=== PATIENT | male | born 1975 | race Caucasian/White ===

== ENCOUNTER 2023-05-08 19:24 | Emergency (ER) | payer OTHER, SELFPAY ==
[2023-05-08 19:32] VITALS: BP 200/110; PULSE 112; RESP 18; TEMP 37.1; O2SAT 99; BMI 16.5
--- NOTE | 2023-05-08 19:42 | ECG_ITS ---
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
--- NOTE | 2023-05-08 19:42 | XR_ITS ---
[address] [address] Patient Name: KATHLEEN COOL MRN: [id number] date: 1975 Sex: M Assigned Patient Location: ER Current Patient Location: ED.MAIN Accession/Order Number: [id number] Exam Date: 05/08/2023 19:52 Report Date: 05/08/2023 20:16 At the request of: SATISH COMER Procedure: XR chest 1V EXAM: XR chest 1V at 1955 hours HISTORY: htn , weakness and fatigue. COMPARISON: 12/09/2022 TECHNIQUE: AP upright portable chest x-ray FINDINGS: The heart is not enlarged and the vasculature is not distended. No acute infiltrate, effusion or pneumothorax is identified. The osseous structures are grossly intact. IMPRESSION: No acute infiltrate or evidence of cardiac decompensation. The overall appearance of the chest is unchanged. Electronically authenticated by: FELIPA ORTEGA Date: 05/08/2023 20:16
--- NOTE | 2023-05-08 19:43 | ED_ITS ---
HPI - General Adult General Chief complaint: Weakness Stated complaint: LOW BP Time Seen by Provider: 05/08/23 19:42 Source: patient Mode of arrival: walk-in Limitations: no limitations History of Present Illness HPI narrative: Patient presents here with a chief complaint of low blood pressure. Said a low blood pressure reading at home. Upon arrival here to the emergency room is elevated. Patient's blood pressures generally elevated. He denies any chest pain or shortness of breath. States she's felt weak and fatigued recently. Related Data Home Medications Medication Instructions Recorded Confirmed levetiracetam 500 mg tablet 500 mg PO Q12H 05/08/23 05/08/23 metoprolol tartrate 50 mg tablet 50 mg PO Q12H 05/08/23 05/08/23 Allergies Allergy/AdvReac Type Severity Reaction Status Date / Time Penicillins Allergy Intermediate Verified 05/08/23 19:37 Review of Systems ROS Narrative All Systems are negative except as noted/marked.All systems reviewed and otherwise negative Exam Narrative Exam Narrative: Nurses note and vital signs reviewed and patient is not hypoxic. General: The patient appears well and in no apparent distress. Patient is resting comfortably on cart. Skin: Warm, dry, no pallor noted. There is no rash noted. Head: Normocephalic, atraumatic Eye: Normal conjunctiva, no drainage, EOMI. PERRL Ears, Nose, Mouth, and Throat: oral mucosa is moist. Nares patent. Mouth without vesicles. Ear canals patent. Tm's without Erythema Cardiovascular: Regular Rate and Rhythm Respiratory: Patient is in no distress, no accessory muscle use, lungs are clear to auscultation, no wheezing, rales or rhonchi Back: non-tender, no CVA tenderness bilaterally to percussion. GI: Normal bowel sounds, no tenderness to palpation, no masses appreciated. No rebound, guarding, or rigidity noted. Musculoskeletal: The patient has no evidence of calf tenderness, no pitting ed romain, symmetrical pulses noted bilaterally Neurological: A&O x4, normal speech Psychiatric: Cooperative Constitutional Vital Signs - 24 hr 05/08/23 19:32 05/08/23 19:56 05/08/23 21:03 Temperature 98.7 F Pulse Rate [Monitor] 112 H 97 H Respiratory Rate 18 16 Blood Pressure [Left Arm] 200/110 H 190/117 H Pulse Oximetry 99 97 98 Oxygen Delivery Method Room Air Room Air Room Air Course Vital Signs Vital signs: Vital Signs Temperature 98.7 F 05/08/23 19:32 Pulse Rate 112 H 05/08/23 19:32 Respiratory Rate 18 05/08/23 19:32 Blood Pressure 200/110 H 05/08/23 19:32 Pulse Oximetry 99 05/08/23 19:32 Oxygen Delivery Method Room Air 05/08/23 19:32 Temperature 98.7 F 05/08/23 19:32 Pulse Rate 97 H 05/08/23 21:03 Respiratory Rate 16 05/08/23 21:03 Blood Pressure 190/117 H 05/08/23 21:03 Pulse Oximetry 98 05/08/23 21:03 Oxygen Delivery Method Room Air 05/08/23 21:03 Medical Decision Making MDM Narrative Medical decision making narrative: She presented here for evaluation of blood pressure check. Wrist cuff at home and given him a low blood pressure reading. Upon arrival here was elevated. Patient's blood pressure was 200/110. He states he has normal high blood pressure. Blood work is currently pending. He does have a also a one thirty-one. I did attempt to give him IV Lopressor as well as fluids. Patient wishes to sign out against medical advice. I did explain and leaving at this kind of elevated blood pressures could cause stroke or even . He wishes to sign out. She encouraged follow-up primary care physician. Medical Records Medical records reviewed: Yes I reviewed the patient's medical records Lab Data Lab results reviewed: Yes I reviewed the patient's lab results Labs: Lab Results 05/08/23 Range/Units 19:45 WBC 6.5 (4.0-11.0) 10^3/uL RBC 4.04 L (4.70-6.10) 10^6/uL Hgb 13.5 L (14.0-18.0) g/dL Hct 39.1 L (42.0-54.0) % MCV 96.8 H (80.0-94.0) fL MCH 33.4 (25.9-34.0) pg MCHC 34.5 (29.9-35.2) g/dL RDW 13.4 (11.0-15.0) % Plt Count 214 (150-450) 10^3/uL MPV 9.5 (9.5-13.5) fL Neut % (Auto) 60.5 (43.0-75.0) % Lymph % (Auto) 23.6 (20.5-60.0) % [place] % (Auto) 12.3 H (1.7-12.0) % Eos % (Auto) 2.8 (0.9-7.0) % Baso % (Auto) 0.6 (0.2-2.0) % Neut # (Auto) 4.0 (1.4-6.5) 10^3/uL Lymph # (Auto) 1.5 (1.2-3.8) 10^3/uL [place] # (Auto) 0.8 (0.3-0.8) 10^3/uL Eos # (Auto) 0.2 (0.0-0.7) 10^3/uL Baso # (Auto) 0.0 (0.0-0.1) 10^3/uL Abs Immat Gran (auto) 0.01 (0.00-0.03) 10^3/uL Imm/Tot Granulo (auto) 0.2 (0.0-0.5) % Sodium 131 L (136-145) mmol/L Potassium 3.5 (3.5-5.1) mmol/L Chloride 95 L (98-107) mmol/L Carbon Dioxide 28.7 (21.0-32.0) mmol/L Anion Gap 10.8 BUN 4.0 L (7.0-18.0) mg/dL Creatinine 0.79 (0.70-1.30) mg/dL Est GFR ( Amer) >60 (>=60) Est GFR (Non-Af Amer) >60 (>=60) BUN/Creatinine Ratio 5.1 Glucose 85 (74-106) mg/dL Calcium 8.8 (8.5-10.1) mg/dL Total Bilirubin 0.3 (0.2-1.0) mg/dL AST 47 H (15-37) U/L ALT <16 L (16-63) U/L Alkaline Phosphatase 132 H (46-116) U/L Troponin I High Sens 6.8 (4.0-76.1) pg/mL Total Protein 7.4 (6.4-8.2) g/dL Albumin <3.4 L (3.4-5.0) g/dL Globulin 4.0 g/dL Albumin/Globulin Ratio 0.8 TSH 1.943 (0.358-3.740) uIU/mL ECG Data Interpretation: 194 heart rate normal, sinus tachycardia with a rate of o103 beats or minute, PA interval 170 ms adventist 82 ms, no stemi Discharge Plan Discharge Chief Complaint: Weakness Clinical Impression: Hypertension Patient Disposition: Left Against Medical Advice Time of Disposition Decision: 20:49 Condition: Fair Mode of Transportation: Private Vehicle Prescriptions / Home Meds: No Action metoprolol tartrate 50 mg tablet 50 mg PO Q12H levetiracetam 500 mg tablet 500 mg PO Q12H Instructions: Hypertension (ED) Stand Alone Forms: Portal Instructions Referrals: KEKE DOLL [Primary Care Provider] - 1 week Discharge Date/Time: 05/08/23 21:09
[2023-05-08 19:55] VITALS: PULSE 107
[2023-05-08 19:56] VITALS: O2SAT 97
[2023-05-08 19:57] LABS: Basophils Percent Auto 0.6 % (0.2-2.0); Eosinophils Absolute Auto 0.2 10^3/uL (0.0-0.7); Eosinophils Percent Auto 2.8 % (0.9-7.0); Hematocrit 39.1 % (42.0-54.0); Hemoglobin 13.5 g/dL (14.0-18.0); Immature Granulocytes Abs Auto 0.01 10^3/uL (0.00-0.03); Immature Granulocytes Pct Auto 0.2 % (0.0-0.5); Lymphocytes Absolute Auto 1.5 10^3/uL (1.2-3.8); Lymphocytes Percent Auto 23.6 % (20.5-60.0); Mean Corpuscular HGB Conc 34.5 g/dL (29.9-35.2); Mean Corpuscular Hemoglobin 33.4 pg (25.9-34.0); Mean Corpuscular Volume 96.8 fL (80.0-94.0); Mean Platelet Volume 9.5 fL (9.5-13.5); Monocytes Absolute Auto 0.8 10^3/uL (0.3-0.8); Monocytes Percent Auto 12.3 % (1.7-12.0); Neutrophils Percent Auto 60.5 % (43.0-75.0); Platelet Count 214 10^3/uL (150-450); Red Blood Count 4.04 10^6/uL (4.70-6.10); Red Cell Distribution Width 13.4 % (11.0-15.0); White Blood Count 6.5 10^3/uL (4.0-11.0)
--- NOTE | 2023-05-08 20:01 | PC.NURSE ---
Patient ambulated to room without difficulty. Is A&O. Many dental carries noted.
[2023-05-08 20:23] LABS: Alkaline Phosphatase 132 U/L (46-116); Anion Gap 10.8; Aspartate Amino Transferase 47 U/L (15-37); BUN Creatinine Ratio 5.1; Bilirubin Total 0.3 mg/dL (0.2-1.0); Calcium 8.8 mg/dL (8.5-10.1); Carbon Dioxide 28.7 mmol/L (21.0-32.0); Chloride 95 mmol/L (98-107); Estimated GFR (African America >60 (>=60); Estimated GFR (Non-African Ame >60 (>=60); Glucose 85 mg/dL (74-106); Potassium 3.5 mmol/L (3.5-5.1); Sodium 131 mmol/L (136-145); Thyroid Stimulating Hormone 1.943 uIU/mL (0.358-3.740); Total Protein 7.4 g/dL (6.4-8.2); Troponin I High Sensitivity 6.8 pg/mL (4.0-76.1)
[2023-05-08 20:28] LABS: Alanine Aminotransferase <16 U/L (16-63)
[2023-05-08 20:29] LABS: Albumin Globulin Ratio 0.8; Albumin Level <3.4 g/dL (3.4-5.0)
[2023-05-08] MEDS: METOPROLOL TARTRATE 5 MG/5 ML VIAL IVP (20:54)
[2023-05-08 21:03] VITALS: BP 190/117; PULSE 97; RESP 16; O2SAT 98
--- NOTE | 2023-05-08 21:05 | PC.NURSE ---
Patient refuses to stay. Wants to sign out AMA. Provider aware. Medicated for B/P prior to discharge.Stressed to follow up with his
== END 2023-05-08 21:09 | disposition left against medical advice (07) ==
PROVIDERS: Physician Assistant; Emergency Provider Internal Medicine; PCP Student in an Organized Health Care Education/Training Program
DX: I10 Essential (primary) hypertension (principal); Z79.899 Other long term (current) drug therapy
CPT/HCPCS: 36415; 71045; 80053; 84443; 84484; 85025; 85610; 85730; 93005; 96374; 99285

== ENCOUNTER 2023-06-14 21:08 | Emergency (ER) | payer OTHER, SELFPAY ==
[2023-06-14 21:26] VITALS: BP 180/110; PULSE 88; RESP 14; TEMP 36.6; O2SAT 98; BMI 16.6
--- NOTE | 2023-06-14 21:33 | ED.EYEPROB1 ---
Documented by User: Haleyjustin Cantuon 06/14/23 22:23 HPI - Eye Problem General Chief complaint: Eye Problems Stated complaint: FOREIGN BODY IN EYE Time Seen by Provider: 06/14/23 21:33 History of Present Illness HPI Narrative: 48 year old male presents to the ED for left eye irritation. He states he got a piece of metal in his eye earlier today. He has flushed the eye with little relief. He has chronic vision changes to his left eye; his significant other states he can only see some black and white. His last tetanus shot was 4 years ago. Related Data Home Medications Medication Instructions Recorded Confirmed levetiracetam 500 mg tablet 500 mg PO Q12H 05/08/23 05/08/23 metoprolol tartrate 50 mg tablet 50 mg PO Q12H 05/08/23 05/08/23 Allergies Allergy/AdvReac Type Severity Reaction Status Date / Time Penicillins Allergy Intermediate Verified 06/14/23 21:31 Review of Systems ROS Constitutional Denies: fever or chills Eyes Reports: light sensitivity and eye discomfort; Denies: eye discharge Ears, nose, mouth, and throat Denies: throat pain or neck pain Cardiovascular Denies: chest pain Respiratory Denies: shortness of breath or cough Neurological Denies: headache or dizziness PFSH PFSH Social History Smoking status: Current every day smoker Exam Constitutional Vital Signs, click to edit/add: Last Vital Signs Temp 97.8 F 06/14/23 21:26 Pulse 88 06/14/23 21:26 Resp 14 06/14/23 21:26 BP 180/110 H 06/14/23 21:26 Pulse Ox 98 06/14/23 21:26 O2 Del Method Room Air 06/14/23 21:26 Common normals: no apparent distress and oriented x3 General appearance: cooperative; not comfortable and not in distress Orientation/consciousness: Yes awake HENMT Common normals: normocephalic Face and sinus: face symmetric Nose: external nose normal Eye Common normals: EOMs intact bilaterally and no scleral icterus General eye: other (Metallic-appearing FB noted to left eye at 3 o'clock. No rust ring noted.) Eyelid: eyelids normal Conjunctiva: conjunctiva abnormal left conjunctival injection; without subconjunctival hemmorhages Cornea: fluorescein used Course Vital Signs Vital signs: Vital Signs Temperature 97.8 F 06/14/23 21:26 Pulse Rate 88 06/14/23 21:26 Respiratory Rate 14 06/14/23 21:26 Blood Pressure 180/110 H 06/14/23 21:26 Pulse Oximetry 98 06/14/23 21:26 Oxygen Delivery Method Room Air 06/14/23 21:26 Temperature 97.8 F 06/14/23 21:26 Pulse Rate 88 06/14/23 21:26 Respiratory Rate 14 06/14/23 21:26 Blood Pressure 180/110 H 06/14/23 21:26 Pulse Oximetry 98 06/14/23 21:26 Oxygen Delivery Method Room Air 06/14/23 21:26 MDM - Eye Problem MDM Narrative Medical decision making narrative: FB was noted in left eye at 3 o'clock. The left eye was anesthetized with tetracaine, stained with a fluorescein strip, and examined with the wood's lamp. Care was resumed to Dr. Tariq. See her dictation for further evaluation and treatment. Differential Diagnosis Differential diagnosis: Likely corneal abrasion, conjunctivitis and other (FB eye, FB sensation eye) Discharge Plan Discharge Chief Complaint: Eye Problems Clinical Impression: Foreign body in eye Patient Disposition: Home, Self-Care Time of Disposition Decision: 22:37 Condition: Good Mode of Transportation: Private Vehicle Prescriptions / Home Meds: No Action metoprolol tartrate 50 mg tablet 50 mg PO Q12H levetiracetam 500 mg tablet 500 mg PO Q12H Instructions: Eye Foreign Body (ED) Additional Instructions: Use the erythromycin ointment 4 times a day for the next 5-7 days. Follow up with outpatient ophthalmology. Use the pain medication as needed. Wear safety glasses in the future when grinding metal. Return to the emergency department as needed. Stand Alone Forms: Portal Instructions Referrals: Physician,Non-Staff, [Primary Care Provider] - 1 week Documented by User: Patrciia Tariq MD 06/14/23 22:38 HPI - Eye Problem General Chief complaint: Eye Problems Stated complaint: FOREIGN BODY IN EYE Time Seen by Provider: 06/14/23 21:33 Related Data Home Medications Medication Instructions Recorded Confirmed levetiracetam 500 mg tablet 500 mg PO Q12H 05/08/23 05/08/23 metoprolol tartrate 50 mg tablet 50 mg PO Q12H 05/08/23 05/08/23 Allergies Allergy/AdvReac Type Severity Reaction Status Date / Time Penicillins Allergy Intermediate Verified 06/14/23 21:31 PFSH PFSH Social History Smoking status: Current every day smoker Exam Constitutional Vital Signs, click to edit/add: Last Vital Signs Temp 97.8 F 06/14/23 21:26 Pulse 88 06/14/23 21:26 Resp 14 06/14/23 21:26 BP 180/110 H 06/14/23 21:26 Pulse Ox 98 06/14/23 21:26 O2 Del Method Room Air 06/14/23 21:26 Course Vital Signs Vital signs: Vital Signs Temperature 97.8 F 06/14/23 21:26 Pulse Rate 88 06/14/23 21:26 Respiratory Rate 14 06/14/23 21:26 Blood Pressure 180/110 H 06/14/23 21:26 Pulse Oximetry 98 06/14/23 21:26 Oxygen Delivery Method Room Air 06/14/23 21:26 Temperature 97.8 F 06/14/23 21:26 Pulse Rate 88 06/14/23 21:26 Respiratory Rate 14 06/14/23 21:26 Blood Pressure 180/110 H 06/14/23 21:26 Pulse Oximetry 98 06/14/23 21:26 Oxygen Delivery Method Room Air 06/14/23 21:26 MDM - Eye Problem MDM Narrative Medical decision making narrative: FB was noted in left eye at 3 o'clock. The left eye was anesthetized with tetracaine, stained with a fluorescein strip, and examined with the wood's lamp. Care was resumed to Dr. Tariq. See her dictation for further evaluation and treatment. Patient was seen and evaluated in conjunction with the physician electrician's assistant. Please refer to her full H and P. He presents with a piece of metal in the left eye at the 3 o'clock position after grinding metal earlier today. He was wearing his usual glasses but no safety glasses. His vision is grossly intact. I instilled additional tetracaine into the left eye and attempted to remove it with a cotton-tipped applicator without complete removal and the foreign body in the left eye was removed with the ophthalmic caesar. There was no remaining rust ring. Patient was then given erythromycin ointment into the left eye and will be discharged home with erythromycin ointment. He was encouraged to keep eyeglasses on and stay in the dark for the next 24 hours as his eye heals. He was given a Percocet for pain prior to discharge and 2 Percocet to take home. Discharge Plan Discharge Chief Complaint: Eye Problems Clinical Impression: Foreign body in eye Patient Disposition: Home, Self-Care Time of Disposition Decision: 22:37 Condition: Good Mode of Transportation: Private Vehicle Prescriptions / Home Meds: No Action metoprolol tartrate 50 mg tablet 50 mg PO Q12H levetiracetam 500 mg tablet 500 mg PO Q12H Instructions: Eye Foreign Body (ED) Additional Instructions: Use the erythromycin ointment 4 times a day for the next 5-7 days. Follow up with outpatient ophthalmology. Use the pain medication as needed. Wear safety glasses in the future when grinding metal. Return to the emergency department as needed. Stand Alone Forms: Portal Instructions Referrals: Physician,Non-Staff, MD [Primary Care Provider] - 1 week
--- NOTE | 2023-06-14 21:35 | PC.NURSE ---
patient states earlier this morning he was grinding metal when he felt a piece go into his left eye. states he has tried to flush his eye and put eye drops in it and was hoping it would work its way out but eye remains irritated at this time. left eyelid and eye appear red, patient squinting at this time for comfort, states he feels like he can still feel the metal to the upper portion of his eye under the eyelid. this RN was unable to visualize any foreign object in eye by visual exam.
[2023-06-14] MEDS: FLUORESCEIN SODIUM 1 MG STRIP OP (21:50)
[2023-06-14] MEDS: ERYTHROMYCIN OP OINT 0.5% 1 GM TUBE EYE-LEFT (23:00)
[2023-06-14] MEDS: ONDANSETRON 4 MG RAPDIS TABLET SL (23:00)
== END 2023-06-14 23:11 | disposition home or self-care (01) ==
PROVIDERS: Emergency Provider Emergency Medicine
DX: T15.92XA Foreign body on external eye, part unspecified, left eye, initial encounter (principal); Z79.899 Other long term (current) drug therapy; F17.210 Nicotine dependence, cigarettes, uncomplicated
CPT/HCPCS: 99283

== ENCOUNTER 2023-12-06 10:00 | Outpatient (OUT) | payer OTHER, SELFPAY ==
[2023-12-06 10:25] LABS: Estimated Average Glucose 128 mg/dL; Glycohemoglobin A1C 6.1 % (4.5-6.2)
[2023-12-06 10:45] LABS: Basophils Absolute Auto 0.1 10^3/uL (0.0-0.1); Basophils Percent Auto 1.2 % (0.2-2.0); Eosinophils Absolute Auto 0.7 10^3/uL (0.0-0.7); Eosinophils Percent Auto 9.8 % (0.9-7.0); Hematocrit 39.2 % (42.0-54.0); Hemoglobin 13.3 g/dL (14.0-18.0); Immature Granulocytes Abs Auto 0.01 10^3/uL (0.00-0.03); Immature Granulocytes Pct Auto 0.1 % (0.0-0.5); Lymphocytes Absolute Auto 1.4 10^3/uL (1.2-3.8); Lymphocytes Percent Auto 19.9 % (20.5-60.0); Mean Corpuscular HGB Conc 33.9 g/dL (29.9-35.2); Mean Corpuscular Hemoglobin 31.1 pg (25.9-34.0); Mean Corpuscular Volume 91.8 fL (80.0-94.0); Mean Platelet Volume 9.7 fL (9.5-13.5); Neutrophils Absolute Auto 3.8 10^3/uL (1.4-6.5); Platelet Count 317 10^3/uL (150-450); Red Blood Count 4.27 10^6/uL (4.70-6.10); Red Cell Distribution Width 13.1 % (11.0-15.0); White Blood Count 6.8 10^3/uL (4.0-11.0)
[2023-12-06 11:10] LABS: Alanine Aminotransferase 33 U/L (16-63); Albumin Globulin Ratio 0.9; Albumin Level 3.7 g/dL (3.4-5.0); Alkaline Phosphatase 131 U/L (46-116); Anion Gap 10.1; Aspartate Amino Transferase 29 U/L (15-37); BUN Creatinine Ratio 17.2; Bilirubin Total 0.4 mg/dL (0.2-1.0); Calcium 9.2 mg/dL (8.5-10.1); Carbon Dioxide 28.6 mmol/L (21.0-32.0); Chloride 97 mmol/L (98-107); Chol HDL Ratio 1.7; Cholesterol 176 mg/dL (<=200); Estimated GFR (African America >60 (>=60); Estimated GFR (Non-African Ame >60 (>=60); Free T3 5.92 pg/mL (2.18-3.98); Globulin 3.9 g/dL; Glucose 115 mg/dL (74-106); HDL Cholesterol 103 mg/dL (40-60); Potassium 3.7 mmol/L (3.5-5.1); Sodium 132 mmol/L (136-145); Thyroid Stimulating Hormone 2.563 uIU/mL (0.358-3.740); Total Protein 7.6 g/dL (6.4-8.2); Triglycerides 72 mg/dL (<=150); Uric Acid 4.6 mg/dL (3.5-7.2); VLDL CHOLESTEROL 14.4 mg/dL
== END 2023-12-06 10:01 | disposition home or self-care (01) ==
LOC: LAB 10:00
PROVIDERS: Visit Provider Nurse Practitioner Family
DX: I10 Essential (primary) hypertension (principal)
CPT/HCPCS: 36415; 80053; 80061; 83036; 83525; 84436; 84443; 84481; 84550; 85025

== ENCOUNTER 2023-12-14 13:09 | Outpatient (OUT) | payer OTHER, SELFPAY ==
--- OUTSIDE RECORDS SUMMARY | 2023-12-14 13:17 | XMS_ITS | CCD ---
Author Name Unknown Address [address] [facility] [address] [place] [address] Organization [facility] Care Team Providers Care Manager [employer] Name Role Phone Devang Barrett Attending Unavailable DO Matthew Ford Emergency Provider [phone] MD Nat Mera Primary Care Provider Unavaila DO Matt Santamaria Admit Provider [phone] DO Matt Estrella [facility]ending [facility] Care Unavailable DR RA BAKER Admitting Unavailable BARRETT, DR RA Onofre Attending Unavailable BARRETT, DR RA Onofre Consulting Unavailable MALICK LYNCH Consulting Unavailable [facility] Primary Care Unavailable MELANIE BARRETTYL Admitting Unavailable DEVANG BARRETT Attending Unavailable RIA, DEVANG Consulting Unavailable CIERRA PADRON Consulting Unavailable THERESA RIVERA Consulting Unavailable VIJAYA KITCHEN Consulting Unavailable [facility] Primary Care Unavailable RIA, DEVANG Admitting Unavailable MELANIE BARRETTYL Attending Unavailable RIA, DEVANG Consulting Unavailable PADRONCIERRA Consulting Unavailable [facility] Primary Care Unavailable MELANIE BARRETTYL Admitting Unavailable DEVANG BARRETT Attending Unavailable MELANIE BARRETTYL Consulting Unavailable LUIS NVEES Consulting Unavailable ANISH ARIAS Consulting Unavailable [facility] Primary Care Unavailable SANTOS REDMOND Admitting Unavailable SANTOS REDMOND Attending Unavailable LADARIUS HERNANDEZ Consulting Unavailable MADDY SCHOFIELD Consulting Unavailable SANTOS REDMOND Consulting Unavailable SHAMA AVALOS Consulting Unavailable THELMA DAMICO Consulting Unavailable WON AGOSTO Consulting Unavailable Susan Myers Admitting Unavailable Susan Myers Attending [facility] Primary Care Unavailable Matt Estrella Admitting Unavailable Theresa Ohara Attending Unavailable Allergies Allergy Classification Reported Allergen(s) Allergy Type Date of Onset Reaction(s) Facility (1 source) Naproxen; Translations: [naproxen] Drug Allergy [facility] Repository (1 source) Penicillin; Translations: [Penicillin] Drug Allergy [facility] Repository (3 sources) Penicillins; Translations: [Penicillins] Allergy to substance 10-08-2019 [facility] Medications Current Medications Medication Drug Class(es) Dates Sig (Normalized) Sig (Original) levETIRAcetam 500 mg oral tablet (1 source) Start: 12-21-2018 take 1 tablet by mouth twice daily Levetiracetam (Keppra) 500 mg tablet Active 500 MG PO Twice daily 60 December 21, 2018 12:00am metoprolol tartrate 100 mg oral tablet (1 source) beta-Adrenergic Bernabe Start: 12-21-2018 Metoprolol Tartrate (Lopressor) 100 mg Tablet Active 50 MG PO Daily December 21, 2018 12:00am mirtazapine 15 mg oral tablet (1 source) Start: 10-08-2022 take 15 mg by mouth at bedtime Mirtazapine Active 15 MG PO Bedtime October 08, 2022 12:00am omeprazole 20 mg delayed release oral tablet (1 source) Proton Pump Inhibitor Start: 10-08-2019 take 1 tablet by mouth twice daily Omeprazole Magnesium (Prilosec Otc) 20 mg tablet,delayed release (DR/EC) Active 20 MG PO Twice daily 60 14 October 08, 2019 12:00am QUEtiapine 25 mg oral tablet (1 source) Atypical Antipsychotic Start: 10-08-2019 take 1 tablet by mouth once daily Quetiapine (Seroquel) 25 mg Tablet Active 25 MG PO Daily October 08, 2019 12:00am sertraline 50 mg oral tablet (1 source) Serotonin Reuptake Inhibitor Start: 10-08-2022 take 50 mg by mouth once daily Sertraline Active 50 MG PO Daily October 08, 2022 12:00am Problems Active Problems Problem Classification Problem Date Documented Date Episodic/Chronic Alcohol-related disorders (5 sources) Alcoholism; Translations: [Alcohol dependence, uncomplicated] Onset: 08-12-2022 10-08-2019 Chronic Anxiety disorders (1 source) Anxiety disorder, unspecified; Translations: [ANXIETY DISORDER UNSPECIFIED] Onset: 11-30-2022 Chronic E Codes: Struck by; against (1 source) Striking against other object with subsequent fall, initial encounter; Translations: [STRPHANI AGNST OTH OBJ SBSQT FALL INIT] Onset: 01-02-2023 Episodic E Codes: Unspecified (2 sources) Blood alcohol level of 120-199 mg/100 ml; Translations: [Blood alcohol level of 240 mg/100 ml or more] Onset: 08-12-2022 Episodic Epilepsy; convulsions (5 sources) Seizure disorder; Translations: [Epilepsy, unspecified, not intractable, without status epilepticus] Onset: 10-08-2022 10-08-2022 Chronic Gastritis and duodenitis (1 source) Gastritis; Translations: [Gastritis, unspecified, without bleeding] 10-08-2019 Episodic Intestinal infection (1 source) Viral intestinal infection, unspecified; Translations: [VIRAL INTESTINAL INFECTION UNSPEC] Onset: 02-09-2023 Episodic Nausea and vomiting (3 sources) Vomiting, unspecified; Translations: [VOMITING UNSPECIFIED] Onset: 02-07-2023 Episodic Other aftercare (1 source) Other assisted (current) drug therapy; Translations: [OTH DETENTION CURRENT DRUG THERAPY] Onset: 02-09-2023 Episodic Other circulatory disease (1 source) Personal history of transient ischemic attack (TIA), and cerebral infarction without residual deficits; Translations: [PERS HX TIA AND CI NO RESID DEFICIT] Onset: 02-09-2023 Episodic Other circulatory disease (1 source) Hypotension, unspecified; Translations: [Hypotension, unspecified] Onset: 05-08-2023 Episodic Other connective tissue disease (3 sources) Pain in left foot; Translations: [PAIN IN LEFT FOOT] Onset: 12-29-2022 Episodic Other injuries and conditions due to external causes (1 source) Other specified injuries of left lower leg, initial encounter; Translations: [OTH SPEC INJURIES LT LOW LEG INIT] Onset: 01-02-2023 Episodic Other injuries and conditions due to external causes (1 source) Other specified injuries of left ankle, initial encounter; Translations: [OTH SPEC INJURIES LT ANKLE INITIAL] Onset: 01-02-2023 Episodic Other injuries and conditions due to external causes (1 source) Other specified injuries of right ankle, initial encounter; Translations: [OTH SPEC INJURIES RT ANKLE INITIAL] Onset: 01-02-2023 Episodic Other injuries and conditions due to external causes (1 source) History of falling; Translations: [HISTORY OF FALLING] Onset: 12-13-2022 Episodic Residual codes; unclassified (1 source) Left against medical advice; Translations: [Procedure and treatment not carried out because of patient's decision for other reasons] 12-14-2019 Episodic Residual codes; unclassified (4 sources) Altered mental status, unspecified; Translations: [ALTERED MENTAL STATUS UNSPECIFIED] Onset: 12-09-2022 Episodic Residual codes; unclassified (3 sources) Disorientation, unspecified; Translations: [DISORIENTATION UNSPECIFIED] Onset: 11-26-2022 Episodic Spondylosis; intervertebral disc disorders; other back problems (1 source) Cervicalgia; Translations: [CERVICALGIA] Onset: 01-02-2023 Episodic Substance-related disorders (4 sources) Polysubstance abuse ; Translations: [Other psychoactive substance abuse, uncomplicated] Onset: 11-30-2022 10-08-2022 Chronic Superficial injury; contusion (1 source) Contusion of lower back and pelvis, initial encounter; Translations: [CONTUSION LOWER BACK PELVIS INITIAL] Onset: 01-02-2023 Episodic Past or Other Problems Problem Classification Problem Date Documented Da te Episodic/Chronic Alcohol-related disorders (3 sources) Alcohol intoxication; Translations: [Alcohol use, unspecified with intoxication, unspecified] Onset: 10-08-2022 10-08-2022 Episodic Epilepsy; convulsions (4 sources) Unspecified convulsions; Translations: [UNSPECIFIED CONVULSIONS] Onset: 08-10-2022 Episodic Results Test Name Value Interpretation Reference Range Facility Partial Thromboplastin Timeo n 05-08-2023 aPTT Coag (Bld) [Time] 30.2 s Normal 25.1-36.5 [facility] Comment on above: Result Comment: PERF ORMED BY: [place] [address] PATHOLOGIST FILENET P8 DEVELOPER LATOYA CAMPBELL M.D. Performed By: #### C BC, PT, CMP #### [address] Prothrombin Time INRon 05-08 INR Coag (PPP) [Relative time] 0.9 {INR} Normal [facility] Comment on above: Result Comment: INR Therapeutic Range A) Pre- and Peroperative OAT started two weeks before surgery. NOT HIP SURGERY: 1.5 - 2.5 HIP SURGERY: 2 - 3 B) Primary and secondary prevention of venous THROMBOSIS: 2 - 3 C) Active venous thrombosis, pulmonary embolism and prevention of recurrent venous thrombosis: 2 - 3 D) Prevention of arterial thromboembolism including patients with mechanical heart valves: 3 - 4.5 Performed By: #### C BC, PT, CMP #### [facility] [address] PT Coag (PPP) [Time] 10.5 s Normal 9.0-12.9 [facility] Comment on above: Performed By: #### C BC, PT, CMP #### [facility] [address] AMYLASEon 02-08-2023 Amylase [Catalytic activity/Vol] 41 U/L Normal 25-115 [facility] Comment on above: Performed By: #### P OCGLUC #### [facility] [address] [address] [address] Katerina Rodarte CARDIAC RA 3-6on 3 CK [Catalytic activity/Vol] 115 U/L Normal 39-308 [facility] Comment on above: Performed By: #### C MREP #### [facility] [address] [address] [address] Katerina Rodarte CK.MB [Mass/Vol] 2.04 ng/mL Normal <=3.60 [facility] Comment on above: Performed By: #### C MREP #### [facility] [address] [address] [address] Katerina Rodarte HSTROP 9.5 pg/mL Normal 4.0-76.1 [facility] Comment on above: Result Comment: CUT- OFF POINTS HAVE BEEN ESTABLISHED BASED ON THE FOURTH UNIVERSAL DEFINITIONS OF MYOCARDIAL INFARCTION. THE UPPER REFERENCE LIMIT (URL) OF TROPONIN, DEFINED THE 99TH PERCENTILE OF cTnI DISTRIBUTION IN A REFERENCE POPULATION, HAS BEEN CONFIRMED THE DECISION THRESHOLD FOR CO DIAGNOSIS. Performed By: #### C MREP #### [facility] [address] [place] [address] Dr. Katerina Rodarte CARDIAC RA ADMITon 023 CK [Catalytic activity/Vol] 101 U/L Normal 39-308 [facility] Comment on above: Performed By: #### P OCGLUC #### [facility] [address] [place] [address] Dr. Katerina Rodarte CK.MB [Mass/Vol] 2.13 ng/mL Normal <=3.60 [facility] Comment on above: Performed By: #### P OCGLUC #### [facility] [address] [place] [address] Dr. Katerina Rodarte HSTROP 8.5 pg/mL Normal 4.0-76.1 [facility] Comment on above: Result Comment: CUT- OFF POINTS HAVE BEEN ESTABLISHED BASED ON THE FOURTH UNIVERSAL DEFINITIONS OF MYOCARDIAL INFARCTION. THE UPPER REFERENCE LIMIT (URL) OF TROPONIN, DEFINED THE 99TH PERCENTILE OF cTnI DISTRIBUTION IN A REFERENCE POPULATION, HAS BEEN CONFIRMED THE DECISION THRESHOLD FOR CO DIAGNOSIS. Performed By: #### P OCGLUC #### [facility] [address] [place] [address] Dr. Katerina Rodarte SHIRA 44 ng/mL Normal 16-96 [facility] Comment on above: Performed By: #### P OCGLUC #### [facility] [address] [place] [address] Dr. Katerina Rodarte CBC AUTO DIFFon 02-08-2023 BASO # 0.0 103/ul Normal 0.0-0.1 [facility] Comment on above: Performed By: #### P OCGLUC #### [facility] [address] [place] [address] Dr. Katerina Rodarte Basophils/100 WBC (Bld) 0.1 % Critically low 0.2-2.0 [facility] Comment on above: Performed By: #### P OCGLUC #### [facility] [address] [place] [address] Dr. Katerina Rodarte EO # 0.0 103/ul Normal 0.0-0.7 [facility] Comment on above: Performed By: #### P OCGLUC #### [facility] [address] [address] [address] Katerina Rodarte Eosinophils/100 WBC (Bld) 0.1 % Critically low 0.9-7.0 [facility] Comment on above: Performed By: #### P OCGLUC #### [facility] [address] [place] [address] Dr. Katerina Rodarte Erythrocyte distribution width (RBC) [Ratio] 12.7 % Normal 11.0-15.0 [facility] Comment on above: Performed By: #### P OCGLUC #### [facility] [address] [place] [address] Dr. Katerina Rodarte Hematocrit (Bld) [Volume fraction] 41.4 % Critically low 42.0-54.0 [facility] Comment on above: Performed By: #### P OCGLUC #### [facility] [address] [place] [address] Dr. Katerina Rodarte Hemoglobin (Bld) [Mass/Vol] 15.1 g/dL Normal 14.0-18.0 [facility] Comment on above: Performed By: #### P OCGLUC #### [facility] [address] [place] [address] Dr. Katerina Rodarte IG # 0.04 10e3/ul Critically high 0.00-0.03 [facility] Comment on above: Performed By: #### P OCGLUC #### [facility] [address] [place] [address] Dr. Katerina Rodarte IG % 0.4 % Normal 0.0-0.5 [facility] Comment on above: Performed By: #### P OCGLUC #### [facility] [address] [place] [address] Dr. Katerina Rodarte LYMPH # 1.0 103/ul Critically low 1.2-3.8 [facility] Comment on above: Performed By: #### P OCGLUC #### [facility] [address] [place] [address] Dr. Katerina Rodarte Lymphocytes/100 WBC (Bld) 10.0 % Critically low 20.5-60.0 [facility] Comment on above: Performed By: #### P OCGLUC #### [facility] [address] [place] [address] Dr. Katerina Rodarte MANUAL DIFF REQ NO Normal [facility] Comment on above: Performed By: #### P OCGLUC #### [facility] [address] [place] [address] Dr. Katerina Rodarte MCH (RBC) [Entitic mass] 33.9 pg Normal 25.9-34.0 [facility] Comment on above: Performed By: #### P OCGLUC #### [facility] [address] [place] [address] Dr. Katerina Rodarte MCHC (RBC) [Mass/Vol] 36.5 g/dL Critically high 29.9-35.2 [facility] Comment on above: Performed By: #### P OCGLUC #### [facility] [address] [place] [address] Dr. Katerina Rodarte MCV (RBC) [Entitic vol] 92.8 fL Normal 80.0-94.0 [facility] Comment on above: Performed By: #### P OCGLUC #### [facility] [address] [place] [address] Dr. Katerina Rodarte MONO # 0.5 103/ul Normal 0.3-0.8 [facility] Comment on above: Performed By: #### P OCGLUC #### [facility] [address] [place] [address] Dr. Katerina Rodarte Monocytes/100 WBC (Bld) 5.6 % Normal 1.7-12.0 [facility] Comment on above: Performed By: #### P OCGLUC #### [facility] [address] [place] [address] Dr. Katerina Rodarte NEUT # 8.0 103/ul Critically high 1.4-6.5 [facility] Comment on above: Performed By: #### P OCGLUC #### [facility] [address] [place] [address] Dr. Katerina Rodarte Neutrophils/100 WBC (Bld) 83.8 % Critically high 43.0-75.0 [facility] Comment on above: Performed By: #### P OCGLUC #### [facility] [address] [address] [address] Katerina Rodarte Platelet mean volume (Bld) [Entitic vol] 9.7 fL Normal 9.5-13.5 [facility] Comment on above: Performed By: #### P OCGLUC #### [facility] [address] [address] [address] Katerina Rodarte PLT 269 103/ul Normal 150-450 [facility] Comment on above: Performed By: #### P OCGLUC #### [facility] [address] [address] [address] Katerina Rodarte RBC 4.46 106/ul Critically low 4.70-6.10 [facility] Comment on above: Performed By: #### P OCGLUC #### [facility] [address] [place] [address] Dr. Katerina Rodaret WBC 9.5 103/ul Normal 4.0-11.0 [facility] Comment on above: Performed By: #### P OCGLUC #### [facility] [address] [place] [address] Dr. Katerina Rodarte ETHANOL (BLD ALC)on 02-09-20 ALC NOTE NOTE: 80 mg/dl is th e legal limit for a blood alcohol level Normal [facility] Comment on above: Performed By: #### P OCGLUC #### [facility] [address] [place] [address] Dr. Katerina Rodarte Ethanol [Mass/Vol] 43 mg/dL Normal [facility] Comment on above: Performed By: #### P OCGLUC #### [facility] [address] [place] [address] Dr. Katerina Rodarte LACTATE/LACTIC ACIDon 2022 Lactate [Moles/Vol] 1.2 mmol/L Normal 0.4-2.0 [facility] Comment on above: Performed By: #### C MREP #### [facility] [address] [place] [address] Dr. Katerina Rodarte Lactate [Moles/Vol] 3.5 mmol/L Critically high 0.4-2.0 [facility] Comment on above: Performed By: #### B MP, CMADM, ETH #### [facility] [address] [place] [address] Dr. Katerina Rodarte LIPASEon 02-08-2023 Lipase [Catalytic activity/Vol] 55.0 U/L Critically low 73.0-393.0 [facility] Comment on above: Performed By: #### P OCGLUC #### [facility] [address] [place] [address] Dr. Katerina Rodarte PROF 14(COMP METB)on 023 Albumin [Mass/Vol] 4.3 g/dL Normal 3.4-5.0 [facility] Comment on above: Performed By: #### P OCGLUC #### [facility] [address] [place] [address] Dr. Katerina Rodarte Albumin/Globulin [Mass ratio] 1.2 {ratio} Normal [facility] Comment on above: Performed By: #### P OCGLUC #### [facility] [address] [place] [address] Dr. Katerina Rodarte ALP [Catalytic activity/Vol] 165 U/L Critically high 46-116 [facility] Comment on above: Performed By: #### P OCGLUC #### [facility] [address] [place] [address] Dr. Katerina Rodarte ALT [Catalytic activity/Vol] 49 U/L Normal 16-63 [facility] Comment on above: Performed By: #### P OCGLUC #### [facility] [address] [place] [address] Dr. Katerina Rodarte Anion gap [Moles/Vol] 12.7 mmol/L Normal Th e [facility] Comment on above: Performed By: #### P OCGLUC #### [facility] [address] [place] [address] Dr. Katerina Rodarte AST [Catalytic activity/Vol] 45 U/L Critically high 15-37 [facility] Comment on above: Performed By: #### P OCGLUC #### [facility] [address] [place] [address] Dr. Katerina Rodarte Bilirubin [Mass/Vol] 0.5 mg/dL Normal 0.2-1.0 [facility] Comment on above: Performed By: #### P OCGLUC #### [facility] [address] [address] [address] Katerina Rodarte Calcium [Mass/Vol] 8.9 mg/dL Normal 8.5-10.1 [facility] Comment on above: Performed By: #### P OCGLUC #### [facility] [address] [address] [address] Katerina Rodarte Chloride [Moles/Vol] 90 mmol/L Critically low 98-107 [facility] Comment on above: Performed By: #### P OCGLUC #### [facility] [address] [place] [address] Dr. Katerina Rodarte CO2 [Moles/Vol] 28.1 mmol/L Normal 21.0-32.0 [facility] Comment on above: Performed By: #### P OCGLUC #### [facility] [address] [address] [address] Katerina Rodarte Creatinine [Mass/Vol] 0.99 mg/dL Normal 0.70-1.30 [facility] Comment on above: Performed By: #### P OCGLUC #### [facility] [address] [place] [address] Dr. Katerina Rodarte EGFR-AF VINCENTIAN >60 Normal >=60 [facility] Comment on above: Performed By: #### P OCGLUC #### [facility] [address] [address] [address] Katerina Rodarte EGFR-NON AF VINCENTIAN >60 Normal >=60 [facility] Comment on above: Performed By: #### P OCGLUC #### [facility] [address] [address] [address] Katerina Rodarte Globulin (S) [Mass/Vol] 3.7 g/dL Normal [facility] Comment on above: Performed By: #### P OCGLUC #### [facility] [address] [place] [address] Dr. Katerina Rodarte Glucose [Mass/Vol] 130 mg/dL Critically high 74-106 [facility] Comment on above: Performed By: #### P OCGLUC #### [facility] [address] [address] [address] Katerina Rodarte Potassium [Moles/Vol] 3.8 mmol/L Normal 3.5-5.1 [facility] Comment on above: Performed By: #### P OCGLUC #### [facility] [address] [address] [address] Katerina Rodarte Protein [Mass/Vol] 8.0 g/dL Normal 6.4-8.2 [facility] Comment on above: Performed By: #### P OCGLUC #### [facility] [address] [address] [address] Katerina Rodarte Sodium [Moles/Vol] 127 mmol/L Critically low 136-145 Th [facility] Comment on above: Performed By: #### P OCGLUC #### [facility] [address] [address] [address] Katerina Rodarte Urea nitrogen [Mass/Vol] 9.0 mg/dL Normal 7.0-18.0 [facility] Comment on above: Performed By: #### P OCGLUC #### [facility] [address] [address] [address] Katerina Rodarte Urea nitrogen/Creatinine [Mass ratio] 9.1 mg/mg Normal [facility] Comment on above: Performed By: #### P OCGLUC #### [facility] [address] [address] [address] Katerina Rodarte XR ABD FLAT UP_PA Juan Antonio 02-08 XR ABD FLAT UP_PA CH EXAM: XR ABD FLAT U P_PA CH HISTORY: NAUSEA WITH VOMITING, UNSPECIFIED COMPARISON: Chest radiograph dated 12/29/2022. TECHNIQUE: One view of the chest and 2 views of the abdomen were obtained. FINDINGS: The cardiac silhouette is normal in size. The lungs are clear. There is no significant pneumothorax or pleural effusion. No acute osseous abnormality is seen. There is a stable metallic density in the left axillary soft tissues. There is a nonspecific bowel gas pattern without evidence of bowel obstruction. No intraperitoneal free air is seen. IMPRESSION: 1. No acute cardiopulmonary abnormality. 2. Nonspecific bowel gas pattern without evidence of bowel obstruction. Electronically authenticated by: Reba PADRON Date: 2023-02-07 22:50 Normal [facility] CARDIAC RA 3-6on 3 CK [Catalytic activity/Vol] 70 U/L Normal 39-308 [facility] Comment on above: Performed By: #### C MREP #### [facility] [address] [address] [address] Katerina Rodarte CK.MB [Mass/Vol] 1.82 ng/mL Normal <=3.60 [facility] Comment on above: Performed By: #### C MREP #### [facility] [address] [address] [address] Katerina Rodarte HSTROP 22.5 pg/mL Normal 4.0-76.1 [facility] Comment on above: Result Comment: CUT- OFF POINTS HAVE BEEN ESTABLISHED BASED ON THE FOURTH UNIVERSAL DEFINITIONS OF MYOCARDIAL INFARCTION. THE UPPER REFERENCE LIMIT (URL) OF TROPONIN, DEFINED THE 99TH PERCENTILE OF cTnI DISTRIBUTION IN A REFERENCE POPULATION, HAS BEEN CONFIRMED THE DECISION THRESHOLD FOR CO DIAGNOSIS. Performed By: #### C MREP #### [facility] [address] [address] [address] Katerina Rodarte CARDIAC RA ADMITon 023 CK [Catalytic activity/Vol] 60 U/L Normal 39-308 [facility] Comment on above: Performed By: #### B MP, CMADM, ETH #### [facility] [address] [address] [address] Katerina Rodarte CK.MB [Mass/Vol] 1.51 ng/mL Normal <=3.60 [facility] Comment on above: Performed By: #### B MP, CMADM, ETH #### [facility] [address] [address] [address] Katerina Rodarte HSTROP 19.8 pg/mL Normal 4.0-76.1 [facility] Comment on above: Result Comment: CUT- OFF POINTS HAVE BEEN ESTABLISHED BASED ON THE FOURTH UNIVERSAL DEFINITIONS OF MYOCARDIAL INFARCTION. THE UPPER REFERENCE LIMIT (URL) OF TROPONIN, DEFINED THE 99TH PERCENTILE OF cTnI DISTRIBUTION IN A REFERENCE POPULATION, HAS BEEN CONFIRMED THE DECISION THRESHOLD FOR CO DIAGNOSIS. Performed By: #### B MP, CMADM, ETH #### [facility] [address] [place] [address] Dr. Katerina Rodarte SHIRA 152 ng/mL Critically high 16-96 [facility] Comment on above: Performed By: #### B MP, CMADM, ETH #### [facility] [address] [place] [address] Dr. Katerina Rodarte CBC AUTO DIFFon 12-30-2022 BASO # 0.0 103/ul Normal 0.0-0.1 [facility] Comment on above: Performed By: #### C MREP #### [facility] [address] [place] [address] Dr. Katerina Rodarte Basophils/100 WBC (Bld) 0.5 % Normal 0.2-2.0 [facility] Comment on above: Performed By: #### C MREP #### [facility] [address] [place] [address] Dr. Katerina Rodarte EO # 0.3 103/ul Normal 0.0-0.7 [facility] Comment on above: Performed By: #### C MREP #### [facility] [address] [place] [address] Dr. Katerina Rodarte Eosinophils/100 WBC (Bld) 4.6 % Normal 0.9-7.0 [facility] Comment on above: Performed By: #### C MREP #### [facility] [address] [place] [address] Dr. Katerina Rodarte Erythrocyte distribution width (RBC) [Ratio] 13.9 % Normal 11.0-15.0 [facility] Comment on above: Performed By: #### C MREP #### [facility] [address] [place] [address] Dr. Katerina Rodarte Hematocrit (Bld) [Volume fraction] 38.0 % Critically low 42.0-54.0 [facility] Comment on above: Performed By: #### C MREP #### [facility] [address] [place] [address] Dr. Katerina Rodarte Hemoglobin (Bld) [Mass/Vol] 13.0 g/dL Critically low 14.0-18.0 [facility] Comment on above: Performed By: #### C MREP #### [facility] [address] [place] [address] Dr. Katerina Rodarte IG # 0.01 10e3/ul Normal 0.00-0.03 [facility] Comment on above: Performed By: #### C MREP #### [facility] [address] [place] [address] Dr. Katerina Rodarte IG % 0.2 % Normal 0.0-0.5 [facility] Comment on above: Performed By: #### C MREP #### [facility] [address] [place] [address] Dr. Katerina Rodarte LYMPH # 1.4 103/ul Normal 1.2-3.8 [facility] Comment on above: Performed By: #### C MREP #### [facility] [address] [place] [address] Dr. Katerina Rodarte Lymphocytes/100 WBC (Bld) 23.3 % Normal 20.5-60.0 [facility] Comment on above: Performed By: #### C MREP #### [facility] [address] [place] [address] Dr. Katerina Rodarte MANUAL DIFF REQ NO Normal [facility] Comment on above: Performed By: #### C MREP #### [facility] [address] [place] [address] Dr. Katerina Rodarte MCH (RBC) [Entitic mass] 33.7 pg Normal 25.9-34.0 [facility] Comment on above: Performed By: #### C MREP #### [facility] [address] [place] [address] Dr. Katerina Rodarte MCHC (RBC) [Mass/Vol] 34.2 g/dL Normal 29.9-35.2 [facility] Comment on above: Performed By: #### C MREP #### [facility] [address] [place] [address] Dr. Katerina Rodarte MCV (RBC) [Entitic vol] 98.4 fL Critically high 80.0-94.0 [facility] Comment on above: Performed By: #### C MREP #### [facility] [address] [place] [address] Dr. Katerina Rodarte MONO # 0.7 103/ul Normal 0.3-0.8 [facility] Comment on above: Performed By: #### C MREP #### [facility] [address] [place] [address] Dr. Katerina Rodarte Monocytes/100 WBC (Bld) 12.0 % Normal 1.7-12.0 [facility] Comment on above: Performed By: #### C MREP #### [facility] [address] [place] [address] Dr. Katerina Rodarte NEUT # 3.7 103/ul Normal 1.4-6.5 [facility] Comment on above: Performed By: #### C MREP #### [facility] [address] [place] [address] Dr. Katerina Rodarte Neutrophils/100 WBC (Bld) 64.2 % Normal 43.0-75.0 [facility] Comment on above: Performed By: #### C MREP #### [facility] [address] [place] [address] Dr. Katerina Rodarte Platelet mean volume (Bld) [Entitic vol] 9.4 fL Critically low 9.5-13.5 [facility] Comment on above: Performed By: #### C MREP #### [facility] [address] [place] [address] Dr. Katerina Rodarte PLT 208 103/ul Normal 150-450 [facility] Comment on above: Performed By: #### C MREP #### [facility] [address] [place] [address] Dr. Katerina Rodarte RBC 3.86 106/ul Critically low 4.70-6.10 [facility] Comment on above: Performed By: #### C MREP #### [facility] [address] [place] [address] Dr. Katerina Rodarte WBC 5.8 103/ul Normal 4.0-11.0 [facility] Comment on above: Performed By: #### C [facility] #### [facility] [address] [address] LSPINE WO CONon 3 CT LSPINE WO CON EXAMINATION: CT HEAD WO CON, CT CSPINE WO CON, CT LSPINE WO CON, CT TSPINE WO CON INDICATION: 47 years old; Male. Fall from rafters in a barn Pinned hanging up side down . Question loss of consciousness. TECHNIQUE: CT Head (ax/cor/sag reformats). Ionizing radiation dose reduced via iterative reconstruction/FBP blend and body size kV/mA adjustment. Comparison: Head CT dated 12/09/2022. FINDINGS: POSTOPERATIVE CHANGES: None. BRAIN PARENCHYMA: Old lacunar infarction lateral aspect right thalamus unchanged from the prior study. No mass effect. No midline shift or herniation. No intraparenchymal or extra-axial hemorrhage. Normal vogt/white differentiation. VENTRICLES/EXTRA-AXIAL SPACES: Multiple for patient's age. SINUSES/MASTOIDS: The visualized sinuses are clear. Mastoid air cells are clear. MSK: No displaced or depressed calvarial fracture is noted. OTHER: No hyperdense intraluminal thrombus is seen. TECHNIQUE: CT imaging of the cervical, thoracic, and lumbar spine was performed. IV contrast: None. Dose reduction techniques were achieved by using automated exposure control and/or adjustment of mA and/or kV according to patient size and/or use of iterative reconstruction technique. COMPARISON: Cervical CT dated 12/09/2022. FINDINGS: POSTOPERATIVE CHANGES: None. ALIGNMENT: Nonspecific straightening of the normal cervical curve. Normal thoracic kyphosis. Mild scoliosis in the thoracic region concave to the left centered in the mid to upper thoracic spine. Normal lumbar lordosis. Mild scoliosis in the lumbar spine concave to the right centered at the L3-L4 level. No spondylolysis or spondylolisthesis is seen. COMPRESSION FRACTURES: No fracture or vertebral body collapse is seen. No bone displacement is seen. No asymmetric widening of the facets is seen. The transverse processes are intact. PREVERTEBRAL SOFT TISSUES: Normal. CRANIOCERVICAL JUNCTION: There is a normal relationship of the occipital condyles, lateral masses of C1, and articular surfaces of C2. The base of the dens and body of C2 are intact. There is narrowing of the predental space with spurring. Ligamentous calcification is seen superior to the dens. POSTERIOR FOSSA: The cerebellar tonsils are above the foramen magnum. Disc levels: Cervical: There is disc space narrowing, disc bulging, and endplate osteophyte formation at C3-C4. There is disc space narrowing with bulky bridging anterior osteophyte formation, uncovertebral joint degeneration, and facet degeneration at C5-C6 and to a lesser degree C6-C7. There is moderate foraminal stenosis at C5-C6 bilaterally with mild stenosis at C6-C7 on the right. Mild central canal stenosis is seen at C5-C6 and C6-C7. Thoracic: Allowing for beam hardening artifacts which are typically seen with thoracic CT, no focal disc herniation is seen. The central canal is patent. The neural foramina are patent. Lumbar: Multilevel bulky bridging anterior osteophyte formation. This is particularly evident at L2-S3 and L3-L4. Disc bulging and endplate osteophyte formation with facet degeneration is seen at L3-L4 and L4-L5 with mild central canal stenosis at L3-L4 and moderate central canal stenosis at L4-L5. Circumferential compression of the thecal sac is seen at those levels. The neural foramina are patent. Disc space narrowing is seen posteriorly at the L5-S1 level. There is generalized narrowing of the canal secondary to short pedicles with additional facet degeneration and ligamentous thickening. Moderate central canal stenosis is seen, however the thecal sac is developmentally small. OTHER: Posterior paraspinal muscles and psoas muscles are intact. Vascular calcifications are noted. A portion of the pulmonary parenchyma is visible in the thoracic study. No gross evidence of lobar consolidation or pneumothorax is seen, however the entire pulmonary parenchyma is not included in this study. Mildly inhomogeneous thyroid without focal mass. IMPRESSION: 1. No acute intracranial abnormality. No hemorrhage or mass effect. 2. No change in old lacunar infarction in the right thalamus. 3. Degenerative changes in the cervical and lumbar spine. No acute fracture is seen. Please see the detailed discussion in the body of this report. Electronically authenticated by: THERESA RIVERA Date: 2022-12-29 23:52 Normal [facility] DRUG SCREEN RAPID (URINE)on 12-30-2022 AMP Negative Normal NEGATIVE [facility] Comment on above: Performed By: #### P OCGLUC #### [facility] [address] [address] [address] Katerina Rodarte BAR Negative Normal NEGATIVE [facility] Comment on above: Performed By: #### P OCGLUC #### [facility] [address] [place] [address] Dr. Katerina Rodarte BUP Negative Normal NEGATIVE [facility] Comment on above: Performed By: #### P OCGLUC #### [facility] [address] [place] [address] Dr. Katerina Rodarte BZO Negative Normal NEGATIVE [facility] Comment on above: Performed By: #### P OCGLUC #### [facility] [address] [place] [address] Dr. Katerina Rodarte CARLIE Negative Normal NEGATIVE [facility] Comment on above: Performed By: #### P OCGLUC #### [facility] [address] [place] [address] Dr. Katerina Rodarte CUT-OFFS SEE BELOW Normal [facility] Comment on above: Result Comment: AMP (Amphetamine): 500ng/mL, BAR (Barbituates): 200 ng/mL, BZO (Benzodiazepines): 150 ng/mL, BUP (Buprenorphine): 10 ng/mL, CARLIE (Cocaine): 150 ng/mL, mAMP (Methamphetamine): 500 ng/mL, MTD (Methadone): 200 ng/mL, OPI (Opiates): 100 ng/mL, OXY (Oxycodone): 100 ng/mL, PCP (Phencyclidine): 25 ng/mL, PPX (Propoxyphene): 300 ng/mL, THC (Cannabinoids): 50 ng/mL, TCA (Trycyclic Antidepressants): 300 ng/mL Performed By: #### P OCGLUC #### [facility] [address] [place] [address] Dr. Katerina Rodarte DRUG CUT HEADER DRUG CLASS TEST SYST EM CUT-OFF CONCENTRATIONS ARE FOLLOWS: Normal [facility] Comment on above: Performed By: #### P OCGLUC #### [facility] [address] [place] [address] Dr. Katerina Rodarte mAMP Negative Normal NEGATIVE [facility] Comment on above: Performed By: #### P OCGLUC #### [facility] [address] [place] [address] Dr. Katerina Rodarte MTD Negative Normal NEGATIVE [facility] Comment on above: Performed By: #### P OCGLUC #### [facility] [address] [address] [address] Katerina Rodarte OPI Negative Normal NEGATIVE [facility] Comment on above: Performed By: #### P OCGLUC #### [facility] [address] [place] [address] Dr. Katerina Rodarte OXY Negative Normal NEGATIVE [facility] Comment on above: Performed By: #### P OCGLUC #### [facility] [address] [address] [address] Katerina Rodarte PCP Negative Normal NEGATIVE [facility] Comment on above: Performed By: #### P OCGLUC #### [facility] [address] [place] [address] Dr. Katerina Rodarte PPX Negative Normal NEGATIVE [facility] Comment on above: Performed By: #### P OCGLUC #### [facility] [address] [place] [address] Dr. Katerina Rodarte TCA Negative Normal NEGATIVE [facility] Comment on above: Performed By: #### P OCGLUC #### [facility] [address] [place] [address] Dr. Katerina Rodarte THC Negative Normal NEGATIVE [facility] Comment on above: Performed By: #### P OCGLUC #### [facility] [address] [place] [address] Dr. Katerina Rodarte ETHANOL (BLD ALC)on 12-30-19 23 ALC NOTE NOTE: 80 mg/dl is th e legal limit for a blood alcohol level Normal [facility] Comment on above: Performed By: #### B MP, CMADM, ETH #### [facility] [address] [place] [address] Dr. Katerina Rodarte Ethanol [Mass/Vol] 167 mg/dL Normal [facility] Comment on above: Performed By: #### B MP, CMADM, ETH #### [facility] [address] [place] [address] Dr. Katerina Rodarte PROF CHEM 8 (BAS METB)on Anion gap [Moles/Vol] 11.4 mmol/L Normal Th e [facility] Comment on above: Performed By: #### B TAMIA ARMENTA, ETH #### [facility] [address] [address] [address] Katerina Rodarte Calcium [Mass/Vol] 8.8 mg/dL Normal 8.5-10.1 [facility] Comment on above: Performed By: #### B TAMIA ARMENTA, ETH #### [facility] [address] [place] [address] Dr. Katerina Rodarte Chloride [Moles/Vol] 97 mmol/L Critically low 98-107 [facility] Comment on above: Performed By: #### B TAMIA ARMENTA, ETH #### [facility] [address] [place] [address] Dr. Katerina Rodarte CO2 [Moles/Vol] 29.9 mmol/L Normal 21.0-32.0 [facility] Comment on above: Performed By: #### B TAMIA ARMENTA, ETH #### [facility] [address] [place] [address] Dr. Katerina Rodarte Creatinine [Mass/Vol] 0.83 mg/dL Normal 0.70-1.30 [facility] Comment on above: Performed By: #### B JESSE ARMENTADM, ETH #### [facility] [address] [place] [address] Dr. Katerina Rodarte EGFR-AF VINCENTIAN >60 Normal >=60 [facility] Comment on above: Performed By: #### B JESSE ARMENTADM, ETH #### [facility] [address] [place] [address] Dr. Katerina Rodarte EGFR-NON AF VINCENTIAN >60 Normal >=60 [facility] Comment on above: Performed By: #### B JESSE ARMENTADM, ETH #### [facility] [address] [place] [address] Dr. Katerina Rodarte Glucose [Mass/Vol] 84 mg/dL Normal 74-106 [facility] Comment on above: Performed By: #### B JESSE ARMENTADM, ETH #### [facility] [address] [address] [address] Katerina Rodarte Potassium [Moles/Vol] 4.3 mmol/L Normal 3.5-5.1 [facility] Comment on above: Performed By: #### B TAMIA ARMENTA, ETH #### [facility] [address] [address] [address] Katerina Rodarte Sodium [Moles/Vol] 134 mmol/L Critically low 136-145 Th [facility] Comment on above: Performed By: #### B KATHI, TAMIA, ETH #### [facility] [address] [address] [address] Katerina Rodarte Urea nitrogen [Mass/Vol] 4.0 mg/dL Critically low 7.0-18.0 [facility] Comment on above: Performed By: #### B TAMIA ARMENTA, ETH #### [facility] [address] [address] [address] Katerina Rodarte Urea nitrogen/Creatinine [Mass ratio] 4.8 mg/mg Normal [facility] Comment on above: Performed By: #### B TAMIA ARMENTA, ETH #### [facility] [address] [address] [address] Katerina Rodarte XR ANKLE JAZZ MIN 3 VIEWSon 0 12-30-2022 XR ANKLE JAZZ MIN 3 VIEWS EXAM: XR ANKLE JAZZ MIN 3 VIEWS, XR FOOT JAZZ MIN 3 VIEWS, XR KNEE LT 4V or > HISTORY: Pain COMPARISON: None. TECHNIQUE: 4 views of the left knee were obtained. 3 views of the right ankle and 3 views of the left ankle were obtained. 3 views of the right foot and 3 views of the left foot were obtained. FINDINGS: Left knee: No acute fracture or dislocation is seen. The joint spaces are preserved. There is no significant left knee joint effusion. Right ankle and right foot: No acute fracture or dislocation is seen. The ankle mortise is congruent. The joint spaces are preserved. There is no significant right ankle joint effusion. Left ankle and left foot: There are postsurgical changes of ORIF of a remote distal left fibular fracture. No acute fracture or dislocation is seen. The ankle mortise is congruent. The joint spaces are preserved. There is a small plantar calcaneal enthesophyte. There is no significant left ankle joint effusion. IMPRESSION: 1. No acute fracture or dislocation of the left knee or either ankle or foot is seen. If there is concern for internal derangement of the knee, a nonemergent outpatient MRI is recommended. Otherwise, if pain persists, repeat radiographs are recommended in 7-10 days. Electronically authenticated by: Reba PADRON Date: 2022-12-30 01:05 Normal [facility] XR CHEST 1 Von 12-30-2022 XR CHEST 1 V EXAM: XR CHEST 1 V HISTORY: CHEST PAIN, UNSPECIFIED COMPARISON: Chest x-ray 07/19/2020 TECHNIQUE: Single frontal view chest x-ray FINDINGS: No lobar lung consolidation, large pleural effusions, pneumothorax, or acute bony abnormality. Cardiac size is unremarkable. 6 mm radiopaque foreign body left axilla, similar to prior exam. IMPRESSION: No radiographic evidence for acute chest abnormality. Electronically authenticated by: VIJAYA KITCHEN Date: 2022-12-30 01:05 Normal [facility] CBC AUTO DIFFon 12-10-2022 BASO # 0.0 103/ul Normal 0.0-0.1 [facility] Comment on above: Performed By: #### C MREP #### [facility] [address] [address] [address] Katerina Rodarte Basophils/100 WBC (Bld) 0.6 % Normal 0.2-2.0 [facility] Comment on above: Performed By: #### C MREP #### [facility] [address] [address] [address] Katerina Rodarte EO # 0.9 103/ul Critically high 0.0-0.7 [facility] Comment on above: Performed By: #### C MREP #### [facility] [address] [address] [address] Katerina Rodarte Eosinophils/100 WBC (Bld) 12.9 % Critically high 0.9-7.0 [facility] Comment on above: Performed By: #### C MREP #### [facility] [address] [address] [address] Katerina Rodarte Erythrocyte distribution width (RBC) [Ratio] 12.4 % Normal 11.0-15.0 [facility] Comment on above: Performed By: #### C MREP #### [facility] [address] [place] [address] Dr. Katerina Rodarte Hematocrit (Bld) [Volume fraction] 38.4 % Critically low 42.0-54.0 [facility] Comment on above: Performed By: #### C MREP #### [facility] [address] [place] [address] Dr. Katerina Rodarte Hemoglobin (Bld) [Mass/Vol] 13.6 g/dL Critically low 14.0-18.0 [facility] Comment on above: Performed By: #### C MREP #### [facility] [address] [place] [address] Dr. Katerina Rodarte IG # 0.01 10e3/ul Normal 0.00-0.03 [facility] Comment on above: Performed By: #### C MREP #### [facility] [address] [place] [address] Dr. Katerina Rodarte IG % 0.1 % Normal 0.0-0.5 [facility] Comment on above: Performed By: #### C MREP #### [facility] [address] [place] [address] Dr. Katerina Rodarte LYMPH # 2.1 103/ul Normal 1.2-3.8 [facility] Comment on above: Performed By: #### C MREP #### [facility] [address] [place] [address] Dr. Katerina Rodarte Lymphocytes/100 WBC (Bld) 30.3 % Normal 20.5-60.0 [facility] Comment on above: Performed By: #### C MREP #### [facility] [address] [place] [address] Dr. Katerina Rodarte MANUAL DIFF REQ NO Normal [facility] Comment on above: Performed By: #### C MREP #### [facility] [address] [place] [address] Dr. Katerina Rodarte MCH (RBC) [Entitic mass] 33.3 pg Normal 25.9-34.0 [facility] Comment on above: Performed By: #### C MREP #### [facility] [address] [address] [address] Katerina Rodarte MCHC (RBC) [Mass/Vol] 35.4 g/dL Critically high 29.9-35.2 [facility] Comment on above: Performed By: #### C MREP #### [facility] [address] [address] [address] Katerina Rodarte MCV (RBC) [Entitic vol] 93.9 fL Normal 80.0-94.0 [facility] Comment on above: Performed By: #### C MREP #### [facility] [address] [place] [address] Dr. Katerina Rodarte MONO # 0.9 103/ul Critically high 0.3-0.8 [facility] Comment on above: Performed By: #### C MREP #### [facility] [address] [place] [address] Dr. Katerina Rodarte Monocytes/100 WBC (Bld) 13.0 % Critically high 1.7-12.0 [facility] Comment on above: Performed By: #### C MREP #### [facility] [address] [place] [address] Dr. Katerina Rodarte NEUT # 2.9 103/ul Normal 1.4-6.5 [facility] Comment on above: Performed By: #### C MREP #### [facility] [address] [place] [address] Dr. Katerina Rodarte Neutrophils/100 WBC (Bld) 43.1 % Normal 43.0-75.0 [facility] Comment on above: Performed By: #### C MREP #### [facility] [address] [place] [address] Dr. Katerina Rodarte Platelet mean volume (Bld) [Entitic vol] 9.6 fL Normal 9.5-13.5 [facility] Comment on above: Performed By: #### C MREP #### [facility] [address] [place] [address] Dr. Katerina Rodarte PLT 222 103/ul Normal 150-450 [facility] Comment on above: Performed By: #### C MREP #### [facility] [address] [place], [place] [address] Dr. Katerina Rodarte RBC 4.09 106/ul Critically low 4.70-6.10 [facility] Comment on above: Performed By: #### C MREP #### [facility] [address] [place], [place] [address] Dr. Katerina Rodarte WBC 6.8 103/ul Normal 4.0-11.0 [facility] Comment on above: Performed By: #### C MREP #### [facility] [address] [place], [place] [address] ABD/PELV W CONon 12-10-19 CT ABD/PELV W CON EXAMINATION: CT ABD/ PELV W CON 12/09/2022 HISTORY: Falls. COMPARISON STUDY: CT of the abdomen and pelvis with contrast 09/17/2021. TECHNIQUE: 3 mm sections were obtained from the lung bases through the pubic symphysis following administration of intravenous contrast. Coronal and sagittal reconstructed images were obtained. Dose reduction techniques were achieved by using automated exposure control and/or adjustment of mA and/or kV according to patient size and/or use of iterative reconstruction technique. FINDINGS: Heart size is stable. Lung bases are clear. Left hepatic lobe is elongated draping over the superior pole over the spleen. Right hepatic lobe has length of 15 cm. Spleen has length of 7.[address] ABDOMEN: Liver, gallbladder, spleen, pancreas, adrenals and kidneys demonstrate no acute abnormality. Mild atherosclerotic change of the aorta and its branches are noted without aneurysm or dissection. Proximal segment of the celiac artery is mildly stenotic and downgoing subjacent to slip of the diaphragm. CT PELVIS: Prostate is mildly enlarged. Urinary bladder and seminal vesicles appear unremarkable. Mild colonic diverticular disease is noted. Negative for appendicitis or diverticulitis. The proximal portion of the left common iliac vein is compressed by overlapping right common iliac artery. The IVC distally overall has a nonspecific flattened appearance. Right posterior oblique positioning of the patient noted. Mild degenerative changes of the lumbar spine are again noted. No acute fracture or dislocation is noted. There is nonspecific prominence and enhancement of the proximal gastric rugal fold pattern. IMPRESSION: 1. No acute intra-abdominal or pelvic injury. There is no acute fracture. 2. Gastritis may be present. Bowel pattern is nonobstructive. Mild colonic diverticulosis without diverticulitis or appendicitis. 3. Mild prostatomegaly. Electronically authenticated by: MADDY SCHOFIELD Date: 2022-12-10 00:50 Normal [facility] CT CSPINE WO CONon CT CSPINE WO CON EXAMINATION: CT CSPI NE WO CON HISTORY: Patient fell. TECHNIQUE: Axial CT scans through the cervical spine were obtained without contrast administration. Sagittal and coronal reconstruction images were obtained. Dose reduction techniques were achieved by using: automated exposure control and/or adjustment of mA and /or kV according to patient size and/or use of iterative reconstruction technique. COMPARISON: 09/17/2021. FINDINGS: No fracture or posttraumatic malalignment is shown. Straightening of the cervical spine is present. At C5-C6 and C6-C7, decreased disc height and mild discovertebral complexes without central spinal stenosis. Moderate stenosis of the right and left C5-C6 neural foramina and moderate-severe stenosis of the right C6-C7 neural foramen secondary to decreased disc height and uncovertebral hypertrophy, unchanged. Prevertebral soft tissue space appears normal. Visualized intracranial contents appear normal. Visualized neck shows no adenopathy. Visualized lung apices are clear. IMPRESSION: No acute fracture or posttraumatic malalignment. Straightening of the cervical spine, likely due to positioning or muscle spasm. Degenerative changes at C5-C6 and C6-C7 without central spinal stenosis. Moderate stenosis of the right and left C5-C6 neural foramina and moderate-severe stenosis of the right C6-C7 neural foramen secondary to decreased disc height and uncovertebral hypertrophy, unchanged compared to 09/17/2021. Electronically authenticated by: LADARIUS HERNANDEZ Date: 2022-12-10 00:17 Normal [facility] CT HEAD WO CONon 12-10-2022 CT HEAD WO CON EXAM: CT HEAD WO CON 12/09/2022 10:16 PM EST [id number] CLINICAL STATEMENT: Falls COMPARISON: 08/10/2022 TECHNIQUE: Multiple axial images were obtained of the brain without intravenous contrast. Dose reduction techniques were achieved by using automated exposure control and/or adjustment of mA and/or kV according to patient size and/or use of iterative reconstruction technique.. 2-D reconstructed images are provided. FINDINGS: The ventricles and the cortical sulci have normal size contour and symmetry. There is no evidence for intracranial hemorrhage. There is no mass effect and or midline shift. No extra-axial collections. Limited evaluation of the orbits and the paranasal sinuses are normal. The study is limited by patient related motion. IMPRESSION: No acute intracranial abnormality. FOLLOW-UP: Follow-up as clinically indicated. Electronically authenticated by: SHAMA AVALOS Date: 2022-12-10 00:16 Normal [facility] DRUG SCREEN RAPID (URINE)on 12-10-2022 AMP Negative Normal NEGATIVE [facility] Comment on above: Performed By: #### D RUGRPD ####[facility] [address] [place], [place] [address]Dr. Katerina Rodarte BAR Negative Normal NEGATIVE [facility] Comment on above: Performed By: #### D RUGRPD ####[facility] [address] [place], [place] [address]Dr. Katerina Rodarte BUP Negative Normal NEGATIVE [facility] Comment on above: Performed By: #### D RUGRPD ####[facility] [address] [place], [place] [address]Dr. Katerina Rodarte BZO Negative Normal NEGATIVE [facility] Comment on above: Performed By: #### D RUGRPD ####[facility] [address] [place], [place] [address]Dr. Katerina Rodarte CARLIE Negative Normal NEGATIVE [facility] Comment on above: Performed By: #### D RUGRPD ####[facility] [address] [place], [place] [address]Dr. Katerina Rodarte CUT-OFFS SEE BELOW Normal [facility] Comment on above: Result Comment: AMP (Amphetamine): 500ng/mL, BAR (Barbituates): 200 ng/mL, BZO (Benzodiazepines): 150 ng/mL, BUP (Buprenorphine): 10 ng/mL, CARLIE (Cocaine): 150 ng/mL, mAMP (Methamphetamine): 500 ng/mL, MTD (Methadone): 200 ng/mL, OPI (Opiates): 100 ng/mL, OXY (Oxycodone): 100 ng/mL, PCP (Phencyclidine): 25 ng/mL, PPX (Propoxyphene): 300 ng/mL, THC (Cannabinoids): 50 ng/mL, TCA (Trycyclic Antidepressants): 300 ng/mL Performed By: #### D RUGRPD ####[facility] [address] [place], [place] [address]Dr. Katerina Rodarte DRUG CUT HEADER DRUG CLASS TEST SYST EM CUT-OFF CONCENTRATIONS ARE FOLLOWS: Normal [facility] Comment on above: Performed By: #### D RUGRPD ####[facility] [address] [place], [place] [address]Dr. Katerina Rodarte mAMP Negative Normal NEGATIVE [facility] Comment on above: Performed By: #### D RUGRPD ####[facility] [address] [place], [place] [address]Dr. Katerina Rodarte MTD Negative Normal NEGATIVE [facility] Comment on above: Performed By: #### D RUGRPD ####[facility] [address] [place], [place] [address]Dr. Katerina Rodarte OPI Negative Normal NEGATIVE [facility] Comment on above: Performed By: #### D RUGRPD ####[facility] [address] [place], [place] [address]Dr. Katerina Rodarte OXY Negative Normal NEGATIVE [facility] Comment on above: Performed By: #### D RUGRPD ####[facility] [address] [place], [place] [address]Dr. Katerina Rodarte PCP Negative Normal NEGATIVE [facility] Comment on above: Performed By: #### D RUGRPD ####[facility] [address] [place], [place] [address]Dr. Katerina Rodarte PPX Negative Normal NEGATIVE [facility] Comment on above: Performed By: #### D RUGRPD ####[facility] [address] [place], [place] [address]Dr. Katerina Rodarte TCA Negative Normal NEGATIVE [facility] Comment on above: Performed By: #### D RUGRPD ####[facility] [address] [place], [place] [address]Dr. Katerina Rodarte THC Negative Normal NEGATIVE [facility] Comment on above: Performed By: #### D RUGRPD ####[facility] [address] [place], [place] [address]TvDr. Katerina Rodarte ETHANOL (BLD ALC)on 12-10-19 23 ALC NOTE NOTE: 80 mg/dl is th e legal limit for a blood alcohol level Normal [facility] Comment on above: Performed By: #### E TH ####[facility] [address] [id number]. Katerina Rodarte Ethanol [Mass/Vol] 197 mg/dL Normal [facility] Comment on above: Performed By: #### E TH ####[facility] [address] [id number] Katerina Rodarte PROF 14(COMP METB)on 023 Albumin [Mass/Vol] 3.7 g/dL Normal 3.4-5.0 [facility] Comment on above: Performed By: #### P OCGLUC #### [facility] [address] [address] [address] Katerina Rodarte Albumin/Globulin [Mass ratio] 1.1 {ratio} Normal [facility] Comment on above: Performed By: #### P OCGLUC #### [facility] [address] [address] [address] Katerina Rodarte ALP [Catalytic activity/Vol] 149 U/L Critically high 46-116 [facility] Comment on above: Performed By: #### P OCGLUC #### [facility] [address] [address] [address] Katerina Rodarte ALT [Catalytic activity/Vol] 41 U/L Normal 16-63 [facility] Comment on above: Performed By: #### P OCGLUC #### [facility] [address] [address] [address] Katerina Rodarte Anion gap [Moles/Vol] 11.7 mmol/L Normal [facility] Comment on above: Performed By: #### P OCGLUC #### [facility] [address] [address] [address] Katerina Rodarte AST [Catalytic activity/Vol] 48 U/L Critically high 15-37 [facility] Comment on above: Performed By: #### P OCGLUC #### [facility] [address] [address] [address] Katerina Rodarte Bilirubin [Mass/Vol] 0.4 mg/dL Normal 0.2-1.0 [facility] Comment on above: Performed By: #### P OCGLUC #### [facility] [address] [address] [address] Katerina Rodarte Calcium [Mass/Vol] 8.7 mg/dL Normal 8.5-10.1 [facility] Comment on above: Performed By: #### P OCGLUC #### [facility] [address] [address] [address] Katerina Rodarte Chloride [Moles/Vol] 94 mmol/L Critically low 98-107 [facility] Comment on above: Performed By: #### P OCGLUC #### [facility] [address] [address] [address] Katerina Rodarte CO2 [Moles/Vol] 29.4 mmol/L Normal 21.0-32.0 [facility] Comment on above: Performed By: #### P OCGLUC #### [facility] [address] [address] [address] Katerina Rodarte Creatinine [Mass/Vol] 0.96 mg/dL Normal 0.70-1.30 [facility] Comment on above: Performed By: #### P OCGLUC #### [facility] [address] [address] [address] Katerina Rodarte EGFR-AF VINCENTIAN >60 Normal >=60 [facility] Comment on above: Performed By: #### P OCGLUC #### [facility] [address] [address] [address] Katerina Rodarte EGFR-NON AF VINCENTIAN >60 Normal >=60 [facility] Comment on above: Performed By: #### P OCGLUC #### [facility] [address] [address] [address] Katerina Rodarte Globulin (S) [Mass/Vol] 3.3 g/dL Normal [facility] Comment on above: Performed By: #### P OCGLUC #### [facility] [address] [address] [address] Katerina Rodarte Glucose [Mass/Vol] 138 mg/dL Critically high 74-106 T [facility] Comment on above: Performed By: #### P OCGLUC #### [facility] [address] [address] [address] Katerina Rodarte Potassium [Moles/Vol] 4.1 mmol/L Normal 3.5-5.1 [facility] Comment on above: Performed By: #### P OCGLUC #### [facility] [address] [address] [address] Katerina Rodarte Protein [Mass/Vol] 7.0 g/dL Normal 6.4-8.2 [facility] Comment on above: Performed By: #### P OCGLUC #### [facility] [address] [address] [address] Katerina Rodarte Sodium [Moles/Vol] 131 mmol/L Critically low 136-145 [facility] Comment on above: Performed By: #### P OCGLUC #### [facility] [address] [address] [address] Katerina Rodarte Urea nitrogen [Mass/Vol] 4.0 mg/dL Critically low 7.0-18.0 [facility] Comment on above: Performed By: #### P OCGLUC #### [facility] [address] [address] [address] Katerina Rodarte Urea nitrogen/Creatinine [Mass ratio] 4.2 mg/mg Normal [facility] Comment on above: Performed By: #### P OCGLUC #### [facility] [address] [address] [address] Katerina Rodarte XR CHEST 1 Von 12-10-2022 XR CHEST 1 V EXAM: XR CHEST 1 V HISTORY: Pain in posterior head after fall from tractor. No chest complaints. COMPARISON: None. TECHNIQUE: Chest x-ray 08/10/2022 FINDINGS: The lung parenchyma is free of consolidation or infiltrate. No pneumothorax or pleural effusion. The cardiac, mediastinal and hilar contours are normal. The visualized osseous structures exhibit no gross abnormality. IMPRESSION: Normal chest x-ray Electronically authenticated by: THELMA DAMICO Date: 2022-12-09 23:00 Normal [facility] CBC AUTO DIFFon 11-26-2022 BASO # 0.1 103/ul Normal 0.0-0.1 [facility] Comment on above: Performed By: #### P OCGLUC #### [facility] [address] [address] [address] Katerina Rodarte Basophils/100 WBC (Bld) 1.1 % Normal 0.2-2.0 [facility] Comment on above: Performed By: #### P OCGLUC #### [facility] [address] [address] [address] Katerina Rodarte EO # 0.6 103/ul Normal 0.0-0.7 [facility] Comment on above: Performed By: #### P OCGLUC #### [facility] [address] [address] [address] Katerina Rodarte Eosinophils/100 WBC (Bld) 8.9 % Critically high 0.9-7.0 [facility] Comment on above: Performed By: #### P OCGLUC #### [facility] [address] [address] [address] Katerina Rodarte Erythrocyte distribution width (RBC) [Ratio] 12.8 % Normal 11.0-15.0 [facility] Comment on above: Performed By: #### P OCGLUC #### [facility] [address] [address] [address] Katerina Rodarte Hematocrit (Bld) [Volume fraction] 39.5 % Critically low 42.0-54.0 [facility] Comment on above: Performed By: #### P OCGLUC #### [facility] [address] [address] [address] Katerina Rodarte Hemoglobin (Bld) [Mass/Vol] 13.9 g/dL Critically low 14.0-18.0 [facility] Comment on above: Performed By: #### P OCGLUC #### [facility] [address] [address] [address] Katerina Rodarte IG # 0.02 10e3/ul Normal 0.00-0.03 [facility] Comment on above: Performed By: #### P OCGLUC #### [facility] [address] [address] [address] Katerina Rodarte IG % 0.3 % Normal 0.0-0.5 [facility] Comment on above: Performed By: #### P OCGLUC #### [facility] [address] [address] [address] Katerina Rodarte LYMPH # 2.7 103/ul Normal 1.2-3.8 [facility] Comment on above: Performed By: #### P OCGLUC #### [facility] [address] [place] [address] Dr. Katerina Rodarte Lymphocytes/100 WBC (Bld) 41.7 % Normal 20.5-60.0 [facility] Comment on above: Performed By: #### P OCGLUC #### [facility] [address] [place] [address] Dr. Katerina Rodarte MANUAL DIFF REQ NO Normal [facility] Comment on above: Performed By: #### P OCGLUC #### [facility] [address] [place] [address] Dr. Katerina Rodarte MCH (RBC) [Entitic mass] 33.5 pg Normal 25.9-34.0 [facility] Comment on above: Performed By: #### P OCGLUC #### [facility] [address] [place] [address] Dr. Katerina Rodarte MCHC (RBC) [Mass/Vol] 35.2 g/dL Normal 29.9-35.2 [facility] Comment on above: Performed By: #### P OCGLUC #### [facility] [address] [place] [address] Dr. Katerina Rodarte MCV (RBC) [Entitic vol] 95.2 fL Critically high 80.0-94.0 [facility] Comment on above: Performed By: #### P OCGLUC #### [facility] [address] [place] [address] Dr. Katerina Rodarte MONO # 0.8 103/ul Normal 0.3-0.8 [facility] Comment on above: Performed By: #### P OCGLUC #### [facility] [address] [address] [address] Katerina Rodarte Monocytes/100 WBC (Bld) 11.8 % Normal 1.7-12.0 [facility] Comment on above: Performed By: #### P OCGLUC #### [facility] [address] [address] [address] Katerina Rodarte NEUT # 2.4 103/ul Normal 1.4-6.5 [facility] Comment on above: Performed By: #### P OCGLUC #### [facility] [address] [address] [address] Katerina Rodarte Neutrophils/100 WBC (Bld) 36.2 % Critically low 43.0-75.0 [facility] Comment on above: Performed By: #### P OCGLUC #### [facility] [address] [address] [address] Katerina Rodarte Platelet mean volume (Bld) [Entitic vol] 9.0 fL Critically low 9.5-13.5 [facility] Comment on above: Performed By: #### P OCGLUC #### [facility] [address] [address] [address] Katerina Rodarte PLT 286 103/ul Normal 150-450 [facility] Comment on above: Performed By: #### P OCGLUC #### [facility] [address] [address] [address] Katerina Rodarte RBC 4.15 106/ul Critically low 4.70-6.10 [facility] Comment on above: Performed By: #### P OCGLUC #### [facility] [address] [address] [address] Katerina Rodarte WBC 6.5 103/ul Normal 4.0-11.0 [facility] Comment on above: Performed By: #### P OCGLUC #### [facility] [address] [address] STROKE HEAD WOon 11-26-20 CT STROKE HEAD WO EXAMINATION: CT STRO KE HEAD WO HISTORY: DISORIENTATION, UNSPECIFIED COMPARISON: CT of the head from 08/10/2022. TECHNIQUE: CT examination of the head without IV contrast. Dose reduction techniques were achieved by using automated exposure control and/or adjustment of mA and/or kV according to patient size and/or use of iterative reconstruction technique. FINDINGS: The ventricles, sulci, and remaining CSF containing spaces maintain age-appropriate volume and symmetry. No herniation or hydrocephalus. The vogt matter/white matter differentiation is maintained throughout. Remote small infarct within the right thalamus. No CT evidence of contemporary infarction. No acute intracranial hemorrhage or parenchymal mass. Postsurgical changes of the left superolateral orbital rim. No acute calvarial fracture. Frothy secretions within the left maxillary sinus. IMPRESSION: 1. No acute intracranial abnormality. 2. Remote right thalamic infarct again noted. results were called by Dr. Shannan Aguiar MD to Dr. Baker At 11/26/2022 1:11 AM EST. Electronically authenticated by: YESSI AGUIAR Date: 2022-11-26 01:12 Normal [facility] DRUG SCREEN RAPID (URINE)on 11-26-2022 AMP Negative Normal NEGATIVE [facility] Comment on above: Performed By: #### D RUGRPD ####[facility] [address] [address]Dr. Katerina Rodarte BAR Negative Normal NEGATIVE [facility] Comment on above: Performed By: #### D RUGRPD ####[facility] [address] [address]Dr. Katerina Rodarte BUP Negative Normal NEGATIVE [facility] Comment on above: Performed By: #### D RUGRPD ####[facility] [address] [address]Dr. Yilan Rodarte BZO Negative Normal NEGATIVE [facility] Comment on above: Performed By: #### D RUGRPD ####[facility] [id number] [place] [address]Dr. Yilan Rodarte CARLIE Negative Normal NEGATIVE [facility] Comment on above: Performed By: #### D RUGRPD ####[facility] [id number] [place] [address]Dr. samina Rodarte CUT-OFFS SEE BELOW Normal [facility] Comment on above: Result Comment: AMP (Amphetamine): 500ng/mL, BAR (Barbituates): 200 ng/mL, BZO (Benzodiazepines): 150 ng/mL, BUP (Buprenorphine): 10 ng/mL, CARLIE (Cocaine): 150 ng/mL, mAMP (Methamphetamine): 500 ng/mL, MTD (Methadone): 200 ng/mL, OPI (Opiates): 100 ng/mL, OXY (Oxycodone): 100 ng/mL, PCP (Phencyclidine): 25 ng/mL, PPX (Propoxyphene): 300 ng/mL, THC (Cannabinoids): 50 ng/mL, TCA (Trycyclic Antidepressants): 300 ng/mL Performed By: #### D RUGRPD ####[facility] [address] [place], [place] [address]Dr. [facility] [place] DRUG CUT HEADER DRUG CLASS TEST SYST EM CUT-OFF CONCENTRATIONS ARE FOLLOWS: Normal [facility] Comment on above: Performed By: #### D RUGRPD ####[facility] M[address] [place], [place] [address]Dr. [facility] mAMP Negative Normal NEGATIVE [facility] Comment on above: Performed By: #### D RUGRPD ####[facility] Mt[address] [place], [place] [address]Dr. [facility] [place] MTD Negative Normal NEGATIVE [facility] Comment on above: Performed By: #### D RUGRPD ####[facility] F[address] [place], [place] [address]Dr. [facility] [place] OPI Positive Abnormal NEGATIVE [facility] Comment on above: Performed By: #### D RUGRPD ####[facility] [address] [place], [place] [address]Dr. [facility] OXY Negative Normal NEGATIVE [facility] Comment on above: Performed By: #### D RUGRPD ####[facility] [address] [place], [place] [address]Dr. [facility] [place] PCP Negative Normal NEGATIVE [facility] Comment on above: Performed By: #### D RUGRPD ####[facility] [address] [place], [place] [address]Dr. [facility] [place] PPX Negative Normal NEGATIVE [facility] Comment on above: Performed By: #### D RUGRPD ####[facility] [address] [place] [id number]. Katerina Rodarte TCA Negative Normal NEGATIVE [facility] Comment on above: Performed By: #### D RUGRPD ####[facility] [address] [place], [place] [address]Gq. Katerina Rodarte THC Negative Normal NEGATIVE [facility] Comment on above: Performed By: #### D RUGRPD ####[facility] [address]24[address] [place], [place] [address]Jj. Katerina Rodarte ETHANOL (BLD ALC)on 11-26-20 22 ALC NOTE NOTE: 80 mg/dl is th e legal limit for a blood alcohol level Normal [facility] Comment on above: Performed By: #### P OCGLUC #### [facility] [address] [address] [address] Katerina Rodarte Ethanol [Mass/Vol] 172 mg/dL Normal [facility] Comment on above: Performed By: #### P OCGLUC #### [facility] [address] [address] [address] Katerina Rodarte POINT OF CARE GLUCOSEon 10-29 Glucose [Mass/Vol] 90 mg/dL Normal 74-106 [facility] Comment on above: Performed By: #### P OCGLUC #### [facility] [address] [address] [address] Katerina Rodarte PROF 14(COMP METB)on 022 Albumin [Mass/Vol] 3.6 g/dL Normal 3.4-5.0 [facility] Comment on above: Performed By: #### C MREP #### [facility] [address] [address] [address] Katerina Rodarte Albumin/Globulin [Mass ratio] 0.9 {ratio} Normal [facility] Comment on above: Performed By: #### C MREP #### [facility] [address] [address] [address] Katerina Rodarte ALP [Catalytic activity/Vol] 125 U/L Critically high 46-116 [facility] Comment on above: Performed By: #### C MREP #### [facility] [address] [address] [address] Katerina Rodarte ALT [Catalytic activity/Vol] 56 U/L Normal 16-63 [facility] Comment on above: Performed By: #### C MREP #### [facility] [address] [address] [address] Katerina Rodarte Anion gap [Moles/Vol] 11.3 mmol/L Normal Th e [facility] Comment on above: Performed By: #### C MREP #### [facility] [address] [address] [address] Katerina Rodarte AST [Catalytic activity/Vol] 81 U/L Critically high 15-37 [facility] Comment on above: Performed By: #### C MREP #### [facility] [address] [address] [address] Katerina Rodarte Bilirubin [Mass/Vol] 0.2 mg/dL Normal 0.2-1.0 [facility] Comment on above: Performed By: #### C MREP #### [facility] [address] [address] [address] Katerina Rodarte Calcium [Mass/Vol] 8.6 mg/dL Normal 8.5-10.1 [facility] Comment on above: Performed By: #### C MREP #### [facility] [address] [address] [address] Katerina Rodarte Chloride [Moles/Vol] 97 mmol/L Critically low 98-107 [facility] Comment on above: Performed By: #### C MREP #### [facility] [address] [address] [address] Katerina Rodarte CO2 [Moles/Vol] 31.0 mmol/L Normal 21.0-32.0 [facility] Comment on above: Performed By: #### C MREP #### [facility] [address] [address] [address] Katerina Rodarte Creatinine [Mass/Vol] 1.12 mg/dL Normal 0.70-1.30 [facility] Comment on above: Performed By: #### C MREP #### [facility] [address] [address] [address] Katerina Rodarte EGFR-AF VINCENTIAN >60 Normal >=60 [facility] Comment on above: Performed By: #### C MREP #### [facility] [address] [address] [address] Katerina Rodarte EGFR-NON AF VINCENTIAN >60 Normal >=60 [facility] Comment on above: Performed By: #### C MREP #### [facility] [address] [address] [address] Katerina Rodarte Globulin (S) [Mass/Vol] 3.8 g/dL Normal [facility] Comment on above: Performed By: #### C MREP #### [facility] [address] [address] [address] Katerina Rodarte Glucose [Mass/Vol] 90 mg/dL Normal 74-106 [facility] Comment on above: Performed By: #### C MREP #### [facility] [address] [place] [address] Dr. Katerina Rodarte Potassium [Moles/Vol] 4.3 mmol/L Normal 3.5-5.1 [facility] Comment on above: Performed By: #### C MREP #### [facility] [address] [address] [address] Katerina Rodarte Protein [Mass/Vol] 7.4 g/dL Normal 6.4-8.2 [facility] Comment on above: Performed By: #### C MREP #### [facility] [address] [address] [address] Katerina Rodarte Sodium [Moles/Vol] 135 mmol/L Critically low 136-145 Th [facility] Comment on above: Performed By: #### C MREP #### [facility] [address] [place] [address] Dr. Katerina Rodarte Urea nitrogen [Mass/Vol] 10.0 mg/dL Normal 7.0-18.0 [facility] Comment on above: Performed By: #### C MREP #### [facility] [address] [address] [address] Katerina Rodarte Urea nitrogen/Creatinine [Mass ratio] 8.9 mg/mg Normal [facility] Comment on above: Performed By: #### C MREP #### [facility] [address] [address] [address] Katerina Rodarte Basic Metabolic Panelon 09-27 Anion gap [Moles/Vol] 15.3 mmol/L High 6.0-15.0 [facility] Comment on above: Performed By: #### B MP, MG, CBC #### [facility] [address] [place] [address] [place] Calcium [Mass/Vol] 8.5 mg/dL Normal 8.2-10.2 [facility] Comment on above: Performed By: #### B MP, MG, CBC #### [facility] [address] [place] [id number] [place] Chloride [Moles/Vol] 106 mmol/L Normal 95-114 [facility] Comment on above: Performed By: #### B MP, MG, CBC #### [facility] [address] [place] [address] [place] CO2 [Moles/Vol] 23.0 mmol/L Normal 22.0-30.0 [facility] Comment on above: Performed By: #### B MP, MG, CBC #### [facility] [address] [place] [id number] [place] Creatinine [Mass/Vol] 0.89 mg/dL Normal 0.64-1.27 [facility] Comment on above: Performed By: #### B MP, MG, CBC #### [facility] [address] [place] [id number] [place] Creatinine Clr Calc Pharmacy 76.43 [facility] Comment on above: Performed By: #### B MP, MG, CBC #### [facility] [address] [place] [id number] [place] Estimated GFR ( Dori > 60 Normal [facility] Comment on above: Result Comment: GFR estimated reference range: According to KDOQI guidelines, <60 ml/min/1.73m2 is sufficient to diagnose a patient with chronic kidney disease. Performed By: #### B MP, MG, CBC #### [facility] [address] Estimated GFR (Non- Am > 60 Normal [facility] Comment on above: Performed By: #### B MP, MG, CBC #### [facility] [address] Glucose [Mass/Vol] 85 mg/dL Normal 70-100 [facility] Comment on above: Result Comment: [facility] Glucose Reference Range is dependent on time and content of last meal. Glucose of more than 200 mg/dL in a nonstressed, ambulatory subject supports the diagnosis of Diabetes Mellitus. ADA recommended reference range Performed By: #### B MP, MG, CBC #### [facility] [address] Potassium [Moles/Vol] 4.3 mmol/L Normal 3.5-5.1 [facility] Comment on above: Performed By: #### B MP, MG, CBC #### [facility] [address] Sodium [Moles/Vol] 140 mmol/L Significant change down 136-146 [facility] Comment on above: Performed By: #### B MP, MG, CBC #### [address] Urea nitrogen [Mass/Vol] 3 mg/dL Low 9-23 [facility] Comment on above: Performed By: #### B MP, MG, CBC #### [address] cervical spine wo conon 1 12-08-2021 CT cervical spine wo [facility] [address] [place] [address] CT Scan Report Signed Patient: Aristides Clark MR#: [id number] 32 : 1975 Acct:[id number] Age/Sex: 47 / M ADM Date: 10/07/22 Loc: Room: [address] [place] [address] Type: ADM IN Attending Dr: Theresa Ohara DO Copies to: DO Theresa Duran DO Ordering Provider: Matthew Ford DO Date of Service: 10/07/22 CT/CT head/brain wo con: f ([id number]) CT/CT cervical spine wo con: f CLINICAL DATA: Intoxicated patient with unwitnessed seizure. CT BRAIN WITHOUT CONTRAST: COMPARISON: 12/21/2018 TECHNIQUE: Contiguous axial unenhanced images were obtained through the brain. This CT exam was performed using one or more following dose reduction techniques: Automated exposure control, adjustment of the mA and/or kV according to patient size, or use of iterative reconstruction technique. FINDINGS: Assessment is slightly limited by patient's positioning. The ventricles are within normal limits for size and position. There is a possible small old right basal ganglia lacunar infarct. There are no additional areas of abnormal attenuation. There is no hemorrhage, mass effect or extra-axial collections. The calvarium is intact. Surgical plates are present at the anterior wall of the left maxilla and lateral wall left orbit. There is fluid within the left maxillary sinus. CT/CT head/brain wo con IMPRESSION: NO INTRACRANIAL TRAUMA OR OTHER DEFINITE ACUTE FINDINGS. CT CERVICAL SPINE WITHOUT CONTRAST WITH 3D RECONSTRUCTIONS: COMPARISON: None TECHNIQUE: Spiral axial unenhanced images were obtained through the cervical spine. Sagittal, coronal and 3D volume-rendered reconstructions were also reviewed. This CT exam was performed using one or more following dose reduction techniques: Automated exposure control, adjustment of the mA and/or kV according to patient size, or use of iterative reconstruction technique. FINDINGS: Assessment is slightly limited by positioning. There is dextroscoliotic curvature. There is also reversal of the normal cervical lordosis. Alignment is maintained in the sagittal plane. No fractures are identified. Disc space narrowing is present at C5-6. There is also endplate spurring at that level and at C6-7. The atlantoaxial relationship is maintained. No prevertebral soft tissue swelling is seen. There is some carotid artery plaque. The upper imaged lungs show obstructive disease and scarring. IMPRESSION: LOSS OF NORMAL CERVICAL CURVATURE. MILD DEGENERATIVE CHANGES. NO ACUTE BONY INJURY. Impression dictated by: Brittany Torres M.D.10/08/2022 8:38 AM Dictation Location: [place] [address] Transcribed By: JEFF 10/08/22837 Dictated By: Brittany Torres MD 10/08/22830 Signed By: 10/08/22837 Normal [facility] Complete Blood Count Auto Di ffon 10-08-2022 Basophils (Bld) [#/Vol] 0.1 10*3/uL Normal 0.0-0.2 [facility] Comment on above: Result Comment: PERF ORMED BY: [place] [address] PATHOLOGIST FILENET P8 DEVELOPER LATOYA CAMPBELL M.D. Performed By: #### B MP, MG, CBC #### [address] Basophils/100 WBC (Bld) 1.4 % Normal . [facility] Comment on above: Performed By: #### B MP, MG, CBC #### [facility] [address] [place] [address] Eosinophils (Bld) [#/Vol] 0.6 10*3/uL High 0.0-0.45 [facility] Comment on above: Performed By: #### B MP, MG, CBC #### [facility] [address] [place] [address] Eosinophils/100 WBC (Bld) 14.9 % Normal . [facility] Comment on above: Performed By: #### B MP, MG, CBC #### [facility] [address] [place] [address] Erythrocyte distribution width (RBC) [Ratio] 15.0 % High 12.0-14.8 [facility] Comment on above: Performed By: #### B MP, MG, CBC #### [facility] [address] [place] [address] Hematocrit (Bld) [Volume fraction] 39.3 % Normal 38.8-50.0 [facility] Comment on above: Performed By: #### B MP, MG, CBC #### [facility] [address] [place] [address] Hemoglobin (Bld) [Mass/Vol] 12.9 g/dL Low 13.0-17.0 [facility] Comment on above: Performed By: #### B MP, MG, CBC #### [facility] [address] Lymphocytes (Bld) [#/Vol] 1.3 10*3/uL Normal 1.00-4.8 [facility] Comment on above: Performed By: #### B MP, MG, CBC #### [facility] [address] Lymphocytes/100 WBC (Bld) 33.1 % Normal . [facility] Comment on above: Performed By: #### B MP, MG, CBC #### [facility] [address] MCH (RBC) [Entitic mass] 32.8 pg Normal 27.5-35.2 [facility] Comment on above: Performed By: #### B MP, MG, CBC #### [facility] [address] MCV (RBC) [Entitic vol] 100.1 fL Normal 83.5-101 [facility] Comment on above: Performed By: #### B MP, MG, CBC #### [facility] [address] Mean Corpuscular HGB Conc 32.7 g/dL Normal 32.5-35.6 [facility] Comment on above: Performed By: #### B MP, MG, CBC #### [facility] [address] [place] [address] [place] Monocytes (Bld) [#/Vol] 0.5 10*3/uL Normal 0.0-0.8 [facility] Comment on above: Performed By: #### B MP, MG, CBC #### [facility] [address] [place] [address] [place] Monocytes/100 WBC (Bld) 14.2 % Normal . [facility] Comment on above: Performed By: #### B MP, MG, CBC #### [facility] [address] Neutrophils (Bld) [#/Vol] 1.4 10*3/uL Low 1.8-7.7 [facility] Comment on above: Performed By: #### B MP, MG, CBC #### [address] Neutrophils/100 WBC (Bld) 36.4 % Normal . [facility] Comment on above: Performed By: #### B MP, MG, CBC #### [address] Nucleated RBC/100 WBC (Bld) [Ratio] 0.2 % Normal 0-0.5 [facility] Comment on above: Performed By: #### B MP, MG, CBC #### [address] Platelet mean volume (Bld) [Entitic vol] 7.8 fL Normal 6.6-10.1 [facility] Comment on above: Performed By: #### B MP, MG, CBC #### [address] Platelets (Bld) [#/Vol] 244 10*3/uL Normal 150-450 [facility] Comment on above: Performed By: #### B MP, MG, CBC #### [address] RBC (Bld) [#/Vol] 3.92 10*6/uL Normal 3.90-5.60 [facility] Comment on above: Performed By: #### B MP, MG, CBC #### [address] WBC (Bld) [#/Vol] 3.8 10*3/uL Low 4.5-11.0 [facility] Comment on above: Performed By: #### B MP, MG, CBC #### [address] Levetiracetam (Keppra)on levETIRAcetam [Mass/Vol] 26.2 ug/mL Normal 10.0-40.0 [facility] Comment on above: Result Comment: Perf ormed at: BN - [facility] [address] [id number] [place] Deadener: Theo Sierra MD, Phone: [phone] PERFORMED BY: [place] [address] PATHOLOGIST FILENET P8 DEVELOPER LATOYA CAMPBELL M.D. Performed By: #### L EV #### [facility] , Magnesiumon 10-08-2022 Magnesium [Mass/Vol] 1.8 mg/dL Normal 1.6-2.6 [facility] Comment on above: Result Comment: PERF ORMED BY: [place] [address] PATHOLOGIST FILENET P8 DEVELOPER LATOYA CAMPBELL M.D. Performed By: #### B MP, MG, CBC #### [address] Albumin [Mass/volume] in Ser um or PlasmaOrdered By: Matthew Ford on 10-07-2022 Albumin [Mass/Vol] 3.8 g/dL 3.2-5.5 [facility] Amphetamine Screen Ql (U)Ord ered By: Matthew Ford on 10-07-2022 Amphetamines Ql (U) Negative Negative [facility] Barbiturates [Presence] in U rineOrdered By: Matthew Ford on 10-07-2022 Barbiturates Ql (U) Negative Negative [facility] Basophils Auto (Bld) [#/Vol] Ordered By: Matthew Ford on 10-07-2022 Basophils (Bld) [#/Vol] 0.1 10*3/uL 0.0-0.2 [facility] Basophils/100 WBC Auto (Bld) Ordered By: Matthew Ford on 10-07-2022 Basophils/100 WBC (Bld) 1.2 % . [facility] Benzodiazepines [Presence] i n UrineOrdered By: Matthew Ford on 10-07-2022 Benzodiazepines Ql (U) Negative Negative [facility] Cannabinoids [Presence] in U rine by Screen methodOrdered By: Matthew Ford on 10-07-2022 Cannabinoids Screen Ql (U) Positive Negative [facility] Comment on above: These are unconfirme d results and should not be used for legal purposes. Drug Cut-Off Concentration: AMPH 1000 ng/mL JODY 200 ng/mL ART 200 ng/mL COCM 300 ng/mL OP 300 ng/mL PCP 25 ng/mL THC 20 ng/mL Complete Blood Count Auto Di ffon 10-07-2022 Basophils (Bld) [#/Vol] 0.1 10*3/uL Normal 0.0-0.2 [facility] Comment on above: Result Comment: PERF ORMED BY: [place] [address] PATHOLOGIST FILENET P8 DEVELOPER LATOYA CAMPBELL M.D. Performed By: #### C BC, PT, CMP #### [address] Basophils/100 WBC (Bld) 1.2 % Normal . [facility] Comment on above: Performed By: #### C BC, PT, CMP #### [address] Eosinophils (Bld) [#/Vol] 0.5 10*3/uL High 0.0-0.45 [facility] Comment on above: Performed By: #### C BC, PT, CMP #### [address] Eosinophils/100 WBC (Bld) 8.2 % Normal . [facility] Comment on above: Performed By: #### C BC, PT, CMP #### [facility] [address] [place] [address] Erythrocyte distribution width (RBC) [Ratio] 14.6 % Normal 12.0-14.8 [facility] Comment on above: Performed By: #### C BC, PT, CMP #### [address] Hematocrit (Bld) [Volume fraction] 39.5 % Normal 38.8-50.0 [facility] Comment on above: Performed By: #### C BC, PT, CMP #### [facility] [address] [place] [address] [place] Hemoglobin (Bld) [Mass/Vol] 13.1 g/dL Normal 13.0-17.0 [facility] Comment on above: Performed By: #### C BC, PT, CMP #### [facility] [address] Lymphocytes (Bld) [#/Vol] 2.6 10*3/uL Normal 1.00-4.8 [facility] Comment on above: Performed By: #### C BC, PT, CMP #### [facility] [address] Lymphocytes/100 WBC (Bld) 45.8 % Normal . [facility] Comment on above: Performed By: #### C BC, PT, CMP #### [facility] [address] MCH (RBC) [Entitic mass] 32.8 pg Normal 27.5-35.2 [facility] Comment on above: Performed By: #### C BC, PT, CMP #### [place] [address] [place] MCV (RBC) [Entitic vol] 99.1 fL Normal 83.5-101 [facility] Comment on above: Performed By: #### C BC, PT, CMP #### [address] Mean Corpuscular HGB Conc 33.1 g/dL Normal 32.5-35.6 [facility] Comment on above: Performed By: #### C BC, PT, CMP #### [facility] [address] [place] [address] [place] Monocytes (Bld) [#/Vol] 0.7 10*3/uL Normal 0.0-0.8 [facility] Comment on above: Performed By: #### C BC, PT, CMP #### [facility] [address] [place] [id number] [place] Monocytes/100 WBC (Bld) 11.8 % Normal . [facility] Comment on above: Performed By: #### C BC, PT, CMP #### [facility] [address] Neutrophils (Bld) [#/Vol] 1.9 10*3/uL Normal 1.8-7.7 [facility] Comment on above: Performed By: #### C BC, PT, CMP #### [facility] [address] Neutrophils/100 WBC (Bld) 33.0 % Normal . [facility] Comment on above: Performed By: #### C BC, PT, CMP #### [facility] [address] Nucleated RBC/100 WBC (Bld) [Ratio] 0.1 % Normal 0-0.5 [facility] Comment on above: Performed By: #### C BC, PT, CMP #### [address] Platelet mean volume (Bld) [Entitic vol] 7.7 fL Normal 6.6-10.1 [facility] Comment on above: Performed By: #### C BC, PT, CMP #### [address] Platelets (Bld) [#/Vol] 301 10*3/uL Normal 150-450 [facility] Comment on above: Performed By: #### C BC, PT, CMP #### [facility] [address] [address] RBC (Bld) [#/Vol] 3.99 10*6/uL Normal 3.90-5.60 [facility] Comment on above: Performed By: #### C BC, PT, CMP #### [facility] [address] [place] [address] [place] WBC (Bld) [#/Vol] 5.8 10*3/uL Normal 4.5-11.0 [facility] Comment on above: Performed By: #### C BC, PT, CMP #### [address] Comprehensive Metabolic Pane vivek 10-07-2022 Albumin [Mass/Vol] 3.8 g/dL Normal 3.2-5.5 [facility] Comment on above: Performed By: #### C BC, PT, CMP #### [address] Albumin/Globulin [Mass ratio] 1.4 {ratio} Normal [facility] Comment on above: Performed By: #### C BC, PT, CMP #### [address] ALP [Catalytic activity/Vol] 92 U/L Normal 32-92 [facility] Comment on above: Performed By: #### C BC, PT, CMP #### [address] ALT [Catalytic activity/Vol] 21 U/L Normal 10-60 [facility] Comment on above: Performed By: #### C BC, PT, CMP #### [address] Anion gap [Moles/Vol] 13.2 mmol/L Normal 6.0-15.0 [facility] Comment on above: Performed By: #### C BC, PT, CMP #### [address] AST [Catalytic activity/Vol] 30 U/L Normal 10-42 [facility] Comment on above: Performed By: #### C BC, PT, CMP #### [address] Bilirubin [Mass/Vol] 0.6 mg/dL Normal 0.3-1.2 [facility] Comment on above: Performed By: #### C BC, PT, CMP #### [address] Calcium [Mass/Vol] 8.8 mg/dL Normal 8.2-10.2 [facility] Comment on above: Performed By: #### C BC, PT, CMP #### [place] [address] [place] Chloride [Moles/Vol] 94 mmol/L Low 95-114 [facility] Comment on above: Performed By: #### C BC, PT, CMP #### [facility] [address] [place] [address] CO2 [Moles/Vol] 25.0 mmol/L Normal 22.0-30.0 [facility] Comment on above: Performed By: #### C BC, PT, CMP #### [facility] [address] [place] [address] Creatinine [Mass/Vol] 1.09 mg/dL Normal 0.64-1.27 [facility] Comment on above: Performed By: #### C BC, PT, CMP #### [address] Creatinine Clr Calc Pharmacy 64.68 [facility] Comment on above: Result Comment: PERF ORMED BY: [place] [address] PATHOLOGIST FILENET P8 DEVELOPER LATOYA CAMPBELL M.D. Performed By: #### C BC, PT, CMP #### [address] Estimated GFR ( Dori > 60 [facility] Comment on above: Result Comment: GFR estimated reference range: According to KDOQI guidelines, <60 ml/min/1.73m2 is sufficient to diagnose a patient with chronic kidney disease. Performed By: #### C BC, PT, CMP #### [facility] [address] [place] [address] Estimated GFR (Non- Am > 60 [facility] Comment on above: Performed By: #### C BC, PT, CMP #### [facility] [address] [place] [address] [place] Globulin (S) [Mass/Vol] 2.8 g/dL [facility] Comment on above: Performed By: #### C BC, PT, CMP #### [facility] [address] Glucose [Mass/Vol] 93 mg/dL Normal 70-100 [facility] Comment on above: Result Comment: [facility] Glucose Reference Range is dependent on time and content of last meal. Glucose of more than 200 mg/dL in a nonstressed, ambulatory subject supports the diagnosis of Diabetes Mellitus. ADA recommended reference range Performed By: #### C BC, PT, CMP #### [facility] [address] Potassium [Moles/Vol] 4.2 mmol/L Normal 3.5-5.1 [facility] Comment on above: Performed By: #### C BC, PT, CMP #### [facility] [address] [place] [address] [place] Protein [Mass/Vol] 6.6 g/dL Normal 6.1-7.9 [facility] Comment on above: Performed By: #### C BC, PT, CMP #### [facility] [address] Sodium [Moles/Vol] 128 mmol/L Low 136-146 [facility] Comment on above: Performed By: #### C BC, PT, CMP #### [facility] [address] [place] [address] [place] Urea nitrogen [Mass/Vol] 4 mg/dL Low 9-23 [facility] Comment on above: Performed By: #### C BC, PT, CMP #### [facility] [address] [place] [address] [place] Creatinine and Glomerular fi ltration rate.predicted panel (S/P/Bld)Ordered By: Matthew Ford on 10-07-2022 Creatinine [Mass/Vol] 1.09 mg/dL 0.64-1.27 [facility] Drug Screen,Urineon 10-07-20 Amphetamine Screen,Urine Negative Normal Negative [facility] Comment on above: Performed By: #### C BC, PT, CMP #### [facility] [address] Barbiturate Screen,Urine Negative Normal Negative [facility] Comment on above: Performed By: #### C BC, PT, CMP #### [facility] [address] [place] [address] [place] Benzodiazepines Screen,Urine Negative Normal Negative [facility] Comment on above: Performed By: #### C BC, PT, CMP #### [facility] [address] [place] [address] Cannabinoid Screen,Urine Positive High Negative [facility] Comment on above: Result Comment: Thes e are unconfirmed results and should not be used for legal purposes. Drug Cut-Off Concentration: AMPH 1000 ng/mL JODY 200 ng/mL ART 200 ng/mL COCM 300 ng/mL OP 300 ng/mL PCP 25 ng/mL THC 20 ng/mL PERFORMED BY: [place] [address] PATHOLOGIST FILENET P8 DEVELOPER LATOYA CAMPBELL M.D. Performed By: #### C BC, PT, CMP #### [address] Cocaine Screen,Urine Positive High Negative [facility] Comment on above: Performed By: #### C BC, PT, CMP #### [address] Opiate Screen,Urine Negative Normal Negative [facility] Comment on above: Performed By: #### C BC, PT, CMP #### [address] Phencyclidine Screen,Urine Negative Normal Negative [facility] Comment on above: Performed By: #### C BC, PT, CMP #### [address] ECG 12 lead ECGon 10-07-2022 ECG 12 lead ECG [facility] [place] [place] [address] Electrocardiograph Report Signed Patient: Aristides Clark MR#: [id number] [birth year] : 1975 Acct:[id number] Age/Sex: 47 / M ADM Date: 10/07/22 Loc: 4 Room: [address] [place] [address] Type: DIS INOo Attending Dr: Theresa Ohara DO Ordering Provider: Matthew Ford DO Date of Service: 10/07/[birth year]10/18/1936 ECG/ECG 12 lead ECG: Seizure Copies to: Test Reason : Blood Pressure : 140/098 mmHG Vent. Rate : 076 BPM Atrial Rate : 076 BPM P-R Int : 192 ms QRS Dur : 090 ms QT Int : 398 ms P-R-T Axes : 077 093 074 degrees QTc Int : 447 ms Normal sinus rhythm Possible Left atrial enlargement Rightward axis Septal infarct , age undetermined Abnormal ECG When compared with ECG of 14-DEC-2019 19:25, No significant change was found Confirmed by MATTHEW FORD DO ([id number]) on 10/08/2022 2:05:39 AM Referred By: Electronically Signed By:MATTHEW FORD DO Transcribed By: MUS Signed By Matthew Ford DO 10/08 0205 Normal [facility] Eosinophils Auto (Bld) [#/Vo l]Ordered By: Matthew Ford on 10-07-2022 Eosinophils (Bld) [#/Vol] 0.5 10*3/uL 0.0-0.45 [facility] Eosinophils/100 WBC Auto (Bl d)Ordered By: Matthew Ford on 10-07-2022 Eosinophils/100 WBC (Bld) 8.2 % . [facility] Erythrocyte distribution wid th Auto (RBC) [Ratio]Ordered By: Matthew Ford on 10-07-2022 Erythrocyte distribution width (RBC) [Ratio] 14.6 % 12.0-14.8 [facility] Estimated glomerular filtrat ion rate (GFR) non- AmericanOrdered By: Matthew Ford on 10-07-2022 GFR/1.73 sq M.predicted among non-blacks MDRD (S/P/Bld) [Vol rate/Area] > 60 mL/Min [facility] Ethyl Alcohol Profileon 09-27 Ethanol [Mass/Vol] 309 mg/dL Normal [facility] Comment on above: Performed By: #### C BC, PT, CMP #### [facility] [address] [place] [address] Percent Ethanol 0.309 % Normal [facility] Comment on above: Result Comment: PERF ORMED BY: [place] [address] PATHOLOGIST FILENET P8 DEVELOPER LATOYA CAMPBELL M.D. Performed By: #### C BC, PT, CMP #### [facility] [address] Globulin Calc (S) [Mass/Vol] Ordered By: Matthew Ford on 10-07-2022 Globulin (S) [Mass/Vol] 2.8 g/dL [facility] Glucose Glucometer (BldC) [M ass/Vol]Ordered By: Matthew Ford on 10-07-2022 Glucose [Mass/Vol] 89 mg/dL [facility] Comment on above: Random Glucose Refer ence Range is dependent on time and content of last meal. Glucose of more than 200 mg/dL in a nonstressed, ambulatory subject supports the diagnosis of Diabetes Mellitus. Glucose Poct Glucometerson 1 12-07-2021 Commemt1 Normal [facility] Comment on above: Result Comment: Glu2 : WILL NOTIFY DR/RN PERFORMED BY: [place] [address] PATHOLOGIST FILENET P8 DEVELOPER LATOYA CAMPBELL M.D. Performed By: #### G LULS #### Point of Care testing , Glucose [Mass/Vol] 89 mg/dL Normal [facility] Comment on above: Result Comment: [place] Glucose Reference Range is dependent on time and content of last meal. Glucose of more than 200 mg/dL in a nonstressed, ambulatory subject supports the diagnosis of Diabetes Mellitus. Performed By: #### G LULS #### Point of Care testing , Hematocrit Auto (Bld) [Volum e fraction]Ordered By: Matthew Ford on 10-07-2022 Hematocrit (Bld) [Volume fraction] 39.5 % 38.8-50.0 [facility] Hemoglobin [Mass/volume] in BloodOrdered By: Matthew Ford on 10-07-2022 Hemoglobin (Bld) [Mass/Vol] 13.1 g/dL 13.0-17.0 [facility] Laboratory - CoagulationOrde red By: Matthew Ford on 10-07-2022 PT Coag (PPP) [Time] 10.9 s 9.0-12.9 [facility] Laboratory - Drug toxicology Ordered By: Matthew Ford on 10-07-2022 Opiates Ql (U) Negative Negative [facility] Laboratory - Hematology and Cell countsOrdered By: Matthew Ford on 10-07-2022 Nucleated RBC/100 WBC (Bld) [Ratio] 0.1 % 0-0.5 [facility] Leukocytes [#/volume] in Blo od by Automated countOrdered By: Matthew Ford on 10-07-2022 WBC (Bld) [#/Vol] 5.8 10*3/uL 4.5-11.0 [facility] Lymphocytes Auto (Bld) [#/Vo l]Ordered By: Matthew Ford on 10-07-2022 Lymphocytes (Bld) [#/Vol] 2.6 10*3/uL 1.00-4.8 [facility] Lymphocytes/100 WBC Auto (Bl d)Ordered By: Matthew Ford on 10-07-2022 Lymphocytes/100 WBC (Bld) 45.8 % . [facility] MCH Auto (RBC) [Entitic mass ]Ordered By: Matthew Ford on 10-07-2022 MCH (RBC) [Entitic mass] 32.8 pg 27.5-35.2 [facility] MCHC Auto (RBC) [Mass/Vol]Or dered By: Matthew Ford on 10-07-2022 MCHC (RBC) [Mass/Vol] 33.1 g/dL 32.5-35.6 [facility] MCV Auto (RBC) [Entitic vol] Ordered By: Matthew Ford on 10-07-2022 MCV (RBC) [Entitic vol] 99.1 fL 83.5-101 [facility] Monocytes Auto (Bld) [#/Vol] Ordered By: Matthew Ford on 10-07-2022 Monocytes (Bld) [#/Vol] 0.7 10*3/uL 0.0-0.8 [facility] Monocytes/100 WBC Auto (Bld) Ordered By: Matthew Ford on 10-07-2022 Monocytes/100 WBC (Bld) 11.8 % . [facility] Neutrophils Auto (Bld) [#/Vo l]Ordered By: Matthew Ford on 10-07-2022 Neutrophils (Bld) [#/Vol] 1.9 10*3/uL 1.8-7.7 [facility] Neutrophils/100 WBC Auto (Bl d)Ordered By: Matthew Ford on 10-07-2022 Neutrophils/100 WBC (Bld) 33.0 % . [facility] No Panel InformationOrdered By: Matthew Ford on 10-07-2022 Bedside Glucose Comment See comment [facility] Comment on above: Glu2: WILL NOTIFY DR /RN Estimated GFR () > 60 mL/Min [facility] Comment on above: GFR estimated refere nce range: According to KDOQI guidelines, <60 ml/min/1.73m2 is sufficient to diagnose a patient with chronic kidney disease. Pharmacy Creatinine Clearance (Chem 64.68 [facility] Phencyclidine Screen Ql (U)O rdered By: Matthew Ford on 10-07-2022 Phencyclidine Ql (U) Negative Negative [facility] Platelet mean volume Auto (B ld) [Entitic vol]Ordered By: Matthew Ford on 10-07-2022 Platelet mean volume (Bld) [Entitic vol] 7.7 fL 6.6-10.1 [facility] Platelet poor plasma interna tional normalized ratio (INR) by coagulation assay (relatOrdered By: Matthew Ford on 10-07-2022 INR Coag (PPP) [Relative time] 1.0 {INR} [facility] Comment on above: INR Therapeutic Rang e A) Pre- and Peroperative OAT started two weeks before surgery. NOT HIP SURGERY: 1.5 - 2.5 HIP SURGERY: 2 - 3B) Primary and secondary prevention of venous THROMBOSIS: 2 - 3C) Active venous thrombosis, pulmonary embolismand prevention of recurrent venous thrombosis: 2 - 3D) Prevention of arterial thromboembolismincluding patients with mechanical heart valves: 3 - 4.5 Platelets Auto (Bld) [#/Vol] Ordered By: Matthew Ford on 10-07-2022 Platelets (Bld) [#/Vol] 301 10*3/uL 150-450 [facility] Protein [Mass/volume] in Ser um or PlasmaOrdered By: Matthew Ford on 10-07-2022 Protein [Mass/Vol] 6.6 g/dL 6.1-7.9 [facility] Prothrombin Time INRon 10-07 INR Coag (PPP) [Relative time] 1.0 {INR} Normal [facility] Comment on above: Result Comment: INR Therapeutic Range A) Pre- and Peroperative OAT started two weeks before surgery. NOT HIP SURGERY: 1.5 - 2.5 HIP SURGERY: 2 - 3 B) Primary and secondary prevention of venous THROMBOSIS: 2 - 3 C) Active venous thrombosis, pulmonary embolism and prevention of recurrent venous thrombosis: 2 - 3 D) Prevention of arterial thromboembolism including patients with mechanical heart valves: 3 - 4.5 PERFORMED BY: [place] [address] PATHOLOGIST FILENET P8 DEVELOPER LATOYA CAMPBELL M.D. Performed By: #### C BC, PT, CMP #### [facility] [address] [place] [address] PT Coag (PPP) [Time] 10.9 s Normal 9.0-12.9 [facility] Comment on above: Performed By: #### C BC, PT, CMP #### [facility] [address] [place] [address] RBC Auto (Bld) [#/Vol]Ordere d By: Matthew Ford on 10-07-2022 RBC (Bld) [#/Vol] 3.99 10*6/uL 3.90-5.60 [facility] Serum or plasma alanine pascual otransferase measurement without P-5'-P (enzymatic activiOrdered By: Matthew Ford on 10-07-2022 ALT No additional P-5'-P [Catalytic activity/Vol] 21 U/L 10-60 [facility] Serum or plasma albumin/glob ulin mass ratioOrdered By: Matthew Ford on 10-07-2022 Albumin/Globulin [Mass ratio] 1.4 {ratio} [facility] Serum or plasma alkaline jonathan sphatase measurement (enzymatic activity/volume)Ordered By: Matthew Ford on 10-07-2022 ALP [Catalytic activity/Vol] 92 U/L 32-92 [facility] Serum or plasma anion gap de terminationOrdered By: Matthew Ford on 10-07-2022 Anion gap [Moles/Vol] 13.2 mmol/L 6.0-15.0 [facility] Serum or plasma aspartate am inotransferase measurement (enzymatic activity/volume)Ordered By: Matthew Ford on 10-07-2022 AST [Catalytic activity/Vol] 30 U/L 10-42 [facility] Serum or plasma calcium william urement (mass/volume)Ordered By: Matthew Ford on 10-07-2022 Calcium [Mass/Vol] 8.8 mg/dL 8.2-10.2 [facility] Serum or plasma chloride josh surement (moles/volume)Ordered By: Matthew Ford on 10-07-2022 Chloride [Moles/Vol] 94 mmol/L 95-114 [facility] Serum or plasma ethanol william urement (mass/volume)Ordered By: Matthew Ford on 10-07-2022 Ethanol [Mass/Vol] 309 mg/dL [facility] Ethanol [Mass/Vol] 0.309 % [facility] Serum or plasma glucose william urement (mass/volume)Ordered By: Matthew Ford on 10-07-2022 Glucose [Mass/Vol] 93 mg/dL 70-100 [facility] Comment on above: ADA recommended refe rence rangeRandom Glucose Reference Range is dependent on time and content of last meal. Glucose of more than 200 mg/dL in a nonstressed, ambulatory subject supports the diagnosis of Diabetes Mellitus. Serum or plasma potassium me asurement (moles/volume)Ordered By: Matthew Ford on 10-07-2022 Potassium [Moles/Vol] 4.2 mmol/L 3.5-5.1 [facility] Serum or plasma sodium measu rement (moles/volume)Ordered By: Matthew Ford on 10-07-2022 Sodium [Moles/Vol] 128 mmol/L 136-146 [facility] Serum or plasma total biliru bin measurement (mass/volume)Ordered By: Matthew Ford on 10-07-2022 Bilirubin [Mass/Vol] 0.6 mg/dL 0.3-1.2 [facility] Serum or plasma total carbon dioxide measurement (moles/volume)Ordered By: Matthew Ford on 10-07-2022 CO2 [Moles/Vol] 25.0 mmol/L 22.0-30.0 [facility] Serum or plasma urea nitroge n measurement (mass/volume)Ordered By: Matthew Ford on 10-07-2022 Urea nitrogen [Mass/Vol] 4 mg/dL 08-19 [facility] Urine cocaine detectionOrder ed By: Matthew Ford on 10-07-2022 Cocaine Ql (U) Positive Negative [facility] CARDIAC RA 3-6on 2 CK [Catalytic activity/Vol] 127 U/L Normal 39-308 [facility] Comment on above: Performed By: #### C MREP #### [facility] [address] [address] [address] Katerina Rodarte CK.MB [Mass/Vol] 3.20 ng/mL Normal <=3.60 [facility] Comment on above: Performed By: #### C MREP #### [facility] [address] [address] [address] Katerina Rodarte HSTROP 9.9 pg/mL Normal 4.0-76.1 [facility] Comment on above: Result Comment: CUT- OFF POINTS HAVE BEEN ESTABLISHED BASED ON THE FOURTH UNIVERSAL DEFINITIONS OF MYOCARDIAL INFARCTION. THE UPPER REFERENCE LIMIT (URL) OF TROPONIN, DEFINED THE 99TH PERCENTILE OF cTnI DISTRIBUTION IN A REFERENCE POPULATION, HAS BEEN CONFIRMED THE DECISION THRESHOLD FOR CO DIAGNOSIS. Performed By: #### C MREP #### [facility] [address] HEAD WO CONon 08-11-2022 CT HEAD WO CON Study: CT HEAD WO CO N HISTORY: Altered mental status Technique: CT images of the head were acquired without intravenous contrast. Dose reduction technique used: Automatic exposure control and/or adjustment of the mA and/or kV according to patient size and/or use of degenerative reconstruction technique. Comparisons: CT head 09/17/2021 and 07/29/2021 Findings: BRAIN PARENCHYMA: No acute hemorrhage. No mass effect or herniation. Chronic right thalamus lacunar infarct. No territorial loss of vogt-white differentiation. The sellar contents appear normal. VENTRICLE/EXTRA-AXIAL SPACES: No hydrocephalus or extra-axial fluid collections. EXTRACRANIAL STRUCTURES: No destructive osseous lesion. Normal soft tissues. Mastoids are clear. ORBITS: Normal. PARANASAL SINUSES: Normal. IMPRESSION: 1. No acute intracranial abnormality. 2. Chronic right thalamus lacunar infarct. Electronically authenticated by: ANISH ARIAS Date: 2022-08-10 22:12 Normal [facility] AMYLASEon 08-10-2022 Amylase [Catalytic activity/Vol] 43 U/L Normal 25-115 [facility] Comment on above: Performed By: #### L IPA, SUSAN, CMP, ETH, CMADM ####[facility] [address] [address]Dr. Katerina Rodaret CARDIAC RA ADMITon 022 CK [Catalytic activity/Vol] 78 U/L Normal 39-308 [facility] Comment on above: Performed By: #### L IPA, SUSAN, CMP, ETH, CMADM ####[facility] [address] [address]Dr. Katerina Rodarte CK.MB [Mass/Vol] 2.61 ng/mL Normal <=3.60 [facility] Comment on above: Performed By: #### L IPA, SUSAN, CMP, ETH, CMADM ####[facility] [address] [address]Dr. Katerina Rodarte HSTROP 7.1 pg/mL Normal 4.0-76.1 [facility] Comment on above: Result Comment: CUT- OFF POINTS HAVE BEEN ESTABLISHED BASED ON THE FOURTH UNIVERSAL DEFINITIONS OF MYOCARDIAL INFARCTION. THE UPPER REFERENCE LIMIT (URL) OF TROPONIN, DEFINED THE 99TH PERCENTILE OF cTnI DISTRIBUTION IN A REFERENCE POPULATION, HAS BEEN CONFIRMED THE DECISION THRESHOLD FOR CO DIAGNOSIS. Performed By: #### L IPA, SUSAN, CMP, ETH, CMADM ####[facility] [address] [address]Dr. Katerina Rodarte SHIRA 184 ng/mL Critically high 16-96 [facility] Comment on above: Performed By: #### L IPA, SUSAN, CMP, ETH, CMADM ####[facility] [address] [address]Dr. Katerina Rodarte CBC AUTO DIFFon 08-10-2022 BASO # 0.0 103/ul Normal 0.0-0.1 [facility] Comment on above: Performed By: #### C BC ####[facility] [address] [address]Dr. Katerina Rodarte Basophils/100 WBC (Bld) 0.5 % Normal 0.2-2.0 [facility] Comment on above: Performed By: #### C BC ####[facility] [address] [place], [place] [address]Dr. Katerina Rodarte EO # 0.1 103/ul Normal 0.0-0.7 [facility] Comment on above: Performed By: #### C BC ####[facility] [address] [place], [place] [address]Dr. Katerina Rodarte Eosinophils/100 WBC (Bld) 2.2 % Normal 0.9-7.0 [facility] Comment on above: Performed By: #### C BC ####[facility] [address] [place], [place] [address]Dr. Katerina Rodarte Erythrocyte distribution width (RBC) [Ratio] 14.1 % Normal 11.0-15.0 [facility] Comment on above: Performed By: #### C BC ####[facility] [address] [place], [place] [address]Dr. Katerina Rodarte Hematocrit (Bld) [Volume fraction] 39.6 % Critically low 42.0-54.0 [facility] Comment on above: Performed By: #### C BC ####[facility] [address] [place], [place] [address]Dr. Katerina Rodarte Hemoglobin (Bld) [Mass/Vol] 13.3 g/dL Critically low 14.0-18.0 [facility] Comment on above: Performed By: #### C BC ####[facility] [address] [place], [place] [address]Dr. Katerina Rodarte IG # 0.01 10e3/ul Normal 0.00-0.03 [facility] Comment on above: Performed By: #### C BC ####[facility] [address] [place], [place] [address]Dr. Katerina Rodarte IG % 0.2 % Normal 0.0-0.5 [facility] Comment on above: Performed By: #### C BC ####[facility] [address] [address]Dr. Katerina Rodarte LYMPH # 1.5 103/ul Normal 1.2-3.8 [facility] Comment on above: Performed By: #### C BC ####[facility] [address] [address]Dr. Katerina Rodarte Lymphocytes/100 WBC (Bld) 36.2 % Normal 20.5-60.0 [facility] Comment on above: Performed By: #### C BC ####[facility] [address] [place], [place] [address]DrZiggy Rodarte MANUAL DIFF REQ NO Normal [facility] Comment on above: Performed By: #### C BC ####[facility] Dcieurx[address] [place], [place] [address]Dr. Katerina Rodarte MCH (RBC) [Entitic mass] 31.8 pg Normal 25.9-34.0 [facility] Comment on above: Performed By: #### C BC ####[facility] Gl[address]we[address] [place], [place] [address]Dr. Katerina Rodarte MCHC (RBC) [Mass/Vol] 33.6 g/dL Normal 29.9-35.2 [facility] Comment on above: Performed By: #### C BC ####[facility] [address] [place], [place] [address]DrZiggy Rodarte MCV (RBC) [Entitic vol] 94.7 fL Critically high 80.0-94.0 [facility] Comment on above: Performed By: #### C BC ####[facility] [address] [place], [place] [address]DrZiggy Rodarte MONO # 0.4 103/ul Normal 0.3-0.8 [facility] Comment on above: Performed By: #### C BC ####[facility] [address] [place] [id number]. Katerina Rodarte Monocytes/100 WBC (Bld) 8.9 % Normal 1.7-12.0 [facility] Comment on above: Performed By: #### C BC ####[facility] [address] [place] [id number]. Liliasamina Rodarte NEUT # 2.2 103/ul Normal 1.4-6.5 [facility] Comment on above: Performed By: #### C BC ####[facility] [address] [place] [id number]. Katerina Rodarte Neutrophils/100 WBC (Bld) 52.0 % Normal 43.0-75.0 [facility] Comment on above: Performed By: #### C BC ####[facility] [address]fr[address] [place] [id number]. Katerina Rodarte Platelet mean volume (Bld) [Entitic vol] 9.2 fL Critically low 9.5-13.5 [facility] Comment on above: Performed By: #### C BC ####[facility] [address] [place] [id number]. Katerina Rodarte PLT 261 103/ul Normal 150-450 [facility] Comment on above: Performed By: #### C BC ####[facility] [address] [place] [id number]. Katerina Rodarte RBC 4.18 106/ul Critically low 4.70-6.10 [facility] Comment on above: Performed By: #### C BC ####[facility] [address] [place] [id number] Rodarte WBC 4.2 103/ul Normal 4.0-11.0 [facility] Comment on above: Performed By: #### C BC ####[facility] [address] [place] [phone] Rodarte DRUG SCREEN RAPID (URINE)on 08-10-2022 AMP Negative Normal NEGATIVE [facility] Comment on above: Performed By: #### C MREP #### [facility] [address] [place], [place] [address] Dr. Katerina Rodarte BAR Negative Normal NEGATIVE [facility] Comment on above: Performed By: #### C MREP #### [facility] [address] [place] [address] Dr. Katerina Rodarte BUP Negative Normal NEGATIVE [facility] Comment on above: Performed By: #### C MREP #### [facility] [address] [place] [address] Dr. Katerina Rodarte BZO Negative Normal NEGATIVE [facility] Comment on above: Performed By: #### C MREP #### [facility] [address] [place] [address] Dr. Katerina Rodarte CARLIE Negative Normal NEGATIVE [facility] Comment on above: Performed By: #### C MREP #### [facility] [address] [place] [address] Dr. Katerina Rodarte CUT-OFFS SEE BELOW Normal [facility] Comment on above: Result Comment: AMP (Amphetamine): 500ng/mL, BAR (Barbituates): 200 ng/mL, BZO (Benzodiazepines): 150 ng/mL, BUP (Buprenorphine): 10 ng/mL, CARLIE (Cocaine): 150 ng/mL, mAMP (Methamphetamine): 500 ng/mL, MTD (Methadone): 200 ng/mL, OPI (Opiates): 100 ng/mL, OXY (Oxycodone): 100 ng/mL, PCP (Phencyclidine): 25 ng/mL, PPX (Propoxyphene): 300 ng/mL, THC (Cannabinoids): 50 ng/mL, TCA (Trycyclic Antidepressants): 300 ng/mL Performed By: #### C MREP #### [facility] [address] [place] [address] Dr. Katerina Rodarte DRUG CUT HEADER DRUG CLASS TEST SYST EM CUT-OFF CONCENTRATIONS ARE FOLLOWS: Normal [facility] Comment on above: Performed By: #### C MREP #### [facility] [address] [place] [address] Dr. Katerina Rodarte mAMP Negative Normal NEGATIVE [facility] Comment on above: Performed By: #### C MREP #### [facility] [address] [place] [address] Dr. Katerina Rodarte MTD Negative Normal NEGATIVE [facility] Comment on above: Performed By: #### C MREP #### [facility] [address] [place] [address] [address] Katerina Rodarte OPI Negative Normal NEGATIVE [facility] Comment on above: Performed By: #### C MREP #### [facility] [address] [place] [address] Dr. Katerina Rodarte OXY Negative Normal NEGATIVE [facility] Comment on above: Performed By: #### C MREP #### [facility] [address] [place] [address] Dr. Katerina Rodarte PCP Negative Normal NEGATIVE [facility] Comment on above: Performed By: #### C MREP #### [facility] [address] [place] [address] Dr. Katerina Rodarte PPX Negative Normal NEGATIVE [facility] Comment on above: Performed By: #### C MREP #### [facility] [address] [place] [address] Dr. Katerina Rodarte TCA Negative Normal NEGATIVE [facility] Comment on above: Performed By: #### C MREP #### [facility] [address] [place] [address] Dr. Katerina Rodarte THC Negative Normal NEGATIVE [facility] Comment on above: Performed By: #### C MREP #### [facility] [address] [place] [address] Dr. Katerina Rodarte ER URINE PROFILEon 2 Bilirubin Ql (U) Negative Normal NEGATIVE [facility] Comment on above: Performed By: #### C MREP #### [facility] [address] [place] [address] Dr. Katerina Rodarte Clarity (U) CLEAR Normal CLEAR [facility] Comment on above: Performed By: #### C MREP #### [facility] [address] [place] [address] Dr. Katerina Rodarte Color (U) LT. YELLOW Normal YELLOW [facility] Comment on above: Performed By: #### C MREP #### [facility] [address] [place] [address] Dr. Katerina Rodarte ERUAHD A micrscopic examina tion will be performed if indicated. Normal [facility] Comment on above: Performed By: #### C MREP #### [facility] [address] [place] [address] Dr. Katerina Rodarte Glucose Ql (U) Negative Normal NEGATIVE [facility] Comment on above: Performed By: #### C MREP #### [facility] [address] [place] [address] Dr. Katerina Rodarte Hemoglobin Ql (U) Negative Normal NEGATIVE [facility] Comment on above: Performed By: #### C MREP #### [facility] [address] [place] [address] Dr. Katerina Rodarte Ketones Ql (U) Negative Normal NEGATIVE [facility] Comment on above: Performed By: #### C MREP #### [facility] [address] [place] [address] Dr. Katerina Rodarte LEUKOCYTES Negative Normal NEGATIVE [facility] Comment on above: Performed By: #### C MREP #### [facility] [address] [place] [address] Dr. Katerina Rodarte Nitrite Ql (U) Negative Normal NEGATIVE [facility] Comment on above: Performed By: #### C MREP #### [facility] [address] [place] [address] Dr. Katerina Rodarte pH (U) 6.0 [pH] Normal 5-9 [facility] Comment on above: Performed By: #### C MREP #### [facility] [address] [place] [address] Dr. Katerina Rodarte SPEC GRAVITY <=1.005 Abnormal 1.005-<=1.0 25 [facility] Comment on above: Performed By: #### C MREP #### [facility] [address] [place] [address] Dr. Katerina Rodarte UA PROTEIN Negative Normal NEGATIVE/ TRACE [facility] Comment on above: Performed By: #### C MREP #### [facility] [address] [place] [address] Dr. Katerina Rodarte UR MICRO IND NOT INDICATED Normal [facility] Comment on above: Performed By: #### C MREP #### [facility] [address] [place] [address] [address] Katerina Rodarte Urobilinogen Qn (U) 0.2 {Markell'U}/dL Normal 0.2 - 1. 0 [facility] Comment on above: Performed By: #### C MREP #### [facility] [address] [place] [address] [address] Katerina Rodarte ETHANOL (BLD ALC)on 08-10-20 22 ALC NOTE NOTE: 80 mg/dl is th e legal limit for a blood alcohol level Normal [facility] Comment on above: Performed By: #### L IPA, SUSAN, CMP, ETH, CMADM ####[facility] [address] [place] [address]DrZiggy Rodarte Ethanol [Mass/Vol] 279 mg/dL Normal [facility] Comment on above: Performed By: #### L IPA, SUSAN, CMP, ETH, CMADM ####[facility] [address] [place], [place] [address]DrZiggy Rodarte LACTATE/LACTIC ACIDon 2021 Lactate [Moles/Vol] 1.3 mmol/L Normal 0.4-1.9 [facility] Comment on above: Performed By: #### C MREP #### [facility] [address] [place] [address] Dr. Katerina Rodarte LIPASEon 08-10-2022 Lipase [Catalytic activity/Vol] 114.0 U/L Normal 73.0-393.0 [facility] Comment on above: Performed By: #### L IPA, SUSAN, CMP, ETH, CMADM ####[facility] [address] [place] [address]DrZiggy Rodarte PROF 14(COMP METB)on 022 Albumin [Mass/Vol] 3.4 g/dL Normal 3.4-5.0 [facility] Comment on above: Performed By: #### L IPA, SUSAN, CMP, ETH, CMADM ####[facility] [address] [place] [address]DrZiggy Rodarte Albumin/Globulin [Mass ratio] 0.9 {ratio} Normal [facility] Comment on above: Performed By: #### L IPA, SUSAN, CMP, ETH, CMADM ####[facility] [address] [place] [address]Dr. Katerina Rodarte ALP [Catalytic activity/Vol] 115 U/L Normal 46-116 [facility] Comment on above: Performed By: #### L IPA, SUSAN, CMP, ETH, CMADM ####[facility] [address] [place] [address]Dr. Katerina Rodarte ALT [Catalytic activity/Vol] 23 U/L Normal 16-63 [facility] Comment on above: Performed By: #### L IPA, SUSAN, CMP, ETH, CMADM ####[facility] [address] [place] [address]Dr. Katerina Rodarte Anion gap [Moles/Vol] 12.4 mmol/L Normal [facility] Comment on above: Performed By: #### L IPA, SUSAN, CMP, ETH, CMADM ####[facility] [address] [place], [place] [address]Dr. Katerina Rodarte AST [Catalytic activity/Vol] 28 U/L Normal 15-37 [facility] Comment on above: Performed By: #### L IPA, SUSAN, CMP, ETH, CMADM ####[facility] [address] [place] [address]Dr. Katerina Rodarte Bilirubin [Mass/Vol] 0.1 mg/dL Critically low 0.2-1.0 [facility] Comment on above: Performed By: #### L IPA, SUSAN, CMP, ETH, CMADM ####[facility] [address] [place] [address]Dr. Katerina Rodarte Calcium [Mass/Vol] 8.0 mg/dL Critically low 8.5-10.1 [facility] Comment on above: Performed By: #### L IPA, SUSAN, CMP, ETH, CMADM ####[facility] [address] [place] [address]Dr. Liliasamina Rodarte Chloride [Moles/Vol] 103 mmol/L Normal 98-107 [facility] Comment on above: Performed By: #### L IPA, SUSAN, CMP, ETH, CMADM ####[facility] [address] [place] [address]Dr. Katerina Rodarte CO2 [Moles/Vol] 27.3 mmol/L Normal 21.0-32.0 [facility] Comment on above: Performed By: #### L IPA, SUSAN, CMP, ETH, CMADM ####[facility] [address] [place] [address]Dr. Katerina Rodarte Creatinine [Mass/Vol] 1.06 mg/dL Normal 0.70-1.30 [facility] Comment on above: Performed By: #### L IPA, SUSAN, CMP, ETH, CMADM ####[facility] [address] [place] [address]Dr. Katerina Rodarte EGFR-AF VINCENTIAN >60 Normal >=60 [facility] Comment on above: Performed By: #### L IPA, SUSAN, CMP, ETH, CMADM ####[facility] [address] [place], [place] [address]Dr. Katerina Rodarte EGFR-NON AF VINCENTIAN >60 Normal >=60 [facility] Comment on above: Performed By: #### L IPA, SUSAN, CMP, ETH, CMADM ####[facility] [address] [place] [address]Dr. Katerina Rodarte Globulin (S) [Mass/Vol] 3.6 g/dL Normal [facility] Comment on above: Performed By: #### L IPA, SUSAN, CMP, ETH, CMADM ####[facility] [address] [place] [address]Dr. Katerina Rodarte Glucose [Mass/Vol] 79 mg/dL Normal 74-106 [facility] Comment on above: Performed By: #### L IPA, SUSAN, CMP, ETH, CMADM ####[facility] [address] [place] [address]Dr. Katerina Rodarte Potassium [Moles/Vol] 3.7 mmol/L Normal 3.5-5.1 [facility] Comment on above: Performed By: #### L IPA, SUSAN, CMP, ETH, CMADM ####[facility] [address] [place] [address]Dr. Katerina Rodarte Protein [Mass/Vol] 7.0 g/dL Normal 6.4-8.2 [facility] Comment on above: Performed By: #### L IPA, SUSAN, CMP, ETH, CMADM ####[facility] [address] [place] [address]Dr. Katerina Rodarte Sodium [Moles/Vol] 139 mmol/L Normal 136-145 [facility] Comment on above: Performed By: #### L IPA, SUSAN, CMP, ETH, CMADM ####[facility] [address] [place] [address]Dr. Katerina Rodarte Urea nitrogen [Mass/Vol] 11.0 mg/dL Normal 7.0-18.0 [facility] Comment on above: Performed By: #### L IPA, SUSAN, CMP, ETH, CMADM ####[facility] [address] [place] [address]Dr. Katerina Rodarte Urea nitrogen/Creatinine [Mass ratio] 10.4 mg/mg Normal [facility] Comment on above: Performed By: #### L IPA, SUSAN, CMP, ETH, CMADM ####[facility] [address] [place] [address]DrZiggy Rodarte PROTIMEon 08-10-2022 INR Coag (PPP) [Relative time] 0.98 {INR} Normal [facility] Comment on above: Performed By: #### P T #### [facility] [address] [place] [address] [address] Katerina Rodarte INR GUIDELINES SEE BELOW Normal [facility] Comment on above: Result Comment: PEARL RED INR: 2.0 - 3.0 CONDITIONS NOT LISTED BELOW 2.5 - 3.5 FOR PROSTHETIC HEART VALVE REPLACEMENT 2.5 - 3.5 RECURRENT THROMBOSIS Performed By: #### P T #### [facility] [address] [place] [address] [address] Katerina Rodarte PT Coag (PPP) [Time] 10.6 s Normal 9.0-11.6 [facility] Comment on above: Performed By: #### P T #### [facility] [address] [place] [address] [address] Katerina Rodarte XR CHEST 1 Von 08-10-2022 XR CHEST 1 V EXAM: XR CHEST 1 V, 08/10/2022 HISTORY: Altered mental status COMPARISON: CT scan chest from 09/17/2021 and chest x-ray from 07/29/2021 TECHNIQUE: Portable AP upright x-ray of the chest. FINDINGS: Heart size within normal limits. No hilar or mediastinal enlargement. The lungs and costophrenic angles are clear. No acute bony findings. No significant interval change. IMPRESSION: No acute cardiopulmonary findings. Electronically authenticated by: LUIS NEVES Date: 2022-08-10 21:58 Normal [facility] Vital Signs Date Time Vital Sign Value Performing Clinician Jonathan frazier 10-08-2022 02:52-0500 Body height 177.8 cm DO Matthew Ford Work Phone: [facility] 10-08-2022 02:52-0500 Body temperature 97.4 [degF] DO Matthew Ford Work Phone: [facility] 10-08-2022 02:52-0500 Body weight 52.1 kg DO Matthew Ford Work Phone: [facility] 10-08-2022 02:52-0500 Diastolic blood pressure 68 mm[Hg] DO Matthew Ford Work Phone: [facility] 10-08-2022 02:52-0500 Heart rate 84 /min DO Matthew Ford Work Phone: [facility] 10-08-2022 02:52-0500 Respiratory rate 20 /min DO Matthew Ford Work Phone: [facility] 10-08-2022 02:52-0500 SaO2% (BldA) [Mass fraction] 96 % DO Matthew Ford Work Phone: [facility] 10-08-2022 02:52-0500 Systolic blood pressure 121 mm[Hg] DO Matthew Ford Work Phone: [facility] Encounters Encounter Date Encounter Type Care Provider Facility Start: 05-08-2023 End: 05-08-2023 ambulatory Susan Yonny [place] Facility:[facility] Start: 02-07-2023 End: 02-08-2023 ambulatory KEKE EDE Facility:[facility] Start: 12-29-2022 End: 12-30-2022 ambulatory KEKE EDE Facility:[facility] Start: 12-09-2022 End: 12-10-2022 ambulatory KEKE EDE Facility:[facility] Start: 11-26-2022 End: 11-26-2022 ambulatory KEKE EDE Facility:[facility] Start: 10-08-2022 End: 10-08-2022 ambulatory Nat Ede Facility:[facility] Start: 10-07-2022 Evaluation and management of inpatient DO Matthew Ford Work Phone: [facility] Start: 08-10-2022 End: 08-11-2022 ambulatory KEKE EDE Facility:[facility] Start: 10-26-2020 End: 10-27-2020 Emergency department patient visit Devang Barrett Facility:[facility] Plan of Treatment Date Care Activity Detail Author Start: 10-08-2022 Blood chemistry [facility] Start: 10-08-2022 Magnesium measurement [facility] Start: 10-08-2022 [facility] Start: 10-08-2022 Hospital admission [facility] Start: 10-08-2022 [facility] Start: 10-07-2022 Measurement of substance [facility] Start: 10-07-2022 CT cervical spine without contrast CT cervical spine wo con [facility] Start: 10-07-2022 CT Cervical spine WO contrast [facility] Start: 10-07-2022 CT of head without contrast CT head/brain wo con [facility] Start: 10-07-2022 CT Unspecified body region WO contrast [facility] Measurement of substance [facility] Work Phone: Payers Date Payer Category Payer Self-pay [id number] 1975 Unknown [id number] 2.16.84 [id number] 1975 Unknown [id number] 2.16.84 [id number] 1975 Unknown [id number] 2.16.84 [id number] 1975 Unknown [id number] 2.16.84 [id number] 1975 Unknown [id number] 2.16.84 [id number] 1975 Unknown [id number] 2.16.84 [id number] 1959 Unknown [id number] Unknown [id number] 2.16.8 [id number] Unknown [id number] 2.16.8 [id number] Social History Date Type Detail Facility Start: 10-08-2022 [facility] Start: 1975 Sex Assigned At Male F [facility] Goals Date Patient Goal Desired Activity /State History and physical note 10-08-2022 Note Date & Type Note Facility 10-08-2022 History and physi julian note Note Date/Time October 08, 2022 1:19am [facility] [address] [place] [address] Hospitalist H&P Signed Patient: Aristides Clark MR#: [id number] : 1975 Acct:[id number] Age/Sex: 47 / M Adm Date: 2 Loc: Room: [address] [place] [address] Type: ADM IN Attending Dr: Matt Estrella DO Copies to: Nat Estrella, DO~ HPI DATE OF EXAMINATION: 10/08/22 CHIEF COMPLAINT: seizure HISTORY OF PRESENT ILLNESS: Mr Clark is a 47-year-old male with a past medical history of seizure disorder and alcohol abuse who presented to hospital today after having 3-4 witnessed seizures. Per reports from the girlfriend/, the patient has been drinking for the last 3 days and only takes his Keppra on a as needed basis. Tonight shethinks he that he had 3-4 seizure and was unsure if he fell. In the ED he was loaded with Keppra 1000 IV and given ativan for CT head and CT cervical spine. Upon my assessment the patient was very somnolent secondary to keppra and ativan, was at the bedside and was intoxicated herself, was not able to contribute much more to the history other than the patient had a few seizures and does not take keppra on a scheduled basis. Review of Systems Review of Systems Unobtainable due to mental status PMFSH Vaccinated for COVID-19?: Unknown Medical History (Updated 10/08/22 @ 01:31 by Matt Estrella DO) Myocardial infarct Neuropathy Seizure Stroke Surgical History History of ankle surgery History of facial surgery History of surgery on arm Social History Smoking Status: Current every day smoker Tobacco Type: cigarettes Substance Use Type: Alcohol Meds Medications and Allergies Allergies Penicillins Allergy (Verified 10/08/19 13:01) Hives Home Medications levetiracetam 500 mg tablet (Keppra) 500 mg PO BID #60 tabs 12/21/18 [Rx Confirmed 10/08/19] metoprolol tartrate 100 mg tablet (Lopressor) 100 mg PO DAILY 12/21/18 [History Confirmed 10/08/19] omeprazole magnesium 20 mg tablet,delayed release (Prilosec OTC) 20 mg PO BID 14days #60 tabs 10/08/19 [Rx] quetiapine 25 mg tablet (Seroquel) 25 mg PO DAILY 10/08/19 [History Confirmed 10/08/19] Exam Physical Exam Vital Signs: Temp Pulse Resp BP Pulse Ox O2 Del Method 98.4 F 70 16 101/59 L 96 Room Air 10/07/22 19:31 10/08/22 00:30 10/08/22 00:30 10/08/22 00:30 10/08/22 00:30 10/08/22 00:30 Narrative: General: Patient is somnolent however easily arousable HEENT: head atraumatic, normocephalic, moist mucous membranes, normal nose and ears, no throat lesions, normal conjunctiva Neck: supple no masses, no lymphadenopathy CVS: regular rate and rhythm, no murmurs or gallops Respiratory: clear to auscultation bilaterally, no wheezing or crackles, symmetric expansion GI: soft, nondistended, nontender, positive bowel sounds with no organomegaly Extremity: moves all extremities, no restrictions of movements, no calf tenderness, no edema Neuro: AOx3, CN II-VII intact. Moves all extremities in all planes of motion. Skin: dry, intact no rashes or lesions Results Lab Results Labs: Laboratory Last Values Corrected WBC 5.8 X10E3/uL (4.1-10.5) 10/07/22 19:30 Uncorrected WBC Count 5.8 x10E3/uL (4.5-11.0) 10/07/22 19:30 RBC 3.99 x10E6/uL (3.90-5.60) 10/07/22 19:30 Hgb 13.1 g/dL (13.0-17.0) 10/07/22 19:30 Hct 39.5 % (38.8-50.0) 10/07/22 19:30 MCV 99.1 fl (83.5-101) 10/07/22 19:30 MCH 32.8 pg (27.5-35.2) 10/07/22 19:30 MCHC 33.1 g/dL (32.5-35.6) 10/07/22 19:30 RDW 14.6 % (12.0-14.8) 10/07/22 19:30 Plt Count 301 x10E3/uL (150-450) 10/07/22 19:30 MPV 7.7 fl (6.6-10.1) 10/07/22 19:30 Neut % (Auto) 33.0 % (.) 10/07/22 19:30 Lymph % (Auto) 45.8 % (.) 10/07/22 19:30 [place] % (Auto) 11.8 % (.) 10/07/22 19: Eos % (Auto) 8.2 % (.) 10/07/22 19:30 Baso % (Auto) 1.2 % (.) 10/07/22 19:30 Neut # (Auto) 1.9 x10E3/uL (1.8-7.7) 10/07/22 19:30 Lymph # (Auto) 2.6 x10E3/uL (1.00-4.8) 10/07/22 19:30 [place] # (Auto) 0.7 x10E3/uL (0.0-0.8) 10/07/22 19:30 Eos # (Auto) 0.5 x10E3/uL (0.0-0.45) H 10/07/22 19:30 Baso # (Auto) 0.1 x10E3/uL (0.0-0.2) 10/07/22 19:30 Nucleated RBC % (auto) 0.1 % (0-0.5) 10/07/22 19:30 PT 10.9 Seconds (9.0-12.9) 10/07/22 19:30 INR 1.0 10/07/22 19:30 PHA Creatinine Clear 64.68 10/07/22 19:30 Sodium 128 mmol/L (136-146) L 10/07/22 19:30 Potassium 4.2 mmol/L (3.5-5.1) 10/07/22 19:30 Chloride 94 mmol/L (95-114) L 10/07/22 19:30 Carbon Dioxide 25.0 mmol/L (22.0-30.0) 10/07/22 19:30 Anion Gap 13.2 mEq/L (6.0-15.0) 10/07/22 19:30 BUN 4 mg/dL (9-23) L 10/07/22 19:30 Creatinine 1.09 mg/dL (0.64-1.27) 10/07/22 19:30 Est GFR ( Amer) > 60 mL/Min 10/07/22 19:30 Est GFR (Non-Af Amer) > 60 mL/Min 10/07/22 19:30 Glucose 93 mg/dL (70-100) 10/07/22 19:30 POC Glucose 89 mg/dl 10/07/22 19:48 POC Glucose Comment 10/07/22 19:48 Calcium 8.8 mg/dL (8.2-10.2) 10/07/22 19:30 Total Bilirubin 0.6 mg/dL (0.3-1.2) 10/07/22 19:30 AST 30 U/L (10-42) 10/07/22 19:30 ALT 21 U/L (10-60) 10/07/22 19:30 Alkaline Phosphatase 92 U/L (32-92) 10/07/22 19:30 Total Protein 6.6 gm/dL (6.1-7.9) 10/07/22 19:30 Albumin 3.8 gm/dL (3.2-5.5) 10/07/22 19:30 Globulin 2.8 gm/dL 10/07/22 19:30 Albumin/Globulin Ratio 1.4 10/07/22 19:30 Urine Opiates Screen Negative (Negative) 10/07/22 21:10 Ur Barbiturates Screen Negative (Negative) 10/07/22 21:10 Ur Phencyclidine Scrn Negative (Negative) 10/07/22 21:10 Ur Amphetamines Screen Negative (Negative) 10/07/22 21:10 U Benzodiazepines Scrn Negative (Negative) 10/07/22 21:10 Urine Cocaine Screen Positive (Negative) H 10/07/22 21:10 U Marijuana (THC) Screen Positive (Negative) H 10/07/22 21:10 Ethyl Alcohol 309 mg/dL 10/07/22 19:30 % Ethyl Alcohol 0.309 % 10/07/22 19:30 A&P - Hospitalist Assessment/Plan (1) Seizure disorder: Plan: - Secondary to noncompliance with his Keppra ? /girlfriend confirms he takes it on a as needed basis ? He was loaded with Keppra 1000 mg in the ED ? Continue his home dose Keppra 500 mg twice daily while admitted, will use the IV method until he passes a speech eval ? 2 mg Ativan every 5 minutes for seizure activity (2) Alcohol intoxication: Plan: Patient alcohol level was 309 on admission ? Per the /girlfriend he has been drinking heavily for the past 3 days straight ? Given IV thiamine and folic acid in the ED ? Monitor for signs of withdrawal Plan - NPO - DVT prophylaxis with subQ heparin - full code Documented By: Matt Estrelal DO 10/08/22 0116 Signed By: <Electronically signed by Matt Estrella DO> 10/08/22 0133 [facility] Work Phone: Evaluation note Note Date & Type Note Facility Evaluation note Diagnosis Onset Date Alcohol intoxication acute Polysubstance abuse acute Seizure disorder acute [facility] Work Phone: Summary Purpose Family History No Family History Records FoundNo Family History Records FoundNo Family History Records Found Advance Directives No Advanced Directives Records Found Advance Directive Response Recorded Date/ Time Advance Directives No December 21, 2018 3:21pm Chief Complaint and Reason for Visit Chief Complaint seizure Reason for Visit Alcohol intoxication Polysubstance abuse Seizure disorder Additional Source Comments (unrecognized sect ion and content) No Status Records FoundNo Status Records FoundNo Status Records Found INFORMATION SOURCE (unrecogn ized section and content) DATE CREATED AUTHOR [facility]20[facility] DATE CREATED AUTHOR AUTHOR'S ORGANIZ ATION 02/10/2023 [facility] DATE CREATED AUTHOR AUTHOR'S ORGANIZ ATION 05/20/2023 [facility] Care Teams (unrecognized sec tion and content) Team Status: Active Member Role Status Dates Matthew Ford DO Emergency Provider Active Nat Mera MD Primary Care Provider Active Matt Estrella DO Admit Provider, Attending Provider Active Team Status: Active Member Role Status Dates Nat Mera MD Primary Care Provider Active FOR RECORDS PERTAINING TO PATIENTS WHO ARE OR HAVE BEEN ENROLLED IN A CHEMICAL DEPENDENCY/SUBSTANCEABUSE PROGRAM, SOME INFORMATION MAY BE OMITTED. This clinical summary was aggregated from multiple sources. Caution should be exercised in using it in the provision of clinical care. This summary normalizes information from multiple sources, and as a consequence, information in this document may materially change the coding, format and clinical context of patient data. In addition, data may be omitted in some cases. CLINICAL DECISIONS SHOULD BE BASED ON THE PRIMARY CLINICAL RECORDS. [facility]. provides no warranty or guarantee of the accuracy or completeness of information in this document.
--- NOTE | 2023-12-14 13:48 | XR_ITS ---
The [address] [address] Patient Name: KATHLEEN COOL MRN: [id number] date: 1975 Sex: M Assigned Patient Location: RAD Current Patient Location: [facility] Accession/Order Number: [id number] Exam Date: 12/14/2023 13:55 Report Date: 12/14/2023 14:03 At the request of: BRANDON PEREZ Procedure: XR foreign body eye EXAMINATION: XR foreign body eye HISTORY: Foreign Body Eye COMPARISON: No relevant comparison available. FINDINGS: ORBITS: Metallic plate and screws identified along the superior lateral left orbit and inferior left. OTHER: Negative. XR/XR foreign body eye IMPRESSION: Metallic plate and screws fixing the left orbit. Electronically authenticated by: THELMA WISEMAN Date: 12/14/2023 14:03
== END 2023-12-14 13:10 | disposition home or self-care (01) ==
LOC: RAD 13:13
PROVIDERS: PCP Nurse Practitioner Family; Visit Provider Psychiatry & Neurology Neurology
DX: R56.9 Unspecified convulsions (principal); G40.909 Epilepsy, unspecified, not intractable, without status epilepticus
CPT/HCPCS: 70030

== ENCOUNTER 2023-12-14 14:26 | Emergency (ER) | payer OTHER, SELFPAY ==
[2023-12-14 14:43] VITALS: BP 152/109; PULSE 73; RESP 20; TEMP 36.7; O2SAT 100; BMI 14.6
--- NOTE | 2023-12-14 14:48 | XR_ITS ---
[address] [address] Patient Name: KATHLEEN COOL MRN: [id number] date: 1975 Sex: M Assigned Patient Location: ER Current Patient Location: ER Accession/Order Number: [id number] Exam Date: 12/14/2023 14:50 Report Date: 12/14/2023 15:22 At the request of: ARMANDO WILSON Procedure: XR elbow RT min 3V EXAM: XR elbow RT min 3V HISTORY: c/o pain after injury [right elbow pain COMPARISON: None. XR/XR elbow RT min 3V IMPRESSION: 1. No acute fracture or malalignment. 2. Mild joint effusion. This raises the possibility of an occult fracture. If indicated, suggest follow-up radiographs in 7-10 days. Electronically authenticated by: FATMATA SZYMANSKI Date: 12/14/2023 15:22
--- OUTSIDE RECORDS SUMMARY | 2023-12-14 14:52 | XMS_ITS | CCD ---
Author Name Unknown Address [address] [place] [address] Organization [facility] Care Team Providers Care Marine Steward Name Role Phone Devang Barrett Attending Unavailable DO Matthew Ford Emergency Provider [phone] MD Nat Mera Primary Care Provider Unavaila DO Matt Santamaria Admit Provider DO Matt Estrella Attending Provider [facility] Primary Care Unavailable DR AR BAKER Admitting Unavailable BARRETT, DR RA Onofre Attending Unavailable BARRETT, DR RA Onofre Consulting Unavailable MALICK LYNCH Consulting Unavailable [facility] Primary Care Unavailable MELANIE BARRETTYL Admitting Unavailable DEVANG BARRETT Attending Unavailable RIA, DEVANG Consulting Unavailable CIERRA PADRON Consulting Unavailable THERESA RIVERA Consulting Unavailable VIJAYA KITCHEN Consulting Unavailable [facility] Primary Care Unavailable RIA, DEVANG Admitting Unavailable MELANIE BARRETTYL Attending Unavailable RIA, DEVANG Consulting Unavailable PADRONCIERRA Consulting Unavailable [facility] Primary Care Unavailable MELANIE BARRETTYL Admitting Unavailable DEVANG BARRETT Attending Unavailable MELANIE BARRETTYL Consulting Unavailable LUIS NEVES Consulting Unavailable ANISH ARIAS Consulting Unavailable [facility] Primary Care Unavailable SANTOS REDMOND Admitting Unavailable SANTOS ERDMOND Attending Unavailable LADARIUS HERNANDEZ Consulting Unavailable MADDY SCHOFIELD Consulting Unavailable SANTOS REDMOND Consulting Unavailable SHAMA AVALOS Consulting Unavailable THELMA DAMICO Consulting Unavailable WON AGOSTO Consulting Unavailable Susan Myers Admitting Unavailable Susan Myers Attending Unavailable [facility] Primary Care Unavailable [facility] Primary Care Unavailable Matt Estrella Admitting Unavailable Theresa Ohara Attending Unavailable Allergies Allergy Classification Reported Allergen(s) Allergy Type Date of Onset Reaction(s) Facility (1 source) Naproxen; Translations: [naproxen] Drug Allergy [facility] Repository (1 source) Penicillin; Translations: [Penicillin] Drug Allergy [facility] Repository (3 sources) Penicillins; Translations: [Penicillins] Allergy to substance 10-08-2019 [facility] Medications Current Medications Medication Drug Class(es) Dates [...] 02-07-2023 Episodic Other aftercare (1 source) Other prison (current) drug therapy; Translations: [OTH [facility] CURRENT DRUG THERAPY] Onset: 02-09-2023 Episodic Other [...] Coag (Bld) [Time] 30.2 s Normal 25.1-36.5 [facility] Comment on above: Result Comment: PERF ORMED BY: [place] [address] PATHOLOGIST LOOM INSPECTOR LATOYA CAMPBELL M.D. Performed By: #### C BC, PT, CMP #### [address] Prothrombin Time INRon 05-08 INR Coag (PPP) [Relative time] 0.9 {INR} Normal [facility] Comment on above: Result Comment: INR Therapeutic [...] By: #### C BC, PT, CMP #### [facility] [address] PT Coag (PPP) [Time] 10.5 s Normal 9.0-12.9 [facility] Comment on above: Performed By: #### C BC, PT, CMP #### [facility] [address] AMYLASEon 02-08-2023 Amylase [Catalytic activity/Vol] 41 U/L Normal 25-115 [facility] Comment on above: Performed By: #### P OCGLUC #### [facility] [address] [address] [address] Katerina Rodarte CARDIAC RA 3-6on 3 CK [Catalytic activity/Vol] 115 U/L Normal 39-308 [facility] Comment on above: Performed By: #### C MREP #### [facility] [address] [address] [address] Katerina Rodarte CK.MB [Mass/Vol] 2.04 ng/mL Normal <=3.60 [facility] Comment on above: Performed By: #### C MREP #### [facility] [address] [address] [address] Katerina Rodarte HSTROP 9.5 pg/mL Normal 4.0-76.1 [facility] Comment on above: Result Comment: CUT- OFF POINTS HAVE BEEN ESTABLISHED BASED ON THE FOURTH UNIVERSAL DEFINITIONS OF MYOCARDIAL INFARCTION. THE UPPER REFERENCE LIMIT (URL) OF TROPONIN, DEFINED THE 99TH PERCENTILE OF cTnI DISTRIBUTION IN A REFERENCE POPULATION, HAS BEEN CONFIRMED THE DECISION THRESHOLD FOR [place] DIAGNOSIS. Performed By: #### C MREP #### [facility] [address] [place] [address] Dr. Katerina Rodarte CARDIAC RA ADMITon 023 CK [Catalytic activity/Vol] 101 U/L Normal 39-308 [facility] Comment on above: Performed By: #### P OCGLUC #### [facility] [address] [place] [address] Dr. Katerina Rodarte CK.MB [Mass/Vol] 2.13 ng/mL Normal <=3.60 [facility] Comment on above: Performed By: #### P OCGLUC #### [facility] [address] [place] [address] Dr. Katerina Rodarte HSTROP 8.5 pg/mL Normal 4.0-76.1 [facility] Comment on above: Result Comment: CUT- OFF POINTS HAVE BEEN ESTABLISHED BASED ON THE FOURTH UNIVERSAL DEFINITIONS OF MYOCARDIAL INFARCTION. THE UPPER REFERENCE LIMIT (URL) OF TROPONIN, DEFINED THE 99TH PERCENTILE OF cTnI DISTRIBUTION IN A REFERENCE POPULATION, HAS BEEN CONFIRMED THE DECISION THRESHOLD FOR [place] DIAGNOSIS. Performed By: #### P OCGLUC #### [facility] [address] [place] [address] Dr. Katerina Rodarte SHIRA 44 ng/mL Normal 16-96 [facility] Comment on above: Performed By: #### P OCGLUC #### [facility] [address] [place] [address] Dr. Katerina Rodarte CBC AUTO DIFFon 02-08-2023 BASO # 0.0 103/ul Normal 0.0-0.1 [facility] Comment on above: Performed By: #### P OCGLUC #### [facility] [address] [place] [address] Dr. Katerina Rodarte Basophils/100 WBC (Bld) 0.1 % Critically low 0.2-2.0 [facility] Comment on above: Performed By: #### P OCGLUC #### [facility] [address] [place] [address] Dr. Katerina Rodarte EO # 0.0 103/ul Normal 0.0-0.7 [facility] Comment on above: Performed By: #### P OCGLUC #### [facility] [address] [address] [address] Katerina Rodarte Eosinophils/100 WBC (Bld) 0.1 % Critically low 0.9-7.0 [facility] Comment on above: Performed By: #### P OCGLUC #### [facility] [address] [place] [address] Dr. Katerina Rodarte Erythrocyte distribution width (RBC) [Ratio] 12.7 % Normal 11.0-15.0 [facility] Comment on above: Performed By: #### P OCGLUC #### [facility] [address] [place] [address] Dr. Katerina Rodarte Hematocrit (Bld) [Volume fraction] 41.4 % Critically low 42.0-54.0 [facility] Comment on above: Performed By: #### P OCGLUC #### [facility] [address] [place] [address] Dr. Katerina Rodarte Hemoglobin (Bld) [Mass/Vol] 15.1 g/dL Normal 14.0-18.0 [facility] Comment on above: Performed By: #### P OCGLUC #### [facility] [address] [place] [address] Dr. Katerina Rodarte IG # 0.04 10e3/ul Critically high 0.00-0.03 [facility] Comment on above: Performed By: #### P OCGLUC #### [facility] [address] [place] [address] Dr. Katerina Rodarte IG % 0.4 % Normal 0.0-0.5 [facility] Comment on above: Performed By: #### P OCGLUC #### [facility] [address] [place] [address] Dr. Katerina Rodarte LYMPH # 1.0 103/ul Critically low 1.2-3.8 [facility] Comment on above: Performed By: #### P OCGLUC #### [facility] [address] [place] [address] Dr. Katerina Rodarte Lymphocytes/100 WBC (Bld) 10.0 % Critically low 20.5-60.0 [facility] Comment on above: Performed By: #### P OCGLUC #### [facility] [address] [place] [address] Dr. Katerina Rodarte MANUAL DIFF REQ NO Normal [facility] Comment on above: Performed By: #### P OCGLUC #### [facility] [address] [place] [address] Dr. Katerina Rodarte MCH (RBC) [Entitic mass] 33.9 pg Normal 25.9-34.0 [facility] Comment on above: Performed By: #### P OCGLUC #### [facility] [address] [place] [address] Dr. Katerina Rodarte MCHC (RBC) [Mass/Vol] 36.5 g/dL Critically high 29.9-35.2 [facility] Comment on above: Performed By: #### P OCGLUC #### [facility] [address] [place] [address] Dr. Katerina Rodarte MCV (RBC) [Entitic vol] 92.8 fL Normal 80.0-94.0 [facility] Comment on above: Performed By: #### P OCGLUC #### [facility] [address] [place] [address] Dr. Katerina Rodarte MONO # 0.5 103/ul Normal 0.3-0.8 [facility] Comment on above: Performed By: #### P OCGLUC #### [facility] [address] [place] [address] Dr. Katerina Rodarte Monocytes/100 WBC (Bld) 5.6 % Normal 1.7-12.0 [facility] Comment on above: Performed By: #### P OCGLUC #### [facility] [address] [place] [address] Dr. Katerina Rodarte NEUT # 8.0 103/ul Critically high 1.4-6.5 [facility] Comment on above: Performed By: #### P OCGLUC #### [facility] [address] [place] [address] Dr. Katerina Rodarte Neutrophils/100 WBC (Bld) 83.8 % Critically high 43.0-75.0 [facility] Comment on above: Performed By: #### P OCGLUC #### [facility] [address] [address] [address] Katerina Rodarte Platelet mean volume (Bld) [Entitic vol] 9.7 fL Normal 9.5-13.5 [facility] Comment on above: Performed By: #### P OCGLUC #### [facility] [address] [address] [address] Katerina Rodarte PLT 269 103/ul Normal 150-450 [facility] Comment on above: Performed By: #### P OCGLUC #### [facility] [address] [address] [address] Katerina Rodarte RBC 4.46 106/ul Critically low 4.70-6.10 [facility] Comment on above: Performed By: #### P OCGLUC #### [facility] [address] [place] [address] Dr. Katerina Rodarte WBC 9.5 103/ul Normal 4.0-11.0 [facility] Comment on above: Performed By: #### P OCGLUC #### [facility] [address] [place] [address] Dr. Katerina Rodarte ETHANOL (BLD ALC)on 02-09-20 ALC NOTE NOTE: 80 mg/dl is th e legal limit for a blood alcohol level Normal [facility] Comment on above: Performed By: #### P OCGLUC #### [facility] [address] [place] [address] Dr. Katerina Rodarte Ethanol [Mass/Vol] 43 mg/dL Normal [facility] Comment on above: Performed By: #### P OCGLUC #### [facility] [address] [place] [address] Dr. Katerina Rodarte LACTATE/LACTIC ACIDon 2022 Lactate [Moles/Vol] 1.2 mmol/L Normal 0.4-2.0 [facility] Comment on above: Performed By: #### C MREP #### [facility] [address] [place] [address] Dr. Katerina Rodarte Lactate [Moles/Vol] 3.5 mmol/L Critically high 0.4-2.0 [facility] Comment on above: Performed By: #### B MP, CMADM, ETH #### [facility] [address] [place] [address] Dr. Katerina Rodarte LIPASEon 02-08-2023 Lipase [Catalytic activity/Vol] 55.0 U/L Critically low 73.0-393.0 [facility] Comment on above: Performed By: #### P OCGLUC #### [facility] [address] [place] [address] Dr. Katerina Rodarte PROF 14(COMP METB)on 023 Albumin [Mass/Vol] 4.3 g/dL Normal 3.4-5.0 [facility] Comment on above: Performed By: #### P OCGLUC #### [facility] [address] [place] [address] Dr. Katerina Rodarte Albumin/Globulin [Mass ratio] 1.2 {ratio} Normal [facility] Comment on above: Performed By: #### P OCGLUC #### [facility] [address] [place] [address] Dr. Katerina Rodarte ALP [Catalytic activity/Vol] 165 U/L Critically high 46-116 [facility] Comment on above: Performed By: #### P OCGLUC #### [facility] [address] [place] [address] Dr. Katerina Rodarte ALT [Catalytic activity/Vol] 49 U/L Normal 16-63 [facility] Comment on above: Performed By: #### P OCGLUC #### [facility] [address] [place] [address] Dr. Katerina Rodarte Anion gap [Moles/Vol] 12.7 mmol/L Normal [facility] Comment on above: Performed By: #### P OCGLUC #### [facility] [address] [place] [address] Dr. Katerina Rodarte AST [Catalytic activity/Vol] 45 U/L Critically high 15-37 [facility] Comment on above: Performed By: #### P OCGLUC #### [facility] [address] [place] [address] Dr. Katerina Rodarte Bilirubin [Mass/Vol] 0.5 mg/dL Normal 0.2-1.0 [facility] Comment on above: Performed By: #### P OCGLUC #### [facility] [address] [address] [address] Katerina Rodarte Calcium [Mass/Vol] 8.9 mg/dL Normal 8.5-10.1 [facility] Comment on above: Performed By: #### P OCGLUC #### [facility] [address] [address] [address] Katerina Rodarte Chloride [Moles/Vol] 90 mmol/L Critically low 98-107 [facility] Comment on above: Performed By: #### P OCGLUC #### [facility] [address] [place] [address] Dr. Katerina Rodarte CO2 [Moles/Vol] 28.1 mmol/L Normal 21.0-32.0 [facility] Comment on above: Performed By: #### P OCGLUC #### [facility] [address] [address] [address] Katerina Rodarte Creatinine [Mass/Vol] 0.99 mg/dL Normal 0.70-1.30 [facility] Comment on above: Performed By: #### P OCGLUC #### [facility] [address] [place] [address] Dr. Katerina Rodarte EGFR-AF MALAYSIAN >60 Normal >=60 [facility] Comment on above: Performed By: #### P OCGLUC #### [facility] [address] [address] [address] Katerina Rodarte EGFR-NON AF MALAYSIAN >60 Normal >=60 [facility] Comment on above: Performed By: #### P OCGLUC #### [facility] [address] [address] [address] Katerina Rodarte Globulin (S) [Mass/Vol] 3.7 g/dL Normal [facility] Comment on above: Performed By: #### P OCGLUC #### [facility] [address] [place] [address] Dr. Katerina Rodarte Glucose [Mass/Vol] 130 mg/dL Critically high 74-106 [facility] Comment on above: Performed By: #### P OCGLUC #### [facility] [address] [address] [address] Katerina Rodarte Potassium [Moles/Vol] 3.8 mmol/L Normal 3.5-5.1 [facility] Comment on above: Performed By: #### P OCGLUC #### [facility] [address] [address] [address] Katerina Rodarte Protein [Mass/Vol] 8.0 g/dL Normal 6.4-8.2 [facility] Comment on above: Performed By: #### P OCGLUC #### [facility] [address] [address] [address] Katerina Rodarte Sodium [Moles/Vol] 127 mmol/L Critically low 136-145 [facility] Comment on above: Performed By: #### P OCGLUC #### [facility] [address] [address] [address] Katerina Rodarte Urea nitrogen [Mass/Vol] 9.0 mg/dL Normal 7.0-18.0 [facility] Comment on above: Performed By: #### P OCGLUC #### [facility] [address] [address] [address] Katerina Rodarte Urea nitrogen/Creatinine [Mass ratio] 9.1 mg/mg Normal [facility] Comment on above: Performed By: #### P OCGLUC #### [facility] [address] [address] [address] Katerina Rodarte XR ABD FLAT UP_PA [...] Reba PADRON Date: 2023-02-07 22:50 Normal [facility] CARDIAC RA 3-6on 3 CK [Catalytic activity/Vol] 70 U/L Normal 39-308 [facility] Comment on above: Performed By: #### C MREP #### [facility] [address] [address] [address] Katerina Rodarte CK.MB [Mass/Vol] 1.82 ng/mL Normal <=3.60 [facility] Comment on above: Performed By: #### C MREP #### [facility] [address] [address] [address] Katerina Rodarte HSTROP 22.5 pg/mL Normal 4.0-76.1 [facility] Comment on above: Result Comment: CUT- OFF POINTS HAVE BEEN ESTABLISHED BASED ON THE FOURTH UNIVERSAL DEFINITIONS OF MYOCARDIAL INFARCTION. THE UPPER REFERENCE LIMIT (URL) OF TROPONIN, DEFINED THE 99TH PERCENTILE OF cTnI DISTRIBUTION IN A REFERENCE POPULATION, HAS BEEN CONFIRMED THE DECISION THRESHOLD FOR [place] DIAGNOSIS. Performed By: #### C MREP #### [facility] [address] [address] [address] Katerina Rodarte CARDIAC RA ADMITon 023 CK [Catalytic activity/Vol] 60 U/L Normal 39-308 [facility] Comment on above: Performed By: #### B MP, CMADM, ETH #### [facility] [address] [address] [address] Katerina Rodarte CK.MB [Mass/Vol] 1.51 ng/mL Normal <=3.60 [facility] Comment on above: Performed By: #### B MP, CMADM, ETH #### [facility] [address] [address] [address] Katerina Rodarte HSTROP 19.8 pg/mL Normal 4.0-76.1 [facility] Comment on above: Result Comment: CUT- OFF POINTS HAVE BEEN ESTABLISHED BASED ON THE FOURTH UNIVERSAL DEFINITIONS OF MYOCARDIAL INFARCTION. THE UPPER REFERENCE LIMIT (URL) OF TROPONIN, DEFINED THE 99TH PERCENTILE OF cTnI DISTRIBUTION IN A REFERENCE POPULATION, HAS BEEN CONFIRMED THE DECISION THRESHOLD FOR [place] DIAGNOSIS. Performed By: #### B MP, CMADM, ETH #### [facility] [address] [place] [address] Dr. Katerina Rodarte SHIRA 152 ng/mL Critically high 16-96 [facility] Comment on above: Performed By: #### B MP, CMADM, ETH #### [facility] [address] [place] [address] Dr. Katerina Rodarte CBC AUTO DIFFon 12-30-2022 BASO # 0.0 103/ul Normal 0.0-0.1 [facility] Comment on above: Performed By: #### C MREP #### [facility] [address] [place] [address] Dr. Katerina Rodarte Basophils/100 WBC (Bld) 0.5 % Normal 0.2-2.0 [facility] Comment on above: Performed By: #### C MREP #### [facility] [address] [place] [address] Dr. Katerina Rodarte EO # 0.3 103/ul Normal 0.0-0.7 [facility] Comment on above: Performed By: #### C MREP #### [facility] [address] [place] [address] Dr. Katerina Rodarte Eosinophils/100 WBC (Bld) 4.6 % Normal 0.9-7.0 [facility] Comment on above: Performed By: #### C MREP #### [facility] [address] [place] [address] Dr. Katerina Rodarte Erythrocyte distribution width (RBC) [Ratio] 13.9 % Normal 11.0-15.0 [facility] Comment on above: Performed By: #### C MREP #### [facility] [address] [place] [address] Dr. Katerina Rodarte Hematocrit (Bld) [Volume fraction] 38.0 % Critically low 42.0-54.0 [facility] Comment on above: Performed By: #### C MREP #### [facility] [address] [place] [address] Dr. Katerina Rodarte Hemoglobin (Bld) [Mass/Vol] 13.0 g/dL Critically low 14.0-18.0 [facility] Comment on above: Performed By: #### C MREP #### [facility] [address] [place] [address] Dr. Katerina Rodarte IG # 0.01 10e3/ul Normal 0.00-0.03 [facility] Comment on above: Performed By: #### C MREP #### [facility] [address] [place] [address] Dr. Katerina Rodarte IG % 0.2 % Normal 0.0-0.5 [facility] Comment on above: Performed By: #### C MREP #### [facility] [address] [place] [address] Dr. Katerina Rodarte LYMPH # 1.4 103/ul Normal 1.2-3.8 [facility] Comment on above: Performed By: #### C MREP #### [facility] [address] [place] [address] Dr. Katerina Rodarte Lymphocytes/100 WBC (Bld) 23.3 % Normal 20.5-60.0 [facility] Comment on above: Performed By: #### C MREP #### [facility] [address] [place] [address] Dr. Katerina Rodarte MANUAL DIFF REQ NO Normal [facility] Comment on above: Performed By: #### C MREP #### [facility] [address] [place] [address] Dr. Katerina Rodarte MCH (RBC) [Entitic mass] 33.7 pg Normal 25.9-34.0 [facility] Comment on above: Performed By: #### C MREP #### [facility] [address] [place] [address] Dr. Katerina Rodarte MCHC (RBC) [Mass/Vol] 34.2 g/dL Normal 29.9-35.2 [facility] Comment on above: Performed By: #### C MREP #### [facility] [address] [place] [address] Dr. Katerina Rodarte MCV (RBC) [Entitic vol] 98.4 fL Critically high 80.0-94.0 [facility] Comment on above: Performed By: #### C MREP #### [facility] [address] [place] [address] Dr. Katerina Rodarte MONO # 0.7 103/ul Normal 0.3-0.8 [facility] Comment on above: Performed By: #### C MREP #### [facility] [address] [place] [address] Dr. Katerina Rodarte Monocytes/100 WBC (Bld) 12.0 % Normal 1.7-12.0 [facility] Comment on above: Performed By: #### C MREP #### [facility] [address] [place] [address] Dr. Katerina Rodarte NEUT # 3.7 103/ul Normal 1.4-6.5 [facility] Comment on above: Performed By: #### C MREP #### [facility] [address] [place] [address] Dr. Katerina Rodarte Neutrophils/100 WBC (Bld) 64.2 % Normal 43.0-75.0 [facility] Comment on above: Performed By: #### C MREP #### [facility] [address] [place] [address] Dr. Katerina Rodarte Platelet mean volume (Bld) [Entitic vol] 9.4 fL Critically low 9.5-13.5 [facility] Comment on above: Performed By: #### C MREP #### [facility] [address] [place] [address] Dr. Katerina Rodarte PLT 208 103/ul Normal 150-450 [facility] Comment on above: Performed By: #### C MREP #### [facility] [address] [place] [address] Dr. Katerina Rodarte RBC 3.86 106/ul Critically low 4.70-6.10 [facility] Comment on above: Performed By: #### C MREP #### [facility] [address] [place] [address] Dr. Katerina Rodarte WBC 5.8 103/ul Normal 4.0-11.0 [facility] Comment on above: Performed By: #### C [facility] #### [facility] [address] [address] [address] LSPINE WO CONon [...] THERESA RIVERA Date: 2022-12-29 23:52 Normal [facility] DRUG SCREEN RAPID (URINE)on 12-30-2022 AMP Negative Normal NEGATIVE [facility] Comment on above: Performed By: #### P OCGLUC #### [facility] [address] [address] [address] Katerina Rodarte BAR Negative Normal NEGATIVE [facility] Comment on above: Performed By: #### P OCGLUC #### [facility] [address] [place] [address] Dr. Katerina Rodarte BUP Negative Normal NEGATIVE [facility] Comment on above: Performed By: #### P OCGLUC #### [facility] [address] [place] [address] Dr. Katerina Rodarte BZO Negative Normal NEGATIVE [facility] Comment on above: Performed By: #### P OCGLUC #### [facility] [address] [place] [address] Dr. Katerina Rodarte CARLIE Negative Normal NEGATIVE [facility] Comment on above: Performed By: #### P OCGLUC #### [facility] [address] [place] [address] Dr. Katerina Rodarte CUT-OFFS SEE BELOW Normal [facility] Comment on above: Result Comment: AMP (Amphetamine): 500ng/mL, BAR (Barbituates): 200 ng/mL, BZO (Benzodiazepines): 150 ng/mL, BUP (Buprenorphine): 10 ng/mL, CARLIE (Cocaine): 150 ng/mL, mAMP (Methamphetamine): 500 ng/mL, MTD (Methadone): 200 ng/mL, OPI (Opiates): 100 ng/mL, OXY (Oxycodone): 100 ng/mL, PCP (Phencyclidine): 25 ng/mL, PPX (Propoxyphene): 300 ng/mL, THC (Cannabinoids): 50 ng/mL, TCA (Trycyclic Antidepressants): 300 ng/mL Performed By: #### P OCGLUC #### [facility] [address] [place] [address] Dr. Katerina Rodarte DRUG CUT HEADER DRUG CLASS TEST SYST EM CUT-OFF CONCENTRATIONS ARE FOLLOWS: Normal [facility] Comment on above: Performed By: #### P OCGLUC #### [facility] [address] [place] [address] Dr. Katerina Rodarte mAMP Negative Normal NEGATIVE [facility] Comment on above: Performed By: #### P OCGLUC #### [facility] [address] [place] [address] Dr. Katerina Rodarte MTD Negative Normal NEGATIVE [facility] Comment on above: Performed By: #### P OCGLUC #### [facility] [address] [address] [address] Katerina Rodarte OPI Negative Normal NEGATIVE [facility] Comment on above: Performed By: #### P OCGLUC #### [facility] [address] [place] [address] Dr. Katerina Rodarte OXY Negative Normal NEGATIVE [facility] Comment on above: Performed By: #### P OCGLUC #### [facility] [address] [address] [address] Katerina Rodarte PCP Negative Normal NEGATIVE [facility] Comment on above: Performed By: #### P OCGLUC #### [facility] [address] [place] [address] Dr. Katerina Rodarte PPX Negative Normal NEGATIVE [facility] Comment on above: Performed By: #### P OCGLUC #### [facility] [address] [place] [address] Dr. Katerina Rodarte TCA Negative Normal NEGATIVE [facility] Comment on above: Performed By: #### P OCGLUC #### [facility] [address] [place] [address] Dr. Katerina Rodarte THC Negative Normal NEGATIVE [facility] Comment on above: Performed By: #### P OCGLUC #### [facility] [address] [place] [address] Dr. Katerina Rodarte ETHANOL (BLD ALC)on 12-30-19 23 ALC NOTE NOTE: 80 mg/dl is th e legal limit for a blood alcohol level Normal [facility] Comment on above: Performed By: #### B MP, CMADM, ETH #### [facility] [address] [place] [address] Dr. Katerina Rodarte Ethanol [Mass/Vol] 167 mg/dL Normal [facility] Comment on above: Performed By: #### B MP, CMADM, ETH #### [facility] [address] [place] [address] Dr. Katerina Rodarte PROF CHEM 8 (BAS METB)on Anion gap [Moles/Vol] 11.4 mmol/L Normal [facility] Comment on above: Performed By: #### B TAMIA ARMENTA, ETH #### [facility] [address] [address] [address] Katerina Rodarte Calcium [Mass/Vol] 8.8 mg/dL Normal 8.5-10.1 [facility] Comment on above: Performed By: #### B TAMIA ARMENTA, ETH #### [facility] [address] [place] [address] Dr. Katerina Rodarte Chloride [Moles/Vol] 97 mmol/L Critically low 98-107 [facility] Comment on above: Performed By: #### B TAMIA ARMENTA, ETH #### [facility] [address] [place] [address] Dr. Katerina Rodarte CO2 [Moles/Vol] 29.9 mmol/L Normal 21.0-32.0 [facility] Comment on above: Performed By: #### B TAMIA ARMENTA, ETH #### [facility] [address] [place] [address] Dr. Katerina Rodarte Creatinine [Mass/Vol] 0.83 mg/dL Normal 0.70-1.30 [facility] Comment on above: Performed By: #### B JESSE ARMENTADM, ETH #### [facility] [address] [place] [address] Dr. Katerina Rodarte EGFR-AF MALAYSIAN >60 Normal >=60 [facility] Comment on above: Performed By: #### B JESSE ARMENTADM, ETH #### [facility] [address] [place] [address] Dr. Katerina Rodarte EGFR-NON AF MALAYSIAN >60 Normal >=60 [facility] Comment on above: Performed By: #### B JESSE ARMENTADM, ETH #### [facility] [address] [place] [address] Dr. Katerina Rodarte Glucose [Mass/Vol] 84 mg/dL Normal 74-106 [facility] Comment on above: Performed By: #### B JESSE ARMENTADM, ETH #### [facility] [address] [address] [address] Katerina Rodarte Potassium [Moles/Vol] 4.3 mmol/L Normal 3.5-5.1 [facility] Comment on above: Performed By: #### B TAMIA ARMENTA, ETH #### [facility] [address] [address] [address] Katerina Rodarte Sodium [Moles/Vol] 134 mmol/L Critically low 136-145 [facility] Comment on above: Performed By: #### B KATHI, TAMIA, ETH #### [facility] [address] [address] [address] Katerina Rodarte Urea nitrogen [Mass/Vol] 4.0 mg/dL Critically low 7.0-18.0 [facility] Comment on above: Performed By: #### B TAMIA ARMENTA, ETH #### [facility] [address] [address] [address] Katerina Rodarte Urea nitrogen/Creatinine [Mass ratio] 4.8 mg/mg Normal [facility] Comment on above: Performed By: #### B TAMIA ARMENTA, ETH #### [facility] [address] [address] [address] Katerina Rodarte XR ANKLE JAZZ MIN [...] Reba PADRON Date: 2022-12-30 01:05 Normal [facility] XR CHEST 1 Von 12-30-2022 XR [...] VIJAYA KITCHEN Date: 2022-12-30 01:05 Normal [facility] CBC AUTO DIFFon 12-10-2022 BASO # 0.0 103/ul Normal 0.0-0.1 [facility] Comment on above: Performed By: #### C MREP #### [facility] [address] [address] [address] Katerina Rodarte Basophils/100 WBC (Bld) 0.6 % Normal 0.2-2.0 [facility] Comment on above: Performed By: #### C MREP #### [facility] [address] [address] [address] Katerina Rodarte EO # 0.9 103/ul Critically high 0.0-0.7 [facility] Comment on above: Performed By: #### C MREP #### [facility] [address] [address] [address] Katerina Rodarte Eosinophils/100 WBC (Bld) 12.9 % Critically high 0.9-7.0 [facility] Comment on above: Performed By: #### C MREP #### [facility] [address] [address] [address] Katerina Rodarte Erythrocyte distribution width (RBC) [Ratio] 12.4 % Normal 11.0-15.0 [facility] Comment on above: Performed By: #### C MREP #### [facility] [address] [place] [address] Dr. Katerina Rodarte Hematocrit (Bld) [Volume fraction] 38.4 % Critically low 42.0-54.0 [facility] Comment on above: Performed By: #### C MREP #### [facility] [address] [place] [address] Dr. Katerina Rodarte Hemoglobin (Bld) [Mass/Vol] 13.6 g/dL Critically low 14.0-18.0 [facility] Comment on above: Performed By: #### C MREP #### [facility] [address] [place] [address] Dr. Katerina Rodarte IG # 0.01 10e3/ul Normal 0.00-0.03 [facility] Comment on above: Performed By: #### C MREP #### [facility] [address] [place] [address] Dr. Katerina Rdoarte IG % 0.1 % Normal 0.0-0.5 [facility] Comment on above: Performed By: #### C MREP #### [facility] [address] [place] [address] Dr. Katerina Rodarte LYMPH # 2.1 103/ul Normal 1.2-3.8 [facility] Comment on above: Performed By: #### C MREP #### [facility] [address] [place] [address] Dr. Katerina Rodarte Lymphocytes/100 WBC (Bld) 30.3 % Normal 20.5-60.0 [facility] Comment on above: Performed By: #### C MREP #### [facility] [address] [place] [address] Dr. Katerina Rodarte MANUAL DIFF REQ NO Normal [facility] Comment on above: Performed By: #### C MREP #### [facility] [address] [place] [address] Dr. Katerina Rodarte MCH (RBC) [Entitic mass] 33.3 pg Normal 25.9-34.0 [facility] Comment on above: Performed By: #### C MREP #### [facility] [address] [address] [address] Katerina Rodarte MCHC (RBC) [Mass/Vol] 35.4 g/dL Critically high 29.9-35.2 [facility] Comment on above: Performed By: #### C MREP #### [facility] [address] [address] [address] Katerina Rodarte MCV (RBC) [Entitic vol] 93.9 fL Normal 80.0-94.0 [facility] Comment on above: Performed By: #### C MREP #### [facility] [address] [place] [address] Dr. Katerina Rodarte MONO # 0.9 103/ul Critically high 0.3-0.8 [facility] Comment on above: Performed By: #### C MREP #### [facility] [address] [place] [address] Dr. Katerina Rodarte Monocytes/100 WBC (Bld) 13.0 % Critically high 1.7-12.0 [facility] Comment on above: Performed By: #### C MREP #### [facility] [address] [place] [address] Dr. Katerina Rodarte NEUT # 2.9 103/ul Normal 1.4-6.5 [facility] Comment on above: Performed By: #### C MREP #### [facility] [address] [place] [address] Dr. Katerina Rodarte Neutrophils/100 WBC (Bld) 43.1 % Normal 43.0-75.0 [facility] Comment on above: Performed By: #### C MREP #### [facility] [address] [place] [address] Dr. Katerina Rodarte Platelet mean volume (Bld) [Entitic vol] 9.6 fL Normal 9.5-13.5 [facility] Comment on above: Performed By: #### C MREP #### [facility] [address] [place] [address] Dr. Katerina Rodarte PLT 222 103/ul Normal 150-450 [facility] Comment on above: Performed By: #### C MREP #### [facility] [address] [place], [place] [address] Dr. Katerina Rodarte RBC 4.09 106/ul Critically low 4.70-6.10 [facility] Comment on above: Performed By: #### C MREP #### [facility] [address] [place], [place] [address] Dr. Katerina Rodarte WBC 6.8 103/ul Normal 4.0-11.0 [facility] Comment on above: Performed By: #### C MREP #### [facility] [address] [place], [place] [address] ABD/PELV W CONon [...] by: MADDY SCHOFIELD Date: 2022-12-10 00:50 Normal [facility] CT CSPINE WO CONon CT CSPINE WO [...] by: LADARIUS HERNANDEZ Date: 2022-12-10 00:17 Normal [facility] CT HEAD WO CONon 12-10-2022 CT HEAD [...] SHAMA AVALOS Date: 2022-12-10 00:16 Normal [facility] DRUG SCREEN RAPID (URINE)on 12-10-2022 AMP Negative Normal NEGATIVE [facility] Comment on above: Performed By: #### D RUGRPD ####[facility] [address] [place], [place] [address]Dr. Katerina Rodarte BAR Negative Normal NEGATIVE [facility] Comment on above: Performed By: #### D RUGRPD ####[facility] [address] [place], [place] [address]Dr. Katerina Rodarte BUP Negative Normal NEGATIVE [facility] Comment on above: Performed By: #### D RUGRPD ####[facility] [address] [place], [place] [address]Dr. Katerina Rodarte BZO Negative Normal NEGATIVE [facility] Comment on above: Performed By: #### D RUGRPD ####[facility] [address] [place], [place] [address]Dr. Katerina Rodarte CARLIE Negative Normal NEGATIVE [facility] Comment on above: Performed By: #### D RUGRPD ####[facility] [address] [place], [place] [address]Dr. Katerina Rodarte CUT-OFFS SEE BELOW Normal [facility] Comment on above: Result Comment: AMP (Amphetamine): 500ng/mL, BAR (Barbituates): 200 ng/mL, BZO (Benzodiazepines): 150 ng/mL, BUP (Buprenorphine): 10 ng/mL, CARLIE (Cocaine): 150 ng/mL, mAMP (Methamphetamine): 500 ng/mL, MTD (Methadone): 200 ng/mL, OPI (Opiates): 100 ng/mL, OXY (Oxycodone): 100 ng/mL, PCP (Phencyclidine): 25 ng/mL, PPX (Propoxyphene): 300 ng/mL, THC (Cannabinoids): 50 ng/mL, TCA (Trycyclic Antidepressants): 300 ng/mL Performed By: #### D RUGRPD ####[facility] [address] [place], [place] [address]Dr. Katerina Rodarte DRUG CUT HEADER DRUG CLASS TEST SYST EM CUT-OFF CONCENTRATIONS ARE FOLLOWS: Normal [facility] Comment on above: Performed By: #### D RUGRPD ####[facility] [address] [place], [place] [address]Dr. Katerina Rodarte mAMP Negative Normal NEGATIVE [facility] Comment on above: Performed By: #### D RUGRPD ####[facility] [address] [place], [place] [address]Dr. Katerina Rodarte MTD Negative Normal NEGATIVE [facility] Comment on above: Performed By: #### D RUGRPD ####[facility] [address] [place], [place] [address]Dr. Katerina Rodarte OPI Negative Normal NEGATIVE [facility] Comment on above: Performed By: #### D RUGRPD ####[facility] [address] [place], [place] [address]Dr. Katerina Rodarte OXY Negative Normal NEGATIVE [facility] Comment on above: Performed By: #### D RUGRPD ####[facility] [address] [place], [place] [address]Dr. Katerina Rodarte PCP Negative Normal NEGATIVE [facility] Comment on above: Performed By: #### D RUGRPD ####[facility] [address] [place], [place] [address]Dr. Katerina Rodarte PPX Negative Normal NEGATIVE [facility] Comment on above: Performed By: #### D RUGRPD ####[facility] [address] [place], [place] [address]Dr. Katerina Rodarte TCA Negative Normal NEGATIVE [facility] Comment on above: Performed By: #### D RUGRPD ####[facility] [address] [place], [place] [address]Dr. Katerina Rodarte THC Negative Normal NEGATIVE [facility] Comment on above: Performed By: #### D RUGRPD ####[facility] [address] [place], [place] [address]HaDr. Katerina Rodarte ETHANOL (BLD ALC)on 12-10-19 23 ALC NOTE NOTE: 80 mg/dl is th e legal limit for a blood alcohol level Normal [facility] Comment on above: Performed By: #### E TH ####[facility] [address] [id number]. Katerina Rodarte Ethanol [Mass/Vol] 197 mg/dL Normal [facility] Comment on above: Performed By: #### E TH ####[facility] [address] [id number]. Katerina Rodarte PROF 14(COMP METB)on 023 Albumin [Mass/Vol] 3.7 g/dL Normal 3.4-5.0 [facility] Comment on above: Performed By: #### P OCGLUC #### [facility] [address] [address] [address] Katerina Rodarte Albumin/Globulin [Mass ratio] 1.1 {ratio} Normal [facility] Comment on above: Performed By: #### P OCGLUC #### [facility] [address] [address] [address] Katerina Rodarte ALP [Catalytic activity/Vol] 149 U/L Critically high 46-116 [facility] Comment on above: Performed By: #### P OCGLUC #### [facility] [address] [address] [address] Katerina Rodarte ALT [Catalytic activity/Vol] 41 U/L Normal 16-63 [facility] Comment on above: Performed By: #### P OCGLUC #### [facility] [address] [address] [address] Katerina Rodarte Anion gap [Moles/Vol] 11.7 mmol/L Normal [facility] Comment on above: Performed By: #### P OCGLUC #### [facility] [address] [address] [address] Katerina Rodarte AST [Catalytic activity/Vol] 48 U/L Critically high 15-37 [facility] Comment on above: Performed By: #### P OCGLUC #### [facility] [address] [address] [address] Katerina Rodarte Bilirubin [Mass/Vol] 0.4 mg/dL Normal 0.2-1.0 [facility] Comment on above: Performed By: #### P OCGLUC #### [facility] [address] [address] [address] Katerina Rodarte Calcium [Mass/Vol] 8.7 mg/dL Normal 8.5-10.1 [facility] Comment on above: Performed By: #### P OCGLUC #### [facility] [address] [address] [address] Katerina Rodarte Chloride [Moles/Vol] 94 mmol/L Critically low 98-107 [facility] Comment on above: Performed By: #### P OCGLUC #### [facility] [address] [address] [address] Katerina Rodarte CO2 [Moles/Vol] 29.4 mmol/L Normal 21.0-32.0 [facility] Comment on above: Performed By: #### P OCGLUC #### [facility] [address] [address] [address] Katerina Rodarte Creatinine [Mass/Vol] 0.96 mg/dL Normal 0.70-1.30 [facility] Comment on above: Performed By: #### P OCGLUC #### [facility] [address] [address] [address] Katerina Rodarte EGFR-AF MALAYSIAN >60 Normal >=60 [facility] Comment on above: Performed By: #### P OCGLUC #### [facility] [address] [address] [address] Katerina Rodarte EGFR-NON AF MALAYSIAN >60 Normal >=60 [facility] Comment on above: Performed By: #### P OCGLUC #### [facility] [address] [address] [address] Katerina Rodarte Globulin (S) [Mass/Vol] 3.3 g/dL Normal [facility] Comment on above: Performed By: #### P OCGLUC #### [facility] [address] [address] [address] Katerina Rodarte Glucose [Mass/Vol] 138 mg/dL Critically high 74-106 T [facility] Comment on above: Performed By: #### P OCGLUC #### [facility] [address] [address] [address] Katerina Rodarte Potassium [Moles/Vol] 4.1 mmol/L Normal 3.5-5.1 [facility] Comment on above: Performed By: #### P OCGLUC #### [facility] [address] [address] [address] Katerina Rodarte Protein [Mass/Vol] 7.0 g/dL Normal 6.4-8.2 [facility] Comment on above: Performed By: #### P OCGLUC #### [facility] [address] [address] [address] Katerina Rodarte Sodium [Moles/Vol] 131 mmol/L Critically low 136-145 [facility] Comment on above: Performed By: #### P OCGLUC #### [facility] [address] [address] [address] Katerina Rodarte Urea nitrogen [Mass/Vol] 4.0 mg/dL Critically low 7.0-18.0 [facility] Comment on above: Performed By: #### P OCGLUC #### [facility] [address] [address] [address] Katerina Rodarte Urea nitrogen/Creatinine [Mass ratio] 4.2 mg/mg Normal [facility] Comment on above: Performed By: #### P OCGLUC #### [facility] [address] [address] [address] Katerina Rodarte XR CHEST 1 Von [...] THELMA DAMICO Date: 2022-12-09 23:00 Normal [facility] CBC AUTO DIFFon 11-26-2022 BASO # 0.1 103/ul Normal 0.0-0.1 [facility] Comment on above: Performed By: #### P OCGLUC #### [facility] [address] [address] [address] Katerina Rodarte Basophils/100 WBC (Bld) 1.1 % Normal 0.2-2.0 [facility] Comment on above: Performed By: #### P OCGLUC #### [facility] [address] [address] [address] Katerina Rodarte EO # 0.6 103/ul Normal 0.0-0.7 [facility] Comment on above: Performed By: #### P OCGLUC #### [facility] [address] [address] [address] Katerina Rodarte Eosinophils/100 WBC (Bld) 8.9 % Critically high 0.9-7.0 [facility] Comment on above: Performed By: #### P OCGLUC #### [facility] [address] [address] [address] Katerina Rodarte Erythrocyte distribution width (RBC) [Ratio] 12.8 % Normal 11.0-15.0 [facility] Comment on above: Performed By: #### P OCGLUC #### [facility] [address] [address] [address] Katerina Rodarte Hematocrit (Bld) [Volume fraction] 39.5 % Critically low 42.0-54.0 [facility] Comment on above: Performed By: #### P OCGLUC #### [facility] [address] [address] [address] Katerina Rodarte Hemoglobin (Bld) [Mass/Vol] 13.9 g/dL Critically low 14.0-18.0 [facility] Comment on above: Performed By: #### P OCGLUC #### [facility] [address] [address] [address] Katerina Rodarte IG # 0.02 10e3/ul Normal 0.00-0.03 [facility] Comment on above: Performed By: #### P OCGLUC #### [facility] [address] [address] [address] Katerina Rodarte IG % 0.3 % Normal 0.0-0.5 [facility] Comment on above: Performed By: #### P OCGLUC #### [facility] [address] [address] [address] Katerina Rodarte LYMPH # 2.7 103/ul Normal 1.2-3.8 [facility] Comment on above: Performed By: #### P OCGLUC #### [facility] [address] [place] [address] Dr. Katerina Rodarte Lymphocytes/100 WBC (Bld) 41.7 % Normal 20.5-60.0 [facility] Comment on above: Performed By: #### P OCGLUC #### [facility] [address] [place] [address] Dr. Katerina Rodarte MANUAL DIFF REQ NO Normal [facility] Comment on above: Performed By: #### P OCGLUC #### [facility] [address] [place] [address] Dr. Katerina Rodarte MCH (RBC) [Entitic mass] 33.5 pg Normal 25.9-34.0 [facility] Comment on above: Performed By: #### P OCGLUC #### [facility] [address] [place] [address] Dr. Katerina Rodarte MCHC (RBC) [Mass/Vol] 35.2 g/dL Normal 29.9-35.2 [facility] Comment on above: Performed By: #### P OCGLUC #### [facility] [address] [place] [address] Dr. Katerina Rodarte MCV (RBC) [Entitic vol] 95.2 fL Critically high 80.0-94.0 [facility] Comment on above: Performed By: #### P OCGLUC #### [facility] [address] [place] [address] Dr. Katerina Rodarte MONO # 0.8 103/ul Normal 0.3-0.8 [facility] Comment on above: Performed By: #### P OCGLUC #### [facility] [address] [address] [address] Katerina Rodatre Monocytes/100 WBC (Bld) 11.8 % Normal 1.7-12.0 [facility] Comment on above: Performed By: #### P OCGLUC #### [facility] [address] [address] [address] Katerina Rodarte NEUT # 2.4 103/ul Normal 1.4-6.5 [facility] Comment on above: Performed By: #### P OCGLUC #### [facility] [address] [address] [address] Katerina Rodarte Neutrophils/100 WBC (Bld) 36.2 % Critically low 43.0-75.0 [facility] Comment on above: Performed By: #### P OCGLUC #### [facility] [address] [address] [address] Katerina Rodarte Platelet mean volume (Bld) [Entitic vol] 9.0 fL Critically low 9.5-13.5 [facility] Comment on above: Performed By: #### P OCGLUC #### [facility] [address] [address] [address] Katerina Rodarte PLT 286 103/ul Normal 150-450 [facility] Comment on above: Performed By: #### P OCGLUC #### [facility] [address] [address] [address] Kaetrina Rodarte RBC 4.15 106/ul Critically low 4.70-6.10 [facility] Comment on above: Performed By: #### P OCGLUC #### [facility] [address] [address] [address] Katerina Rodarte WBC 6.5 103/ul Normal 4.0-11.0 [facility] Comment on above: Performed By: #### P OCGLUC #### [facility] [address] [address] [address] STROKE HEAD WOon [...] YESSI AGUIAR Date: 2022-11-26 01:12 Normal [facility] DRUG SCREEN RAPID (URINE)on 11-26-2022 AMP Negative Normal NEGATIVE [facility] Comment on above: Performed By: #### D RUGRPD ####[facility] [address] [address]Dr. Katerina Rodarte BAR Negative Normal NEGATIVE [facility] Comment on above: Performed By: #### D RUGRPD ####[facility] [address] [address]Dr. Katerina Rodarte BUP Negative Normal NEGATIVE [facility] Comment on above: Performed By: #### D RUGRPD ####[facility] [address] [address]Dr. Yilan Rodarte BZO Negative Normal NEGATIVE [facility] Comment on above: Performed By: #### D RUGRPD ####[facility] [address] [address]Dr. Yilan Rodarte CARLIE Negative Normal NEGATIVE [facility] Comment on above: Performed By: #### D RUGRPD ####[facility] [address] [address]Dr. samina Rodarte CUT-OFFS SEE BELOW Normal [facility] Comment on above: Result Comment: AMP (Amphetamine): 500ng/mL, BAR (Barbituates): 200 ng/mL, BZO (Benzodiazepines): 150 ng/mL, BUP (Buprenorphine): 10 ng/mL, CARLIE (Cocaine): 150 ng/mL, mAMP (Methamphetamine): 500 ng/mL, MTD (Methadone): 200 ng/mL, OPI (Opiates): 100 ng/mL, OXY (Oxycodone): 100 ng/mL, PCP (Phencyclidine): 25 ng/mL, PPX (Propoxyphene): 300 ng/mL, THC (Cannabinoids): 50 ng/mL, TCA (Trycyclic Antidepressants): 300 ng/mL Performed By: #### D RUGRPD ####[facility] [address] [place], [place] [address]Dr. [facility] DRUG CUT HEADER DRUG CLASS TEST SYST EM CUT-OFF CONCENTRATIONS ARE FOLLOWS: Normal [facility] Comment on above: Performed By: #### D RUGRPD ####[facility] [address] [place], [place] [address]Dr. [facility]ina [facility] mAMP Negative Normal NEGATIVE [facility] Comment on above: Performed By: #### D RUGRPD ####[facility] [address] [place], [place] [address]Dr. [facility] MTD Negative Normal NEGATIVE [facility] Comment on above: Performed By: #### D RUGRPD ####[facility] [address] [place], [place] [address]Dr. [facility] OPI Positive Abnormal NEGATIVE [facility] Comment on above: Performed By: #### D RUGRPD ####[facility] [address] [place], [place] [address]. [facility] O[facility] Negative Normal NEGATIVE [facility] Comment on above: Performed By: #### D RUGRPD ####[facility] [address] [place], [place] [address]Dr. [facility] PCP Negative Normal NEGATIVE [facility] Comment on above: Performed By: #### D RUGRPD ####[facility] [address] [place], [place] [address]Dr. [facility] PPX Negative Normal NEGATIVE [facility] Comment on above: Performed By: #### D RUGRPD ####[facility] [address] [id number]. Katerina Rodarte TCA Negative Normal NEGATIVE [facility] Comment on above: Performed By: #### D RUGRPD ####[facility] [address] [place], [place] [address]Qp. Katerina Rodarte THC Negative Normal NEGATIVE [facility] Comment on above: Performed By: #### D RUGRPD ####[facility] [address] [place], [place] [address]Uo. Katerina Rodarte ETHANOL (BLD ALC)on 11-26-20 22 ALC NOTE NOTE: 80 mg/dl is th e legal limit for a blood alcohol level Normal [facility] Comment on above: Performed By: #### P OCGLUC #### [facility] [address] [address] [address] Katerina Rodarte Ethanol [Mass/Vol] 172 mg/dL Normal [facility] Comment on above: Performed By: #### P OCGLUC #### [facility] [address] [address] [address] Katerina Rodarte POINT OF CARE GLUCOSEon 10-29 Glucose [Mass/Vol] 90 mg/dL Normal 74-106 [facility] Comment on above: Performed By: #### P OCGLUC #### [facility] [address] [address] [address] Katerina Rodarte PROF 14(COMP METB)on 022 Albumin [Mass/Vol] 3.6 g/dL Normal 3.4-5.0 [facility] Comment on above: Performed By: #### C MREP #### [facility] [address] [address] [address] Katerina Rodarte Albumin/Globulin [Mass ratio] 0.9 {ratio} Normal [facility] Comment on above: Performed By: #### C MREP #### [facility] [address] [address] [address] Katerina Rodarte ALP [Catalytic activity/Vol] 125 U/L Critically high 46-116 [facility] Comment on above: Performed By: #### C MREP #### [facility] [address] [address] [address] Katerina Rodarte ALT [Catalytic activity/Vol] 56 U/L Normal 16-63 [facility] Comment on above: Performed By: #### C MREP #### [facility] [address] [address] [address] Katerina Rodarte Anion gap [Moles/Vol] 11.3 mmol/L Normal [facility] Comment on above: Performed By: #### C MREP #### [facility] [address] [address] [address] Katerina Rodarte AST [Catalytic activity/Vol] 81 U/L Critically high 15-37 [facility] Comment on above: Performed By: #### C MREP #### [facility] [address] [address] [address] Katerina Rodarte Bilirubin [Mass/Vol] 0.2 mg/dL Normal 0.2-1.0 [facility] Comment on above: Performed By: #### C MREP #### [facility] [address] [address] [address] Katerina Rodarte Calcium [Mass/Vol] 8.6 mg/dL Normal 8.5-10.1 [facility] Comment on above: Performed By: #### C MREP #### [facility] [address] [address] [address] Katerina Rodarte Chloride [Moles/Vol] 97 mmol/L Critically low 98-107 [facility] Comment on above: Performed By: #### C MREP #### [facility] [address] [address] [address] Katerina Rodarte CO2 [Moles/Vol] 31.0 mmol/L Normal 21.0-32.0 [facility] Comment on above: Performed By: #### C MREP #### [facility] [address] [address] [address] Katerina Rodarte Creatinine [Mass/Vol] 1.12 mg/dL Normal 0.70-1.30 [facility] Comment on above: Performed By: #### C MREP #### [facility] [address] [address] [address] Katerina Rodarte EGFR-AF MALAYSIAN >60 Normal >=60 [facility] Comment on above: Performed By: #### C MREP #### [facility] [address] [address] [address] Katerina Rodarte EGFR-NON AF MALAYSIAN >60 Normal >=60 [facility] Comment on above: Performed By: #### C MREP #### [facility] [address] [address] [address] Katerina Rodarte Globulin (S) [Mass/Vol] 3.8 g/dL Normal [facility] Comment on above: Performed By: #### C MREP #### [facility] [address] [address] [address] Katerina Rodarte Glucose [Mass/Vol] 90 mg/dL Normal 74-106 [facility] Comment on above: Performed By: #### C MREP #### [facility] [address] [place] [address] Dr. Katerina Rodarte Potassium [Moles/Vol] 4.3 mmol/L Normal 3.5-5.1 [facility] Comment on above: Performed By: #### C MREP #### [facility] [address] [address] [address] Katerina Rodarte Protein [Mass/Vol] 7.4 g/dL Normal 6.4-8.2 [facility] Comment on above: Performed By: #### C MREP #### [facility] [address] [address] [address] Katerina Rodarte Sodium [Moles/Vol] 135 mmol/L Critically low 136-145 [facility] Comment on above: Performed By: #### C MREP #### [facility] [address] [place] [address] Dr. Katerina Rodarte Urea nitrogen [Mass/Vol] 10.0 mg/dL Normal 7.0-18.0 [facility] Comment on above: Performed By: #### C MREP #### [facility] [address] [address] [address] Ktaerina Rodarte Urea nitrogen/Creatinine [Mass ratio] 8.9 mg/mg Normal [facility] Comment on above: Performed By: #### C MREP #### [facility] [address] [address] [address] Katerina Rodarte Basic Metabolic Panelon 09-27 Anion gap [Moles/Vol] 15.3 mmol/L High 6.0-15.0 [facility] Comment on above: Performed By: #### B MP, MG, CBC #### [facility] [address] [place] [address] [place] Calcium [Mass/Vol] 8.5 mg/dL Normal 8.2-10.2 [facility] Comment on above: Performed By: #### B MP, MG, CBC #### [facility] [address] [id number] [place] Chloride [Moles/Vol] 106 mmol/L Normal 95-114 [facility] Comment on above: Performed By: #### B MP, MG, CBC #### [facility] [address] [place] [address] [place] CO2 [Moles/Vol] 23.0 mmol/L Normal 22.0-30.0 [facility] Comment on above: Performed By: #### B MP, MG, CBC #### [facility] [address] [id number] [place] Creatinine [Mass/Vol] 0.89 mg/dL Normal 0.64-1.27 [place] Comment on above: Performed By: #### B MP, MG, CBC #### [facility] [address] [id number] [place] Creatinine Clr Calc Pharmacy 76.43 [facility] Comment on above: Performed By: #### B MP, MG, CBC #### [facility] [address] [id number] [place] Estimated GFR ( Dori > 60 Normal [facility] Comment on above: Result Comment: GFR estimated reference range: According to KDOQI guidelines, <60 ml/min/1.73m2 is sufficient to diagnose a patient with chronic kidney disease. Performed By: #### B MP, MG, CBC #### [facility] [address] Estimated GFR (Non- Am > 60 Normal [facility] Comment on above: Performed By: #### B MP, MG, CBC #### [facility] [address] Glucose [Mass/Vol] 85 mg/dL Normal 70-100 [facility] Comment on above: Result Comment: [facility] Glucose Reference Range is dependent on time and content of last meal. Glucose of more than 200 mg/dL in a nonstressed, ambulatory subject supports the diagnosis of Diabetes Mellitus. ADA recommended reference range Performed By: #### B MP, MG, CBC #### [facility] [address] Potassium [Moles/Vol] 4.3 mmol/L Normal 3.5-5.1 [place] Comment on above: Performed By: #### B MP, MG, CBC #### [facility] [address] Sodium [Moles/Vol] 140 mmol/L Significant change down 136-146 [facility] Comment on above: Performed By: #### B MP, MG, CBC #### [address] Urea nitrogen [Mass/Vol] 3 mg/dL Low 9-23 [facility] Comment on above: Performed By: #### B MP, MG, CBC #### [address] cervical spine wo conon 1 12-08-2021 CT cervical spine wo [facility] [place] [address] [place] [address] CT Scan Report Signed Patient: Aristides Clark MR#: [id number] 33 : 1975 Acct:[id number] Age/Sex: 47 / M ADM Date: 10/07/22 Loc: Room: [address] [place] [address] Type: ADM IN Attending Dr: Theresa Ohara DO Copies to: DO Theresa Duran DO Ordering Provider: Matthew Ford DO Date of Service: 10/07/22 CT/CT head/brain wo con: f ([id number]) CT/CT cervical spine wo con: f CLINICAL [...] Brittany Torres M.D.10/08/2022 8:38 AM Dictation Location: [address] [address] Transcribed By: JEFF 10/08/22837 Dictated By: Brittany Torres MD 10/08/22830 Signed By: 10/08/22837 Normal [facility] Complete Blood Count Auto Di ffon 10-08-2022 Basophils (Bld) [#/Vol] 0.1 10*3/uL Normal 0.0-0.2 [facility] Comment on above: Result Comment: PERF ORMED BY: [place] [address] PATHOLOGIST LOOM INSPECTOR LATOYA CAMPBELL M.D. Performed By: #### B MP, MG, CBC #### [address] Basophils/100 WBC (Bld) 1.4 % Normal . [facility] Comment on above: Performed By: #### B MP, MG, CBC #### [facility] [address] [place] [address] Eosinophils (Bld) [#/Vol] 0.6 10*3/uL High 0.0-0.45 [facility] Comment on above: Performed By: #### B MP, MG, CBC #### [facility] [address] [place] [address] Eosinophils/100 WBC (Bld) 14.9 % Normal . [facility] Comment on above: Performed By: #### B MP, MG, CBC #### [facility] [address] [place] [address] Erythrocyte distribution width (RBC) [Ratio] 15.0 % High 12.0-14.8 [facility] Comment on above: Performed By: #### B MP, MG, CBC #### [facility] [address] [place] [address] Hematocrit (Bld) [Volume fraction] 39.3 % Normal 38.8-50.0 [facility] Comment on above: Performed By: #### B MP, MG, CBC #### [facility] [address] [place] [address] Hemoglobin (Bld) [Mass/Vol] 12.9 g/dL Low 13.0-17.0 [facility] Comment on above: Performed By: #### B MP, MG, CBC #### [facility] [address] Lymphocytes (Bld) [#/Vol] 1.3 10*3/uL Normal 1.00-4.8 [facility] Comment on above: Performed By: #### B MP, MG, CBC #### [facility] [address] Lymphocytes/100 WBC (Bld) 33.1 % Normal . [facility] Comment on above: Performed By: #### B MP, MG, CBC #### [facility] [address] MCH (RBC) [Entitic mass] 32.8 pg Normal 27.5-35.2 [facility] Comment on above: Performed By: #### B MP, MG, CBC #### [facility] [address] MCV (RBC) [Entitic vol] 100.1 fL Normal 83.5-101 [facility] Comment on above: Performed By: #### B MP, MG, CBC #### [facility] [address] Mean Corpuscular HGB Conc 32.7 g/dL Normal 32.5-35.6 [facility] Comment on above: Performed By: #### B MP, MG, CBC #### [facility] [address] [place] [address] [place] Monocytes (Bld) [#/Vol] 0.5 10*3/uL Normal 0.0-0.8 [facility] Comment on above: Performed By: #### B MP, MG, CBC #### [facility] [address] [place] [address] [place] Monocytes/100 WBC (Bld) 14.2 % Normal . [facility] Comment on above: Performed By: #### B MP, MG, CBC #### [facility] [address] Neutrophils (Bld) [#/Vol] 1.4 10*3/uL Low 1.8-7.7 [facility] Comment on above: Performed By: #### B MP, MG, CBC #### [address] Neutrophils/100 WBC (Bld) 36.4 % Normal . [facility] Comment on above: Performed By: #### B MP, MG, CBC #### [address] Nucleated RBC/100 WBC (Bld) [Ratio] 0.2 % Normal 0-0.5 [facility] Comment on above: Performed By: #### B MP, MG, CBC #### [address] Platelet mean volume (Bld) [Entitic vol] 7.8 fL Normal 6.6-10.1 [facility] Comment on above: Performed By: #### B MP, MG, CBC #### [address] Platelets (Bld) [#/Vol] 244 10*3/uL Normal 150-450 [facility] Comment on above: Performed By: #### B MP, MG, CBC #### [address] RBC (Bld) [#/Vol] 3.92 10*6/uL Normal 3.90-5.60 [facility] Comment on above: Performed By: #### B MP, MG, CBC #### [address] WBC (Bld) [#/Vol] 3.8 10*3/uL Low 4.5-11.0 [facility] Comment on above: Performed By: #### B MP, MG, CBC #### [address] Levetiracetam (Keppra)on levETIRAcetam [Mass/Vol] 26.2 ug/mL Normal 10.0-40.0 [facility] Comment on above: Result Comment: Perf ormed at: BN - [facility] [address] [id number] Medical Leader: Theo Sierra MD, Phone: [phone] PERFORMED BY: [place] [address] PATHOLOGIST LOOM INSPECTOR LATOYA CAMPBELL M.D. Performed By: #### L EV #### [facility] , Magnesiumon 10-08-2022 Magnesium [Mass/Vol] 1.8 mg/dL Normal 1.6-2.6 [facility] Comment on above: Result Comment: PERF ORMED BY: [place] [address] PATHOLOGIST LOOM INSPECTOR LATOYA CAMPBELL M.D. Performed By: #### B MP, MG, CBC #### [address] Albumin [Mass/volume] in Ser um or PlasmaOrdered By: Matthew Ford on 10-07-2022 Albumin [Mass/Vol] 3.8 g/dL 3.2-5.5 [facility] Amphetamine Screen Ql (U)Ord ered By: Matthew Ford on 10-07-2022 Amphetamines Ql (U) Negative Negative [facility] Barbiturates [Presence] in U rineOrdered By: Matthew Ford on 10-07-2022 Barbiturates Ql (U) Negative Negative [facility] Basophils Auto (Bld) [#/Vol] Ordered By: Matthew Ford on 10-07-2022 Basophils (Bld) [#/Vol] 0.1 10*3/uL 0.0-0.2 [facility] Basophils/100 WBC Auto (Bld) Ordered By: Matthew Ford on 10-07-2022 Basophils/100 WBC (Bld) 1.2 % . [facility] Benzodiazepines [Presence] i n UrineOrdered By: Matthew Ford on 10-07-2022 Benzodiazepines Ql (U) Negative Negative [facility] Cannabinoids [Presence] in U rine by Screen methodOrdered By: Matthew Ford on 10-07-2022 Cannabinoids Screen Ql (U) Positive Negative [facility] Comment on above: These are unconfirme d results and should not be used for legal purposes. Drug Cut-Off Concentration: AMPH 1000 ng/mL JODY 200 ng/mL ART 200 ng/mL COCM 300 ng/mL OP 300 ng/mL PCP 25 ng/mL THC 20 ng/mL Complete Blood Count Auto Di ffon 10-07-2022 Basophils (Bld) [#/Vol] 0.1 10*3/uL Normal 0.0-0.2 [facility] Comment on above: Result Comment: PERF ORMED BY: [place] [address] PATHOLOGIST LOOM INSPECTOR LATOYA CAMPBELL M.D. Performed By: #### C BC, PT, CMP #### [address] Basophils/100 WBC (Bld) 1.2 % Normal . [facility] Comment on above: Performed By: #### C BC, PT, CMP #### [address] Eosinophils (Bld) [#/Vol] 0.5 10*3/uL High 0.0-0.45 [facility] Comment on above: Performed By: #### C BC, PT, CMP #### [address] Eosinophils/100 WBC (Bld) 8.2 % Normal . [facility] Comment on above: Performed By: #### C BC, PT, CMP #### [facility] [address] [place] [address] Erythrocyte distribution width (RBC) [Ratio] 14.6 % Normal 12.0-14.8 [facility] Comment on above: Performed By: #### C BC, PT, CMP #### [address] Hematocrit (Bld) [Volume fraction] 39.5 % Normal 38.8-50.0 [facility] Comment on above: Performed By: #### C BC, PT, CMP #### [facility] [address] [place] [address] [place] Hemoglobin (Bld) [Mass/Vol] 13.1 g/dL Normal 13.0-17.0 [facility] Comment on above: Performed By: #### C BC, PT, CMP #### [facility] [address] Lymphocytes (Bld) [#/Vol] 2.6 10*3/uL Normal 1.00-4.8 [facility] Comment on above: Performed By: #### C BC, PT, CMP #### [facility] [address] Lymphocytes/100 WBC (Bld) 45.8 % Normal . [facility] Comment on above: Performed By: #### C BC, PT, CMP #### [facility] [address] MCH (RBC) [Entitic mass] 32.8 pg Normal 27.5-35.2 [facility] Comment on above: Performed By: #### C BC, PT, CMP #### [place] [address] [place] MCV (RBC) [Entitic vol] 99.1 fL Normal 83.5-101 [facility] Comment on above: Performed By: #### C BC, PT, CMP #### [address] Mean Corpuscular HGB Conc 33.1 g/dL Normal 32.5-35.6 [facility] Comment on above: Performed By: #### C BC, PT, CMP #### [facility] [address] [place] [address] [place] Monocytes (Bld) [#/Vol] 0.7 10*3/uL Normal 0.0-0.8 [facility] Comment on above: Performed By: #### C BC, PT, CMP #### [facility] [address] [id number] [place] Monocytes/100 WBC (Bld) 11.8 % Normal . [facility] Comment on above: Performed By: #### C BC, PT, CMP #### [facility] [address] Neutrophils (Bld) [#/Vol] 1.9 10*3/uL Normal 1.8-7.7 [facility] Comment on above: Performed By: #### C BC, PT, CMP #### [facility] [address] Neutrophils/100 WBC (Bld) 33.0 % Normal . [facility] Comment on above: Performed By: #### C BC, PT, CMP #### [facility] [address] Nucleated RBC/100 WBC (Bld) [Ratio] 0.1 % Normal 0-0.5 [facility] Comment on above: Performed By: #### C BC, PT, CMP #### [address] Platelet mean volume (Bld) [Entitic vol] 7.7 fL Normal 6.6-10.1 [facility] Comment on above: Performed By: #### C BC, PT, CMP #### [address] Platelets (Bld) [#/Vol] 301 10*3/uL Normal 150-450 [facility] Comment on above: Performed By: #### C BC, PT, CMP #### [facility] [address] RBC (Bld) [#/Vol] 3.99 10*6/uL Normal 3.90-5.60 [facility] Comment on above: Performed By: #### C BC, PT, CMP #### [facility] [address] [place] [address] [place] WBC (Bld) [#/Vol] 5.8 10*3/uL Normal 4.5-11.0 [facility] Comment on above: Performed By: #### C BC, PT, CMP #### [address] Comprehensive Metabolic Pane vivek 10-07-2022 Albumin [Mass/Vol] 3.8 g/dL Normal 3.2-5.5 [facility] Comment on above: Performed By: #### C BC, PT, CMP #### [address] Albumin/Globulin [Mass ratio] 1.4 {ratio} Normal [facility] Comment on above: Performed By: #### C BC, PT, CMP #### [address] ALP [Catalytic activity/Vol] 92 U/L Normal 32-92 [facility] Comment on above: Performed By: #### C BC, PT, CMP #### [address] ALT [Catalytic activity/Vol] 21 U/L Normal 10-60 [facility] Comment on above: Performed By: #### C BC, PT, CMP #### [address] Anion gap [Moles/Vol] 13.2 mmol/L Normal 6.0-15.0 [facility] Comment on above: Performed By: #### C BC, PT, CMP #### [address] AST [Catalytic activity/Vol] 30 U/L Normal 10-42 [facility] Comment on above: Performed By: #### C BC, PT, CMP #### [address] Bilirubin [Mass/Vol] 0.6 mg/dL Normal 0.3-1.2 [facility] Comment on above: Performed By: #### C BC, PT, CMP #### [address] Calcium [Mass/Vol] 8.8 mg/dL Normal 8.2-10.2 [facility] Comment on above: Performed By: #### C BC, PT, CMP #### [place] [address] [place] Chloride [Moles/Vol] 94 mmol/L Low 95-114 [facility] Comment on above: Performed By: #### C BC, PT, CMP #### [facility] [address] [place] [address] CO2 [Moles/Vol] 25.0 mmol/L Normal 22.0-30.0 [facility] Comment on above: Performed By: #### C BC, PT, CMP #### [facility] [address] [place] [address] Creatinine [Mass/Vol] 1.09 mg/dL Normal 0.64-1.27 [place] Comment on above: Performed By: #### C BC, PT, CMP #### [address] Creatinine Clr Calc Pharmacy 64.68 [facility] Comment on above: Result Comment: PERF ORMED BY: [place] [address] PATHOLOGIST LOOM INSPECTOR LATOYA CAMPBELL M.D. Performed By: #### C BC, PT, CMP #### [address] Estimated GFR ( Dori > 60 [facility] Comment on above: Result Comment: GFR estimated reference range: According to KDOQI guidelines, <60 ml/min/1.73m2 is sufficient to diagnose a patient with chronic kidney disease. Performed By: #### C BC, PT, CMP #### [facility] [address] [place] [address] Estimated GFR (Non- Am > 60 [facility] Comment on above: Performed By: #### C BC, PT, CMP #### [facility] [address] [place] [address] [place] Globulin (S) [Mass/Vol] 2.8 g/dL [facility] Comment on above: Performed By: #### C BC, PT, CMP #### [facility] [address] Glucose [Mass/Vol] 93 mg/dL Normal 70-100 [facility] Comment on above: Result Comment: [facility] Glucose Reference Range is dependent on time and content of last meal. Glucose of more than 200 mg/dL in a nonstressed, ambulatory subject supports the diagnosis of Diabetes Mellitus. ADA recommended reference range Performed By: #### C BC, PT, CMP #### [facility] [address] Potassium [Moles/Vol] 4.2 mmol/L Normal 3.5-5.1 [place] Comment on above: Performed By: #### C BC, PT, CMP #### [facility] [address] [place] [address] [place] Protein [Mass/Vol] 6.6 g/dL Normal 6.1-7.9 [facility] Comment on above: Performed By: #### C BC, PT, CMP #### [facility] [address] Sodium [Moles/Vol] 128 mmol/L Low 136-146 [facility] Comment on above: Performed By: #### C BC, PT, CMP #### [facility] [address] [place] [address] [place] Urea nitrogen [Mass/Vol] 4 mg/dL Low 9-23 [facility] Comment on above: Performed By: #### C BC, PT, CMP #### [facility] [address] [place] [address] [place] Creatinine and Glomerular fi ltration rate.predicted panel (S/P/Bld)Ordered By: Matthew Ford on 10-07-2022 Creatinine [Mass/Vol] 1.09 mg/dL 0.64-1.27 [place] Drug Screen,Urineon 10-07-20 Amphetamine Screen,Urine Negative Normal Negative [facility] Comment on above: Performed By: #### C BC, PT, CMP #### [facility] [address] Barbiturate Screen,Urine Negative Normal Negative [facility] Comment on above: Performed By: #### C BC, PT, CMP #### [facility] [address] [place] [address] [place] Benzodiazepines Screen,Urine Negative Normal Negative [facility] Comment on above: Performed By: #### C BC, PT, CMP #### [facility] [address] [place] [address] Cannabinoid Screen,Urine Positive High Negative [facility] Comment on above: Result Comment: Thes e are unconfirmed results and should not be used for legal purposes. Drug Cut-Off Concentration: AMPH 1000 ng/mL JODY 200 ng/mL ART 200 ng/mL COCM 300 ng/mL OP 300 ng/mL PCP 25 ng/mL THC 20 ng/mL PERFORMED BY: [place] [address] PATHOLOGIST LOOM INSPECTOR LATOYA CAMPBELL M.D. Performed By: #### C BC, PT, CMP #### [address] Cocaine Screen,Urine Positive High Negative [facility] Comment on above: Performed By: #### C BC, PT, CMP #### [address] Opiate Screen,Urine Negative Normal Negative [facility] Comment on above: Performed By: #### C BC, PT, CMP #### [address] Phencyclidine Screen,Urine Negative Normal Negative [facility] Comment on above: Performed By: #### C BC, PT, CMP #### [address] ECG 12 lead ECGon 10-07-2022 ECG 12 lead ECG [facility] [place] [address] Electrocardiograph Report Signed Patient: Aristides Clark MR#: [id number] 33 : 1975 Acct:[id number] Age/Sex: 47 / M ADM Date: 10/07/22 Loc: 4 Room: [address] [place] [address] Type: DIS INOo Attending Dr: Theresa Ohara [...] was found Confirmed by MATTHEW FORD DO ([id number]) on 10/08/2022 2:05:39 AM Referred By: Electronically Signed By:MATTHEW FORD DO Transcribed By: MUS Signed By Matthwe Ford DO 10/08 0205 Normal [facility] Eosinophils Auto (Bld) [#/Vo l]Ordered By: Matthew Ford on 10-07-2022 Eosinophils (Bld) [#/Vol] 0.5 10*3/uL 0.0-0.45 [facility] Eosinophils/100 WBC Auto (Bl d)Ordered By: Matthew Ford on 10-07-2022 Eosinophils/100 WBC (Bld) 8.2 % . [facility] Erythrocyte distribution wid th Auto (RBC) [Ratio]Ordered By: Matthew Ford on 10-07-2022 Erythrocyte distribution width (RBC) [Ratio] 14.6 % 12.0-14.8 [facility] Estimated glomerular filtrat ion rate (GFR) non- AmericanOrdered By: Matthew Ford on 10-07-2022 GFR/1.73 sq M.predicted among non-blacks MDRD (S/P/Bld) [Vol rate/Area] > 60 mL/Min [facility] Ethyl Alcohol Profileon 09-27 Ethanol [Mass/Vol] 309 mg/dL Normal [facility] Comment on above: Performed By: #### C BC, PT, CMP #### [facility] [address] [place] [address] Percent Ethanol 0.309 % Normal [facility] Comment on above: Result Comment: PERF ORMED BY: [place] [address] PATHOLOGIST LOOM INSPECTOR LATOYA CAMPBELL M.D. Performed By: #### C BC, PT, CMP #### [facility] [address] Globulin Calc (S) [Mass/Vol] Ordered By: Matthew Ford on 10-07-2022 Globulin (S) [Mass/Vol] 2.8 g/dL [facility] Glucose Glucometer (BldC) [M ass/Vol]Ordered By: Matthew Ford on 10-07-2022 Glucose [Mass/Vol] 89 mg/dL [facility] Comment on above: Random Glucose Refer ence Range is dependent on time and content of last meal. Glucose of more than 200 mg/dL in a nonstressed, ambulatory subject supports the diagnosis of Diabetes Mellitus. Glucose Poct Glucometerson 1 12-07-2021 Commemt1 Normal [facility] Comment on above: Result Comment: Glu2 : WILL NOTIFY DR/RN PERFORMED BY: [place] [address] PATHOLOGIST LOOM INSPECTOR LATOYA CAMPBELL M.D. Performed By: #### G LULS #### Point of Care testing , Glucose [Mass/Vol] 89 mg/dL Normal [facility] Comment on above: Result Comment: [place] Glucose Reference Range is dependent on time and content of last meal. Glucose of more than 200 mg/dL in a nonstressed, ambulatory subject supports the diagnosis of Diabetes Mellitus. Performed By: #### G LULS #### Point of Care testing , Hematocrit Auto (Bld) [Volum e fraction]Ordered By: Matthew Ford on 10-07-2022 Hematocrit (Bld) [Volume fraction] 39.5 % 38.8-50.0 [facility] Hemoglobin [Mass/volume] in BloodOrdered By: Matthew Ford on 10-07-2022 Hemoglobin (Bld) [Mass/Vol] 13.1 g/dL 13.0-17.0 [facility] Laboratory - CoagulationOrde red By: Matthew Ford on 10-07-2022 PT Coag (PPP) [Time] 10.9 s 9.0-12.9 [facility] Laboratory - Drug toxicology Ordered By: Matthew Ford on 10-07-2022 Opiates Ql (U) Negative Negative [facility] Laboratory - Hematology and Cell countsOrdered By: Matthew Ford on 10-07-2022 Nucleated RBC/100 WBC (Bld) [Ratio] 0.1 % 0-0.5 [facility] Leukocytes [#/volume] in Blo od by Automated countOrdered By: aMtthew Ford on 10-07-2022 WBC (Bld) [#/Vol] 5.8 10*3/uL 4.5-11.0 [facility] Lymphocytes Auto (Bld) [#/Vo l]Ordered By: Matthew Ford on 10-07-2022 Lymphocytes (Bld) [#/Vol] 2.6 10*3/uL 1.00-4.8 [facility] Lymphocytes/100 WBC Auto (Bl d)Ordered By: Matthew Ford on 10-07-2022 Lymphocytes/100 WBC (Bld) 45.8 % . [facility] MCH Auto (RBC) [Entitic mass ]Ordered By: Matthew Ford on 10-07-2022 MCH (RBC) [Entitic mass] 32.8 pg 27.5-35.2 [facility] MCHC Auto (RBC) [Mass/Vol]Or dered By: Matthew Ford on 10-07-2022 MCHC (RBC) [Mass/Vol] 33.1 g/dL 32.5-35.6 [place] MCV Auto (RBC) [Entitic vol] Ordered By: Matthew Ford on 10-07-2022 MCV (RBC) [Entitic vol] 99.1 fL 83.5-101 [facility] Monocytes Auto (Bld) [#/Vol] Ordered By: Matthew Ford on 10-07-2022 Monocytes (Bld) [#/Vol] 0.7 10*3/uL 0.0-0.8 [facility] Monocytes/100 WBC Auto (Bld) Ordered By: Matthew Ford on 10-07-2022 Monocytes/100 WBC (Bld) 11.8 % . [facility] Neutrophils Auto (Bld) [#/Vo l]Ordered By: Matthew Ford on 10-07-2022 Neutrophils (Bld) [#/Vol] 1.9 10*3/uL 1.8-7.7 [facility] Neutrophils/100 WBC Auto (Bl d)Ordered By: Matthew Ford on 10-07-2022 Neutrophils/100 WBC (Bld) 33.0 % . [facility] No Panel InformationOrdered By: Matthew Ford on 10-07-2022 Bedside Glucose Comment See comment [facility] Comment on above: Glu2: WILL NOTIFY DR /RN Estimated GFR () > 60 mL/Min [facility] Comment on above: GFR estimated refere nce range: According to KDOQI guidelines, <60 ml/min/1.73m2 is sufficient to diagnose a patient with chronic kidney disease. Pharmacy Creatinine Clearance (Chem 64.68 [facility] Phencyclidine Screen Ql (U)O rdered By: Matthew Ford on 10-07-2022 Phencyclidine Ql (U) Negative Negative [facility] Platelet mean volume Auto (B ld) [Entitic vol]Ordered By: Matthew Ford on 10-07-2022 Platelet mean volume (Bld) [Entitic vol] 7.7 fL 6.6-10.1 [facility] Platelet poor plasma interna tional normalized ratio (INR) by coagulation assay (relatOrdered By: Matthew Ford on 10-07-2022 INR Coag (PPP) [Relative time] 1.0 {INR} [facility] Comment on above: INR Therapeutic Rang e [...] 10-07-2022 Platelets (Bld) [#/Vol] 301 10*3/uL 150-450 [facility] Protein [Mass/volume] in Ser um or PlasmaOrdered By: Matthew Ford on 10-07-2022 Protein [Mass/Vol] 6.6 g/dL 6.1-7.9 [facility] Prothrombin Time INRon 10-07 INR Coag (PPP) [Relative time] 1.0 {INR} Normal [facility] Comment on above: Result Comment: INR Therapeutic [...] heart valves: 3 - 4.5 PERFORMED BY: [place] [address] PATHOLOGIST LOOM INSPECTOR LATOYA CAMPBELL M.D. Performed By: #### C BC, PT, CMP #### [facility] [address] [place] [address] PT Coag (PPP) [Time] 10.9 s Normal 9.0-12.9 [facility] Comment on above: Performed By: #### C BC, PT, CMP #### [facility] [address] [place] [address] RBC Auto (Bld) [#/Vol]Ordere d By: Matthew Ford on 10-07-2022 RBC (Bld) [#/Vol] 3.99 10*6/uL 3.90-5.60 [facility] Serum or plasma alanine pasucal otransferase measurement without P-5'-P (enzymatic activiOrdered By: Matthew Ford on 10-07-2022 ALT No additional P-5'-P [Catalytic activity/Vol] 21 U/L 10-60 [facility] Serum or plasma albumin/glob ulin mass ratioOrdered By: Matthew Ford on 10-07-2022 Albumin/Globulin [Mass ratio] 1.4 {ratio} [facility] Serum or plasma alkaline jonathan sphatase measurement (enzymatic activity/volume)Ordered By: Matthew Ford on 10-07-2022 ALP [Catalytic activity/Vol] 92 U/L 32-92 [facility] Serum or plasma anion gap de terminationOrdered By: Matthew Ford on 10-07-2022 Anion gap [Moles/Vol] 13.2 mmol/L 6.0-15.0 [facility] Serum or plasma aspartate am inotransferase measurement (enzymatic activity/volume)Ordered By: Matthew Ford on 10-07-2022 AST [Catalytic activity/Vol] 30 U/L 10-42 [facility] Serum or plasma calcium william urement (mass/volume)Ordered By: Matthew Ford on 10-07-2022 Calcium [Mass/Vol] 8.8 mg/dL 8.2-10.2 [facility] Serum or plasma chloride josh surement (moles/volume)Ordered By: Matthew Ford on 10-07-2022 Chloride [Moles/Vol] 94 mmol/L 95-114 [facility] Serum or plasma ethanol william urement (mass/volume)Ordered By: Matthew Ford on 10-07-2022 Ethanol [Mass/Vol] 309 mg/dL [facility] Ethanol [Mass/Vol] 0.309 % [facility] Serum or plasma glucose william urement (mass/volume)Ordered By: Matthew Ford on 10-07-2022 Glucose [Mass/Vol] 93 mg/dL 70-100 [facility] Comment on above: ADA recommended refe rence rangeRandom Glucose Reference Range is dependent on time and content of last meal. Glucose of more than 200 mg/dL in a nonstressed, ambulatory subject supports the diagnosis of Diabetes Mellitus. Serum or plasma potassium me asurement (moles/volume)Ordered By: Matthew Ford on 10-07-2022 Potassium [Moles/Vol] 4.2 mmol/L 3.5-5.1 [place] Serum or plasma sodium measu rement (moles/volume)Ordered By: Matthew Ford on 10-07-2022 Sodium [Moles/Vol] 128 mmol/L 136-146 [facility] Serum or plasma total biliru bin measurement (mass/volume)Ordered By: Matthew Ford on 10-07-2022 Bilirubin [Mass/Vol] 0.6 mg/dL 0.3-1.2 [facility] Serum or plasma total carbon dioxide measurement (moles/volume)Ordered By: Matthew Ford on 10-07-2022 CO2 [Moles/Vol] 25.0 mmol/L 22.0-30.0 [facility] Serum or plasma urea nitroge n measurement (mass/volume)Ordered By: Matthew Ford on 10-07-2022 Urea nitrogen [Mass/Vol] 4 mg/dL 08-19 [facility] Urine cocaine detectionOrder ed By: Matthew Ford on 10-07-2022 Cocaine Ql (U) Positive Negative [facility] CARDIAC RA 3-6on 2 CK [Catalytic activity/Vol] 127 U/L Normal 39-308 [facility] Comment on above: Performed By: #### C MREP #### [facility] [address] [address] [address] Katerina Rodarte CK.MB [Mass/Vol] 3.20 ng/mL Normal <=3.60 [facility] Comment on above: Performed By: #### C MREP #### [facility] [address] [address] [address] Katerina Rodarte HSTROP 9.9 pg/mL Normal 4.0-76.1 [facility] Comment on above: Result Comment: CUT- OFF POINTS HAVE BEEN ESTABLISHED BASED ON THE FOURTH UNIVERSAL DEFINITIONS OF MYOCARDIAL INFARCTION. THE UPPER REFERENCE LIMIT (URL) OF TROPONIN, DEFINED THE 99TH PERCENTILE OF cTnI DISTRIBUTION IN A REFERENCE POPULATION, HAS BEEN CONFIRMED THE DECISION THRESHOLD FOR [place] DIAGNOSIS. Performed By: #### C MREP #### [facility] [address] [address] HEAD WO CONon [...] ANISH ARIAS Date: 2022-08-10 22:12 Normal [facility] AMYLASEon 08-10-2022 Amylase [Catalytic activity/Vol] 43 U/L Normal 25-115 [facility] Comment on above: Performed By: #### L IPA, SUSAN, CMP, ETH, CMADM ####[facility] [address] [address]Dr. Katerina Rodarte CARDIAC RA ADMITon 022 CK [Catalytic activity/Vol] 78 U/L Normal 39-308 [facility] Comment on above: Performed By: #### L IPA, SUSAN, CMP, ETH, CMADM ####[facility] [address] [address]Dr. Katerina Rodarte CK.MB [Mass/Vol] 2.61 ng/mL Normal <=3.60 [facility] Comment on above: Performed By: #### L IPA, SUSAN, CMP, ETH, CMADM ####[facility] [address] [address]Dr. Katerina Rodarte HSTROP 7.1 pg/mL Normal 4.0-76.1 [facility] Comment on above: Result Comment: CUT- OFF POINTS HAVE BEEN ESTABLISHED BASED ON THE FOURTH UNIVERSAL DEFINITIONS OF MYOCARDIAL INFARCTION. THE UPPER REFERENCE LIMIT (URL) OF TROPONIN, DEFINED THE 99TH PERCENTILE OF cTnI DISTRIBUTION IN A REFERENCE POPULATION, HAS BEEN CONFIRMED THE DECISION THRESHOLD FOR [place] DIAGNOSIS. Performed By: #### L IPA, SUSAN, CMP, ETH, CMADM ####[facility] [address] [address]Dr. Katerina Rodarte SHIRA 184 ng/mL Critically high 16-96 [facility] Comment on above: Performed By: #### L IPA, SUSAN, CMP, ETH, CMADM ####[facility] [address] [address]Dr. Katerina Rodarte CBC AUTO DIFFon 08-10-2022 BASO # 0.0 103/ul Normal 0.0-0.1 [facility] Comment on above: Performed By: #### C BC ####[facility] [address] [address]Dr. Katerina Rodarte Basophils/100 WBC (Bld) 0.5 % Normal 0.2-2.0 [facility] Comment on above: Performed By: #### C BC ####[facility] [address] [place], [place] [address]Dr. Katerina Rodarte EO # 0.1 103/ul Normal 0.0-0.7 [facility] Comment on above: Performed By: #### C BC ####[facility] [address] [place], [place] [address]Dr. Katerina Rodarte Eosinophils/100 WBC (Bld) 2.2 % Normal 0.9-7.0 [facility] Comment on above: Performed By: #### C BC ####[facility] [address] [place], [place] [address]Dr. Katerina Rodarte Erythrocyte distribution width (RBC) [Ratio] 14.1 % Normal 11.0-15.0 [facility] Comment on above: Performed By: #### C BC ####[facility] [address] [place], [place] [address]Dr. Katerina Rodarte Hematocrit (Bld) [Volume fraction] 39.6 % Critically low 42.0-54.0 [facility] Comment on above: Performed By: #### C BC ####[facility] [address] [place], [place] [address]Dr. Katerina Rodarte Hemoglobin (Bld) [Mass/Vol] 13.3 g/dL Critically low 14.0-18.0 [facility] Comment on above: Performed By: #### C BC ####[facility] [address] [place], [place] [address]Dr. Katerina Rodarte IG # 0.01 10e3/ul Normal 0.00-0.03 [facility] Comment on above: Performed By: #### C BC ####[facility] [address] [place], [place] [address]Dr. Katerina Rodarte IG % 0.2 % Normal 0.0-0.5 [facility] Comment on above: Performed By: #### C BC ####[facility] [address] [address]Dr. Katerina Rodarte LYMPH # 1.5 103/ul Normal 1.2-3.8 [facility] Comment on above: Performed By: #### C BC ####[facility] [address] [address]Dr. Katerina Rodarte Lymphocytes/100 WBC (Bld) 36.2 % Normal 20.5-60.0 [facility] Comment on above: Performed By: #### C BC ####[facility] [address] [place], [place] [address]DrZiggy Rodarte MANUAL DIFF REQ NO Normal [facility] Comment on above: Performed By: #### C BC ####[facility] [address] [place], [place] [address]Dr. Katerina Rodarte MCH (RBC) [Entitic mass] 31.8 pg Normal 25.9-34.0 [facility] Comment on above: Performed By: #### C BC ####[facility] [address] [place], [place] [address]Dr. Katerina Rodarte MCHC (RBC) [Mass/Vol] 33.6 g/dL Normal 29.9-35.2 [facility] Comment on above: Performed By: #### C BC ####[facility] [address] [place], [place] [address]DrZiggy Rodarte MCV (RBC) [Entitic vol] 94.7 fL Critically high 80.0-94.0 [facility] Comment on above: Performed By: #### C BC ####[facility] [address] [place], [place] [address]DrZiggy Rodarte MONO # 0.4 103/ul Normal 0.3-0.8 [facility] Comment on above: Performed By: #### C BC ####[facility] [address] [id number]. Katerina Rodarte Monocytes/100 WBC (Bld) 8.9 % Normal 1.7-12.0 [facility] Comment on above: Performed By: #### C BC ####[facility] [address] [id number]. Liliasamina Rodarte NEUT # 2.2 103/ul Normal 1.4-6.5 [facility] Comment on above: Performed By: #### C BC ####[facility] [address] [id number]. Katerina Rodarte Neutrophils/100 WBC (Bld) 52.0 % Normal 43.0-75.0 [facility] Comment on above: Performed By: #### C BC ####[facility] [address] [id number]. Katerina Rodarte Platelet mean volume (Bld) [Entitic vol] 9.2 fL Critically low 9.5-13.5 [facility] Comment on above: Performed By: #### C BC ####[facility] [address] [id number]. Katerina Rodarte PLT 261 103/ul Normal 150-450 [facility] Comment on above: Performed By: #### C BC ####[facility] [address] [id number]. Katerina Rodarte RBC 4.18 106/ul Critically low 4.70-6.10 [facility] Comment on above: Performed By: #### C BC ####[facility] [address] [id number] Rodarte WBC 4.2 103/ul Normal 4.0-11.0 [facility] Comment on above: Performed By: #### C BC ####[facility] [address] [id number] Rodarte DRUG SCREEN RAPID (URINE)on 08-10-2022 AMP Negative Normal NEGATIVE [facility] Comment on above: Performed By: #### C MREP #### [facility] [address] [place], [place] [address] Dr. Katerina Rodarte BAR Negative Normal NEGATIVE [facility] Comment on above: Performed By: #### C MREP #### [facility] [address] [place] [address] Dr. Katerina Rodarte BUP Negative Normal NEGATIVE [facility] Comment on above: Performed By: #### C MREP #### [facility] [address] [place] [address] Dr. Katerina Rodarte BZO Negative Normal NEGATIVE [facility] Comment on above: Performed By: #### C MREP #### [facility] [address] [place] [address] Dr. Katerina Rodarte CARLIE Negative Normal NEGATIVE [facility] Comment on above: Performed By: #### C MREP #### [facility] [address] [place] [address] Dr. Katerina Rodarte CUT-OFFS SEE BELOW Normal [facility] Comment on above: Result Comment: AMP (Amphetamine): 500ng/mL, BAR (Barbituates): 200 ng/mL, BZO (Benzodiazepines): 150 ng/mL, BUP (Buprenorphine): 10 ng/mL, CARLIE (Cocaine): 150 ng/mL, mAMP (Methamphetamine): 500 ng/mL, MTD (Methadone): 200 ng/mL, OPI (Opiates): 100 ng/mL, OXY (Oxycodone): 100 ng/mL, PCP (Phencyclidine): 25 ng/mL, PPX (Propoxyphene): 300 ng/mL, THC (Cannabinoids): 50 ng/mL, TCA (Trycyclic Antidepressants): 300 ng/mL Performed By: #### C MREP #### [facility] [address] [place] [address] Dr. Katerina Rodarte DRUG CUT HEADER DRUG CLASS TEST SYST EM CUT-OFF CONCENTRATIONS ARE FOLLOWS: Normal [facility] Comment on above: Performed By: #### C MREP #### [facility] [address] [place] [address] Dr. Katerina Rodarte mAMP Negative Normal NEGATIVE [facility] Comment on above: Performed By: #### C MREP #### [facility] [address] [place] [address] Dr. Katerina Rodarte MTD Negative Normal NEGATIVE [facility] Comment on above: Performed By: #### C MREP #### [facility] [address] [address] [address] Katerina Rodarte OPI Negative Normal NEGATIVE [facility] Comment on above: Performed By: #### C MREP #### [facility] [address] [place] [address] Dr. Katerina Rodarte OXY Negative Normal NEGATIVE [facility] Comment on above: Performed By: #### C MREP #### [facility] [address] [place] [address] Dr. Katerina Rodarte PCP Negative Normal NEGATIVE [facility] Comment on above: Performed By: #### C MREP #### [facility] [address] [place] [address] Dr. Katerina Rodarte PPX Negative Normal NEGATIVE [facility] Comment on above: Performed By: #### C MREP #### [facility] [address] [place] [address] Dr. Katerina Rodarte TCA Negative Normal NEGATIVE [facility] Comment on above: Performed By: #### C MREP #### [facility] [address] [place] [address] Dr. Katerina Rodarte THC Negative Normal NEGATIVE [facility] Comment on above: Performed By: #### C MREP #### [facility] [address] [place] [address] Dr. Katerina Rodarte ER URINE PROFILEon 2 Bilirubin Ql (U) Negative Normal NEGATIVE [facility] Comment on above: Performed By: #### C MREP #### [facility] [address] [place] [address] Dr. Katerina Rodarte Clarity (U) CLEAR Normal CLEAR [facility] Comment on above: Performed By: #### C MREP #### [facility] [address] [place] [address] Dr. Katerina Rodarte Color (U) LT. YELLOW Normal YELLOW [facility] Comment on above: Performed By: #### C MREP #### [facility] [address] [place] [address] Dr. Katerina Rodarte ERUAHD A micrscopic examina tion will be performed if indicated. Normal [facility] Comment on above: Performed By: #### C MREP #### [facility] [address] [place] [address] Dr. Katerina Rodarte Glucose Ql (U) Negative Normal NEGATIVE [facility] Comment on above: Performed By: #### C MREP #### [facility] [address] [place] [address] Dr. Katerina Rodarte Hemoglobin Ql (U) Negative Normal NEGATIVE [facility] Comment on above: Performed By: #### C MREP #### [facility] [address] [place] [address] Dr. Katerina Rodarte Ketones Ql (U) Negative Normal NEGATIVE [facility] Comment on above: Performed By: #### C MREP #### [facility] [address] [place] [address] Dr. Katerina Rodarte LEUKOCYTES Negative Normal NEGATIVE [facility] Comment on above: Performed By: #### C MREP #### [facility] [address] [place] [address] Dr. Katerina Rodarte Nitrite Ql (U) Negative Normal NEGATIVE [facility] Comment on above: Performed By: #### C MREP #### [facility] [address] [place] [address] Dr. Katerina Rodarte pH (U) 6.0 [pH] Normal 5-9 [facility] Comment on above: Performed By: #### C MREP #### [facility] [address] [place] [address] Dr. Katerina Rodarte SPEC GRAVITY <=1.005 Abnormal 1.005-<=1.0 25 [facility] Comment on above: Performed By: #### C MREP #### [facility] [address] [place] [address] Dr. Katerina Rodarte UA PROTEIN Negative Normal NEGATIVE/ TRACE [facility] Comment on above: Performed By: #### C MREP #### [facility] [address] [place] [address] Dr. Katerina Rodarte UR MICRO IND NOT INDICATED Normal [facility] Comment on above: Performed By: #### C MREP #### [facility] [address] [address] [address] Katerina Rodarte Urobilinogen Qn (U) 0.2 {Markell'U}/dL Normal 0.2 - 1. 0 [facility] Comment on above: Performed By: #### C MREP #### [facility] [address] [address] [address] Katerina Rodarte ETHANOL (BLD ALC)on 08-10-20 22 ALC NOTE NOTE: 80 mg/dl is th e legal limit for a blood alcohol level Normal [facility] Comment on above: Performed By: #### L IPA, SUSAN, CMP, ETH, CMADM ####[facility] [address] [address]DrZiggy Rodarte Ethanol [Mass/Vol] 279 mg/dL Normal [facility] Comment on above: Performed By: #### L IPA, SUSAN, CMP, ETH, CMADM ####[facility] [address] [place], [place] [address]DrZiggy Rodarte LACTATE/LACTIC ACIDon 2021 Lactate [Moles/Vol] 1.3 mmol/L Normal 0.4-1.9 [facility] Comment on above: Performed By: #### C MREP #### [facility] [address] [place] [address] Dr. Katerina Rodarte LIPASEon 08-10-2022 Lipase [Catalytic activity/Vol] 114.0 U/L Normal 73.0-393.0 [facility] Comment on above: Performed By: #### L IPA, SUSAN, CMP, ETH, CMADM ####[facility] [address] [address]DrZiggy Rodarte PROF 14(COMP METB)on 022 Albumin [Mass/Vol] 3.4 g/dL Normal 3.4-5.0 [facility] Comment on above: Performed By: #### L IPA, SUSAN, CMP, ETH, CMADM ####[facility] [address] [address]DrZiggy Rodarte Albumin/Globulin [Mass ratio] 0.9 {ratio} Normal [facility] Comment on above: Performed By: #### L IPA, SUSAN, CMP, ETH, CMADM ####[facility] [address] [address]Dr. Katerina Rodarte ALP [Catalytic activity/Vol] 115 U/L Normal 46-116 [facility] Comment on above: Performed By: #### L IPA, SUSAN, CMP, ETH, CMADM ####[facility] [address] [address]Dr. Katerina Rodarte ALT [Catalytic activity/Vol] 23 U/L Normal 16-63 [facility] Comment on above: Performed By: #### L IPA, SUSAN, CMP, ETH, CMADM ####[facility] [address] [address]Dr. Katerina Rodarte Anion gap [Moles/Vol] 12.4 mmol/L Normal [facility] Comment on above: Performed By: #### L IPA, SUSAN, CMP, ETH, CMADM ####[facility] [address] [place], [place] [address]Dr. Katerina Rodarte AST [Catalytic activity/Vol] 28 U/L Normal 15-37 [facility] Comment on above: Performed By: #### L IPA, SUSAN, CMP, ETH, CMADM ####[facility] [address] [address]Dr. Katerina Rodarte Bilirubin [Mass/Vol] 0.1 mg/dL Critically low 0.2-1.0 [facility] Comment on above: Performed By: #### L IPA, SUSAN, CMP, ETH, CMADM ####[facility] [address] [address]Dr. Katerina Rodarte Calcium [Mass/Vol] 8.0 mg/dL Critically low 8.5-10.1 [facility] Comment on above: Performed By: #### L IPA, SUSAN, CMP, ETH, CMADM ####[facility] [address] [address]Dr. Liliasamina Rodarte Chloride [Moles/Vol] 103 mmol/L Normal 98-107 [facility] Comment on above: Performed By: #### L IPA, SUSAN, CMP, ETH, CMADM ####[facility] [address] [address]Dr. Katerina Rodarte CO2 [Moles/Vol] 27.3 mmol/L Normal 21.0-32.0 [facility] Comment on above: Performed By: #### L IPA, SUSAN, CMP, ETH, CMADM ####[facility] [address] [address]Dr. Katerina Rodarte Creatinine [Mass/Vol] 1.06 mg/dL Normal 0.70-1.30 [facility] Comment on above: Performed By: #### L IPA, SUSAN, CMP, ETH, CMADM ####[facility] [address] [address]Dr. Katerina Rodarte EGFR-AF MALAYSIAN >60 Normal >=60 [facility] Comment on above: Performed By: #### L IPA, SUSAN, CMP, ETH, CMADM ####[facility] [address] [place], [place] [address]Dr. Katerina Rodarte EGFR-NON AF MALAYSIAN >60 Normal >=60 [facility] Comment on above: Performed By: #### L IPA, SUSAN, CMP, ETH, CMADM ####[facility] [address] [address]Dr. Katerina Rodarte Globulin (S) [Mass/Vol] 3.6 g/dL Normal [facility] Comment on above: Performed By: #### L IPA, SUSAN, CMP, ETH, CMADM ####[facility] [address] [address]Dr. Katerina Rodarte Glucose [Mass/Vol] 79 mg/dL Normal 74-106 [facility] Comment on above: Performed By: #### L IPA, SUSAN, CMP, ETH, CMADM ####[facility] [address] [address]Dr. Katerina Rodarte Potassium [Moles/Vol] 3.7 mmol/L Normal 3.5-5.1 [facility] Comment on above: Performed By: #### L IPA, SUSAN, CMP, ETH, CMADM ####[facility] [address] [address]Dr. Katerina Rodarte Protein [Mass/Vol] 7.0 g/dL Normal 6.4-8.2 [facility] Comment on above: Performed By: #### L IPA, SUSAN, CMP, ETH, CMADM ####[facility] [address] [address]Dr. Katerina Rodarte Sodium [Moles/Vol] 139 mmol/L Normal 136-145 [facility] Comment on above: Performed By: #### L IPA, SUSAN, CMP, ETH, CMADM ####[facility] [address] [address]Dr. Katerina Rodarte Urea nitrogen [Mass/Vol] 11.0 mg/dL Normal 7.0-18.0 [facility] Comment on above: Performed By: #### L IPA, SUSAN, CMP, ETH, CMADM ####[facility] [address] [address]Dr. Katerina Rodarte Urea nitrogen/Creatinine [Mass ratio] 10.4 mg/mg Normal [facility] Comment on above: Performed By: #### L IPA, SUSAN, CMP, ETH, CMADM ####[facility] [address] [address]DrZiggy Rodarte PROTIMEon 08-10-2022 INR Coag (PPP) [Relative time] 0.98 {INR} Normal [facility] Comment on above: Performed By: #### P T #### [facility] [address] [address] [address] Katerina Rodarte INR GUIDELINES SEE BELOW Normal [facility] Comment on above: Result Comment: PEARL RED INR: 2.0 - 3.0 CONDITIONS NOT LISTED BELOW 2.5 - 3.5 FOR PROSTHETIC HEART VALVE REPLACEMENT 2.5 - 3.5 RECURRENT THROMBOSIS Performed By: #### P T #### [facility] [address] [address] [address] Katerina Rodrate PT Coag (PPP) [Time] 10.6 s Normal 9.0-11.6 [facility] Comment on above: Performed By: #### P T #### [facility] [address] [address] [address] Katerina Rodarte XR CHEST 1 Von [...] by: LUIS NEVES Date: 2022-08-10 21:58 Normal [facility] Vital Signs Date Time Vital Sign Value Performing Clinician Jonathan frazier 10-08-2022 02:52-0500 Body height 177.8 cm DO Matthew Ford Work Phone: [facility] 10-08-2022 02:52-0500 Body temperature 97.4 [degF] DO Matthew Ford Work Phone: [facility] 10-08-2022 02:52-0500 Body weight 52.1 kg DO Matthew Ford Work Phone: [facility] 10-08-2022 02:52-0500 Diastolic blood pressure 68 mm[Hg] DO Matthew Ford Work Phone: [facility] 10-08-2022 02:52-0500 Heart rate 84 /min DO Matthew Ford Work Phone: [facility] 10-08-2022 02:52-0500 Respiratory rate 20 /min DO Matthew Ford Work Phone: [facility] 10-08-2022 02:52-0500 SaO2% (BldA) [Mass fraction] 96 % DO Matthew Ford Work Phone: [facility] 10-08-2022 02:52-0500 Systolic blood pressure 121 mm[Hg] DO Matthew Ford Work Phone: [facility] Encounters Encounter Date Encounter Type Care Provider Facility Start: 05-08-2023 End: 05-08-2023 ambulatory Susan Yonny Myers Facility:[facility] Start: 02-07-2023 End: 02-08-2023 ambulatory KEKE EDE Facility:[facility] Start: 12-29-2022 End: 12-30-2022 ambulatory KEKE EDE Facility:[facility] Start: 12-09-2022 End: 12-10-2022 ambulatory KEKE EDE Facility:[facility] Start: 11-26-2022 End: 11-26-2022 ambulatory KEKE EDE Facility:[facility] Start: 10-08-2022 End: 10-08-2022 ambulatory Nat Ede Facility:[facility] Start: 10-07-2022 Evaluation and management of inpatient DO Matthew Ford Work Phone: [facility] Start: 08-10-2022 End: 08-11-2022 ambulatory KEKE EDE Facility:[facility] Start: 10-26-2020 End: 10-27-2020 Emergency department patient visit Devang Barrett [place] [place] of Treatment Date Care Activity Detail Author Start: 10-08-2022 Blood chemistry [facility] Start: 10-08-2022 Magnesium measurement [facility] Start: 10-08-2022 [facility] Start: 10-08-2022 Hospital admission [facility] Start: 10-08-2022 [facility] Start: 10-07-2022 Measurement of substance [facility] Start: 10-07-2022 CT cervical spine without contrast CT cervical spine wo con [facility] Start: 10-07-2022 CT Cervical spine WO contrast [facility] Start: 10-07-2022 CT of head without contrast CT head/brain wo con [facility] Start: 10-07-2022 CT Unspecified body region WO contrast [facility] Measurement of substance [facility] Work Phone: Payers Date Payer Category Payer Self-pay [id number] 1975 Unknown [id number] 2.16.84 [id number] 1975 Unknown [id number] 2.16.84 [id number] 1975 Unknown [id number] 2.16.84 [id number] 1975 Unknown [id number] 2.16.84 [id number] 1975 Unknown [id number] 2.16.84 [id number] 1976 Unknown [id number] 2.16.84 [id number] 1959 Unknown [id number] Unknown [id number] 2.16.8 [id number] Unknown [id number] 2.16.8 [id number] Social History Date Type Detail Facility Start: 10-08-2022 [facility] Start: 1975 Sex Assigned At Male F [facility] Goals Date Patient Goal Desired Activity /State History and physical note 10-08-2022 Note Date & Type Note Facility 10-08-2022 History and physi julian note Note Date/Time October 08, 2022 1:19am [facility] [address] [place] [address] Hospitalist H&P Signed Patient: Aristides Clark MR#: [id number] : 1975 Acct:[id number] Age/Sex: 47 / M Adm Date: 2 Loc: Room: [address] [place] [address] Type: ADM IN Attending Dr: Matt Estrella [...] % (Auto) 45.8 % (.) 10/07/22 19:30 Fisher % (Auto) 11.8 % (.) 10/07/22 19: Eos % (Auto) 8.2 % (.) 10/07/22 19:30 Baso % (Auto) 1.2 % (.) 10/07/22 19:30 Neut # (Auto) 1.9 x10E3/uL (1.8-7.7) 10/07/22 19:30 Lymph # (Auto) 2.6 x10E3/uL (1.00-4.8) 10/07/22 19:30 Fisher # (Auto) 0.7 x10E3/uL (0.0-0.8) 10/07/22 19:30 [...] heparin - full code Documented By: Matt Estrella DO 10/08/22 0116 Signed By: <Electronically signed by Matt Estrella DO> 10/08/22 0133 [facility] Work Phone: Evaluation note Note Date & Type Note Facility Evaluation note Diagnosis Onset Date Alcohol intoxication acute Polysubstance abuse acute Seizure disorder acute [facility] Work Phone: Summary Purpose Family History No [...] section and content) DATE CREATED AUTHOR 09/30/2022 [facility] DATE CREATED AUTHOR AUTHOR'S ORGANIZ ATION 02/10/2023 [facility] DATE CREATED AUTHOR AUTHOR'S ORGANIZ ATION 05/20/2023 [facility] Care Teams (unrecognized sec tion [...] BE BASED ON THE PRIMARY CLINICAL RECORDS. [facility] [place] [facility]. provides no warranty or guarantee of the accuracy or completeness of information in this document.
--- NOTE | 2023-12-14 15:28 | ED.UPPEXIN1 ---
HPI - Extremity Injury (Upper) General Chief Complaint: Extremity Injury, Upper Stated Complaint: UPPER EXTREMITY INJURY Time Seen by Provider: 12/14/23 14:47 Source: patient Mode of arrival: Wheelchair Limitations: no limitations History of Present Illness HPI narrative: Patient tried to walk without his cane and fell, landing onto the right side and injuring the right elbow. He has an abrasion to the outside of the elbow but most of his pain is at the olecranon and medial aspect of the right elbow. He denied hitting his head, injuring his neck or back or having LOC. He has continues to use the right UE despite the injury and pain to the elbow. Related Data Home Medications Medication Instructions Recorded Confirmed levetiracetam 500 mg tablet 500 mg PO Q12H 05/08/23 05/08/23 metoprolol tartrate 50 mg tablet 50 mg PO Q12H 05/08/23 05/08/23 Previous Rx's Medication Instructions Recorded nabumetone 750 mg tablet 750 mg PO BID PRN pain #14 tabs 12/14/23 Allergies Allergy/AdvReac Type Severity Reaction Status Date / Time Penicillins Allergy Intermediate Verified 06/14/23 21:31 [facility] Social History Smoking status: Heavy tobacco smoker Exam Narrative Exam Narrative: Nurses note and vital signs reviewed and patient is not hypoxic. afebrile General: The patient appears well and in no apparent distress. Patient is resting comfortably on cart. GCS = 15. Skin: Warm, dry, no pallor noted. Head: Normocephalic, atraumatic Eyes: PERRLA, EOMI Cardiovascular: Normal peripheral perfusion Respiratory: Patient is in no distress, no accessory muscle use. Musculoskeletal: Tenderness to the medial right elbow and the right olecranon. No right elbow effusion or bursal swelling noted. 6mm shallows healing abrasion noted to the lateral right elbow - no sign of infection. Remainder of the right UE is normal with no additional sign of long bone fracture - no right hand or wrist tenderness or swelling. Moves distal right upper extremity in all modalities with 5/5 strength. Neurological: A&O x4, normal equal beauty operator apprentice strength, normal finger to nose, normal speech, normal coordination, normal motor, normal sensory. Psychiatric: Cooperative Constitutional Vital Signs, click to edit/add: Last Vital Signs Temp 98.1 F 12/14/23 14:43 Pulse 73 12/14/23 14:43 Resp 20 12/14/23 14:43 BP 152/109 H 12/14/23 14:43 Pulse Ox 100 12/14/23 14:43 O2 Del Method Room Air 12/14/23 14:43 Course Vital Signs Vital signs: Vital Signs Temperature 98.1 F 12/14/23 14:43 Pulse Rate 73 12/14/23 14:43 Respiratory Rate 20 12/14/23 14:43 Blood Pressure 152/109 H 12/14/23 14:43 Pulse Oximetry 100 12/14/23 14:43 Oxygen Delivery Method Room Air 12/14/23 14:43 Temperature 98.1 F 12/14/23 14:43 Pulse Rate 73 12/14/23 14:43 Respiratory Rate 12/14/23 14:43 Blood Pressure 152/109 H 12/14/23 14:43 Pulse Oximetry 100 12/14/23 14:43 Oxygen Delivery Method Room Air 12/14/23 14:43 MDM - Extremity Injury (Upper) MDM Narrative Medical decision making narrative: Right elbow x-rays show mild effusion in the joint but no obvious fracture or malalignment. I asked the emergency department nurse to address the patient's abrasion and I talked with the patient and his family member about applying topical antibiotic ointment. She also applied an magaly wrap tot he patient's right elbow. I told him not to use the right UE until the elbow heals. Because of the joint effusion he will need to get reevaluated if his pain persists beyond the next 7 days. ED return if he worsens. Imaging Data xr elbow: Radiologist's impression: ITS Impressions Elbow X-Ray 12/14/23 14:48 IMPRESSION: 1. No acute fracture or malalignment. 2. Mild joint effusion. This raises the possibility of an occult fracture. If indicated, suggest follow-up radiographs in 7-10 days. Electronically authenticated by: FATMATA SZYMANSKI Date: 12/14/2023 15:22 Discharge Plan Discharge Chief Complaint: Extremity Injury, Upper Clinical Impression: Abrasion, Contusion of elbow, right Patient Disposition: Home, Self-Care Time of Disposition Decision: 15:34 Prescriptions / Home Meds: New nabumetone 750 mg tablet 750 mg PO BID PRN (Reason: pain) Qty: 14 0RF No Action metoprolol tartrate 50 mg tablet 50 mg PO Q12H levetiracetam 500 mg tablet 500 mg PO Q12H Instructions: Abrasion (ED), Bone Bruise (ED) Stand Alone Forms: Portal Instructions Referrals: MILES JERNIGAN [Primary Care Provider] - 1 week
[2023-12-14 15:51] VITALS: BP 158/98
[2023-12-14] MEDS: BACITRACIN 0.9 GM PACKET 1 PACKET TOPICAL (15:53)
== END 2023-12-14 15:54 | disposition home or self-care (01) ==
PROVIDERS: Emergency Provider Emergency Medicine; PCP Nurse Practitioner Family
DX: G40.909 Epilepsy, unspecified, not intractable, without status epilepticus (principal); S50.01XA Contusion of right elbow, initial encounter; S50.311A Abrasion of right elbow, initial encounter; W19.XXXA Unspecified fall, initial encounter; F17.210 Nicotine dependence, cigarettes, uncomplicated; Z79.899 Other long term (current) drug therapy
CPT/HCPCS: 70030; 73080; 99283

== ENCOUNTER 2023-12-18 14:59 | Outpatient (RCR) | payer OTHER, SELFPAY | END 2023-12-19 13:14 | disposition home or self-care (01) | LOC: OT 14:59 | PROVIDERS: PCP Nurse Practitioner Family; Visit Provider Psychiatry & Neurology Neurology | DX: G62.9 Polyneuropathy, unspecified (principal) | CPT/HCPCS: 97165 ==

== ENCOUNTER 2024-01-02 12:30 | Outpatient (OUT) | payer OTHER, SELFPAY ==
--- OUTSIDE RECORDS SUMMARY | 2024-01-02 12:34 | XMS_ITS | CCD ---
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 Role Phone Devang Barrett Attending Unavailable DO Matthew Ford Emergency Provider MD Nat Mera Primary Care Provider Unavaila DO Matt Santamaria Admit Provider [phone] DO Matt Estrella Attending Provider [phone] [facility] Care Unavailable DR RA BAKER Admitting Unavailable BARRETT, DR RA Onofre Attending Unavailable BARRETT, DR RA Onofer Consulting Unavailable MALICK LYNCH Consulting Unavailable [facility] Primary Care Unavailable RIA, DEVANG Admitting Unavailable DEVANG BARRETT Attending Unavailable RIA, DEVANG Consulting Unavailable PADRON, CIERRA Consulting Unavailable THERESA RIVERA Consulting Unavailable VIJAYA KITCHEN Consulting Unavailable [facility] Primary Care Unavailable RIA, DEVANG Admitting Unavailable MELANIE BARRETTYL Attending Unavailable RIA, DEVANG Consulting Unavailable PADRON, CIERRA Consulting Unavailable [facility] Primary Care Unavailable RIA, DEVANG Admitting Unavailable MELANIE BARRETTYL Attending Unavailable RIA, DEVANG Consulting Unavailable LUIS NEVES Consulting Unavailable ANISH ARIAS Consulting Unavailable [facility] Primary Care Unavailable SANTOS REDMOND Admitting Unavailable SANTOS REDMOND Attending Unavailable LADARIUS HERNANDEZ Consulting Unavailable MADDY SCHOFIELD Consulting Unavailable SANTOS REDMOND Consulting Unavailable SHAMA AVALOS Consulting Unavailable THELMA DAMICO Consulting Unavailable WON AGOSTO Consulting Unavailable Susan Myers Admitting Unavailable Susan Myers Attending Unavailable [facility] Primary Care Unavailable [facility] Primary Care Unavailable Matt Estrella Admitting Unavailable Theresa Ohara Attending Unavailable OWEN GAITAN Primary Care Unavailable DANIEL VAZQUEZ Attending Unavailable Allergies Allergy Classification Reported Allergen(s) Allergy Type Date of Onset Reaction(s) Facility (1 source) Naproxen; Translations: [naproxen] Drug Allergy [facility] Repository (1 source) Penicillin; Translations: [Penicillin] Drug Allergy [facility] (4 sources) Penicillins; Translations: [Penicillins] Allergy to substance 10-08-2019 [facility] Medications Current Medications Medication Drug Class(es) Dates [...] object with subsequent fall, initial encounter; Translations: [BRENDA MEZA OTH OBJ SBSQT FALL INIT] Onset: 01-02-2023 Episodic E Codes: Unspecified (2 sources) Blood alcohol level of 120-199 mg/100 ml; Translations: [Blood alcohol level of 240 mg/100 ml or more] Onset: 08-12-2022 Episodic Epilepsy; convulsions (5 sources) Seizure disorder; Translations: [Epilepsy, unspecified, not intractable, without status epilepticus] Onset: 10-08-2022 10-08-2022 Chronic Epilepsy; convulsions (5 sources) Unspecified convulsions; Translations: [UNSPECIFIED CONVULSIONS] Onset: 08-10-2022 Episodic Gastritis and duodenitis (1 source) Gastritis; Translations: [Gastritis, unspecified, without bleeding] 10-08-2019 Episodic Intestinal infection (1 source) Viral intestinal infection, unspecified; Translations: [VIRAL INTESTINAL INFECTION UNSPEC] Onset: 02-09-2023 Episodic Nausea and vomiting (3 sources) Vomiting, unspecified; Translations: [VOMITING UNSPECIFIED] Onset: 02-07-2023 Episodic Other aftercare (1 source) Other termite renewal inspector (current) drug therapy; Translations: [OTH [facility]FP CURRENT [...] unspecified; Translations: [DISORIENTATION UNSPECIFIED] Onset: 11-26-2022 Episodic Residual codes; unclassified (1 source) Personal history of other specified conditions; Translations: [Personal history of other specified conditions] Onset: 12-13-2023 Episodic Spondylosis; intervertebral disc disorders; other back problems (1 source) Cervicalgia; Translations: [CERVICALGIA] Onset: 01-02-2023 Episodic Substance-related disorders (4 sources) Polysubstance abuse ; Translations: [Other psychoactive substance abuse, uncomplicated] Onset: 11-30-2022 10-08-2022 Chronic Superficial injury; contusion (1 source) Contusion of lower back and pelvis, initial encounter; Translations: [CONTUSION LOWER BACK PELVIS INITIAL] Onset: 01-02-2023 Episodic Unclassified (1 source) Seizure - Prior Hx Of Onset: 12-13-2023 Unclassified (1 source) Longterm Clearance Onset: 12-13-2023 Past or Other Problems Problem Classification Problem Date Documented Da te Episodic/Chronic Alcohol-related disorders (3 sources) Alcohol intoxication; Translations: [Alcohol use, unspecified with intoxication, unspecified] Onset: 10-08-2022 10-08-2022 Episodic Results Test Name Value Interpretation Reference Range Facility Partial Thromboplastin Timeo n 05-08-2023 aPTT Coag (Bld) [Time] 30.2 s Normal 25.1-36.[address] [facility] Comment on above: Result Comment: PERF ORMED BY: [place] [address] PATHOLOGIST CHEESE PANCAKE ROLLER LATOYA CAMPBELL M.D. Performed By: #### C BC, PT, CMP #### [address] Prothrombin Time INRon 05-08 INR Coag (PPP) [Relative time] 0.9 {INR} Normal [facility] Comment on above: Result Comment: INR [...] By: #### C BC, PT, CMP #### [facility] [address] [place] [address] PT Coag (PPP) [Time] 10.5 s Normal 9.0-12.9 [facility] Comment on above: Performed By: #### C BC, PT, CMP #### [address] AMYLASEon 02-08-2023 Amylase [Catalytic activity/Vol] 41 U/L Normal 25-115 [facility] Comment on above: Performed By: #### P OCGLUC #### [facility] [address] [place] [address] Dr. Katerina Rodarte CARDIAC RA 3-6on 3 CK [Catalytic activity/Vol] 115 U/L Normal 39-308 [facility] Comment on above: Performed By: #### C MREP #### [facility] [address] [place] [address] Dr. Katerina Rodarte CK.MB [Mass/Vol] 2.04 ng/mL Normal <=3.60 [facility] Comment on above: Performed By: #### C MREP #### [facility] [address] [place] [address] Dr. Katerina Rodarte HSTROP 9.5 pg/mL Normal 4.0-76.1 [facility] Comment on above: Result Comment: CUT- OFF POINTS HAVE BEEN ESTABLISHED BASED ON THE FOURTH UNIVERSAL DEFINITIONS OF MYOCARDIAL INFARCTION. THE UPPER REFERENCE LIMIT (URL) OF TROPONIN, DEFINED THE 99TH PERCENTILE OF cTnI DISTRIBUTION IN A REFERENCE POPULATION, HAS BEEN CONFIRMED THE DECISION THRESHOLD FOR [place] DIAGNOSIS. Performed By: #### C MREP #### [facility] [address] [address] [address] Katerina Rodarte CARDIAC RA ADMITon 023 CK [Catalytic activity/Vol] 101 U/L Normal 39-308 [facility] Comment on above: Performed By: #### P OCGLUC #### [facility] [address] [place] [address] Dr. Katerina Rodarte CK.MB [Mass/Vol] 2.13 ng/mL Normal <=3.60 [facility] Comment on above: Performed By: #### P OCGLUC #### [facility] [address] [address] [address] Katerina Rodarte HSTROP 8.5 pg/mL Normal 4.0-76.1 [facility] Comment on above: Result Comment: CUT- OFF POINTS HAVE BEEN ESTABLISHED BASED ON THE FOURTH UNIVERSAL DEFINITIONS OF MYOCARDIAL INFARCTION. THE UPPER REFERENCE LIMIT (URL) OF TROPONIN, DEFINED THE 99TH PERCENTILE OF cTnI DISTRIBUTION IN A REFERENCE POPULATION, HAS BEEN CONFIRMED THE DECISION THRESHOLD FOR NC DIAGNOSIS. Performed By: #### P OCGLUC #### [facility] [address] [address] [address] Katerina Rodarte SHIRA 44 ng/mL Normal 16-96 [facility] Comment on above: Performed By: #### P OCGLUC #### [facility] [address] [place] [address] Dr. Katerina Rodarte CBC AUTO DIFFon 02-08-2023 BASO # 0.0 103/ul Normal 0.0-0.1 [facility] Comment on above: Performed By: #### P OCGLUC #### [facility] [address] [address] [address] Katerina Rodarte Basophils/100 WBC (Bld) 0.1 % Critically low 0.2-2.0 [facility] Comment on above: Performed By: #### P OCGLUC #### [facility] [address] [place] [address] Dr. Katerina Rodarte EO # 0.0 103/ul Normal 0.0-0.7 [facility] Comment on above: Performed By: #### P OCGLUC #### [facility] [address] [place] [address] Dr. Katerina Rodarte Eosinophils/100 WBC (Bld) 0.1 % Critically low 0.9-7.0 [facility] Comment on above: Performed By: #### P OCGLUC #### [facility] [address] [place] [address] Dr. Katerina Rodarte Erythrocyte distribution width (RBC) [Ratio] 12.7 % Normal 11.0-15.0 [facility] Comment on above: Performed By: #### P OCGLUC #### [facility] [address] [place] [address] Dr. Katerina Rodarte Hematocrit (Bld) [Volume fraction] 41.4 % Critically low 42.0-54.0 [facility] Comment on above: Performed By: #### P OCGLUC #### [facility] [address] [place] [address] Dr. Katerina Rodarte Hemoglobin (Bld) [Mass/Vol] 15.1 g/dL Normal 14.0-18.0 [facility] Comment on above: Performed By: #### P OCGLUC #### [facility] [address] [place] [address] Dr. Katerina Rodarte IG # 0.04 10e3/ul Critically high 0.00-0.03 [facility] Comment on above: Performed By: #### P OCGLUC #### [facility] [address] [place] [address] Dr. Katerina Rodarte IG % 0.4 % Normal 0.0-0.5 [facility] Comment on above: Performed By: #### P OCGLUC #### [facility] [address] [place] [address] Dr. Katerina Rodarte LYMPH # 1.0 103/ul Critically low 1.2-3.8 [facility] Comment on above: Performed By: #### P OCGLUC #### [facility] [address] [address] [address] Katerina Rodarte Lymphocytes/100 WBC (Bld) 10.0 % Critically low 20.5-60.0 [facility] Comment on above: Performed By: #### P OCGLUC #### [facility] [address] [place] [address] Dr. Katerina Rodarte MANUAL DIFF REQ NO Normal [facility] Comment on above: Performed By: #### P OCGLUC #### [facility] [address] [place] [address] Dr. Katerina Rodarte MCH (RBC) [Entitic mass] 33.9 pg Normal 25.9-34.0 [facility] Comment on above: Performed By: #### P OCGLUC #### [facility] [address] [address] [address] Katerina Rodarte MCHC (RBC) [Mass/Vol] 36.5 g/dL Critically high 29.9-35.2 [facility] Comment on above: Performed By: #### P OCGLUC #### [facility] [address] [place] [address] Dr. Katerina Rodarte MCV (RBC) [Entitic vol] 92.8 fL Normal 80.0-94.0 [facility] Comment on above: Performed By: #### P OCGLUC #### [facility] [address] [place] [address] Dr. Katerina Rodarte MONO # 0.5 103/ul Normal 0.3-0.8 [facility] Comment on above: Performed By: #### P OCGLUC #### [facility] [address] [place] [address] Dr. Katerina Rodarte Monocytes/100 WBC (Bld) 5.6 % Normal 1.7-12.0 [facility] Comment on above: Performed By: #### P OCGLUC #### [facility] [address] [place] [address] Dr. Katerina Rodarte NEUT # 8.0 103/ul Critically high 1.4-6.5 [facility] Comment on above: Performed By: #### P OCGLUC #### [facility] [address] [address] [address] Katerina Rodarte Neutrophils/100 WBC (Bld) 83.8 % Critically high 43.0-75.0 [facility] Comment on above: Performed By: #### P OCGLUC #### [facility] [address] [address] [address] Katerina Rodarte Platelet mean volume (Bld) [Entitic vol] 9.7 fL Normal 9.5-13.5 [facility] Comment on above: Performed By: #### P OCGLUC #### [facility] [address] [place] [address] Dr. Katerina Rodarte PLT 269 103/ul Normal 150-450 [facility] Comment on above: Performed By: #### P OCGLUC #### [facility] [address] [place] [address] Dr. Katerina Rodarte RBC 4.46 106/ul Critically low 4.70-6.10 [facility] Comment on above: Performed By: #### P OCGLUC #### [facility] [address] [place] [address] Dr. Katerina Rodarte WBC 9.5 103/ul Normal 4.0-11.0 [facility] Comment on above: Performed By: #### P OCGLUC #### [facility] [address] [place] [address] Dr. Katerina Rodarte ETHANOL (BLD ALC)on 02-09-20 23 ALC NOTE NOTE: 80 mg/dl is th e legal limit for a blood alcohol level Normal [facility] Comment on above: Performed By: #### P OCGLUC #### [facility] [address] [place] [address] Dr. Katerina Rodarte Ethanol [Mass/Vol] 43 mg/dL Normal [facility] Comment on above: Performed By: #### P OCGLUC #### [facility] [address] [place] [address] Dr. Katerina Rodarte LACTATE/LACTIC ACIDon 2022 Lactate [Moles/Vol] 1.2 mmol/L Normal 0.4-2.0 [facility] Comment on above: Performed By: #### C MREP #### [facility] [address] [address] [address] Katerina Rodarte Lactate [Moles/Vol] 3.5 mmol/L Critically high 0.4-2.0 [facility] Comment on above: Performed By: #### B MP, CMADM, ETH #### [facility] [address] [address] [address] Katerina Rodarte LIPASEon 02-08-2023 Lipase [Catalytic activity/Vol] 55.0 U/L Critically low 73.0-393.0 [facility] Comment on above: Performed By: #### P OCGLUC #### [facility] [address] [place] [address] Dr. Katerina Rodarte PROF 14(COMP METB)on 023 Albumin [Mass/Vol] 4.3 g/dL Normal 3.4-5.0 [facility] Comment on above: Performed By: #### P OCGLUC #### [facility] [address] [place] [address] Dr. Katerina Rodarte Albumin/Globulin [Mass ratio] 1.2 {ratio} Normal [facility] Comment on above: Performed By: #### P OCGLUC #### [facility] [address] [address] [address] Katerina Rodarte ALP [Catalytic activity/Vol] 165 U/L Critically high 46-116 [facility] Comment on above: Performed By: #### P OCGLUC #### [facility] [address] [address] [address] Katerina Rodarte ALT [Catalytic activity/Vol] 49 U/L Normal 16-63 [facility] Comment on above: Performed By: #### P OCGLUC #### [facility] [address] [place] [address] Dr. Katerina Rodarte Anion gap [Moles/Vol] 12.7 mmol/L Normal [facility] Comment on above: Performed By: #### P OCGLUC #### [facility] [address] [address] [address] Katerina Rodarte AST [Catalytic activity/Vol] 45 U/L Critically high 15-37 [facility] Comment on above: Performed By: #### P OCGLUC #### [facility] [address] [address] [address] Katerina Rodarte Bilirubin [Mass/Vol] 0.5 mg/dL Normal 0.2-1.0 [facility] Comment on above: Performed By: #### P OCGLUC #### [facility] [address] [address] [address] Katerina Rodarte Calcium [Mass/Vol] 8.9 mg/dL Normal 8.5-10.1 [facility] Comment on above: Performed By: #### P OCGLUC #### [facility] [address] [address] [address] Katerina Rodarte Chloride [Moles/Vol] 90 mmol/L Critically low 98-107 [facility] Comment on above: Performed By: #### P OCGLUC #### [facility] [address] [address] [address] Katerina Rodarte CO2 [Moles/Vol] 28.1 mmol/L Normal 21.0-32.0 [facility] Comment on above: Performed By: #### P OCGLUC #### [facility] [address] [address] [address] Katerina Rodarte Creatinine [Mass/Vol] 0.99 mg/dL Normal 0.70-1.30 [facility] Comment on above: Performed By: #### P OCGLUC #### [facility] [address] [address] [address] Katerina Rodarte EGFR-AF TAJIK >60 Normal >=60 [facility] Comment on above: Performed By: #### P OCGLUC #### [facility] [address] [address] [address] Katerina Rodarte EGFR-NON AF TAJIK >60 Normal >=60 [facility] Comment on above: Performed By: #### P OCGLUC #### [facility] [address] [address] [address] Katerina Rodarte Globulin (S) [Mass/Vol] 3.7 g/dL Normal [facility] Comment on above: Performed By: #### P OCGLUC #### [facility] [address] [address] [address] Katerina Rodarte Glucose [Mass/Vol] 130 mg/dL Critically high 74-106 [facility] Comment on above: Performed By: #### P OCGLUC #### [facility] [address] [address] [address] Katerina Rodarte Potassium [Moles/Vol] 3.8 mmol/L Normal 3.5-5.1 [facility] Comment on above: Performed By: #### P OCGLUC #### [facility] [address] [address] [address] Katerina Rodarte Protein [Mass/Vol] 8.0 g/dL Normal 6.4-8.2 [facility] Comment on above: Performed By: #### P OCGLUC #### [facility] [address] [address] [address] Katerina Rodarte Sodium [Moles/Vol] 127 mmol/L Critically low 136-145 [facility] Comment on above: Performed By: #### P OCGLUC #### [facility] [address] [address] [address] Katerina Rodarte Urea nitrogen [Mass/Vol] 9.0 mg/dL Normal 7.0-18.0 [facility] Comment on above: Performed By: #### P OCGLUC #### [facility] [address] [address] [address] Katerina Rodarte Urea nitrogen/Creatinine [Mass ratio] 9.1 mg/mg Normal [facility] Comment on above: Performed By: #### P OCGLUC #### [facility] [address] [address] [address] Katerina Rodarte XR ABD FLAT UP_PA [...] Reba PADRON Date: 2023-02-07 22:50 Normal [facility] CARDIAC RA 3-6on 3 CK [Catalytic activity/Vol] 70 U/L Normal 39-308 [facility] Comment on above: Performed By: #### C MREP #### [facility] [address] [place] [address] Dr. Katerina Rodarte CK.MB [Mass/Vol] 1.82 ng/mL Normal <=3.60 [facility] Comment on above: Performed By: #### C MREP #### [facility] [address] [place] [address] Dr. Katerina Rodarte HSTROP 22.5 pg/mL Normal 4.0-76.1 [facility] Comment on above: Result Comment: CUT- OFF POINTS HAVE BEEN ESTABLISHED BASED ON THE FOURTH UNIVERSAL DEFINITIONS OF MYOCARDIAL INFARCTION. THE UPPER REFERENCE LIMIT (URL) OF TROPONIN, DEFINED THE 99TH PERCENTILE OF cTnI DISTRIBUTION IN A REFERENCE POPULATION, HAS BEEN CONFIRMED THE DECISION THRESHOLD FOR NC DIAGNOSIS. Performed By: #### C MREP #### [facility] [address] [place] [address] Dr. Katerina Rodarte CARDIAC RA ADMITon 023 CK [Catalytic activity/Vol] 60 U/L Normal 39-308 [facility] Comment on above: Performed By: #### B TAMIA ARMENTA, ETH #### [facility] [address] [address] [address] Katerina Rodarte CK.MB [Mass/Vol] 1.51 ng/mL Normal <=3.60 [facility] Comment on above: Performed By: #### B TAMIA ARMENTA, ETH #### [facility] [address] [place] [address] Dr. Katerina Rodarte HSTROP 19.8 pg/mL Normal 4.0-76.1 [facility] Comment on above: Result Comment: CUT- OFF POINTS HAVE BEEN ESTABLISHED BASED ON THE FOURTH UNIVERSAL DEFINITIONS OF MYOCARDIAL INFARCTION. THE UPPER REFERENCE LIMIT (URL) OF TROPONIN, DEFINED THE 99TH PERCENTILE OF cTnI DISTRIBUTION IN A REFERENCE POPULATION, HAS BEEN CONFIRMED THE DECISION THRESHOLD FOR NC DIAGNOSIS. Performed By: #### B TAMIA ARMENTA, ETH #### [facility] [address] [place] [address] Dr. Katerina Rodarte SHIRA 152 ng/mL Critically high 16-96 [facility] Comment on above: Performed By: #### B TAMIA ARMENTA, ETH #### [facility] [address] [place] [address] Dr. Katerina Rodarte CBC AUTO DIFFon 12-30-2022 BASO # 0.0 103/ul Normal 0.0-0.1 [facility] Comment on above: Performed By: #### C MREP #### [facility] [address] [place] [address] Dr. Katerina Rodarte Basophils/100 WBC (Bld) 0.5 % Normal 0.2-2.0 [facility] Comment on above: Performed By: #### C MREP #### [facility] [address] [place] [address] Dr. Katerina Rodarte EO # 0.3 103/ul Normal 0.0-0.7 [facility] Comment on above: Performed By: #### C MREP #### [facility] [address] [place] [address] Dr. Katerina Rodarte Eosinophils/100 WBC (Bld) 4.6 % Normal 0.9-7.0 [facility] Comment on above: Performed By: #### C MREP #### [facility] [address] [place] [address] Dr. Katerina Rodarte Erythrocyte distribution width (RBC) [Ratio] 13.9 % Normal 11.0-15.0 [facility] Comment on above: Performed By: #### C MREP #### [facility] [address] [place] [address] Dr. Katerina Rodarte Hematocrit (Bld) [Volume fraction] 38.0 % Critically low 42.0-54.0 [facility] Comment on above: Performed By: #### C MREP #### [facility] [address] [place] [address] Dr. Katerina Rodarte Hemoglobin (Bld) [Mass/Vol] 13.0 g/dL Critically low 14.0-18.0 [facility] Comment on above: Performed By: #### C MREP #### [facility] [address] [place] [address] Dr. Katerina Rodarte IG # 0.01 10e3/ul Normal 0.00-0.03 [facility] Comment on above: Performed By: #### C MREP #### [facility] [address] [place] [address] Dr. Katerina Rodarte IG % 0.2 % Normal 0.0-0.5 [facility] Comment on above: Performed By: #### C MREP #### [facility] [address] [place] [address] Dr. Katerina Rodarte LYMPH # 1.4 103/ul Normal 1.2-3.8 [facility] Comment on above: Performed By: #### C MREP #### [facility] [address] [place] [address] Dr. Katerina Rodarte Lymphocytes/100 WBC (Bld) 23.3 % Normal 20.5-60.0 [facility] Comment on above: Performed By: #### C MREP #### [facility] [address] [place] [address] Dr. Katerina Rodarte MANUAL DIFF REQ NO Normal [facility] Comment on above: Performed By: #### C MREP #### [facility] [address] [place] [address] Dr. Katerina Rodarte MCH (RBC) [Entitic mass] 33.7 pg Normal 25.9-34.0 [facility] Comment on above: Performed By: #### C MREP #### [facility] [address] [address] [address] Katerina Rodarte MCHC (RBC) [Mass/Vol] 34.2 g/dL Normal 29.9-35.2 [facility] Comment on above: Performed By: #### C MREP #### [facility] [address] [place] [address] Dr. Katerina Rodarte MCV (RBC) [Entitic vol] 98.4 fL Critically high 80.0-94.0 [facility] Comment on above: Performed By: #### C MREP #### [facility] [address] [place] [address] Dr. Katerina Rodarte MONO # 0.7 103/ul Normal 0.3-0.8 [facility] Comment on above: Performed By: #### C MREP #### [facility] [address] [place] [address] Dr. Katerina Rodarte Monocytes/100 WBC (Bld) 12.0 % Normal 1.7-12.0 [facility] Comment on above: Performed By: #### C MREP #### [facility] [address] [place] [address] Dr. Katerina Rodarte NEUT # 3.7 103/ul Normal 1.4-6.5 [facility] Comment on above: Performed By: #### C MREP #### [facility] [address] [place] [address] Dr. Katerina Rodarte Neutrophils/100 WBC (Bld) 64.2 % Normal 43.0-75.0 [facility] Comment on above: Performed By: #### C MREP #### [facility] [address] [place] [address] Dr. Katerina Rodarte Platelet mean volume (Bld) [Entitic vol] 9.4 fL Critically low 9.5-13.5 [facility] Comment on above: Performed By: #### C MREP #### [facility] [address] [place] [address] Dr. Katerina Rodarte PLT 208 103/ul Normal 150-450 [facility] Comment on above: Performed By: #### C MREP #### [facility] [address], [place] [address] Dr. Katerina Rodarte RBC 3.86 106/ul Critically low 4.70-6.10 [facility] Comment on above: Performed By: #### C MREP #### [facility] [address], [place] [address] Dr. Katerina Rodarte WBC 5.8 103/ul Normal 4.0-11.0 [facility] Comment on above: Performed By: #### C MREP #### [facility] [address], [place] [address] LSPINE WO CONon [...] THERESA RIVERA Date: 2022-12-29 23:52 Normal [facility] DRUG SCREEN RAPID (URINE)on 12-30-2022 AMP Negative Normal NEGATIVE [facility] Comment on above: Performed By: #### P OCGLUC #### [facility] [address] [place] [address] Dr. Katerina Rodarte BAR Negative Normal NEGATIVE [facility] Comment on above: Performed By: #### P OCGLUC #### [facility] [address] [place] [address] Dr. Katerina Rodarte BUP Negative Normal NEGATIVE [facility] Comment on above: Performed By: #### P OCGLUC #### [facility] [address] [place] [address] Dr. Katerina Rodarte BZO Negative Normal NEGATIVE [facility] Comment on above: Performed By: #### P OCGLUC #### [facility] [address] [place] [address] Dr. Katerina Rodarte CARLIE Negative Normal NEGATIVE [facility] Comment on above: Performed By: #### P OCGLUC #### [facility] [address] [place] [address] Dr. Katerina Rodarte CUT-OFFS SEE BELOW Normal [facility] Comment on above: Result Comment: AMP [...] ng/mL Performed By: #### P OCGLUC #### [facility] [address] [place] [address] Dr. Katerina Rodarte DRUG CUT HEADER DRUG CLASS TEST SYST EM CUT-OFF CONCENTRATIONS ARE FOLLOWS: Normal [facility] Comment on above: Performed By: #### P OCGLUC #### [facility] [address] [place] [address] Dr. Katerina Rodarte mAMP Negative Normal NEGATIVE [facility] Comment on above: Performed By: #### P OCGLUC #### [facility] [address] [place] [address] Dr. Katerina Rodarte MTD Negative Normal NEGATIVE [facility] Comment on above: Performed By: #### P OCGLUC #### [facility] [address] [address] [address] Katerina Rodarte OPI Negative Normal NEGATIVE [facility] Comment on above: Performed By: #### P OCGLUC #### [facility] [address] [place] [address] Dr. Katerina Rodarte OXY Negative Normal NEGATIVE [facility] Comment on above: Performed By: #### P OCGLUC #### [facility] [address] [place] [address] Dr. Katerina Rodarte PCP Negative Normal NEGATIVE [facility] Comment on above: Performed By: #### P OCGLUC #### [facility] [address] [place] [address] Dr. Katerina Rodarte PPX Negative Normal NEGATIVE [facility] Comment on above: Performed By: #### P OCGLUC #### [facility] [address] [place] [address] Dr. Katerina Rodarte TCA Negative Normal NEGATIVE [facility] Comment on above: Performed By: #### P OCGLUC #### [facility] [address] [place] [address] Dr. Katerina Rodarte THC Negative Normal NEGATIVE [facility] Comment on above: Performed By: #### P OCGLUC #### [facility] [address] [place] [address] Dr. Katerina Rodarte ETHANOL (BLD ALC)on 12-30-19 23 ALC NOTE NOTE: 80 mg/dl is th e legal limit for a blood alcohol level Normal [facility] Comment on above: Performed By: #### B MP, CMADM, ETH #### [facility] [address] [place] [address] Dr. Katerina Rodarte Ethanol [Mass/Vol] 167 mg/dL Normal [facility] Comment on above: Performed By: #### B MP, CMADM, ETH #### [facility] [address] [place] [address] Dr. Katerina Rodarte PROF CHEM 8 (BAS METB)on Anion gap [Moles/Vol] 11.4 mmol/L Normal [facility] Comment on above: Performed By: #### B MP, JESSEDM, ETH #### [facility] [address] [place] [address] Dr. Katerina Rodarte Calcium [Mass/Vol] 8.8 mg/dL Normal 8.5-10.1 [facility] Comment on above: Performed By: #### B JESSE ARMENTADM, ETH #### [facility] [address] [place] [address] Dr. Katerina Rodarte Chloride [Moles/Vol] 97 mmol/L Critically low 98-107 [facility] Comment on above: Performed By: #### B JESSE ARMENTADM, ETH #### [facility] [address] [place] [address] Dr. Katerina Rodarte CO2 [Moles/Vol] 29.9 mmol/L Normal 21.0-32.0 [facility] Comment on above: Performed By: #### B JESSE ARMENTADM, ETH #### [facility] [address] [place] [address] Dr. Katerina Rodarte Creatinine [Mass/Vol] 0.83 mg/dL Normal 0.70-1.30 [facility] Comment on above: Performed By: #### B KATHI, JESSEDM, ETH #### [facility] [address] [place] [address] Dr. Katerina Rodarte EGFR-AF TAJIK >60 Normal >=60 [facility] Comment on above: Performed By: #### B KATHI, CMADM, ETH #### [facility] [address] [place] [address] Dr. Katerina Rodarte EGFR-NON AF TAJIK >60 Normal >=60 [facility] Comment on above: Performed By: #### B TAMIA ARMENTA, ETH #### [facility] [address] [address] [address] Katerina Rodarte Glucose [Mass/Vol] 84 mg/dL Normal 74-106 [facility] Comment on above: Performed By: #### B TAMIA ARMENTA, ETH #### [facility] [address] [address] [address] Katerina Rodarte Potassium [Moles/Vol] 4.3 mmol/L Normal 3.5-5.1 [facility] Comment on above: Performed By: #### B TAMIA ARMENTA, ETH #### [facility] [address] [place] [address] Dr. Katerina Rodarte Sodium [Moles/Vol] 134 mmol/L Critically low 136-145 [facility] Comment on above: Performed By: #### B TAMIA ARMENTA, ETH #### [facility] [address] [place] [address] Dr. Katerina Rodarte Urea nitrogen [Mass/Vol] 4.0 mg/dL Critically low 7.0-18.0 [facility] Comment on above: Performed By: #### B TAMIA ARMENTA, ETH #### [facility] [address] [place] [address] Dr. Katerina Rodarte Urea nitrogen/Creatinine [Mass ratio] 4.8 mg/mg Normal [facility] Comment on above: Performed By: #### B TAMIA ARMENTA, ETH #### [facility] [address] [place] [address] Dr. Katerina Rodarte XR ANKLE JAZZ MIN [...] Reba PADRON Date: 2022-12-30 01:05 Normal [facility] XR CHEST 1 Von 12-30-2022 XR [...] VIJAYA KITCHEN Date: 2022-12-30 01:05 Normal [facility] CBC AUTO DIFFon 12-10-2022 BASO # 0.0 103/ul Normal 0.0-0.1 [facility] Comment on above: Performed By: #### C MREP #### [facility] [address] [address] [address] Katerina Rodarte Basophils/100 WBC (Bld) 0.6 % Normal 0.2-2.0 [facility] Comment on above: Performed By: #### C MREP #### [facility] [address], [place] [address] Dr. Katerina Rodarte EO # 0.9 103/ul Critically high 0.0-0.7 [facility] Comment on above: Performed By: #### C MREP #### [facility] [address] [place] [address] Dr. Katerina Rodarte Eosinophils/100 WBC (Bld) 12.9 % Critically high 0.9-7.0 [facility] Comment on above: Performed By: #### C MREP #### [facility] [address] [place] [address] Dr. Katerina Rodarte Erythrocyte distribution width (RBC) [Ratio] 12.4 % Normal 11.0-15.0 [facility] Comment on above: Performed By: #### C MREP #### [facility] [address] [place] [address] Dr. Katerina Rodarte Hematocrit (Bld) [Volume fraction] 38.4 % Critically low 42.0-54.0 [facility] Comment on above: Performed By: #### C MREP #### [facility] [address] [place] [address] Dr. Katerina Rodarte Hemoglobin (Bld) [Mass/Vol] 13.6 g/dL Critically low 14.0-18.0 [facility] Comment on above: Performed By: #### C MREP #### [facility] [address] [place] [address] Dr. Katerina Rodarte IG # 0.01 10e3/ul Normal 0.00-0.03 [facility] Comment on above: Performed By: #### C MREP #### [facility] [address] [place] [address] Dr. Katerina Rodarte IG % 0.1 % Normal 0.0-0.5 [facility] Comment on above: Performed By: #### C MREP #### [facility] [address] [place] [address] Dr. Katerina Rodarte LYMPH # 2.1 103/ul Normal 1.2-3.8 [facility] Comment on above: Performed By: #### C MREP #### [facility] [address] [place] [address] Dr. Katerina Rodarte Lymphocytes/100 WBC (Bld) 30.3 % Normal 20.5-60.0 [facility] Comment on above: Performed By: #### C MREP #### [facility] [address] [place] [address] Dr. Katerina Rodarte MANUAL DIFF REQ NO Normal [facility] Comment on above: Performed By: #### C MREP #### [facility] [address] [place] [address] Dr. Katerina Rodarte MCH (RBC) [Entitic mass] 33.3 pg Normal 25.9-34.0 [facility] Comment on above: Performed By: #### C MREP #### [facility] [address] [place] [address] Dr. Katerina Rodarte MCHC (RBC) [Mass/Vol] 35.4 g/dL Critically high 29.9-35.2 [facility] Comment on above: Performed By: #### C MREP #### [facility] [address] [place] [address] Dr. Katerina Rodarte MCV (RBC) [Entitic vol] 93.9 fL Normal 80.0-94.0 [facility] Comment on above: Performed By: #### C MREP #### [facility] [address] [place] [address] Dr. Katerina Rodarte MONO # 0.9 103/ul Critically high 0.3-0.8 [facility] Comment on above: Performed By: #### C MREP #### [facility] [address] [place] [address] Dr. Katerina Rodarte Monocytes/100 WBC (Bld) 13.0 % Critically high 1.7-12.0 [facility] Comment on above: Performed By: #### C MREP #### [facility] [address] [place] [address] Dr. Katerina Rodarte NEUT # 2.9 103/ul Normal 1.4-6.5 [facility] Comment on above: Performed By: #### C MREP #### [facility] [address] [place] [address] Dr. Katerina Rodarte Neutrophils/100 WBC (Bld) 43.1 % Normal 43.0-75.0 [facility] Comment on above: Performed By: #### C MREP #### [facility] [address], [place] [address] Dr. Katerina Rodarte Platelet mean volume (Bld) [Entitic vol] 9.6 fL Normal 9.5-13.5 [facility] Comment on above: Performed By: #### C MREP #### [facility] [address] [address] [address] Katerina Rodarte PLT 222 103/ul Normal 150-450 [facility] Comment on above: Performed By: #### C MREP #### [facility] [address] [address] [address] Ktaerina Rodarte RBC 4.09 106/ul Critically low 4.70-6.10 [facility] Comment on above: Performed By: #### C MREP #### [facility] [address] [place] [address] Dr. Katerina Rodarte WBC 6.8 103/ul Normal 4.0-11.0 [facility] Comment on above: Performed By: #### C MREP #### [facility] [address] [place] [address] ABD/PELV W CONon [...] by: MADDY SCHOFIELD Date: 2022-12-10 00:50 Normal [facility] CT CSPINE WO CONon 3 CT CSPINE WO CON EXAMINATION: CT CSPI [...] by: LADARIUS HERNANDEZ Date: 2022-12-10 00:17 Normal [facility] CT HEAD WO CONon 12-10-2022 CT HEAD [...] SHAMA AVALOS Date: 2022-12-10 00:16 Normal [facility] DRUG SCREEN RAPID (URINE)on 12-10-2022 AMP Negative Normal NEGATIVE [facility] Comment on above: Performed By: #### D RUGRPD ####[facility] [id number] [address]Dr. Katerina Rodarte BAR Negative Normal NEGATIVE [facility] Comment on above: Performed By: #### D RUGRPD ####[facility] [id number] [address]Dr. Katerina Rodarte BUP Negative Normal NEGATIVE [facility] Comment on above: Performed By: #### D RUGRPD ####[facility] [id number] [address]Dr. Lilialan Rodarte BZO Negative Normal NEGATIVE [facility] Comment on above: Performed By: #### D RUGRPD ####[facility] [address] [address]Dr. Lilialan Rodarte CARLIE Negative Normal NEGATIVE [facility] Comment on above: Performed By: #### D RUGRPD ####[facility] [address] [address]Dr. Katerina Rodarte CUT-OFFS SEE BELOW Normal [facility] Comment on above: Result Comment: AMP (Amphetamine): 500ng/mL, BAR (Barbituates): 200 ng/mL, BZO (Benzodiazepines): 150 ng/mL, BUP (Buprenorphine): 10 ng/mL, CARLIE (Cocaine): 150 ng/mL, mAMP (Methamphetamine): 500 ng/mL, MTD (Methadone): 200 ng/mL, OPI (Opiates): 100 ng/mL, OXY (Oxycodone): 100 ng/mL, PCP (Phencyclidine): 25 ng/mL, PPX (Propoxyphene): 300 ng/mL, THC (Cannabinoids): 50 ng/mL, TCA (Trycyclic Antidepressants): 300 ng/mL Performed By: #### D RUGRPD ####[facility] [id number] [place], [place] [address]Dr. Katerina Rodarte DRUG CUT HEADER DRUG CLASS TEST SYST EM CUT-OFF CONCENTRATIONS ARE FOLLOWS: Normal [facility] Comment on above: Performed By: #### D RUGRPD ####[facility] [id number] [place], [place] [address]Dr. Katerina Rodarte mAMP Negative Normal NEGATIVE [facility] Comment on above: Performed By: #### D RUGRPD ####[facility] [id number] [place], [place] [address]Dr. Katerina Rodarte MTD Negative Normal NEGATIVE [facility] Comment on above: Performed By: #### D RUGRPD ####[facility] [address] [place], [place] [address]Dr. Liliasamina Rodarte OPI Negative Normal NEGATIVE [facility] Comment on above: Performed By: #### D RUGRPD ####[facility] [id number] [place], [place] [address]Dr. Katerina Rodarte OXY Negative Normal NEGATIVE [facility] Comment on above: Performed By: #### D RUGRPD ####[facility] [id number] [place], [place] [address]Dr. Katerina [facility] PCP Negative Normal NEGATIVE [facility] Comment on above: Performed By: #### D RUGRPD ####[facility] [id number] [place], [place] [address]Dr. Liliasamina Rodarte PPX Negative Normal NEGATIVE [facility] Comment on above: Performed By: #### D RUGRPD ####[facility] [address] [id number]. Katerina Rodarte TCA Negative Normal NEGATIVE [facility] Comment on above: Performed By: #### D RUGRPD ####[facility] [address] [place], [place] [address]Ev. Katerina Rodarte THC Negative Normal NEGATIVE [facility] Comment on above: Performed By: #### D RUGRPD ####[facility] [address] [id number]. Katerina Rodarte ETHANOL (BLD ALC)on 12-10-19 23 ALC NOTE NOTE: 80 mg/dl is th e legal limit for a blood alcohol level Normal [facility] Comment on above: Performed By: #### E TH ####[facility] [address] [address]Dr. Katerina Rodarte Ethanol [Mass/Vol] 197 mg/dL Normal [facility] Comment on above: Performed By: #### E TH ####[facility] [address] [id number] Rodarte PROF 14(COMP METB)on 023 Albumin [Mass/Vol] 3.7 g/dL Normal 3.4-5.0 [facility] Comment on above: Performed By: #### P OCGLUC #### [facility] [address] [address] [address] Katerina Rodarte Albumin/Globulin [Mass ratio] 1.1 {ratio} Normal [facility] Comment on above: Performed By: #### P OCGLUC #### [facility] [address] [address] [address] Katerina Rodarte ALP [Catalytic activity/Vol] 149 U/L Critically high 46-116 [facility] Comment on above: Performed By: #### P OCGLUC #### [facility] [address] [address] [address] Katerina Rodarte ALT [Catalytic activity/Vol] 41 U/L Normal 16-63 [facility] Comment on above: Performed By: #### P OCGLUC #### [facility] [address] [address] [address] Katerina Rodarte Anion gap [Moles/Vol] 11.7 mmol/L Normal Th [facility] Comment on above: Performed By: #### P OCGLUC #### [facility] [address] [address] [address] Katerina Rodarte AST [Catalytic activity/Vol] 48 U/L Critically high 15-37 [facility] Comment on above: Performed By: #### P OCGLUC #### [facility] [address] [address] [address] Katerina Rodarte Bilirubin [Mass/Vol] 0.4 mg/dL Normal 0.2-1.0 [facility] Comment on above: Performed By: #### P OCGLUC #### [facility] [address] [address] [address] Katerina Rodarte Calcium [Mass/Vol] 8.7 mg/dL Normal 8.5-10.1 [facility] Comment on above: Performed By: #### P OCGLUC #### [facility] [address] [address] [address] Katerina Rodarte Chloride [Moles/Vol] 94 mmol/L Critically low 98-107 [facility] Comment on above: Performed By: #### P OCGLUC #### [facility] [address] [address] [address] Katerina Rodarte CO2 [Moles/Vol] 29.4 mmol/L Normal 21.0-32.0 [facility] Comment on above: Performed By: #### P OCGLUC #### [facility] [address] [address] [address] Katerina Rodarte Creatinine [Mass/Vol] 0.96 mg/dL Normal 0.70-1.30 [facility] Comment on above: Performed By: #### P OCGLUC #### [facility] [address] [address] [address] Katerina Rodarte EGFR-AF TAJIK >60 Normal >=60 [facility] Comment on above: Performed By: #### P OCGLUC #### [facility] [address] [address] [address] Katerina Rodarte EGFR-NON AF TAJIK >60 Normal >=60 [facility] Comment on above: Performed By: #### P OCGLUC #### [facility] [address] [address] [address] Katerina Rodarte Globulin (S) [Mass/Vol] 3.3 g/dL Normal [facility] Comment on above: Performed By: #### P OCGLUC #### [facility] [address] [address] [address] Katerina Rodarte Glucose [Mass/Vol] 138 mg/dL Critically high 74-106 [facility] Comment on above: Performed By: #### P OCGLUC #### [facility] [address] [address] [address] Katerina Rodarte Potassium [Moles/Vol] 4.1 mmol/L Normal 3.5-5.1 [facility] Comment on above: Performed By: #### P OCGLUC #### [facility] [address] [place] [address] Dr. Katerina Rodarte Protein [Mass/Vol] 7.0 g/dL Normal 6.4-8.2 [facility] Comment on above: Performed By: #### P OCGLUC #### [facility] [address] [place] [address] Dr. Katerina Rodarte Sodium [Moles/Vol] 131 mmol/L Critically low 136-145 [facility] Comment on above: Performed By: #### P OCGLUC #### [facility] [address] [place] [address] Dr. Katerina Rodarte Urea nitrogen [Mass/Vol] 4.0 mg/dL Critically low 7.0-18.0 [facility] Comment on above: Performed By: #### P OCGLUC #### [facility] [address] [address] [address] Katerina Rodarte Urea nitrogen/Creatinine [Mass ratio] 4.2 mg/mg Normal [facility] Comment on above: Performed By: #### P OCGLUC #### [facility] [address] [address] [address] Katerina Rodarte XR CHEST 1 Von [...] THELMA DAMICO Date: 2022-12-09 23:00 Normal [facility] CBC AUTO DIFFon 11-26-2022 BASO # 0.1 103/ul Normal 0.0-0.1 [facility] Comment on above: Performed By: #### P OCGLUC #### [facility] [address] [address] [address] Katerina Rodarte Basophils/100 WBC (Bld) 1.1 % Normal 0.2-2.0 [facility] Comment on above: Performed By: #### P OCGLUC #### [facility] [address] [address] [address] Katerina Rodarte EO # 0.6 103/ul Normal 0.0-0.7 [facility] Comment on above: Performed By: #### P OCGLUC #### [facility] [address] [address] [address] Katerina Rodarte Eosinophils/100 WBC (Bld) 8.9 % Critically high 0.9-7.0 [facility] Comment on above: Performed By: #### P OCGLUC #### [facility] [address] [address] [address] Katerina Rodarte Erythrocyte distribution width (RBC) [Ratio] 12.8 % Normal 11.0-15.0 [facility] Comment on above: Performed By: #### P OCGLUC #### [facility] [address] [address] [address] Katerina Rodarte Hematocrit (Bld) [Volume fraction] 39.5 % Critically low 42.0-54.0 [facility] Comment on above: Performed By: #### P OCGLUC #### [facility] [address] [address] [address] Katerina Rodarte Hemoglobin (Bld) [Mass/Vol] 13.9 g/dL Critically low 14.0-18.0 [facility] Comment on above: Performed By: #### P OCGLUC #### [facility] [address] [address] [address] Katerina Rodarte IG # 0.02 10e3/ul Normal 0.00-0.03 [facility] Comment on above: Performed By: #### P OCGLUC #### [facility] [address] [address] [address] Katerina Rodarte IG % 0.3 % Normal 0.0-0.5 [facility] Comment on above: Performed By: #### P OCGLUC #### [facility] [address] [place] [address] Dr. Katerina Rodarte LYMPH # 2.7 103/ul Normal 1.2-3.8 [facility] Comment on above: Performed By: #### P OCGLUC #### [facility] [address] [place] [address] Dr. Katerina Rodarte Lymphocytes/100 WBC (Bld) 41.7 % Normal 20.5-60.0 [facility] Comment on above: Performed By: #### P OCGLUC #### [facility] [address] [place] [address] Dr. Katerina Rodarte MANUAL DIFF REQ NO Normal [facility] Comment on above: Performed By: #### P OCGLUC #### [facility] [address] [place] [address] Dr. Katerina Rodarte MCH (RBC) [Entitic mass] 33.5 pg Normal 25.9-34.0 [facility] Comment on above: Performed By: #### P OCGLUC #### [facility] [address] [address] [address] Katerina Rodarte MCHC (RBC) [Mass/Vol] 35.2 g/dL Normal 29.9-35.2 [facility] Comment on above: Performed By: #### P OCGLUC #### [facility] [address] [address] [address] Katerina Rodarte MCV (RBC) [Entitic vol] 95.2 fL Critically high 80.0-94.0 [facility] Comment on above: Performed By: #### P OCGLUC #### [facility] [address] [place] [address] Dr. Katerina Rodarte MONO # 0.8 103/ul Normal 0.3-0.8 [facility] Comment on above: Performed By: #### P OCGLUC #### [facility] [address] [place] [address] Dr. Kateirna Rodarte Monocytes/100 WBC (Bld) 11.8 % Normal 1.7-12.0 [facility] Comment on above: Performed By: #### P OCGLUC #### [facility] [address] [place] [address] Dr. Katerina Rodarte NEUT # 2.4 103/ul Normal 1.4-6.5 [facility] Comment on above: Performed By: #### P OCGLUC #### [facility] [address] [place] [address] Dr. Katerina Rodarte Neutrophils/100 WBC (Bld) 36.2 % Critically low 43.0-75.0 [facility] Comment on above: Performed By: #### P OCGLUC #### [facility] [address] [place] [address] Dr. Katerina Rodarte Platelet mean volume (Bld) [Entitic vol] 9.0 fL Critically low 9.5-13.5 [facility] Comment on above: Performed By: #### P OCGLUC #### [facility] [address] [place] [address] Dr. Katerina Rodarte PLT 286 103/ul Normal 150-450 [facility] Comment on above: Performed By: #### P OCGLUC #### [facility] [address] [place] [address] Dr. Katerina Rodarte RBC 4.15 106/ul Critically low 4.70-6.10 [facility] Comment on above: Performed By: #### P OCGLUC #### [facility] [address] [address] [address] Katerina Rodarte WBC 6.5 103/ul Normal 4.0-11.0 [facility] Comment on above: Performed By: #### P OCGLUC #### [facility] [address] STROKE HEAD WOon [...] YESSI AGUIAR Date: 2022-11-26 01:12 Normal [facility] DRUG SCREEN RAPID (URINE)on 11-26-2022 AMP Negative Normal NEGATIVE [facility] Comment on above: Performed By: #### D RUGRPD ####[facility] [address] [address]Dr. Katerina Rodarte BAR Negative Normal NEGATIVE [facility] Comment on above: Performed By: #### D RUGRPD ####[facility] [address] [address]Dr. Katerina Rodarte BUP Negative Normal NEGATIVE [facility] Comment on above: Performed By: #### D RUGRPD ####[facility] [address] [id number]. Katerina Rodarte BZO Negative Normal NEGATIVE [facility] Comment on above: Performed By: #### D RUGRPD ####[facility] [address] [id number]. Katerina Rodarte CARLIE Negative Normal NEGATIVE [facility] Comment on above: Performed By: #### D RUGRPD ####[facility] [address] [id number]. Katerina Rodarte CUT-OFFS SEE BELOW Normal [facility] Comment on above: Result Comment: AMP (Amphetamine): 500ng/mL, BAR (Barbituates): 200 ng/mL, BZO (Benzodiazepines): 150 ng/mL, BUP (Buprenorphine): 10 ng/mL, CARLIE (Cocaine): 150 ng/mL, mAMP (Methamphetamine): 500 ng/mL, MTD (Methadone): 200 ng/mL, OPI (Opiates): 100 ng/mL, OXY (Oxycodone): 100 ng/mL, PCP (Phencyclidine): 25 ng/mL, PPX (Propoxyphene): 300 ng/mL, THC (Cannabinoids): 50 ng/mL, TCA (Trycyclic Antidepressants): 300 ng/mL Performed By: #### D RUGRPD ####[facility] [address] [place], [place] [address]Dr. Katerina Rodarte DRUG CUT HEADER DRUG CLASS TEST SYST EM CUT-OFF CONCENTRATIONS ARE FOLLOWS: Normal [facility] Comment on above: Performed By: #### D RUGRPD ####[facility] [address] [place], [place] [address]Dr. Katerina Rodarte mAMP Negative Normal NEGATIVE [facility] Comment on above: Performed By: #### D RUGRPD ####[facility] [address] [place], [place] [id number]. Katerina Rodarte MTD Negative Normal NEGATIVE [facility] Comment on above: Performed By: #### D RUGRPD ####[facility] [address] [place], [place] [address]Dr. Katerina Rodarte OPI Positive Abnormal NEGATIVE [facility] Comment on above: Performed By: #### D RUGRPD ####[facility] [address] [place], [place] [address]Dr. Katerina Rodarte OXY Negative Normal NEGATIVE [facility] Comment on above: Performed By: #### D RUGRPD ####[facility] [address] [id number]. Katerina Rodarte PCP Negative Normal NEGATIVE [facility] Comment on above: Performed By: #### D RUGRPD ####[facility] [address] [place], [place] [address]Ox. Katerina Rodarte PPX Negative Normal NEGATIVE [facility] Comment on above: Performed By: #### D RUGRPD ####[facility] [address] [id number]. Katerina Rodarte TCA Negative Normal NEGATIVE [facility] Comment on above: Performed By: #### D RUGRPD ####[facility] [address] [id number]. Katerina Rodarte THC Negative Normal NEGATIVE [facility] Comment on above: Performed By: #### D RUGRPD ####[facility] [address] [address]Dr. Katerina Rodarte ETHANOL (BLD ALC)on 11-26-20 22 ALC NOTE NOTE: 80 mg/dl is th e legal limit for a blood alcohol level Normal [facility] Comment on above: Performed By: #### P OCGLUC #### [facility] [address] [address] [address] Katerina Rodarte Ethanol [Mass/Vol] 172 mg/dL Normal [facility] Comment on above: Performed By: #### P OCGLUC #### [facility] [address] [address] [address] Katerina Rodarte POINT OF CARE GLUCOSEon 10-29 Glucose [Mass/Vol] 90 mg/dL Normal 74-106 [facility] Comment on above: Performed By: #### P OCGLUC #### [facility] [address] [address] [address] Katerina Rodarte PROF 14(COMP METB)on 022 Albumin [Mass/Vol] 3.6 g/dL Normal 3.4-5.0 [facility] Comment on above: Performed By: #### C MREP #### [facility] [address] [address] [address] Katerina Rodarte Albumin/Globulin [Mass ratio] 0.9 {ratio} Normal [facility] Comment on above: Performed By: #### C MREP #### [facility] [address] [address] [address] Katerina Rodarte ALP [Catalytic activity/Vol] 125 U/L Critically high 46-116 [facility] Comment on above: Performed By: #### C MREP #### [facility] [address] [address] [address] Katerina Rodarte ALT [Catalytic activity/Vol] 56 U/L Normal 16-63 [facility] Comment on above: Performed By: #### C MREP #### [facility] [address] [place] [address] Dr. Katerina Rodarte Anion gap [Moles/Vol] 11.3 mmol/L Normal [facility] Comment on above: Performed By: #### C MREP #### [facility] [address] [place] [address] Dr. Katerina Rodarte AST [Catalytic activity/Vol] 81 U/L Critically high 15-37 [facility] Comment on above: Performed By: #### C MREP #### [facility] [address] [place] [address] Dr. Katerina Rodarte Bilirubin [Mass/Vol] 0.2 mg/dL Normal 0.2-1.0 [facility] Comment on above: Performed By: #### C MREP #### [facility] [address] [place] [address] Dr. Katerina Rodarte Calcium [Mass/Vol] 8.6 mg/dL Normal 8.5-10.1 [facility] Comment on above: Performed By: #### C MREP #### [facility] [address] [place] [address] Dr. Katerina Rodarte Chloride [Moles/Vol] 97 mmol/L Critically low 98-107 [facility] Comment on above: Performed By: #### C MREP #### [facility] [address] [place] [address] Dr. Katerina Rodarte CO2 [Moles/Vol] 31.0 mmol/L Normal 21.0-32.0 [facility] Comment on above: Performed By: #### C MREP #### [facility] [address] [place] [address] Dr. Katerina Rodarte Creatinine [Mass/Vol] 1.12 mg/dL Normal 0.70-1.30 [facility] Comment on above: Performed By: #### C MREP #### [facility] [address] [place] [address] Dr. Katerina Rodarte EGFR-AF TAJIK >60 Normal >=60 [facility] Comment on above: Performed By: #### C MREP #### [facility] [address] [place] [address] Dr. Katerina Rodarte EGFR-NON AF TAJIK >60 Normal >=60 [facility] Comment on above: Performed By: #### C MREP #### [facility] [address] [place] [address] Dr. Katerina Rodarte Globulin (S) [Mass/Vol] 3.8 g/dL Normal [facility] Comment on above: Performed By: #### C MREP #### [facility] [address] [place] [address] Dr. Katerina Rodarte Glucose [Mass/Vol] 90 mg/dL Normal 74-106 [facility] Comment on above: Performed By: #### C MREP #### [facility] [address] [place] [address] Dr. Katerina Rodarte Potassium [Moles/Vol] 4.3 mmol/L Normal 3.5-5.1 [facility] Comment on above: Performed By: #### C MREP #### [facility] [address] [place] [address] Dr. Katerina Rodarte Protein [Mass/Vol] 7.4 g/dL Normal 6.4-8.2 [facility] Comment on above: Performed By: #### C MREP #### [facility] [address] [place] [address] Dr. Katerina Rodarte Sodium [Moles/Vol] 135 mmol/L Critically low 136-145 Th [facility] Comment on above: Performed By: #### C MREP #### [facility] [address] [place], [place] [address] Dr. Katerina Rodarte Urea nitrogen [Mass/Vol] 10.0 mg/dL Normal 7.0-18.0 [facility] Comment on above: Performed By: #### C MREP #### [facility] [address] [place], [place] [address] Dr. Katerina Rodarte Urea nitrogen/Creatinine [Mass ratio] 8.9 mg/mg Normal [facility] Comment on above: Performed By: #### C MREP #### [facility] [address] [address] [address] Katerina Rodarte Basic Metabolic Panelon 09-27 Anion gap [Moles/Vol] 15.3 mmol/L High 6.0-15.[address] [facility] Comment on above: Performed By: #### B MP, MG, CBC #### [facility] [address] [place] [address] [place] Calcium [Mass/Vol] 8.5 mg/dL Normal 8.2-10.2 [facility] Comment on above: Performed By: #### B MP, MG, CBC #### [facility] [address] [place] [address] [place] Chloride [Moles/Vol] 106 mmol/L Normal 95-114 [facility] Comment on above: Performed By: #### B MP, MG, CBC #### [facility] [address] [id number] [place] CO2 [Moles/Vol] 23.0 mmol/L Normal 22.0-30.0 [facility] Comment on above: Performed By: #### B MP, MG, CBC #### [facility] [address] [id number] [place] Creatinine [Mass/Vol] 0.89 mg/dL Normal 0.64-1.27 [facility] Comment on above: Performed By: #### B MP, MG, CBC #### [address] Creatinine Clr Calc Pharmacy 76.43 [facility] Comment on above: Performed By: #### B MP, MG, CBC #### [address] Estimated GFR ( Dori > 60 [facility] Comment on above: Result Comment: GFR estimated reference range: According to KDOQI guidelines, <60 ml/min/1.73m2 is sufficient to diagnose a patient with chronic kidney disease. Performed By: #### B MP, MG, CBC #### [address] Estimated GFR (Non- Am > 60 [facility] Comment on above: Performed By: #### B MP, MG, CBC #### [address] Glucose [Mass/Vol] 85 mg/dL Normal 70-100 [facility] Comment on above: Result Comment: [place] Glucose Reference Range is dependent on time and content of last meal. Glucose of more than 200 mg/dL in a nonstressed, ambulatory subject supports the diagnosis of Diabetes Mellitus. ADA recommended reference range Performed By: #### B MP, MG, CBC #### [address] Potassium [Moles/Vol] 4.3 mmol/L Normal 3.5-5.1 [facility] Comment on above: Performed By: #### B MP, MG, CBC #### [address] Sodium [Moles/Vol] 140 mmol/L Significant change down 136-146 [facility] Comment on above: Performed By: #### B MP, MG, CBC #### [address] Urea nitrogen [Mass/Vol] 3 mg/dL Low 9-23 [facility] Comment on above: Performed By: #### B MP, MG, CBC #### [address] cervical spine wo conon 1 1-12-2022 CT cervical spine wo con [facility] [place] [address] [place] [address] CT Scan Report Signed Patient: Kathleen Clark MR#: [id number] 33 : 1975 Acct:[id number] Age/Sex: 47 / M ADM Date: 10/07/22 Loc: Room: [address] [place] [address] Type: ADM IN Attending Dr: Theresa Ohara DO Copies to: DO Theresa Duran DO Ordering Provider: Matthew Ford DO Date of Service: 10/07/22 CT/CT head/brain wo con: f ([id number]) CT/CT cervical spine wo con: f CLINICAL [...] Brittany Torres M.D.10/08/2022 8:38 AM Dictation Location: [place] [address] Transcribed By: [facility] 10/08/22837 Dictated By: Brittany Torres MD 10/08/22830 Signed By: 10/08/22837 Normal [facility] Complete Blood Count Auto Di ffon 10-08-2022 Basophils (Bld) [#/Vol] 0.1 10*3/uL Normal 0.0-0.2 [facility] Comment on above: Result Comment: PERF ORMED BY: [place] [address] PATHOLOGIST [employer] LATOYA CAMPBELL M.D. Performed By: #### B MP, MG, CBC #### [address] Basophils/100 WBC (Bld) 1.4 % Normal . [facility] Comment on above: Performed By: #### B MP, MG, CBC #### [address] Eosinophils (Bld) [#/Vol] 0.6 10*3/uL High 0.0-0.45 [facility] Comment on above: Performed By: #### B MP, MG, CBC #### [place] [address] [place] Eosinophils/100 WBC (Bld) 14.9 % Normal . [facility] Comment on above: Performed By: #### B MP, MG, CBC #### [facility] [address] [place] [address] [place] Erythrocyte distribution width (RBC) [Ratio] 15.0 % High 12.0-14.8 [facility] Comment on above: Performed By: #### B MP, MG, CBC #### [facility] [address] Hematocrit (Bld) [Volume fraction] 39.3 % Normal 38.8-50.0 [facility] Comment on above: Performed By: #### B MP, MG, CBC #### [address] Hemoglobin (Bld) [Mass/Vol] 12.9 g/dL Low 13.0-17.0 [facility] Comment on above: Performed By: #### B MP, MG, CBC #### [address] Lymphocytes (Bld) [#/Vol] 1.3 10*3/uL Normal 1.00-4.8 [facility] Comment on above: Performed By: #### B MP, MG, CBC #### [address] Lymphocytes/100 WBC (Bld) 33.1 % Normal . [facility] Comment on above: Performed By: #### B MP, MG, CBC #### [address] MCH (RBC) [Entitic mass] 32.8 pg Normal 27.5-35.2 [facility] Comment on above: Performed By: #### B MP, MG, CBC #### [address] MCV (RBC) [Entitic vol] 100.1 fL Normal 83.5-101 [facility] Comment on above: Performed By: #### B MP, MG, CBC #### [address] Mean Corpuscular HGB Conc 32.7 g/dL Normal 32.5-35.6 [facility] Comment on above: Performed By: #### B MP, MG, CBC #### [facility] [address] [place] [address] Monocytes (Bld) [#/Vol] 0.5 10*3/uL Normal 0.0-0.8 [facility] Comment on above: Performed By: #### B MP, MG, CBC #### [facility] [address] [place] [address] [place] Monocytes/100 WBC (Bld) 14.2 % Normal . [facility] Comment on above: Performed By: #### B MP, MG, CBC #### [facility] [address] Neutrophils (Bld) [#/Vol] 1.4 10*3/uL Low 1.8-7.7 [facility] Comment on above: Performed By: #### B MP, MG, CBC #### [facility] [address] [place] [address] [place] Neutrophils/100 WBC (Bld) 36.4 % Normal . [facility] Comment on above: Performed By: #### B MP, MG, CBC #### [facility] [address] [place] [address] [place] Nucleated RBC/100 WBC (Bld) [Ratio] 0.2 % Normal 0-0.5 [facility] Comment on above: Performed By: #### B MP, MG, CBC #### [facility] [address] [place] [address] [place] Platelet mean volume (Bld) [Entitic vol] 7.8 fL Normal 6.6-10.1 [facility] Comment on above: Performed By: #### B MP, MG, CBC #### [facility] [address] [place] [address] [place] Platelets (Bld) [#/Vol] 244 10*3/uL Normal 150-450 [facility] Comment on above: Performed By: #### B MP, MG, CBC #### [facility] [address] [place] [address] [place] RBC (Bld) [#/Vol] 3.92 10*6/uL Normal 3.90-5.60 [facility] Comment on above: Performed By: #### B MP, MG, CBC #### [facility] [address] [place] [address] [place] WBC (Bld) [#/Vol] 3.8 10*3/uL Low 4.5-11.0 [facility] Comment on above: Performed By: #### B MP, MG, CBC #### [facility] [address] [place] [address] Levetiracetam (Keppra)on levETIRAcetam [Mass/Vol] 26.2 ug/mL Normal 10.0-40.0 [facility] Comment on above: Result Comment: Perf ormed at: BN - [facility] [address] [id number] [employer] Salesperson: Theo Sierra MD, Phone: [phone] PERFORMED BY: [place] [address] PATHOLOGIST [employer]ESE [employer]CAKE [employer]LLER LATOYA CAMPBELL M.D. Performed By: #### L EV #### [facility] , Magnesiumon 10-08-2022 Magnesium [Mass/Vol] 1.8 mg/dL Normal 1.6-2.6 [facility] Comment on above: Result Comment: PERF ORMED BY: [place] [address] PATHOLOGIST [employer]ER LATOYA CAMPBELL M.D. Performed By: #### B KATHI MG, CBC #### [facility] [address] [place], [place] [id number] [facility] Albumin [Mass/volume] in Ser um or PlasmaOrdered By: Matthew Ford on 10-07-2022 Albumin [Mass/Vol] 3.8 g/dL 3.2-5.5 [facility] Amphetamine Screen Ql (U)Ord ered By: Matthew Ford on 10-07-2022 Amphetamines Ql (U) Negative Negative [facility] Barbiturates [Presence] in U rineOrdered By: Matthew Ford on 10-07-2022 Barbiturates Ql (U) Negative Negative [facility] Basophils Auto (Bld) [#/Vol] Ordered By: Matthew Ford on 10-07-2022 Basophils (Bld) [#/Vol] 0.1 10*3/uL 0.0-0.2 [facility] Basophils/100 WBC Auto (Bld) Ordered By: Matthew Ford on 10-07-2022 Basophils/100 WBC (Bld) 1.2 % . [facility] Benzodiazepines [Presence] i n UrineOrdered By: Matthew Ford on 10-07-2022 Benzodiazepines Ql (U) Negative [facility] Cannabinoids [Presence] in U rine by Screen methodOrdered By: Matthew Ford on 10-07-2022 Cannabinoids Screen Ql (U) Positive Negative [facility] Comment on above: These are unconfirme d results and should not be used for legal purposes. Drug Cut-Off Concentration: AMPH 1000 ng/mL JODY 200 ng/mL ART 200 ng/mL COCM 300 ng/mL OP 300 ng/mL PCP 25 ng/mL THC 20 ng/mL Complete Blood Count Auto Di ffon 10-07-2022 Basophils (Bld) [#/Vol] 0.1 10*3/uL Normal 0.0-0.2 [facility] Comment on above: Result Comment: PERF ORMED BY: [place] [address] PATHOLOGIST [employer]LLER LATOYA CAMPBELL M.D. Performed By: #### C BC, PT, CMP #### [address] Basophils/100 WBC (Bld) 1.2 % Normal . [facility] Comment on above: Performed By: #### C BC, PT, CMP #### [facility] [address] [place] [address] [place] Eosinophils (Bld) [#/Vol] 0.5 10*3/uL High 0.0-0.45 [facility] Comment on above: Performed By: #### C BC, PT, CMP #### [place] [address] [place] Eosinophils/100 WBC (Bld) 8.2 % Normal . [facility] Comment on above: Performed By: #### C BC, PT, CMP #### [place] [address] [place] Erythrocyte distribution width (RBC) [Ratio] 14.6 % Normal 12.0-14.8 [facility] Comment on above: Performed By: #### C BC, PT, CMP #### [address] Hematocrit (Bld) [Volume fraction] 39.5 % Normal 38.8-50.0 [facility] Comment on above: Performed By: #### C BC, PT, CMP #### [address] Hemoglobin (Bld) [Mass/Vol] 13.1 g/dL Normal 13.0-17.0 [facility] Comment on above: Performed By: #### C CHRIS, PT, CMP #### [address] Lymphocytes (Bld) [#/Vol] 2.6 10*3/uL Normal 1.00-4.8 [facility] Comment on above: Performed By: #### C BC, PT, CMP #### [address] Lymphocytes/100 WBC (Bld) 45.8 % Normal . [facility] Comment on above: Performed By: #### C CHRIS, PT, CMP #### [address] MCH (RBC) [Entitic mass] 32.8 pg Normal 27.5-35.2 [facility] Comment on above: Performed By: #### C BC, PT, CMP #### [address] MCV (RBC) [Entitic vol] 99.1 fL Normal 83.5-101 [facility] Comment on above: Performed By: #### C BC, PT, CMP #### [address] Mean Corpuscular HGB Conc 33.1 g/dL Normal 32.5-35.6 [facility] Comment on above: Performed By: #### C BC, PT, CMP #### [address] [place] [address] [place] Monocytes (Bld) [#/Vol] 0.7 10*3/uL Normal 0.0-0.8 [facility] Comment on above: Performed By: #### C BC, PT, CMP #### [facility] [address] [place] [address] [place] Monocytes/100 WBC (Bld) 11.8 % Normal . [facility] Comment on above: Performed By: #### C BC, PT, CMP #### [facility] [address] [place] [address] [place] Neutrophils (Bld) [#/Vol] 1.9 10*3/uL Normal 1.8-7.7 [facility] Comment on above: Performed By: #### C BC, PT, CMP #### [facility] [address] Neutrophils/100 WBC (Bld) 33.0 % Normal . [facility] Comment on above: Performed By: #### C BC, PT, CMP #### [facility] [address] [place] [address] [place] Nucleated RBC/100 WBC (Bld) [Ratio] 0.1 % Normal 0-0.5 [facility] Comment on above: Performed By: #### C BC, PT, CMP #### [facility] [address] [place] [address] [place] Platelet mean volume (Bld) [Entitic vol] 7.7 fL Normal 6.6-10.1 [facility] Comment on above: Performed By: #### C BC, PT, CMP #### [facility] [address] [place] [address] [place] Platelets (Bld) [#/Vol] 301 10*3/uL Normal 150-450 [facility] Comment on above: Performed By: #### C BC, PT, CMP #### [facility] [address] [place] [address] [place] RBC (Bld) [#/Vol] 3.99 10*6/uL Normal 3.90-5.60 [facility] Comment on above: Performed By: #### C BC, PT, CMP #### [facility] [address] WBC (Bld) [#/Vol] 5.8 10*3/uL Normal 4.5-11.0 [facility] Comment on above: Performed By: #### C BC, PT, CMP #### [address] Comprehensive Metabolic Pane vivek 10-07-2022 Albumin [Mass/Vol] 3.8 g/dL Normal 3.2-5.5 [facility] Comment on above: Performed By: #### C BC, PT, CMP #### [address] Albumin/Globulin [Mass ratio] 1.4 {ratio} Normal [facility] Comment on above: Performed By: #### C BC, PT, CMP #### [address] ALP [Catalytic activity/Vol] 92 U/L Normal 32-92 [facility] Comment on above: Performed By: #### C BC, PT, CMP #### [address] ALT [Catalytic activity/Vol] 21 U/L Normal 10-60 [facility] Comment on above: Performed By: #### C BC, PT, CMP #### [address] Anion gap [Moles/Vol] 13.2 mmol/L Normal 6.0-15.[address] [facility] Comment on above: Performed By: #### C BC, PT, CMP #### [address] AST [Catalytic activity/Vol] 30 U/L Normal 10-42 [facility] Comment on above: Performed By: #### C BC, PT, CMP #### [facility] [address] [place] [address] Bilirubin [Mass/Vol] 0.6 mg/dL Normal 0.3-1.2 [facility] Comment on above: Performed By: #### C BC, PT, CMP #### [facility] [address] [place] [address] [place] Calcium [Mass/Vol] 8.8 mg/dL Normal 8.2-10.2 [facility] Comment on above: Performed By: #### C BC, PT, CMP #### [facility] [address] [place] [address] [place] Chloride [Moles/Vol] 94 mmol/L Low 95-114 [facility] Comment on above: Performed By: #### C BC, PT, CMP #### [facility] [address] CO2 [Moles/Vol] 25.0 mmol/L Normal 22.0-30.0 [facility] Comment on above: Performed By: #### C BC, PT, CMP #### [facility] [address] [place] [address] [place] Creatinine [Mass/Vol] 1.09 mg/dL Normal 0.64-1.27 [facility] Comment on above: Performed By: #### C BC, PT, CMP #### [facility] [address] [place] [address] [place] Creatinine Clr Calc Pharmacy 64.68 [facility] Comment on above: Result Comment: PERF ORMED BY: [place] [address] PATHOLOGIST [employer] ROLLER LATOYA CAMPBELL M.D. Performed By: #### C BC, PT, CMP #### [facility] [address] [place] [address] Estimated GFR ( Dori > 60 [facility] Comment on above: Result Comment: GFR estimated reference range: According to KDOQI guidelines, <60 ml/min/1.73m2 is sufficient to diagnose a patient with chronic kidney disease. Performed By: #### C BC, PT, CMP #### [facility] [address] [place] [address] [place] Estimated GFR (Non- Am > 60 [facility] Comment on above: Performed By: #### C BC, PT, CMP #### [facility] [address] Globulin (S) [Mass/Vol] 2.8 g/dL Normal [facility] Comment on above: Performed By: #### C BC, PT, CMP #### [facility] [address] Glucose [Mass/Vol] 93 mg/dL Normal 70-100 [facility] Comment on above: Result Comment: [facility] Glucose Reference Range is dependent on time and content of last meal. Glucose of more than 200 mg/dL in a nonstressed, ambulatory subject supports the diagnosis of Diabetes Mellitus. ADA recommended reference range Performed By: #### C BC, PT, CMP #### [facility] [address] Potassium [Moles/Vol] 4.2 mmol/L Normal 3.5-5.1 [facility] Comment on above: Performed By: #### C BC, PT, CMP #### [facility] [address] Protein [Mass/Vol] 6.6 g/dL Normal 6.1-7.9 [facility] Comment on above: Performed By: #### C BC, PT, CMP #### [address] Sodium [Moles/Vol] 128 mmol/L Low 136-146 [facility] Comment on above: Performed By: #### C BC, PT, CMP #### [facility] [address] [place] [address] [place] Urea nitrogen [Mass/Vol] 4 mg/dL Low 9-23 [facility] Comment on above: Performed By: #### C BC, PT, CMP #### [place] [address] [place] Creatinine and Glomerular fi ltration rate.predicted panel (S/P/Bld)Ordered By: Matthew Ford on 10-07-2022 Creatinine [Mass/Vol] 1.09 mg/dL 0.64-1.27 [facility] Drug Screen,Urineon 10-07-20 22 Amphetamine Screen,Urine Negative Normal Negative [facility] Comment on above: Performed By: #### C BC, PT, CMP #### [facility] [address] [place] [address] [place] Barbiturate Screen,Urine Negative Normal Negative [facility] Comment on above: Performed By: #### C BC, PT, CMP #### [facility] [address] [place] [address] [place] Benzodiazepines Screen,Urine Negative Normal Negative [facility] Comment on above: Performed By: #### C BC, PT, CMP #### [place] [address] [place] Cannabinoid Screen,Urine Positive High Negative [facility] Comment on above: Result Comment: Thes e are unconfirmed results and should not be used for legal purposes. Drug Cut-Off Concentration: AMPH 1000 ng/mL JODY 200 ng/mL ART 200 ng/mL COCM 300 ng/mL OP 300 ng/mL PCP 25 ng/mL THC 20 ng/mL PERFORMED BY: [place] [address] PATHOLOGIST [employer]ESE [employer]CAKE ROLLER LATOYA CAMPBELL M.D. Performed By: #### C BC, PT, CMP #### [place] [address] [place] Cocaine Screen,Urine Positive High Negative [facility] Comment on above: Performed By: #### C BC, PT, CMP #### [facility] [address] [place] [address] [place] Opiate Screen,Urine Negative Normal Negative [facility] Comment on above: Performed By: #### C BC, PT, CMP #### [facility] [address] [place] [address] [place] Phencyclidine Screen,Urine Negative Normal Negative [facility] Comment on above: Performed By: #### C BC, PT, CMP #### [place] [address] [place] ECG 12 lead ECGon 10-07-2022 ECG 12 lead ECG [facility] [place] [address] [place] [address] Electrocardiograph Report Signed Patient: Kathleen Clark MR#: [id number] 33 : 1975 Acct:[id number] Age/Sex: 47 / M ADM Date: 10/07/22 Loc: 4 Room: [address] [place] [address] Type: DIS INOo Attending Dr: Theresa Ohara [...] was found Confirmed by MATTHEW FORD DO ([id number]) on 10/08/2022 2:05:39 AM Referred By: Electronically Signed By:MATTHEW FORD DO Transcribed By: MUS Signed By Matthew Ford DO 10/08 0205 Normal [facility] Eosinophils Auto (Bld) [#/Vo l]Ordered By: Matthew Ford on 10-07-2022 Eosinophils (Bld) [#/Vol] 0.5 10*3/uL 0.0-0.45 [facility] Eosinophils/100 WBC Auto (Bl d)Ordered By: Matthew Ford on 10-07-2022 Eosinophils/100 WBC (Bld) 8.2 % . [facility] Erythrocyte distribution wid th Auto (RBC) [Ratio]Ordered By: Matthew Ford on 10-07-2022 Erythrocyte distribution width (RBC) [Ratio] 14.6 % 12.0-14.8 [facility] Estimated glomerular filtrat ion rate (GFR) non- AmericanOrdered By: Matthew Ford on 10-07-2022 GFR/1.73 sq M.predicted among non-blacks MDRD (S/P/Bld) [Vol rate/Area] > 60 mL/Min [facility] Ethyl Alcohol Profileon 09-27 Ethanol [Mass/Vol] 309 mg/dL Normal [facility] Comment on above: Performed By: #### C BC, PT, CMP #### [facility] [address] Percent Ethanol 0.309 % [facility] Comment on above: Result Comment: PERF ORMED BY: [facility] [address] [place] [address] PATHOLOGIST CHEESE PANCAKE ROLLER LATOYA CAMPBELL M.D. Performed By: #### C BC, PT, CMP #### [facility] [address] Globulin Calc (S) [Mass/Vol] Ordered By: Matthew Ford on 10-07-2022 Globulin (S) [Mass/Vol] 2.8 g/dL [facility] Glucose Glucometer (BldC) [M ass/Vol]Ordered By: Matthew Ford on 10-07-2022 Glucose [Mass/Vol] 89 mg/dL [facility] Comment on above: Random Glucose Refer ence Range is dependent on time and content of last meal. Glucose of more than 200 mg/dL in a nonstressed, ambulatory subject supports the diagnosis of Diabetes Mellitus. Glucose Poct Glucometerson 1 12-07-2021 Commemt1 [facility] Comment on above: Result Comment: Glu2 : WILL NOTIFY DR/RN PERFORMED BY: [place] [address] PATHOLOGIST CHEESE PANCAKE ROLLER LATOYA CAMPBELL M.D. Performed By: #### G LULS #### Point of Care testing , Glucose [Mass/Vol] 89 mg/dL Normal [facility] Comment on above: Result Comment: [place] om Glucose Reference Range is dependent on time and content of last meal. Glucose of more than 200 mg/dL in a nonstressed, ambulatory subject supports the diagnosis of Diabetes Mellitus. Performed By: #### G LULS #### Point of Care testing , Hematocrit Auto (Bld) [Volum e fraction]Ordered By: Matthew Ford on 10-07-2022 Hematocrit (Bld) [Volume fraction] 39.5 % 38.8-50.0 [facility] Hemoglobin [Mass/volume] in BloodOrdered By: Matthew Ford on 10-07-2022 Hemoglobin (Bld) [Mass/Vol] 13.1 g/dL 13.0-17.0 [facility] Laboratory - CoagulationOrde red By: Matthew Ford on 10-07-2022 PT Coag (PPP) [Time] 10.9 s 9.0-12.9 [facility] - Drug toxicology Ordered By: Matthew Ford on 10-07-2022 Opiates Ql (U) Negative Negative [facility] - Hematology and Cell countsOrdered By: Matthew Ford on 10-07-2022 Nucleated RBC/100 WBC (Bld) [Ratio] 0.1 % 0-0.5 [facility] Leukocytes [#/volume] in Blo od by Automated countOrdered By: Matthew Ford on 10-07-2022 WBC (Bld) [#/Vol] 5.8 10*3/uL 4.5-11.0 [facility] Lymphocytes Auto (Bld) [#/Vo l]Ordered By: Matthew Ford on 10-07-2022 Lymphocytes (Bld) [#/Vol] 2.6 10*3/uL 1.00-4.8 [facility] Lymphocytes/100 WBC Auto (Bl d)Ordered By: Matthew Ford on 10-07-2022 Lymphocytes/100 WBC (Bld) 45.8 % . [facility] MCH Auto (RBC) [Entitic mass ]Ordered By: Matthew Ford on 10-07-2022 MCH (RBC) [Entitic mass] 32.8 pg 27.5-35.2 [facility] MCHC Auto (RBC) [Mass/Vol]Or dered By: Matthew Ford on 10-07-2022 MCHC (RBC) [Mass/Vol] 33.1 g/dL 32.5-35.6 [facility] MCV Auto (RBC) [Entitic vol] Ordered By: Matthew Ford on 10-07-2022 MCV (RBC) [Entitic vol] 99.1 fL 83.5-101 [facility] Monocytes Auto (Bld) [#/Vol] Ordered By: Matthew Ford on 10-07-2022 Monocytes (Bld) [#/Vol] 0.7 10*3/uL 0.0-0.8 [facility] Monocytes/100 WBC Auto (Bld) Ordered By: Matthew Ford on 10-07-2022 Monocytes/100 WBC (Bld) 11.8 % . [facility] Neutrophils Auto (Bld) [#/Vo l]Ordered By: Matthew Ford on 10-07-2022 Neutrophils (Bld) [#/Vol] 1.9 10*3/uL 1.8-7.7 [facility] Neutrophils/100 WBC Auto (Bl d)Ordered By: Matthew Ford on 10-07-2022 Neutrophils/100 WBC (Bld) 33.0 % . [facility] No Panel InformationOrdered By: Matthew Ford on 10-07-2022 Bedside Glucose Comment See comment [facility] Comment on above: Glu2: WILL NOTIFY DR /RN Estimated GFR () > 60 mL/Min [facility] Comment on above: GFR estimated refere nce range: According to KDOQI guidelines, <60 ml/min/1.73m2 is sufficient to diagnose a patient with chronic kidney disease. Pharmacy Creatinine Clearance (Chem 64.68 [facility] Phencyclidine Screen Ql (U)O rdered By: Matthew Ford on 10-07-2022 Phencyclidine Ql (U) Negative Negative [facility] Platelet mean volume Auto (B ld) [Entitic vol]Ordered By: Matthew Ford on 10-07-2022 Platelet mean volume (Bld) [Entitic vol] 7.7 fL 6.6-10.1 [facility] Platelet poor plasma interna tional normalized ratio (INR) by coagulation assay (relatOrdered By: Matthew Ford on 10-07-2022 INR Coag (PPP) [Relative time] 1.0 {INR} [facility] Comment on above: INR Therapeutic Rang [...] 10-07-2022 Platelets (Bld) [#/Vol] 301 10*3/uL 150-450 [facility] Protein [Mass/volume] in Ser um or PlasmaOrdered By: Matthew Ford on 10-07-2022 Protein [Mass/Vol] 6.6 g/dL 6.1-7.9 [facility] Prothrombin Time INRon 10-07 INR Coag (PPP) [Relative time] 1.0 {INR} Normal [facility] Comment on above: Result Comment: INR [...] heart valves: 3 - 4.5 PERFORMED BY: [place] [address] PATHOLOGIST [employer]CAKE ROLLER LATOYA CAMPBELL M.D. Performed By: #### C BC, PT, CMP #### [facility] [address] [place] [address] PT Coag (PPP) [Time] 10.9 s Normal 9.0-12.9 [facility] Comment on above: Performed By: #### C BC, PT, CMP #### [facility] [address] [place] [address] RBC Auto (Bld) [#/Vol]Ordere d By: Matthew Ford on 10-07-2022 RBC (Bld) [#/Vol] 3.99 10*6/uL 3.90-5.60 [facility] Serum or plasma alanine pascual otransferase measurement without P-5'-P (enzymatic activiOrdered By: Matthew Ford on 10-07-2022 ALT No additional P-5'-P [Catalytic activity/Vol] 21 U/L 10-60 [facility] Serum or plasma albumin/glob ulin mass ratioOrdered By: Matthew Ford on 10-07-2022 Albumin/Globulin [Mass ratio] 1.4 {ratio} [facility] Serum or plasma alkaline jonathan sphatase measurement (enzymatic activity/volume)Ordered By: Matthew Ford on 10-07-2022 ALP [Catalytic activity/Vol] 92 U/L 32-92 [facility] Serum or plasma anion gap de terminationOrdered By: Matthew Ford on 10-07-2022 Anion gap [Moles/Vol] 13.2 mmol/L 6.0-15.[address] [facility] Serum or plasma aspartate am inotransferase measurement (enzymatic activity/volume)Ordered By: Matthew Ford on 10-07-2022 AST [Catalytic activity/Vol] 30 U/L 10-42 [facility] Serum or plasma calcium william urement (mass/volume)Ordered By: Matthew Ford on 10-07-2022 Calcium [Mass/Vol] 8.8 mg/dL 8.2-10.2 [facility] Serum or plasma chloride josh surement (moles/volume)Ordered By: Matthew Ford on 10-07-2022 Chloride [Moles/Vol] 94 mmol/L 95-114 [facility] Serum or plasma ethanol william urement (mass/volume)Ordered By: Matthew Ford 10-07-2022 Ethanol [Mass/Vol] 309 mg/dL [facility] [...] on 10-07-2022 Potassium [Moles/Vol] 4.2 mmol/L 3.5-5.1 [facility] Serum or plasma sodium measu rement (moles/volume)Ordered By: Matthew Ford on 11-11-2022 Sodium [Moles/Vol] 128 mmol/L 136-146 [facility] Serum or plasma total biliru bin measurement (mass/volume)Ordered By: Matthew Ford on 10-07-2022 Bilirubin [Mass/Vol] 0.6 mg/dL 0.3-1.2 [facility] Serum or plasma total carbon dioxide measurement (moles/volume)Ordered By: Matthew Ford on 10-07-2022 CO2 [Moles/Vol] 25.0 mmol/L 22.0-30.0 [facility] Serum or plasma urea nitroge n measurement (mass/volume)Ordered By: Matthew Ford on 10-07-2022 Urea nitrogen [Mass/Vol] 4 mg/dL 08-19 [facility] Urine cocaine detectionOrder ed By: Matthew Ford on 10-07-2022 Cocaine Ql (U) Positive Negative [facility] CARDIAC RA 3-6on 2 CK [Catalytic activity/Vol] 127 U/L Normal 39-308 [facility] Comment on above: Performed By: #### C MREP #### [facility] [address] [address] [address] Katerina Rodarte CK.MB [Mass/Vol] 3.20 ng/mL Normal <=3.60 [facility] Comment on above: Performed By: #### C MREP #### [facility] [address] [address] [address] Katerina Rodarte HSTROP 9.9 pg/mL Normal 4.0-76.1 [facility] Comment on above: Result Comment: CUT- OFF POINTS HAVE BEEN ESTABLISHED BASED ON THE FOURTH UNIVERSAL DEFINITIONS OF MYOCARDIAL INFARCTION. THE UPPER REFERENCE LIMIT (URL) OF TROPONIN, DEFINED THE 99TH PERCENTILE OF cTnI DISTRIBUTION IN A REFERENCE POPULATION, HAS BEEN CONFIRMED THE DECISION THRESHOLD FOR NC DIAGNOSIS. Performed By: #### C MREP #### [facility] [address] HEAD WO CONon [...] ANISH ARIAS Date: 2022-08-10 22:12 Normal [facility] AMYLASEon 08-10-2022 Amylase [Catalytic activity/Vol] 43 U/L Normal 25-115 [facility] Comment on above: Performed By: #### L IPA, SUSAN, CMP, ETH, CMADM ####[facility] [id number] [address]Dr. Katerina Rodarte CARDIAC RA ADMITon 022 CK [Catalytic activity/Vol] 78 U/L Normal 39-308 [facility] Comment on above: Performed By: #### L IPA, SUSAN, CMP, ETH, CMADM ####[facility] [id number] [address]Dr. Katerina Rodarte CK.MB [Mass/Vol] 2.61 ng/mL Normal <=3.60 [facility] Comment on above: Performed By: #### L IPA, SUSAN, CMP, ETH, CMADM ####[facility] [id number] [address]Dr. Katerina Rodarte HSTROP 7.1 pg/mL Normal 4.0-76.1 [facility] Comment on above: Result Comment: CUT- OFF POINTS HAVE BEEN ESTABLISHED BASED ON THE FOURTH UNIVERSAL DEFINITIONS OF MYOCARDIAL INFARCTION. THE UPPER REFERENCE LIMIT (URL) OF TROPONIN, DEFINED THE 99TH PERCENTILE OF cTnI DISTRIBUTION IN A REFERENCE POPULATION, HAS BEEN CONFIRMED THE DECISION THRESHOLD FOR NC DIAGNOSIS. Performed By: #### L IPA, SUSAN, CMP, ETH, CMADM ####[facility] [id number] [address]Dr. Katerina Rodarte SHIRA 184 ng/mL Critically high 16-96 [facility] Comment on above: Performed By: #### L IPA, SUSAN, CMP, ETH, CMADM ####[facility] [id number] [id number][address] Katerina Rodarte CBC AUTO DIFFon 08-10-2022 BASO # 0.0 103/ul Normal 0.0-0.1 [facility] Comment on above: Performed By: #### C BC ####[facility] [id number] [id number]. Liliasamina Rodarte Basophils/100 WBC (Bld) 0.5 % Normal 0.2-2.0 [facility] Comment on above: Performed By: #### C BC ####[facility] [id number] [place], [place] [address]Dr. Liliasamina Rodarte EO # 0.1 103/ul Normal 0.0-0.7 [facility] Comment on above: Performed By: #### C BC ####[facility] [address] [place] [address]Dr. Liliasamina Rodarte Eosinophils/100 WBC (Bld) 2.2 % Normal 0.9-7.0 [facility] Comment on above: Performed By: #### C BC ####[facility] Pirjapdc[address] [place], [place] [address]Dr. Katerina Rodarte Erythrocyte distribution width (RBC) [Ratio] 14.1 % Normal 11.0-15.0 [facility] Comment on above: Performed By: #### C BC ####[facility] [address]my[address] [place], [place] [address]Dr. Katerina Rodarte Hematocrit (Bld) [Volume fraction] 39.6 % Critically low 42.0-54.0 [facility] Comment on above: Performed By: #### C BC ####[facility] [address]vegg[address] [place], [place] [address]Dr. Katerina Rodarte Hemoglobin (Bld) [Mass/Vol] 13.3 g/dL Critically low 14.0-18.0 [facility] Comment on above: Performed By: #### C BC ####[facility] [address]wljayum[address] [place] [id number]. Katerina Rodarte IG # 0.01 10e3/ul Normal 0.00-0.03 [facility] Comment on above: Performed By: #### C BC ####[facility] Rihvzzfydx[address] [place] [id number]. Katerina Rodarte IG % 0.2 % Normal 0.0-0.5 [facility] Comment on above: Performed By: #### C BC ####[facility] Tntqrjllmp[address] [place] [address]Dr. Katerina Rodarte LYMPH # 1.5 103/ul Normal 1.2-3.8 [facility] Comment on above: Performed By: #### C BC ####[facility] [address]hotyamzfy[address] [place] [address]Dr. Liliasamina Rodarte Lymphocytes/100 WBC (Bld) 36.2 % Normal 20.5-60.0 [facility] Comment on above: Performed By: #### C BC ####[facility] [address] [place] [address]Dr. Katerina Rodarte MANUAL DIFF REQ NO Normal [facility] Comment on above: Performed By: #### C BC ####[facility] Sqsshyipvf[address] [place] [id number]. Katerina Rodarte MCH (RBC) [Entitic mass] 31.8 pg Normal 25.9-34.0 [facility] Comment on above: Performed By: #### C BC ####[facility] [address] [place], [place] [id number]. Katerina Rodarte MCHC (RBC) [Mass/Vol] 33.6 g/dL Normal 29.9-35.2 [facility] Comment on above: Performed By: #### C BC ####[facility] [address] [place] [address]Dr. Katerina Rodarte MCV (RBC) [Entitic vol] 94.7 fL Critically high 80.0-94.0 [facility] Comment on above: Performed By: #### C BC ####[facility] [address]zq[address] [place] [address]Dr. Katerina Rodarte MONO # 0.4 103/ul Normal 0.3-0.8 [facility] Comment on above: Performed By: #### C BC ####[facility] [address]rmsmnjd[address] [place] [address]Dr. Katerina Rodarte Monocytes/100 WBC (Bld) 8.9 % Normal 1.7-12.0 [facility] Comment on above: Performed By: #### C BC ####[facility] Xdkgmeciey[address] [place] [address]Dr. Katerina Rodarte NEUT # 2.2 103/ul Normal 1.4-6.5 [facility] Comment on above: Performed By: #### C BC ####[facility] [address]wkwaktept[address] [place] [address]Dr. Katerina Rodarte Neutrophils/100 WBC (Bld) 52.0 % Normal 43.0-75.0 [facility] Comment on above: Performed By: #### C BC ####[facility] Tphpdnpnwo[address] [place] [address]Dr. Katerina Rodarte Platelet mean volume (Bld) [Entitic vol] 9.2 fL Critically low 9.5-13.5 [facility] Comment on above: Performed By: #### C BC ####[facility] Yfoobvbtde[address] [place] [address]Dr. Katerina Rodarte PLT 261 103/ul Normal 150-450 [facility] Comment on above: Performed By: #### C BC ####[facility] Zvvvgkmipy27[address] [place] [address]Dr. Katerina Rodarte RBC 4.18 106/ul Critically low 4.70-6.10 [facility] Comment on above: Performed By: #### C BC ####[facility] Metwkfqtth[address] [place] [address]Dr. Katerina Rodarte WBC 4.2 103/ul Normal 4.0-11.0 [facility] Comment on above: Performed By: #### C BC ####[facility] Ztnlwwwseh[address] [place] [address]Dr. Katerina Rodarte DRUG SCREEN RAPID (URINE)on 08-10-2022 AMP Negative Normal NEGATIVE [facility] Comment on above: Performed By: #### C MREP #### [facility] [address] [place] [address] [address] Katerina Rodarte BAR Negative Normal NEGATIVE [facility] Comment on above: Performed By: #### C MREP #### [facility] [address] [address] [address] Katerina Rodarte BUP Negative Normal NEGATIVE [facility] Comment on above: Performed By: #### C MREP #### [facility] [address] [address] [address] Katerina Rodarte BZO Negative Normal NEGATIVE [facility] Comment on above: Performed By: #### C MREP #### [facility] [address] [address] [address] Katerina Rodarte CARLIE Negative Normal NEGATIVE [facility] Comment on above: Performed By: #### C MREP #### [facility] [address] [address] [address] Katerina Rodarte CUT-OFFS SEE BELOW Normal [facility] Comment on above: Result Comment: AMP (Amphetamine): 500ng/mL, BAR (Barbituates): 200 ng/mL, BZO (Benzodiazepines): 150 ng/mL, BUP (Buprenorphine): 10 ng/mL, CARLIE (Cocaine): 150 ng/mL, mAMP (Methamphetamine): 500 ng/mL, MTD (Methadone): 200 ng/mL, OPI (Opiates): 100 ng/mL, OXY (Oxycodone): 100 ng/mL, PCP (Phencyclidine): 25 ng/mL, PPX (Propoxyphene): 300 ng/mL, THC (Cannabinoids): 50 ng/mL, TCA (Trycyclic Antidepressants): 300 ng/mL Performed By: #### C MREP #### [facility] [address] [address] [address] Katerina Rodarte DRUG CUT HEADER DRUG CLASS TEST SYST EM CUT-OFF CONCENTRATIONS ARE FOLLOWS: Normal [facility] Comment on above: Performed By: #### C MREP #### [facility] [address] [place] [address] [address] Katerina Rodarte mAMP Negative Normal NEGATIVE [facility] Comment on above: Performed By: #### C MREP #### [facility] [address] [address] [address] Katerina Rodarte MTD Negative Normal NEGATIVE [facility] Comment on above: Performed By: #### C MREP #### [facility] [address] [address] [address] Katerina Rodarte OPI Negative Normal NEGATIVE [facility] Comment on above: Performed By: #### C MREP #### [facility] [address] [place] [address] Dr. Katerina Rodarte OXY Negative Normal NEGATIVE [facility] Comment on above: Performed By: #### C MREP #### [facility] [address] [place] [address] Dr. Katerina Rodarte PCP Negative Normal NEGATIVE [facility] Comment on above: Performed By: #### C MREP #### [facility] [address] [place] [address] Dr. Katerina Rodarte PPX Negative Normal NEGATIVE [facility] Comment on above: Performed By: #### C MREP #### [facility] [address] [place] [address] Dr. Katerina Rodarte TCA Negative Normal NEGATIVE [facility] Comment on above: Performed By: #### C MREP #### [facility] [address] [place] [address] Dr. Katerina Rodarte THC Negative Normal NEGATIVE [facility] Comment on above: Performed By: #### C MREP #### [facility] [address] [address] [address] Katerina Rodarte ER URINE PROFILEon 2 Bilirubin Ql (U) Negative Normal NEGATIVE [facility] Comment on above: Performed By: #### C MREP #### [facility] [address] [place] [address] Dr. Katerina Rodarte Clarity (U) CLEAR Normal CLEAR [facility] Comment on above: Performed By: #### C MREP #### [facility] [address] [place] [address] Dr. Katerina Rodarte Color (U) LT. YELLOW Normal YELLOW [facility] Comment on above: Performed By: #### C MREP #### [facility] [address] [place] [address] Dr. Katerina Rodarte ERUAHD A micrscopic examina tion will be performed if indicated. Normal [facility] Comment on above: Performed By: #### C MREP #### [facility] [address] [place] [address] Dr. Katerina Rodarte Glucose Ql (U) Negative Normal NEGATIVE [facility] Comment on above: Performed By: #### C MREP #### [facility] [address] [place] [address] Dr. Katerina Rodarte Hemoglobin Ql (U) Negative Normal NEGATIVE [facility] Comment on above: Performed By: #### C MREP #### [facility] [address] [place] [address] Dr. Katerina Rodarte Ketones Ql (U) Negative Normal NEGATIVE [facility] Comment on above: Performed By: #### C MREP #### [facility] [address] [place] [address] Dr. Katerina Rodarte LEUKOCYTES Negative Normal NEGATIVE [facility] Comment on above: Performed By: #### C MREP #### [facility] [address] [place] [address] Dr. Katerina Rodarte Nitrite Ql (U) Negative Normal NEGATIVE [facility] Comment on above: Performed By: #### C MREP #### [facility] [address] [place] [address] Dr. Katerina Rodarte pH (U) 6.0 [pH] Normal 5-9 [facility] Comment on above: Performed By: #### C MREP #### [facility] [address] [place] [address] Dr. Katerina Rodarte SPEC GRAVITY <=1.005 Abnormal 1.005-<=1.0 25 [facility] Comment on above: Performed By: #### C MREP #### [facility] [address] [place] [address] [address] Katerina Rodarte UA PROTEIN Negative Normal NEGATIVE/ TRACE [facility] Comment on above: Performed By: #### C MREP #### [facility] [address] [address] [address] Katerina Rodarte UR MICRO IND NOT INDICATED Normal [facility] Comment on above: Performed By: #### C MREP #### [facility] [address] [address] [address] Katerina Rodarte Urobilinogen Qn (U) 0.2 {Markell'U}/dL Normal 0.2 - 1. 0 [facility] Comment on above: Performed By: #### C MREP #### [facility] [address] [place] [address] Dr. Katerina Rodarte ETHANOL (BLD ALC)on 08-10-20 ALC NOTE NOTE: 80 mg/dl is th e legal limit for a blood alcohol level Normal [facility] Comment on above: Performed By: #### L IPA, SUSAN, CMP, ETH, CMADM ####[facility] [address] [place] [address]DrZiggy Rodarte Ethanol [Mass/Vol] 279 mg/dL Normal [facility] Comment on above: Performed By: #### L IPA, SUSAN, CMP, ETH, CMADM ####[facility] [address] [place] [address]Dr. Katerina Rodarte LACTATE/LACTIC ACIDon 2021 Lactate [Moles/Vol] 1.3 mmol/L Normal 0.4-1.9 [facility] Comment on above: Performed By: #### C MREP #### [facility] [address] [place] [address] [address] Katerina Rodarte LIPASEon 08-10-2022 Lipase [Catalytic activity/Vol] 114.0 U/L Normal 73.0-393.0 [facility] Comment on above: Performed By: #### L IPA, SUSAN, CMP, ETH, CMADM ####[facility] [address] [place] [address]Dr. Katerina Rodarte PROF 14(COMP METB)on 022 Albumin [Mass/Vol] 3.4 g/dL Normal 3.4-5.0 [facility] Comment on above: Performed By: #### L IPA, SUSAN, CMP, ETH, CMADM ####[facility] [address] [place] [address]Dr. Katerina Rodarte Albumin/Globulin [Mass ratio] 0.9 {ratio} Normal [facility] Comment on above: Performed By: #### L IPA, SUSAN, CMP, ETH, CMADM ####[facility] [address] [place] [address]Dr. Katerina Rodarte ALP [Catalytic activity/Vol] 115 U/L Normal 46-116 [facility] Comment on above: Performed By: #### L IPA, SUSAN, CMP, ETH, CMADM ####[facility] [address] [place] [address]Dr. Katerina Rodarte ALT [Catalytic activity/Vol] 23 U/L Normal 16-63 [facility] Comment on above: Performed By: #### L IPA, SUSAN, CMP, ETH, CMADM ####[facility] [address] [place] [address]Dr. Katerina Rodarte Anion gap [Moles/Vol] 12.4 mmol/L Normal [facility] Comment on above: Performed By: #### L IPA, SUSAN, CMP, ETH, CMADM ####[facility] [address] [place] [address]Dr. Katerina Rodarte AST [Catalytic activity/Vol] 28 U/L Normal 15-37 [facility] Comment on above: Performed By: #### L IPA, SUSAN, CMP, ETH, CMADM ####[facility] [address] [place] [address]Dr. Katerina Rodarte Bilirubin [Mass/Vol] 0.1 mg/dL Critically low 0.2-1.0 [facility] Comment on above: Performed By: #### L IPA, SUSAN, CMP, ETH, CMADM ####[facility] [address] [place] [address]Dr. Katerina Rodarte Calcium [Mass/Vol] 8.0 mg/dL Critically low 8.5-10.1 [facility] e [facility] Comment on above: Performed By: #### L IPA, SUSAN, CMP, ETH, CMADM ####[facility] [address]av[address] [place] [address]Dr. Katerina Rodarte Chloride [Moles/Vol] 103 mmol/L Normal 98-107 [facility] Comment on above: Performed By: #### L IPA, SUSAN, CMP, ETH, CMADM ####[facility] [address]ft[address] [place] [address]Dr. Katerina Rodarte CO2 [Moles/Vol] 27.3 mmol/L Normal 21.0-32.0 [facility] Comment on above: Performed By: #### L IPA, SUSAN, CMP, ETH, CMADM ####[facility] [address] [place] [address]Dr. Katerina Rodarte Creatinine [Mass/Vol] 1.06 mg/dL Normal 0.70-1.30 [facility] Comment on above: Performed By: #### L IPA, SUSAN, CMP, ETH, CMADM ####[facility] [address]sev[address] [place] [address]Dr. Katerina Rodarte EGFR-AF TAJIK >60 Normal >=60 [facility] Comment on above: Performed By: #### L IPA, SUSAN, CMP, ETH, CMADM ####[facility] [address] [place] [address]Dr. Katerina Rodarte EGFR-NON AF TAJIK >60 Normal >=60 [facility] Comment on above: Performed By: #### L IPA, SUSAN, CMP, ETH, CMADM ####[facility] [address]strtid[address] [place] [address]Dr. Katerina Rodarte Globulin (S) [Mass/Vol] 3.6 g/dL Normal [facility] Comment on above: Performed By: #### L IPA, SUSAN, CMP, ETH, CMADM ####[facility] [address]mc[address]ytq[address] [place] [address]Dr. Katerina Rodarte Glucose [Mass/Vol] 79 mg/dL Normal 74-106 [facility] Comment on above: Performed By: #### L IPA, SUSAN, CMP, ETH, CMADM ####[facility] [address] [place] [address]Dr. Katerina Rodarte Potassium [Moles/Vol] 3.7 mmol/L Normal 3.5-5.1 [facility] Comment on above: Performed By: #### L IPA, SUSAN, CMP, ETH, CMADM ####[facility] [address]tr[address]bf[address] [place] [address]Dr. Katerina Rodarte Protein [Mass/Vol] 7.0 g/dL Normal 6.4-8.2 [facility] Comment on above: Performed By: #### L IPA, SUSAN, CMP, ETH, CMADM ####[facility] [address]fps[address] [place] [address]Dr. Katerina Rodarte Sodium [Moles/Vol] 139 mmol/L Normal 136-145 [facility] Comment on above: Performed By: #### L IPA, SUSAN, CMP, ETH, CMADM ####[facility] [address]ts[address]rw[address] [place] [address]Dr. Katerina Rodarte Urea nitrogen [Mass/Vol] 11.0 mg/dL Normal 7.0-18.0 [facility] Comment on above: Performed By: #### L IPA, SUSAN, CMP, ETH, CMADM ####[facility] [address] [place] [address]Dr. Katerina Rodarte Urea nitrogen/Creatinine [Mass ratio] 10.4 mg/mg Normal [facility] Comment on above: Performed By: #### L IPA, SUSAN, CMP, ETH, CMADM ####[facility] [address]fxesx[address] [place] [address]DrZiggy Rodarte PROTIMEon 08-10-2022 INR Coag (PPP) [Relative time] 0.98 {INR} Normal [facility] Comment on above: Performed By: #### P T #### [facility] [address] [address] [address] Katerina Rodarte INR GUIDELINES SEE BELOW Normal [facility] Comment on above: Result Comment: PEARL RED INR: 2.0 - 3.0 CONDITIONS NOT LISTED BELOW 2.5 - 3.5 FOR PROSTHETIC HEART VALVE REPLACEMENT 2.5 - 3.5 RECURRENT THROMBOSIS Performed By: #### P T #### [facility] [address] [address] [address] Katerina Rodarte PT Coag (PPP) [Time] 10.6 s Normal 9.0-11.6 [facility] Comment on above: Performed By: #### P T #### [facility] [address] [address] [address] Katerina Rodarte XR CHEST 1 Von [...] by: LUIS NEVES Date: 2022-08-10 21:58 Normal [facility] Vital Signs Date Time Vital Sign Value Performing Clinician Jonathan frazier 10-08-2022 02:52-0500 Body height 177.8 cm DO Matthew Ford Work Phone: [facility] 10-08-2022 02:52-0500 Body temperature 97.4 [degF] DO Matthew Ford Work Phone: [facility] 10-08-2022 02:52-0500 Body weight 52.1 kg DO Matthew Ford Work Phone: [facility] 10-08-2022 02:52-0500 Diastolic blood pressure 68 mm[Hg] DO Matthew Ford Work Phone: [facility] 10-08-2022 02:52-0500 Heart rate 84 /min DO Matthew Ford Work Phone: [facility] 10-08-2022 02:52-0500 Respiratory rate 20 /min DO Matthew Ford Work Phone: [facility] 10-08-2022 02:52-0500 SaO2% (BldA) [Mass fraction] 96 % DO Matthew Ford Work Phone: [facility] 10-08-2022 02:52-0500 Systolic blood pressure 121 mm[Hg] DO Matthew Ford Work Phone: [facility] Encounters Encounter Date Encounter Type Care Provider Facility Start: 12-13-2023 End: 12-13-2023 Emergency department patient visit OWEN Hernandez Rach [facility] Start: 12-13-2023 Encounter for other general examination DANIEL T TAYLOR [facility] Start: 05-08-2023 End: 05-08-2023 ambulatory Susan Myers Facility:[facility] Start: 02-07-2023 End: 02-08-2023 ambulatory KEKE EDE Facility:[facility] Start: 12-29-2022 End: 12-30-2022 ambulatory KEKE EDE Facility:[facility] Start: 12-09-2022 End: 12-10-2022 ambulatory KEKE EDE Facility:[facility] Start: 11-26-2022 End: 11-26-2022 ambulatory KEKE EDE Facility:[facility] Start: 10-08-2022 End: 10-08-2022 ambulatory Nat Ede Facility:[facility] Start: 10-07-2022 Evaluation and management of inpatient DO Matthew Ford Work Phone: [facility] Start: 08-10-2022 End: 08-11-2022 ambulatory KEKE EDE Facility:[facility] Start: 10-26-2020 End: 10-27-2020 Emergency department patient visit Devang Barrtet [place] [place] of Treatment Date Care Activity Detail Author Start: 10-08-2022 Blood chemistry [facility] Start: 10-08-2022 Magnesium measurement [facility] Start: 10-08-2022 [facility] Start: 10-08-2022 Hospital admission [facility] Start: 10-08-2022 [facility] Start: 10-07-2022 Measurement of substance [facility] Start: 10-07-2022 CT cervical spine without contrast CT cervical spine wo con [facility] Start: 10-07-2022 CT Cervical spine WO contrast [facility] Start: 10-07-2022 CT of head without contrast CT head/brain wo con [facility] Start: 10-07-2022 CT Unspecified body region WO contrast [facility] Measurement of substance [facility] Work Phone: Payers Date Payer Category Payer Self-pay [id number] 1975 Unknown [id number] 2.16.84 [id number] 1975 Unknown [id number] 2.16.84 [id number] 1975 Unknown [id number] 2.16.84 [id number] 1975 Unknown [id number] 2.16.84 [id number] 1975 Unknown [id number] 2.16.84 [id number] 1976 Unknown [id number] 2.16.84 [id number] 1976 Unknown [id number] 2.16.84 [id number] 1959 Unknown [id number] Unknown [id number] 2.16.8 [id number] Unknown [id number] 2.16.8 [id number] Social History Date Type Detail Facility Start[facility] Start: 1975 Sex Assigned At Male F [facility] Goals Date Patient Goal Desired Activity /State History and physical note 10-08-2022 Note Date & Type Note Facility 10-08-2022 History and physi julian note Note Date/Time October 08, 2022 1:19am [facility] [address] [place] [address] Hospitalist H&P Signed Patient: Kathleen Clark MR#: [id number] : 1975 Acct:[id number] Age/Sex: 47 / M Adm Date: 2 Loc: 4 Room: [address] [place] [address] Type: ADM IN Attending Dr: Matt Estrella DO Copies to: Nat Estrella DO~ HPI DATE OF EXAMINATION: 10/08/22 CHIEF [...] 10/07/22 19:30 MCV 99.1 fl (83.5-101) 10/07/22 19: MCH 32.8 pg (27.5-35.2) 10/07/22: MCHC 33.1 g/dL (32.5-35.6) 10/07/22: RDW 14.6 % (12.0-14.8) 10/07/22: Plt Count 301 x10E3/uL (150-450) 10/07/22: MPV 7.7 fl (6.6-10.1) 10/07/22: Neut % (Auto) 33.0 % (.) 10/07/22: Lymph % (Auto) 45.8 % (.) 10/07/22: Kimble % (Auto) 11.8 % (.) 10/07/22: Eos % (Auto) 8.2 % (.) 10/07/22 Baso % (Auto) 1.2 % (.) 10/07/22 Neut # (Auto) 1.9 x10E3/uL (1.8-7.7) 10/07/22: Lymph # (Auto) 2.6 x10E3/uL (1.00-4.8) 10/07/22: Kimble # (Auto) 0.7 x10E3/uL (0.0-0.8) 10/07/22: Eos # (Auto) 0.5 x10E3/uL (0.0-0.45) H 10/07/22 Baso # (Auto) 0.1 x10E3/uL (0.0-0.2) 10/07/22 Nucleated RBC % (auto) 0.1 % (0-0.5) 10/07/22: PT 10.9 Seconds (9.0-12.9) 10/07/22: INR 1.0 10/07/22: PHA Creatinine Clear 64.68 10/07/22: Sodium 128 mmol/L (136-146) L 10/07/22: Potassium 4.2 mmol/L (3.5-5.1) 10/07/22: Chloride 94 mmol/L (95-114) L 10/07/22 19:30 [...] code Documented By: Matt Estrella DO 10/08/22 011 Signed By: <Electronically signed by Matt Estrella DO> 10/08/22 0133 [facility] Work Phone: Evaluation note Note Date & Type Note Facility Evaluation note Diagnosis Onset Date Alcohol intoxication acute Polysubstance abuse acute Seizure disorder acute [facility] Work Phone: Summary Purpose Family History No [...] Records FoundNo Status Records FoundNo Status Records FoundNo Status Records Found INFORMATION SOURCE (unrecogn ized section and content) DATE CREATED AUTHOR 09/30/2022 [facility] DATE CREATED AUTHOR AUTHOR'S ORGANIZ ATION 02/10/2023 [facility] DATE CREATED AUTHOR AUTHOR'S ORGANIZ ATION 05/20/2023 [facility] DATE CREATED AUTHOR AUTHOR'S ORGANIZ ATION 12/14/2023 [facility] Care Teams (unrecognized sec tion [...] BE BASED ON THE PRIMARY CLINICAL RECORDS. [facility] [employer] provides no warranty or guarantee of the accuracy or completeness of information in this document.
--- NOTE | 2024-01-02 12:35 | MR_ITS ---
The [address] [address] Patient Name: KATHLEEN COOL MRN: [facility]:[id number] date: 1975 Sex: M Assigned Patient Location: MRI Current Patient Location: MRI Accession/Order Number: [id number] Exam Date: 01/02/2024 12:45 Report Date: 01/02/2024 13:59 At the request of: BRANDON PEREZ Procedure: MR head/brain wo/w con EXAM: MRI of the brain without and with IV contrast utilizing 10 mL of IV gadolinium contrast. REASON FOR EXAM: seizure disorder G40.909 COMPARISON: CT scan dated 12/29/2022 FINDINGS: Motion artifact degrades image quality and reduces sensitivity of the exam. No intracranial masses or abnormal enhancement. No abnormal restricted diffusion or evidence of evolving infarct. No evidence of intracranial hemorrhage. No hydrocephalus. Old right thalamic lacunar infarct. Left maxillary sinus secretions/mucosal thickening. Remainder unremarkable. MR/MR head/brain wo/w con IMPRESSION: 1. No acute intracranial abnormalities. 2. Old right thalamic lacunar infarct. Electronically authenticated by: KOSTA MARIA Date: 01/02/2024 13:59
== END 2024-01-02 12:31 | disposition home or self-care (01) ==
LOC: MRI 12:30
PROVIDERS: PCP Nurse Practitioner Family; Visit Provider Psychiatry & Neurology Neurology
DX: G40.909 Epilepsy, unspecified, not intractable, without status epilepticus (principal)
CPT/HCPCS: 70553; A9575

== ENCOUNTER 2024-02-26 14:15 | Outpatient (OUT) | payer OTHER, SELFPAY ==
--- NOTE | 2024-02-26 15:49 | P.CN_ITS ---
Consult Note: HPI Data of Consult Patient: new to practice Consult date: 02/26/24 Requesting Physician: Deborah Davis MD Primary Care Provider: MILES JERNIGAN Consult Narrative Reason for consult: low back pain, bilateral lower extremity radiation, right shoulder pain Narrative: 48yom who presents for evaluation. longstanding low back pain with neuropathy into bilateral lower extremities. CT of lumbar spine reviewed, which shows multilevel stenosis and degenerative changes, stenosis worst at l4-5. has atte mpted physical therapy in past 3 months and completed >6 weeks of provider directed home exercise course, without benefit. has tried tylenol, nabumetone, without much benefit. denies adverse med side effects. cc:: CC: Deborah Davis MD Review of Systems ROS Status of ROS 10 or more systems reviewed and unremark able except as noted in history and below PFSH PFSH Social History Smoking status: Heavy tobacco smoker Meds Home Medications and Allergies Home Medications ?Medication ?Instructions ?Recorded ?Confirmed ?Type levetiracetam 500 mg tablet 500 mg PO Q12H 05/08/23 05/08/23 History metoprolol tartrate 50 mg tablet 50 mg PO Q12H 05/08/23 05/08/23 History nabumetone 750 mg tablet 750 mg PO BID PRN pain #14 tabs 12/14/23 Rx Allergies Allergy/AdvReac Type Severity Reaction Status Date / Time Penicillins Allergy Intermediate Verified 06/14/23 21:31 Exam Narrative Exam Narrative: Psych-alert and oriented x 3. Attentive and appropriate, constitutionally normal, displays normal mood and affect per situation. There are no obvious d eficits in memory, reasoning, or intellect.? Skin-no obvious rashes, bruising, erythema noted to the patient's area of pain.? Extremities- extremities are warm with minimal edema and palpable pulses. Lumbar-tenderness to palpation noted in the lumbar spine and paraspinal musculature. Pain is elicited with flexion, extension, and lateral rotation of the lumbar spine. Range of motion is diminished with these motions. Facet loading maneuvers are positive..? Strength-noted to be unremarkable with the exception of decreased strength rated at 4 out of 5 in bilateral quadriceps femoris, anterior tibialis. Sensory-no notable sensory deficits in the bilateral lower extremities to touch or pinprick in all dermatomal distributions with the exception to decreased sensation to the bilateral L3, 4, 5 dermatomal distribution Sacroiliac - tenderness to bilateral PSIS. Positive Jagdeep's bilaterally. Positive thigh thrust bilaterally. Coordination remains intact.? Gait remains non-antalgic. Assessment and Plan Assessment and Plan (1) Lumbar stenosis with neurogenic claudication: (2) Sacroiliac joint dysfunction of both sides: Plan 48yom who presents for evaluation. failed conservative measures, as noted. imaging reviewed, as noted. given symptoms and imaging, prudent to attempt bilateral l4-5 tfesi under fluoroscopic guidance. may even benefit from bilateral si joint injections under fluoroscopic guidance. he is in agreement. medications reviewed, pdmp reviewed. uds obtained. will trial gabapentin 300mg tid. follow up after procedure.
== END 2024-02-26 14:16 | disposition home or self-care (01) ==
LOC: PM 14:16
PROVIDERS: PCP Nurse Practitioner Family; Visit Provider Anesthesiology
DX: M48.062 Spinal stenosis, lumbar region with neurogenic claudication (principal); M53.3 Sacrococcygeal disorders, not elsewhere classified
CPT/HCPCS: G0463

== ENCOUNTER 2024-05-09 16:09 | Emergency (ER) | payer OTHER, SELFPAY ==
[2024-05-09] VITALS (19 sets, daily range): BP systolic 64–107; BP diastolic 39–81; PULSE 35–75; O2SAT 61–100
--- NOTE | 2024-05-09 16:19 | XR_ITS ---
The [address] [address] Patient Name: KATHLEEN COOL MRN: [id number] date: 1975 Sex: M Assigned Patient Location: ER Current Patient Location: ED[facility] Accession/Order Number: [id number] Exam Date: 05/09/2024 16:35 Report Date: 05/09/2024 17:30 At the request of: BLAKE SALAZAR Procedure: XR chest 1V EXAMINATION: XR chest 1V, XR abdomen 1V, XR chest 1V 05/09/2024 2:27 PM PDT HISTORY: arrest COMPARISONS: Chest x-ray 05/08/2023. FINDINGS: Chest findings: Lines/tubes/other: Initial positioning of the endotracheal tube in the proximal right mainstem bronchus with subsequent retraction with the tip terminating 4.1 cm cranial to the luis antonio. Heart and mediastinum: The heart and the mediastinum are within normal limits for technique. Bones: No acute osseous abnormality. Lungs: Moderate patchy opacification of the left lung which persists after repositioning of the endotracheal tube. Pleura: There is no significant pleural effusion or pneumothorax. Other: None. Abdominal findings: Nonobstructive bowel gas pattern. Enteric tube terminates in the mid stomach. XR/XR chest 1V IMPRESSION: 1. The tip of the endotracheal tube after repositioning terminates 4.1 m cranial to the luis antonio. 2. Moderate opacification of the left lung likely representing residual atelectasis from right mainstem intubation. 3. Enteric tube terminates in the mid stomach. Electronically authenticated by: SACHIN VILLALBA Date: 05/09/2024 17:30
--- NOTE | 2024-05-09 16:19 | ECG_ITS ---
The [facility] Test Date: 2024-05-09 Pat Name: KATHLEEN COOL Department: Room: - Gender: Male Cardiac Nurse Specialist: : 1975 Requested By: MILES JERNIGAN Order Number: [id number] Reading MD: NATTY AMAYA Measurements Intervals Napoleon Rate: -77787 P: -21251 MO: -02051 QRS: -09981 QRSD: -00686 T: -25922 QT: -88093 QTc: -68055 Interpretive Statements Complete heart block with ventricular escape rhythm. Suspicious for high lateral wall injury. Electronically Signed On 05-09-2024 23:12:26 EDT by NATTY AMAYA
[2024-05-09] MEDS: EPINEPHRINE HCL IV (16:33)
[2024-05-09] MEDS: SODIUM CHLORIDE 0.9% IV (16:33)
[2024-05-09 16:35] LABS: Basophils Percent Auto 0.5 % (0.2-2.0); Eosinophils Absolute Auto 0.2 10^3/uL (0.0-0.7); Eosinophils Percent Auto 2.5 % (0.9-7.0); Hematocrit 34.2 % (42.0-54.0); Hemoglobin 10.6 g/dL (14.0-18.0); Immature Granulocytes Abs Auto 0.29 10^3/uL (0.00-0.03); Immature Granulocytes Pct Auto 4.6 % (0.0-0.5); Lymphocytes Absolute Auto 2.4 10^3/uL (1.2-3.8); Lymphocytes Percent Auto 38.1 % (20.5-60.0); Mean Corpuscular Hemoglobin 31.9 pg (25.9-34.0); Monocytes Absolute Auto 0.5 10^3/uL (0.3-0.8); Monocytes Percent Auto 7.6 % (1.7-12.0); Neutrophils Percent Auto 46.7 % (43.0-75.0); Platelet Count 95 10^3/uL (150-450); Red Blood Count 3.32 10^6/uL (4.70-6.10); Red Cell Distribution Width 13.9 % (11.0-15.0); White Blood Count 6.3 10^3/uL (4.0-11.0)
--- OUTSIDE RECORDS SUMMARY | 2024-05-09 16:39 | XMS_ITS ---
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 #### P OCGLUC #### [facility] [address] [address] [address] Katerina Rodarte OXY Negative Normal NEGATIVE [facility] Comment on above: Performed By: #### P OCGLUC #### [facility] [address] [place] [address] Dr. Katerina Rodarte PCP Negative Normal NEGATIVE [facility] Comment on above: Performed By: #### P OCGLUC #### [facility] [address] [address] [address] Katerina Rodarte PPX Negative Normal NEGATIVE [facility] Comment on above: Performed By: #### P OCGLUC #### [facility] [address] [place] [address] Dr. Katerina Rodarte TCA Negative Normal NEGATIVE [facility] Comment on above: Performed By: #### P OCGLUC #### [facility] [address] [place] [address] Dr. Katerina Rodarte THC Negative Normal NEGATIVE [facility] Comment on above: Performed By: #### P OCGLUC #### [facility] [address] [place] [address] Dr. Katerina Rodarte ETHANOL (BLD ALC)on 12-30-19 23 ALC NOTE NOTE: 80 mg/dl is th e legal limit for a blood alcohol level Normal [facility] Comment on above: Performed By: #### B TAMIA ARMENTA, ETH #### [facility] [address] [address] [address] Katerina Rodarte Ethanol [Mass/Vol] 167 mg/dL Normal [facility] Comment on above: Performed By: #### B TAMIA ARMENTA, ETH #### [facility] [address] [place] [address] Dr. Katerina Rodarte PROF CHEM 8 (BAS METB)on Anion gap [Moles/Vol] 11.4 mmol/L Normal [facility] Comment on above: Performed By: #### B MP, CMADM, ETH #### [facility] [address] [place] [address] Dr. Katerina Rodarte Calcium [Mass/Vol] 8.8 mg/dL Normal 8.5-10.1 [facility] Comment on above: Performed By: #### B MP, CMADM, ETH #### [facility] [address] [place] [address] Dr. Katerina Rodarte Chloride [Moles/Vol] 97 mmol/L Critically low 98-107 [facility] Comment on above: Performed By: #### B MP, CMADM, ETH #### [facility] [address] [place] [address] Dr. Katerina Rodarte CO2 [Moles/Vol] 29.9 mmol/L Normal 21.0-32.0 [facility] Comment on above: Performed By: #### B MP, CMADM, ETH #### [facility] [address] [place] [address] Dr. Katerina Rodarte Creatinine [Mass/Vol] 0.83 mg/dL Normal 0.70-1.30 [facility] Comment on above: Performed By: #### B MP, CMADM, ETH #### [facility] [address] [place] [address] Dr. Katerina Rodarte EGFR-AF CANADIAN >60 Normal >=60 [facility] Comment on above: Performed By: #### B MP, CMADM, ETH #### [facility] [address] [place] [address] Dr. Katerina Rodarte EGFR-NON AF CANADIAN >60 Normal >=60 [facility] Comment on above: Performed By: #### B MP, CMADM, ETH #### [facility] [address] [place] [address] Dr. Katerina Rodarte Glucose [Mass/Vol] 84 mg/dL Normal 74-106 [facility] Comment on above: Performed By: #### B TAMIA ARMENTA, ETH #### [facility] [address] [address] [address] Katerina Rodarte Potassium [Moles/Vol] 4.3 mmol/L Normal 3.5-5.1 [facility] Comment on above: Performed By: #### B TAMIA ARMENTA, ETH #### [facility] [address] [address] [address] Katerina Rodarte Sodium [Moles/Vol] 134 mmol/L Critically low 136-145 [facility] Comment on above: Performed By: #### B TAMIA ARMENTA, ETH #### [facility] [address] [place] [address] Dr. Katerina Rodarte Urea nitrogen [Mass/Vol] 4.0 mg/dL Critically low 7.0-18.0 [facility] Comment on above: Performed By: #### B TAMIA ARMENTA, ETH #### [facility] [address] [place] [address] Dr. Katerina Rodarte Urea nitrogen/Creatinine [Mass ratio] 4.8 mg/mg Normal [facility] Comment on above: Performed By: #### B TAMIA ARMENTA, ETH #### [facility] [address] [place] [address] Dr. Katerina Rodarte XR ANKLE JAZZ MIN [...] Reba PADRON Date: 2022-12-30 01:05 Normal [facility] XR CHEST 1 Von 12-30-2022 XR CHEST [...] VIJAYA KITCHEN Date: 2022-12-30 01:05 Normal [facility] CBC AUTO DIFFon 12-10-2022 BASO # 0.0 103/ul Normal 0.0-0.1 [facility] Comment on above: Performed By: #### C MREP #### [facility] [address] [address] [address] Katerina Rodarte Basophils/100 WBC (Bld) 0.6 % Normal 0.2-2.0 [facility] Comment on above: Performed By: #### C MREP #### [facility] [address] [place] [address] [address] Katerina Rodarte EO # 0.9 103/ul Critically high 0.0-0.7 [facility] Comment on above: Performed By: #### C MREP #### [facility] [address] [address] [address] Katerina Rodarte Eosinophils/100 WBC (Bld) 12.9 % Critically high 0.9-7.0 [facility] Comment on above: Performed By: #### C MREP #### [facility] [address] [place] [address] Dr. Katerina Rodarte Erythrocyte distribution width (RBC) [Ratio] 12.4 % Normal 11.0-15.0 [facility] Comment on above: Performed By: #### C MREP #### [facility] [address] [place] [address] Dr. Katerina Rodarte Hematocrit (Bld) [Volume fraction] 38.4 % Critically low 42.0-54.0 [facility] Comment on above: Performed By: #### C MREP #### [facility] [address] [place] [address] Dr. Katerina Rodarte Hemoglobin (Bld) [Mass/Vol] 13.6 g/dL Critically low 14.0-18.0 [facility] Comment on above: Performed By: #### C MREP #### [facility] [address] [place] [address] Dr. Katerina Rodarte IG # 0.01 10e3/ul Normal 0.00-0.03 [facility] Comment on above: Performed By: #### C MREP #### [facility] [address] [place] [address] Dr. Katerina Rodarte IG % 0.1 % Normal 0.0-0.5 [facility] Comment on above: Performed By: #### C MREP #### [facility] [address] [place] [address] Dr. Katerina Rodarte LYMPH # 2.1 103/ul Normal 1.2-3.8 [facility] Comment on above: Performed By: #### C MREP #### [facility] [address] [place] [address] Dr. Katerina Rodarte Lymphocytes/100 WBC (Bld) 30.3 % Normal 20.5-60.0 [facility] Comment on above: Performed By: #### C MREP #### [facility] [address] [place] [address] Dr. Katerina Rodarte MANUAL DIFF REQ NO Normal [facility] Comment on above: Performed By: #### C MREP #### [facility] [address] [place] [address] Dr. Katerina Rodarte MCH (RBC) [Entitic mass] 33.3 pg Normal 25.9-34.0 [facility] Comment on above: Performed By: #### C MREP #### [facility] [address] [place] [address] Dr. Katerina Rodarte MCHC (RBC) [Mass/Vol] 35.4 g/dL Critically high 29.9-35.2 [facility] Comment on above: Performed By: #### C MREP #### [facility] [address] [address] [address] Katerina Rodarte MCV (RBC) [Entitic vol] 93.9 fL Normal 80.0-94.0 [facility] Comment on above: Performed By: #### C MREP #### [facility] [address] [place] [address] Dr. Katerina Rodarte MONO # 0.9 103/ul Critically high 0.3-0.8 [facility] Comment on above: Performed By: #### C MREP #### [facility] [address] [place] [address] Dr. Katerina Rodarte Monocytes/100 WBC (Bld) 13.0 % Critically high 1.7-12.0 [facility] Comment on above: Performed By: #### C MREP #### [facility] [address] [place] [address] Dr. Katerina Rodarte NEUT # 2.9 103/ul Normal 1.4-6.5 [facility] Comment on above: Performed By: #### C MREP #### [facility] [address] [place] [address] Dr. Katerina Rodarte Neutrophils/100 WBC (Bld) 43.1 % Normal 43.0-75.0 [facility] Comment on above: Performed By: #### C MREP #### [facility] [address] [place] [address] Dr. Katerina Rodarte Platelet mean volume (Bld) [Entitic vol] 9.6 fL Normal 9.5-13.5 [facility] Comment on above: Performed By: #### C MREP #### [facility] [address] [place], [place] [address] Dr. Katerina Rodarte PLT 222 103/ul Normal 150-450 [facility] Comment on above: Performed By: #### C MREP #### [facility] [address] [place], [place] [address] Dr. Katerina Rodarte RBC 4.09 106/ul Critically low 4.70-6.10 [facility] Comment on above: Performed By: #### C MREP #### [facility] [address] [place], [place] [address] Dr. Katerina Rodarte WBC 6.8 103/ul Normal 4.0-11.0 [facility] Comment on above: Performed By: #### C MREP #### [facility] [id number] Katerina Rodarte CT ABD/PELV W CONon [...] by: MADDY SCHOFIELD Date: 2022-12-10 00:[address] [facility] [address] CSPINE WO CONon CT CSPINE WO [...] by: LADARIUS HERNANDEZ Date: 2022-12-10 00:[address] [facility] [address] HEAD WO CONon 12-10-2022 CT [...] SHAMA AVALOS Date: 2022-12-10 00:16 Normal [facility] DRUG SCREEN RAPID (URINE)on 12-10-2022 AMP Negative Normal NEGATIVE [facility] Comment on above: Performed By: #### D RUGRPD ####[facility] [address] [place], [place] [address]Dr. samina [facility] BAR Negative Normal NEGATIVE [facility] Comment on above: Performed By: #### D RUGRPD ####[facility] [address] [place], [place] [address]Dr. [facility] BUP Negative Normal NEGATIVE [facility] Comment on above: Performed By: #### D RUGRPD ####[facility] [address] [place], [place] [address]Dr. [facility] BZO Negative Normal NEGATIVE [facility] Comment on above: Performed By: #### D RUGRPD ####[facility] [address] [place], [place] [address]Dr. [facility] CARLIE Negative Normal NEGATIVE [facility] Comment on above: Performed By: #### D RUGRPD ####[facility] [address] [place], [place] [address]Dr. [facility] CUT-OFFS SEE BELOW Normal [facility] Comment on above: Result Comment: AMP (Amphetamine): 500ng/mL, BAR (Barbituates): 200 ng/mL, BZO (Benzodiazepines): 150 ng/mL, BUP (Buprenorphine): 10 ng/mL, CARLIE (Cocaine): 150 ng/mL, mAMP (Methamphetamine): 500 ng/mL, MTD (Methadone): 200 ng/mL, OPI (Opiates): 100 ng/mL, OXY (Oxycodone): 100 ng/mL, PCP (Phencyclidine): 25 ng/mL, PPX (Propoxyphene): 300 ng/mL, THC (Cannabinoids): 50 ng/mL, TCA (Trycyclic Antidepressants): 300 ng/mL Performed By: #### D RUGRPD ####[facility] [address] [place] [address]Dr. Katerina Rodarte DRUG CUT HEADER DRUG CLASS TEST SYST EM CUT-OFF CONCENTRATIONS ARE FOLLOWS: Normal [facility] Comment on above: Performed By: #### D RUGRPD ####[facility] [address] [place], [place] [address]Dr. Katerina Rodarte mAMP Negative Normal NEGATIVE [facility] Comment on above: Performed By: #### D RUGRPD ####[facility] [address] [place], [place] [address]Dr. Katerina Rodarte MTD Negative Normal NEGATIVE [facility] Comment on above: Performed By: #### D RUGRPD ####[facility] [address] [place], [place] [address]Dr. Katerina [facility] OPI Negative Normal NEGATIVE [facility] Comment on above: Performed By: #### D RUGRPD ####[facility] [address] [place], [place] [address]Dr. Katerina Rodarte OXY Negative Normal NEGATIVE [facility] Comment on above: Performed By: #### D RUGRPD ####[facility] [address] [place], [place] [address]Dr. Katerina Rodarte PCP Negative Normal NEGATIVE [facility] Comment on above: Performed By: #### D RUGRPD ####[facility] [address] [place], [place] [address]Dr. Katerina [facility] PPX Negative Normal NEGATIVE [facility] Comment on above: Performed By: #### D RUGRPD ####[facility] [address] [place], [place] [address]Dr. Katerina Rodarte TCA Negative Normal NEGATIVE [facility] Comment on above: Performed By: #### D RUGRPD ####[facility] [address] [place], [place] [address]Rf. Katerina Rodarte THC Negative Normal NEGATIVE [facility] Comment on above: Performed By: #### D RUGRPD ####[facility] [address] [place] [id number]. Katreina Rodarte ETHANOL (BLD ALC)on 12-10-19 23 ALC NOTE NOTE: 80 mg/dl is th e legal limit for a blood alcohol level Normal [facility] Comment on above: Performed By: #### E TH ####[facility] [address] [id number] Rodarte Ethanol [Mass/Vol] 197 mg/dL Normal [facility] Comment on above: Performed By: #### E TH ####[facility] [address] [address]Dr. Katerina Rodarte PROF 14(COMP METB)on 023 Albumin [Mass/Vol] 3.7 g/dL Normal 3.4-5.0 [facility] Comment on above: Performed By: #### P OCGLUC #### [facility] [address] [address] [address] Katerina Rodarte Albumin/Globulin [Mass ratio] 1.1 {ratio} Normal [facility] Comment on above: Performed By: #### P OCGLUC #### [facility] [address] [address] [address] Katerina Rodarte ALP [Catalytic activity/Vol] 149 U/L Critically high 46-116 [facility] Comment on above: Performed By: #### P OCGLUC #### [facility] [address] [address] [address] Katerina Rodarte ALT [Catalytic activity/Vol] 41 U/L Normal 16-63 [facility] Comment on above: Performed By: #### P OCGLUC #### [facility] [address] [address] [address] Katerina Rodarte Anion gap [Moles/Vol] 11.7 mmol/L Normal [facility] [place] Comment on above: Performed By: #### P OCGLUC #### [facility] [address] [address] [address] Katerina Rodarte AST [Catalytic activity/Vol] 48 U/L Critically high 15-37 [facility] Comment on above: Performed By: #### P OCGLUC #### [facility] [address] [address] [address] Katerina Rodarte Bilirubin [Mass/Vol] 0.4 mg/dL Normal 0.2-1.0 [facility] Comment on above: Performed By: #### P OCGLUC #### [facility] [address] [address] [address] Katerina Rodarte Calcium [Mass/Vol] 8.7 mg/dL Normal 8.5-10.1 [facility] Comment on above: Performed By: #### P OCGLUC #### [facility] [address] [address] [address] Katerina Rodarte Chloride [Moles/Vol] 94 mmol/L Critically low 98-107 [facility] Comment on above: Performed By: #### P OCGLUC #### [facility] [address] [address] [address] Katerina Rodarte CO2 [Moles/Vol] 29.4 mmol/L Normal 21.0-32.0 [facility] Comment on above: Performed By: #### P OCGLUC #### [facility] [address] [address] [address] Katerina Rodarte Creatinine [Mass/Vol] 0.96 mg/dL Normal 0.70-1.30 [facility] Comment on above: Performed By: #### P OCGLUC #### [facility] [address] [address] [address] Katerina Rodarte EGFR-AF CANADIAN >60 Normal >=60 [facility] Comment on above: Performed By: #### P OCGLUC #### [facility] [address] [address] [address] Katerina Rodarte EGFR-NON AF CANADIAN >60 Normal >=60 [facility] Comment on above: Performed By: #### P OCGLUC #### [facility] [address] [address] [address] Katerina Rodarte Globulin (S) [Mass/Vol] 3.3 g/dL Normal [facility] Comment on above: Performed By: #### P OCGLUC #### [facility] [address] [address] [address] Katerina Rodarte Glucose [Mass/Vol] 138 mg/dL Critically high 74-106 T [facility] Comment on above: Performed By: #### P OCGLUC #### [facility] [address] [address] [address] Katerina Rodarte Potassium [Moles/Vol] 4.1 mmol/L Normal 3.5-5.1 [facility] Comment on above: Performed By: #### P OCGLUC #### [facility] [address] [place] [address] Dr. Katerina Rodarte Protein [Mass/Vol] 7.0 g/dL Normal 6.4-8.2 [facility] Comment on above: Performed By: #### P OCGLUC #### [facility] [address] [address] [address] Katerina Rodarte Sodium [Moles/Vol] 131 mmol/L Critically low 136-145 [facility] Comment on above: Performed By: #### P OCGLUC #### [facility] [address] [place] [address] Dr. Katerina Rodarte Urea nitrogen [Mass/Vol] 4.0 mg/dL Critically low 7.0-18.0 [facility] Comment on above: Performed By: #### P OCGLUC #### [facility] [address] [place] [address] Dr. Katerina Rodarte Urea nitrogen/Creatinine [Mass ratio] 4.2 mg/mg Normal [facility] Comment on above: Performed By: #### P OCGLUC #### [facility] [address] [place] [address] Dr. Katerina Rodarte XR CHEST 1 Von [...] THELMA DAMICO Date: 2022-12-09 23:00 Normal [facility] CBC AUTO DIFFon 11-26-2022 BASO # 0.1 103/ul Normal 0.0-0.1 [facility] Comment on above: Performed By: #### P OCGLUC #### [facility] [address] [address] [address] Katerina Rodarte Basophils/100 WBC (Bld) 1.1 % Normal 0.2-2.0 [facility] Comment on above: Performed By: #### P OCGLUC #### [facility] [address] [place] [address] Dr. Katerina Rodarte EO # 0.6 103/ul Normal 0.0-0.7 [facility] Comment on above: Performed By: #### P OCGLUC #### [facility] [address] [address] [address] Katerina Rodarte Eosinophils/100 WBC (Bld) 8.9 % Critically high 0.9-7.0 [facility] Comment on above: Performed By: #### P OCGLUC #### [facility] [address] [place] [address] Dr. Katerina Rodarte Erythrocyte distribution width (RBC) [Ratio] 12.8 % Normal 11.0-15.0 [facility] Comment on above: Performed By: #### P OCGLUC #### [facility] [address] [place] [address] Dr. Katerina Rodarte Hematocrit (Bld) [Volume fraction] 39.5 % Critically low 42.0-54.0 [facility] Comment on above: Performed By: #### P OCGLUC #### [facility] [address] [place] [address] Dr. Katerina Rodarte Hemoglobin (Bld) [Mass/Vol] 13.9 g/dL Critically low 14.0-18.0 [facility] Comment on above: Performed By: #### P OCGLUC #### [facility] [address] [address] [address] Katerina Rodarte IG # 0.02 10e3/ul Normal 0.00-0.03 [facility] Comment on above: Performed By: #### P OCGLUC #### [facility] [address] [address] [address] Katerina Rodarte IG % 0.3 % Normal 0.0-0.5 [facility] Comment on above: Performed By: #### P OCGLUC #### [facility] [address] [address] [address] Katerina Rodarte LYMPH # 2.7 103/ul Normal 1.2-3.8 [facility] Comment on above: Performed By: #### P OCGLUC #### [facility] [address] [place] [address] Dr. Katerina Rodarte Lymphocytes/100 WBC (Bld) 41.7 % Normal 20.5-60.0 [facility] Comment on above: Performed By: #### P OCGLUC #### [facility] [address] [address] [address] Katerina Rodarte MANUAL DIFF REQ NO Normal [facility] Comment on above: Performed By: #### P OCGLUC #### [facility] [address] [address] [address] Katerina Rodarte MCH (RBC) [Entitic mass] 33.5 pg Normal 25.9-34.0 [facility] Comment on above: Performed By: #### P OCGLUC #### [facility] [address] [address] [address] Katerina Rodarte MCHC (RBC) [Mass/Vol] 35.2 g/dL Normal 29.9-35.2 [facility] Comment on above: Performed By: #### P OCGLUC #### [facility] [address] [address] [address] Katerina Rodarte MCV (RBC) [Entitic vol] 95.2 fL Critically high 80.0-94.0 [facility] Comment on above: Performed By: #### P OCGLUC #### [facility] [address] [address] [address] Katerina Rodarte MONO # 0.8 103/ul Normal 0.3-0.8 [facility] Comment on above: Performed By: #### P OCGLUC #### [facility] [address] [place] [address] Dr. Katerina Rodarte Monocytes/100 WBC (Bld) 11.8 % Normal 1.7-12.0 [facility] Comment on above: Performed By: #### P OCGLUC #### [facility] [address] [place] [address] Dr. Katerina Rodarte NEUT # 2.4 103/ul Normal 1.4-6.5 [facility] Comment on above: Performed By: #### P OCGLUC #### [facility] [address] [place] [address] Dr. Katerina Rodarte Neutrophils/100 WBC (Bld) 36.2 % Critically low 43.0-75.0 [facility] Comment on above: Performed By: #### P OCGLUC #### [facility] [address] [place] [address] Dr. Katerina Rodarte Platelet mean volume (Bld) [Entitic vol] 9.0 fL Critically low 9.5-13.5 [facility] Comment on above: Performed By: #### P OCGLUC #### [facility] [address] [place] [address] Dr. Katerina Rodarte PLT 286 103/ul Normal 150-450 [facility] Comment on above: Performed By: #### P OCGLUC #### [facility] [address] [place] [address] Dr. Katerina Rodarte RBC 4.15 106/ul Critically low 4.70-6.10 [facility] Comment on above: Performed By: #### P OCGLUC #### [facility] [address] [place] [address] Dr. Katerina Rodarte WBC 6.5 103/ul Normal 4.0-11.0 [facility] Comment on above: Performed By: #### P OCGLUC #### [facility] [address] [place] [address] STROKE HEAD WOon 11-26-[address] STROKE HEAD WO EXAMINATION: CT STRO [...] YESSI AGUIAR Date: 2022-11-26 01:12 Normal [facility] DRUG SCREEN RAPID (URINE)on 11-26-2022 AMP Negative Normal NEGATIVE [facility] Comment on above: Performed By: #### D RUGRPD ####[facility] [address] [address]Dr. Katerina Rodarte BAR Negative Normal NEGATIVE [facility] Comment on above: Performed By: #### D RUGRPD ####[facility] [address] [address]Dr. Katerina Rodarte BUP Negative Normal NEGATIVE [facility] Comment on above: Performed By: #### D RUGRPD ####[facility] [address] [address]Dr. Katerina Rodarte BZO Negative Normal NEGATIVE [facility] Comment on above: Performed By: #### D RUGRPD ####[facility] [address] [address]Dr. Katerina Rodarte CARLIE Negative Normal NEGATIVE [facility] Comment on above: Performed By: #### D RUGRPD ####[facility] [address] [place], [place] [address]Dr. Katerina Rodarte CUT-OFFS SEE BELOW Normal [facility] Comment on above: Result Comment: AMP (Amphetamine): 500ng/mL, BAR (Barbituates): 200 ng/mL, BZO (Benzodiazepines): 150 ng/mL, BUP (Buprenorphine): 10 ng/mL, CARLIE (Cocaine): 150 ng/mL, mAMP (Methamphetamine): 500 ng/mL, MTD (Methadone): 200 ng/mL, OPI (Opiates): 100 ng/mL, OXY (Oxycodone): 100 ng/mL, PCP (Phencyclidine): 25 ng/mL, PPX (Propoxyphene): 300 ng/mL, THC (Cannabinoids): 50 ng/mL, TCA (Trycyclic Antidepressants): 300 ng/mL Performed By: #### D RUGRPD ####[facility] [address] [place], [place] [address]Dr. Katerina Rodarte DRUG CUT HEADER DRUG CLASS TEST SYST EM CUT-OFF CONCENTRATIONS ARE FOLLOWS: Normal [facility] Comment on above: Performed By: #### D RUGRPD ####[facility] [address] [place], [place] [address]Dr. Katerina Rodarte mAMP Negative Normal NEGATIVE [facility] Comment on above: Performed By: #### D RUGRPD ####[facility] [address] [place], [place] [address]Dr. Katerina Rodarte MTD Negative Normal NEGATIVE [facility] Comment on above: Performed By: #### D RUGRPD ####[facility] [address] [place], [place] [address]Dr. Katerina Rodarte OPI Positive Abnormal NEGATIVE [facility] Comment on above: Performed By: #### D RUGRPD ####[facility] [address] [place], [place] [address]Dr. Katerina Rodarte OXY Negative Normal NEGATIVE [facility] Comment on above: Performed By: #### D RUGRPD ####[facility] [address] [place], [place] [address]Dr. Katerina Rodarte PCP Negative Normal NEGATIVE [facility] Comment on above: Performed By: #### D RUGRPD ####[facility] [address] [id number]. Katerina Rodarte PPX Negative Normal NEGATIVE [facility] Comment on above: Performed By: #### D RUGRPD ####[facility] [address] [id number]. Katerina Rodarte TCA Negative Normal NEGATIVE [facility] Comment on above: Performed By: #### D RUGRPD ####[facility] [address] [address]Dr. Katerina Rodarte THC Negative Normal NEGATIVE [facility] Comment on above: Performed By: #### D RUGRPD ####[facility] [address] [address]Dr. Katerina Rodarte ETHANOL (BLD ALC)on 11-26-20 22 ALC NOTE NOTE: 80 mg/dl is th e legal limit for a blood alcohol level Normal [facility] Comment on above: Performed By: #### P OCGLUC #### [facility] [address] [address] [address] Katerina Rodarte Ethanol [Mass/Vol] 172 mg/dL Normal [facility] Comment on above: Performed By: #### P OCGLUC #### [facility] [address] [address] [address] Katerina Rodarte PROF 14(COMP METB)on 022 Albumin [Mass/Vol] 3.6 g/dL Normal 3.4-5.0 [facility] Comment on above: Performed By: #### C MREP #### [facility] [address] [address] [address] Katerina Rodarte Albumin/Globulin [Mass ratio] 0.9 {ratio} Normal [facility] Comment on above: Performed By: #### C MREP #### [facility] [address] [address] [address] Katerina Rodarte ALP [Catalytic activity/Vol] 125 U/L Critically high 46-116 [facility] Comment on above: Performed By: #### C MREP #### [facility] [address] [address] [address] Katerina Rodarte ALT [Catalytic activity/Vol] 56 U/L Normal 16-63 [facility] Comment on above: Performed By: #### C MREP #### [facility] [address] [place] [address] Dr. Katerina Rodaret Anion gap [Moles/Vol] 11.3 mmol/L Normal Th e [facility] Comment on above: Performed By: #### C MREP #### [facility] [address] [address] [address] Katerina Rodarte AST [Catalytic activity/Vol] 81 U/L Critically high 15-37 [facility] Comment on above: Performed By: #### C MREP #### [facility] [address] [place] [address] Dr. Katerina Rodarte Bilirubin [Mass/Vol] 0.2 mg/dL Normal 0.2-1.0 [facility] Comment on above: Performed By: #### C MREP #### [facility] [address] [place] [address] Dr. Katerina Rodarte Calcium [Mass/Vol] 8.6 mg/dL Normal 8.5-10.1 [facility] Comment on above: Performed By: #### C MREP #### [facility] [address] [place] [address] Dr. Katerina Rodarte Chloride [Moles/Vol] 97 mmol/L Critically low 98-107 [facility] Comment on above: Performed By: #### C MREP #### [facility] [address] [place] [address] Dr. Katerina Rodarte CO2 [Moles/Vol] 31.0 mmol/L Normal 21.0-32.0 [facility] Comment on above: Performed By: #### C MREP #### [facility] [address] [place] [address] Dr. Katerina Rodarte Creatinine [Mass/Vol] 1.12 mg/dL Normal 0.70-1.30 [facility] Comment on above: Performed By: #### C MREP #### [facility] [address] [place] [address] Dr. Katerina Rodarte EGFR-AF CANADIAN >60 Normal >=60 [facility] Comment on above: Performed By: #### C MREP #### [facility] [address] [place] [address] Dr. Katerina Rodarte EGFR-NON AF CANADIAN >60 Normal >=60 [facility] Comment on above: Performed By: #### C MREP #### [facility] [address] [place] [address] Dr. Katerina Rodarte Globulin (S) [Mass/Vol] 3.8 g/dL Normal [facility] Comment on above: Performed By: #### C MREP #### [facility] [address] [place] [address] Dr. Katerina Rodarte Glucose [Mass/Vol] 90 mg/dL Normal 74-106 [facility] Comment on above: Performed By: #### C MREP #### [facility] [address] [place] [address] Dr. Katerina Rodarte Performed By: #### P OCGLUC #### [facility] [address] [place] [address] Dr. Katerina Rodarte Potassium [Moles/Vol] 4.3 mmol/L Normal 3.5-5.1 [facility] Comment on above: Performed By: #### C MREP #### [facility] [address] [place] [address] Dr. Katerina Rodarte Protein [Mass/Vol] 7.4 g/dL Normal 6.4-8.2 [facility] Comment on above: Performed By: #### C MREP #### [facility] [address] [place] [address] Dr. Katerina Rodarte Sodium [Moles/Vol] 135 mmol/L Critically low 136-145 [facility] Comment on above: Performed By: #### C MREP #### [facility] [address] [place] [address] Dr. Katerina Rodarte Urea nitrogen [Mass/Vol] 10.0 mg/dL Normal 7.0-18.0 [facility] Comment on above: Performed By: #### C MREP #### [facility] [address] [place], [place] [address] Dr. Katerina Rodarte Urea nitrogen/Creatinine [Mass ratio] 8.9 mg/mg Normal [facility] Comment on above: Performed By: #### C MREP #### [facility] [address] [address] [address] Katerina Rodarte Basic Metabolic Panelon 09-27 Anion gap [Moles/Vol] 15.3 mmol/L High 6.0-15.0 [facility] Comment on above: Performed By: #### B MP, MG, CBC #### [facility] [address] [place] [address] [place] Calcium [Mass/Vol] 8.5 mg/dL Normal 8.2-10.2 [facility] Comment on above: Performed By: #### B MP, MG, CBC #### [facility] [address] [place] [address] [place] Chloride [Moles/Vol] 106 mmol/L Normal 95-114 [facility] Comment on above: Performed By: #### B MP, MG, CBC #### [facility] [address] [place] [address] [place] CO2 [Moles/Vol] 23.0 mmol/L Normal 22.0-30.0 [facility] Comment on above: Performed By: #### B MP, MG, CBC #### [facility] [address] [id number] [place] Creatinine [Mass/Vol] 0.89 mg/dL Normal 0.64-1.27 [facility] Comment on above: Performed By: #### B MP, MG, CBC #### [facility] [address] [place] [address] [place] Creatinine Clr Calc Pharmacy 76.43 [facility] Comment on above: Performed By: #### B MP, MG, CBC #### [facility] [address] [place] [address] [place] Estimated GFR ( Dori > 60 Normal [facility] Comment on above: Result Comment: GFR estimated reference range: According to KDOQI guidelines, <60 ml/min/1.73m2 is sufficient to diagnose a patient with chronic kidney disease. Performed By: #### B MP, MG, CBC #### [facility] [address] [place] [address] Estimated GFR (Non- Am > 60 Normal [facility] Comment on above: Performed By: #### B MP, MG, CBC #### [facility] [address] [place] [address] Glucose [Mass/Vol] 85 mg/dL Normal 70-100 [facility] Comment on above: Result Comment: [facility] Glucose Reference Range is dependent on time and content of last meal. Glucose of more than 200 mg/dL in a nonstressed, ambulatory subject supports the diagnosis of Diabetes Mellitus. ADA recommended reference range Performed By: #### B MP, MG, CBC #### [address] Potassium [Moles/Vol] 4.3 mmol/L Normal 3.5-5.1 [facility] Comment on above: Performed By: #### B MP, MG, CBC #### [facility] [address] Sodium [Moles/Vol] 140 mmol/L Significant change down 136-146 [facility] Comment on above: Performed By: #### B MP, MG, CBC #### [address] Urea nitrogen [Mass/Vol] 3 mg/dL Low 9-23 [facility] Comment on above: Performed By: #### B MP, MG, CBC #### [place] [address] [place] [address] cervical spine wo conon 1 12-08-2021 CT cervical spine wo con [facility] [place] [address] CT Scan Report Signed Patient: Aristides Clark MR#: [id number] 33 : 1975 Acct:[id number] Age/Sex: 47 / M ADM Date: 10/07/22 Loc: Room: [address] [place] [address] Type: ADM IN Attending Dr: Theresa Ohara DO Copies to: DO Theresa Duran DO Ordering Provider: Matthew Ford DO Date of Service: 10/07/22 CT/CT head/brain wo con: f ([id number]) CT/CT cervical spine wo con: f CLINICAL [...] Brittany Torres M.D.10/08/2022 8:38 AM Dictation Location: [address] [place] [address] Transcribed By: JEFF 10/08/22837 Dictated By: Brittany Torres MD 10/08/22830 Signed By: 10/08/22837 Normal [facility] Complete Blood Count Auto Di ffon 10-08-2022 Basophils (Bld) [#/Vol] 0.1 10*3/uL Normal 0.0-0.2 [facility] Comment on above: Result Comment: PERF ORMED BY: [place] [address] PATHOLOGIST PIPELINE CONTROLLER LATOYA CAMPBELL M.D. Performed By: #### B MP, MG, CBC #### [address] Basophils/100 WBC (Bld) 1.4 % Normal . [facility] Comment on above: Performed By: #### B MP, MG, CBC #### [facility] [address] [place] [address] Eosinophils (Bld) [#/Vol] 0.6 10*3/uL High 0.0-0.45 [facility] Comment on above: Performed By: #### B MP, MG, CBC #### [address] Eosinophils/100 WBC (Bld) 14.9 % Normal . [facility] Comment on above: Performed By: #### B MP, MG, CBC #### [facility] [address] [place] [address] Erythrocyte distribution width (RBC) [Ratio] 15.0 % High 12.0-14.8 [facility] Comment on above: Performed By: #### B MP, MG, CBC #### [facility] [address] [place] [address] Hematocrit (Bld) [Volume fraction] 39.3 % Normal 38.8-50.0 [facility] Comment on above: Performed By: #### B MP, MG, CBC #### [facility] [address] [place] [address] Hemoglobin (Bld) [Mass/Vol] 12.9 g/dL Low 13.0-17.0 [facility] Comment on above: Performed By: #### B MP, MG, CBC #### [facility] [address] [place] [address] Lymphocytes (Bld) [#/Vol] 1.3 10*3/uL Normal 1.00-4.8 [facility] Comment on above: Performed By: #### B MP, MG, CBC #### [address] Lymphocytes/100 WBC (Bld) 33.1 % Normal . [facility] Comment on above: Performed By: #### B MP, MG, CBC #### [address] MCH (RBC) [Entitic mass] 32.8 pg Normal 27.5-35.2 [facility] Comment on above: Performed By: #### B MP, MG, CBC #### [address] MCV (RBC) [Entitic vol] 100.1 fL Normal 83.5-101 [facility] Comment on above: Performed By: #### B MP, MG, CBC #### [address] Mean Corpuscular HGB Conc 32.7 g/dL Normal 32.5-35.6 [facility] Comment on above: Performed By: #### B MP, MG, CBC #### [address] Monocytes (Bld) [#/Vol] 0.5 10*3/uL Normal 0.0-0.8 [facility] Comment on above: Performed By: #### B MP, MG, CBC #### [place] [address] [place] Monocytes/100 WBC (Bld) 14.2 % Normal . [facility] Comment on above: Performed By: #### B MP, MG, CBC #### [facility] [address] [place] [address] [place] Neutrophils (Bld) [#/Vol] 1.4 10*3/uL Low 1.8-7.7 [facility] Comment on above: Performed By: #### B MP, MG, CBC #### [address] Neutrophils/100 WBC (Bld) 36.4 % Normal . [facility] Comment on above: Performed By: #### B MP, MG, CBC #### [address] Nucleated RBC/100 WBC (Bld) [Ratio] 0.2 % Normal 0-0.5 [facility] Comment on above: Performed By: #### B MP, MG, CBC #### [address] Platelet mean volume (Bld) [Entitic vol] 7.8 fL Normal 6.6-10.1 [facility] Comment on above: Performed By: #### B MP, MG, CBC #### [address] Platelets (Bld) [#/Vol] 244 10*3/uL Normal 150-450 [facility] Comment on above: Performed By: #### B MP, MG, CBC #### [address] RBC (Bld) [#/Vol] 3.92 10*6/uL Normal 3.90-5.60 [facility] Comment on above: Performed By: #### B MP, MG, CBC #### [address] WBC (Bld) [#/Vol] 3.8 10*3/uL Low 4.5-11.0 [facility] Comment on above: Performed By: #### B MP, MG, CBC #### [address] Levetiracetam (Keppra)on levETIRAcetam [Mass/Vol] 26.2 ug/mL Normal 10.0-40.0 [facility] Comment on above: Result Comment: Perf ormed at: BN - [facility] [address], [place], [place] [id number] Checker/Stocker: Theo Sierra MD, Phone: [phone] PERFORMED BY: [place] [address] PATHOLOGIST PIPELINE CONTROLLER LATOYA CAMPBELL M.D. Performed By: #### L EV #### [facility] , Magnesiumon 10-08-2022 Magnesium [Mass/Vol] 1.8 mg/dL Normal 1.6-2.6 [facility] Comment on above: Result Comment: PERF ORMED BY: [place] [address] PATHOLOGIST PIPELINE CONTROLLER LATOYA CAMPBELL M.D. Performed By: #### B MP, MG, CBC #### [facility] [address] [place] [address] Albumin [Mass/volume] in Ser um or PlasmaOrdered By: Matthew Ford on 10-07-2022 Albumin [Mass/Vol] 3.8 g/dL 3.2-5.5 [facility] Amphetamine Screen Ql (U)Ord ered By: Matthew Ford on 10-07-2022 Amphetamines Ql (U) Negative Negative [facility] Barbiturates [Presence] in U rineOrdered By: Matthew Ford on 10-07-2022 Barbiturates Ql (U) Negative Negative [facility] Basophils Auto (Bld) [#/Vol] Ordered By: Matthew Ford on 10-07-2022 Basophils (Bld) [#/Vol] 0.1 10*3/uL 0.0-0.2 [facility] Basophils/100 WBC Auto (Bld) Ordered By: Matthew Ford on 10-07-2022 Basophils/100 WBC (Bld) 1.2 % . [facility] Benzodiazepines [Presence] i n UrineOrdered By: Matthew Ford on 10-07-2022 Benzodiazepines Ql (U) Negative Negative [facility] Cannabinoids [Presence] in U rine by Screen methodOrdered By: Matthew Ford on 10-07-2022 Cannabinoids Screen Ql (U) Positive Negative [facility] Comment on above: These are unconfirme d results and should not be used for legal purposes. Drug Cut-Off Concentration: AMPH 1000 ng/mL JODY 200 ng/mL ART 200 ng/mL COCM 300 ng/mL OP 300 ng/mL PCP 25 ng/mL THC 20 ng/mL Complete Blood Count Auto Di ffon 10-07-2022 Basophils (Bld) [#/Vol] 0.1 10*3/uL Normal 0.0-0.2 [facility] Comment on above: Result Comment: PERF ORMED BY: [place] [address] PATHOLOGIST PIPELINE CONTROLLER LATOYA CAMPBELL M.D. Performed By: #### C BC, PT, CMP #### [address] Basophils/100 WBC (Bld) 1.2 % Normal . [facility] Comment on above: Performed By: #### C BC, PT, CMP #### [facility] [address] [place] [address] Eosinophils (Bld) [#/Vol] 0.5 10*3/uL High 0.0-0.45 [facility] Comment on above: Performed By: #### C BC, PT, CMP #### [address] Eosinophils/100 WBC (Bld) 8.2 % Normal . [facility] Comment on above: Performed By: #### C BC, PT, CMP #### [facility] [address] [place] [address] Erythrocyte distribution width (RBC) [Ratio] 14.6 % Normal 12.0-14.8 [facility] Comment on above: Performed By: #### C BC, PT, CMP #### [address] Hematocrit (Bld) [Volume fraction] 39.5 % Normal 38.8-50.0 [facility] Comment on above: Performed By: #### C BC, PT, CMP #### [facility] [address] [place] [address] [place] Hemoglobin (Bld) [Mass/Vol] 13.1 g/dL Normal 13.0-17.0 [facility] Comment on above: Performed By: #### C BC, PT, CMP #### [facility] [address] [place] [address] [place] Lymphocytes (Bld) [#/Vol] 2.6 10*3/uL Normal 1.00-4.8 [facility] Comment on above: Performed By: #### C BC, PT, CMP #### [facility] [address] [place] [address] [place] Lymphocytes/100 WBC (Bld) 45.8 % Normal . [facility] Comment on above: Performed By: #### C BC, PT, CMP #### [facility] [address] MCH (RBC) [Entitic mass] 32.8 pg Normal 27.5-35.2 [facility] Comment on above: Performed By: #### C BC, PT, CMP #### [facility] [address] [place] [address] [place] MCV (RBC) [Entitic vol] 99.1 fL Normal 83.5-101 [facility] Comment on above: Performed By: #### C BC, PT, CMP #### [facility] [address] Mean Corpuscular HGB Conc 33.1 g/dL Normal 32.5-35.6 [facility] Comment on above: Performed By: #### C BC, PT, CMP #### [facility] [address] [place] [address] [place] Monocytes (Bld) [#/Vol] 0.7 10*3/uL Normal 0.0-0.8 [facility] Comment on above: Performed By: #### C BC, PT, CMP #### [facility] [address] [place] [id number] [place] Monocytes/100 WBC (Bld) 11.8 % Normal . [facility] Comment on above: Performed By: #### C BC, PT, CMP #### [facility] [address] Neutrophils (Bld) [#/Vol] 1.9 10*3/uL Normal 1.8-7.7 [facility] Comment on above: Performed By: #### C BC, PT, CMP #### [facility] [address] Neutrophils/100 WBC (Bld) 33.0 % Normal . [facility] Comment on above: Performed By: #### C BC, PT, CMP #### [facility] [address] Nucleated RBC/100 WBC (Bld) [Ratio] 0.1 % Normal 0-0.5 [facility] Comment on above: Performed By: #### C BC, PT, CMP #### [address] Platelet mean volume (Bld) [Entitic vol] 7.7 fL Normal 6.6-10.1 [facility] Comment on above: Performed By: #### C BC, PT, CMP #### [address] Platelets (Bld) [#/Vol] 301 10*3/uL Normal 150-450 [facility] Comment on above: Performed By: #### C BC, PT, CMP #### [facility] [address] [place] [address] [place] RBC (Bld) [#/Vol] 3.99 10*6/uL Normal 3.90-5.60 [facility] Comment on above: Performed By: #### C BC, PT, CMP #### [facility] [address] [place] [address] [place] WBC (Bld) [#/Vol] 5.8 10*3/uL Normal 4.5-11.0 [facility] Comment on above: Performed By: #### C BC, PT, CMP #### [address] Comprehensive Metabolic Pane vivek 10-07-2022 Albumin [Mass/Vol] 3.8 g/dL Normal 3.2-5.5 [facility] Comment on above: Performed By: #### C BC, PT, CMP #### [address] Albumin/Globulin [Mass ratio] 1.4 {ratio} Normal [facility] Comment on above: Performed By: #### C BC, PT, CMP #### [address] ALP [Catalytic activity/Vol] 92 U/L Normal 32-92 [facility] Comment on above: Performed By: #### C BC, PT, CMP #### [address] ALT [Catalytic activity/Vol] 21 U/L Normal 10-60 [facility] Comment on above: Performed By: #### C BC, PT, CMP #### [address] Anion gap [Moles/Vol] 13.2 mmol/L Normal 6.0-15.0 [facility] Comment on above: Performed By: #### C BC, PT, CMP #### [address] AST [Catalytic activity/Vol] 30 U/L Normal 10-42 [facility] Comment on above: Performed By: #### C BC, PT, CMP #### [address] Bilirubin [Mass/Vol] 0.6 mg/dL Normal 0.3-1.2 [facility] Comment on above: Performed By: #### C BC, PT, CMP #### [address] Calcium [Mass/Vol] 8.8 mg/dL Normal 8.2-10.2 [facility] Comment on above: Performed By: #### C BC, PT, CMP #### [place] [address] [place] Chloride [Moles/Vol] 94 mmol/L Low 95-114 [facility] Comment on above: Performed By: #### C BC, PT, CMP #### [address] CO2 [Moles/Vol] 25.0 mmol/L Normal 22.0-30.0 [facility] Comment on above: Performed By: #### C BC, PT, CMP #### [address] Creatinine [Mass/Vol] 1.09 mg/dL Normal 0.64-1.27 [facility] Comment on above: Performed By: #### C BC, PT, CMP #### [address] Creatinine Clr Calc Pharmacy 64.68 [facility] Comment on above: Result Comment: PERF ORMED BY: [place] [address] PATHOLOGIST PIPELINE CONTROLLER LATOYA CAMPBELL M.D. Performed By: #### C BC, PT, CMP #### [address] Estimated GFR ( Dori > 60 [facility] Comment on above: Result Comment: GFR estimated reference range: According to KDOQI guidelines, <60 ml/min/1.73m2 is sufficient to diagnose a patient with chronic kidney disease. Performed By: #### C BC, PT, CMP #### [address] Estimated GFR (Non- Am > 60 [facility] Comment on above: Performed By: #### C BC, PT, CMP #### [address] Globulin (S) [Mass/Vol] 2.8 g/dL [facility] Comment on above: Performed By: #### C BC, PT, CMP #### [facility] [address] Glucose [Mass/Vol] 93 mg/dL Normal 70-100 [facility] Comment on above: Result Comment: [place] Glucose Reference Range is dependent on time and content of last meal. Glucose of more than 200 mg/dL in a nonstressed, ambulatory subject supports the diagnosis of Diabetes Mellitus. ADA recommended reference range Performed By: #### C BC, PT, CMP #### [facility] [address] Potassium [Moles/Vol] 4.2 mmol/L Normal 3.5-5.1 [facility] Comment on above: Performed By: #### C BC, PT, CMP #### [facility] [address] [place] [address] [place] Protein [Mass/Vol] 6.6 g/dL Normal 6.1-7.9 [facility] Comment on above: Performed By: #### C BC, PT, CMP #### [facility] [address] [place] [address] [place] Sodium [Moles/Vol] 128 mmol/L Low 136-146 [facility] Comment on above: Performed By: #### C BC, PT, CMP #### [facility] [address] [place] [address] [place] Urea nitrogen [Mass/Vol] 4 mg/dL Low 9-23 [facility] Comment on above: Performed By: #### C BC, PT, CMP #### [facility] [address] [place] [address] [place] Creatinine and Glomerular fi ltration rate.predicted panel (S/P/Bld)Ordered By: Matthew Ford on 10-07-2022 Creatinine [Mass/Vol] 1.09 mg/dL 0.64-1.27 [facility] Drug Screen,Urineon 10-07-20 Amphetamine Screen,Urine Negative Normal Negative [facility] Comment on above: Performed By: #### C BC, PT, CMP #### [facility] [address] [place] [address] [place] Barbiturate Screen,Urine Negative Normal Negative [facility] Comment on above: Performed By: #### C BC, PT, CMP #### [facility] [address] [place] [address] [place] Benzodiazepines Screen,Urine Negative Normal Negative [facility] Comment on above: Performed By: #### C BC, PT, CMP #### [facility] [address] [place] [address] Cannabinoid Screen,Urine Positive High Negative [facility] Comment on above: Result Comment: Thes e are unconfirmed results and should not be used for legal purposes. Drug Cut-Off Concentration: AMPH 1000 ng/mL JODY 200 ng/mL ART 200 ng/mL COCM 300 ng/mL OP 300 ng/mL PCP 25 ng/mL THC 20 ng/mL PERFORMED BY: [place] [address] PATHOLOGIST PIPELINE CONTROLLER LATOYA CAMPBELL M.D. Performed By: #### C BC, PT, CMP #### [address] Cocaine Screen,Urine Positive High Negative [facility] Comment on above: Performed By: #### C BC, PT, CMP #### [address] Opiate Screen,Urine Negative Normal Negative [facility] Comment on above: Performed By: #### C BC, PT, CMP #### [address] Phencyclidine Screen,Urine Negative Normal Negative [facility] Comment on above: Performed By: #### C BC, PT, CMP #### [address] ECG 12 lead ECGon 10-07-2022 ECG 12 lead ECG [facility] [place] [address] [place] [address] Electrocardiograph Report Signed Patient: Aristides Clark MR#: [id number] 33 : 1975 Acct:[id number] Age/Sex: 47 / M ADM Date: 10/07/22 Loc: 4 Room: [address] [place] [address] Type: DIS INOo Attending Dr: Theresa Ohara [...] was found Confirmed by MATTHEW FORD DO ([id number]) on 10/08/2022 2:05:39 AM Referred By: Electronically Signed By:MATTHEW FORD DO Transcribed By: MUS Signed By Matthew Ford DO 10/08 0205 Normal [facility] Eosinophils Auto (Bld) [#/Vo l]Ordered By: Matthew Ford on 10-07-2022 Eosinophils (Bld) [#/Vol] 0.5 10*3/uL 0.0-0.45 [facility] Eosinophils/100 WBC Auto (Bl d)Ordered By: Matthew Ford on 10-07-2022 Eosinophils/100 WBC (Bld) 8.2 % . [facility] Erythrocyte distribution wid th Auto (RBC) [Ratio]Ordered By: Matthew Ford on 10-07-2022 Erythrocyte distribution width (RBC) [Ratio] 14.6 % 12.0-14.8 [facility] Estimated glomerular filtrat ion rate (GFR) non- AmericanOrdered By: Matthew Ford on 10-07-2022 GFR/1.73 sq M.predicted among non-blacks MDRD (S/P/Bld) [Vol rate/Area] > 60 mL/Min [facility] Ethyl Alcohol Profileon 09-27 Ethanol [Mass/Vol] 309 mg/dL Normal [facility] Comment on above: Performed By: #### C BC, PT, CMP #### [address] Percent Ethanol 0.309 % Normal [facility] Comment on above: Result Comment: PERF ORMED BY: [place] [address] PATHOLOGIST PIPELINE CONTROLLER LATOYA CAMPBELL M.D. Performed By: #### C BC, PT, CMP #### [address] Globulin Calc (S) [Mass/Vol] Ordered By: Matthew Ford on 10-07-2022 Globulin (S) [Mass/Vol] 2.8 g/dL [facility] Glucose Glucometer (BldC) [M ass/Vol]Ordered By: Matthew Ford on 10-07-2022 Glucose [Mass/Vol] 89 mg/dL [facility] Comment on above: Random Glucose Refer ence Range is dependent on time and content of last meal. Glucose of more than 200 mg/dL in a nonstressed, ambulatory subject supports the diagnosis of Diabetes Mellitus. Glucose Poct Glucometerson 1 12-07-2021 Commemt1 Normal [facility] Comment on above: Result Comment: Glu2 : WILL NOTIFY DR/RN PERFORMED BY: [place] [phone] PATHOLOGIST PIPELINE CONTROLLER LATOYA CAMPBELL M.D. Performed By: #### G LULS #### Point of Care testing , Glucose [Mass/Vol] 89 mg/dL Normal [facility] Comment on above: Result Comment: [place] Glucose Reference Range is dependent on time and content of last meal. Glucose of more than 200 mg/dL in a nonstressed, ambulatory subject supports the diagnosis of Diabetes Mellitus. Performed By: #### G LULS #### Point of Care testing , Hematocrit Auto (Bld) [Volum e fraction]Ordered By: Matthew Ford on 10-07-2022 Hematocrit (Bld) [Volume fraction] 39.5 % 38.8-50.0 [facility] Hemoglobin [Mass/volume] in BloodOrdered By: Matthew Ford on 10-07-2022 Hemoglobin (Bld) [Mass/Vol] 13.1 g/dL 13.0-17.0 [facility] Laboratory - CoagulationOrde red By: Matthew Ford on 10-07-2022 PT Coag (PPP) [Time] 10.9 s 9.0-12.9 [facility] Laboratory - Drug toxicology Ordered By: Matthew Ford on 10-07-2022 Opiates Ql (U) Negative Negative [facility] Laboratory - Hematology and Cell countsOrdered By: Matthew Ford on 10-07-2022 Nucleated RBC/100 WBC (Bld) [Ratio] 0.1 % 0-0.5 [facility] Leukocytes [#/volume] in Blo od by Automated countOrdered By: Matthew Ford on 10-07-2022 WBC (Bld) [#/Vol] 5.8 10*3/uL 4.5-11.0 [facility] Lymphocytes Auto (Bld) [#/Vo l]Ordered By: Matthew Ford on 10-07-2022 Lymphocytes (Bld) [#/Vol] 2.6 10*3/uL 1.00-4.8 [facility] Lymphocytes/100 WBC Auto (Bl d)Ordered By: Matthew Ford on 10-07-2022 Lymphocytes/100 WBC (Bld) 45.8 % . [facility] MCH Auto (RBC) [Entitic mass ]Ordered By: Matthew Ford on 10-07-2022 MCH (RBC) [Entitic mass] 32.8 pg 27.5-35.2 [facility] MCHC Auto (RBC) [Mass/Vol]Or dered By: Matthew Ford on 10-07-2022 MCHC (RBC) [Mass/Vol] 33.1 g/dL 32.5-35.6 [facility] MCV Auto (RBC) [Entitic vol] Ordered By: Matthew Ford on 10-07-2022 MCV (RBC) [Entitic vol] 99.1 fL 83.5-101 [facility] Monocytes Auto (Bld) [#/Vol] Ordered By: Matthew Ford on 10-07-2022 Monocytes (Bld) [#/Vol] 0.7 10*3/uL 0.0-0.8 [facility] Monocytes/100 WBC Auto (Bld) Ordered By: Matthew Ford on 10-07-2022 Monocytes/100 WBC (Bld) 11.8 % . [facility] Neutrophils Auto (Bld) [#/Vo l]Ordered By: Matthew Ford on 10-07-2022 Neutrophils (Bld) [#/Vol] 1.9 10*3/uL 1.8-7.7 [facility] Neutrophils/100 WBC Auto (Bl d)Ordered By: Matthew Ford on 10-07-2022 Neutrophils/100 WBC (Bld) 33.0 % . [facility] No Panel InformationOrdered By: Matthew Ford on 10-07-2022 Bedside Glucose Comment See comment [facility] Comment on above: Glu2: WILL NOTIFY DR /RN Estimated GFR () > 60 mL/Min [facility] Comment on above: GFR estimated refere nce range: According to KDOQI guidelines, <60 ml/min/1.73m2 is sufficient to diagnose a patient with chronic kidney disease. Pharmacy Creatinine Clearance (Chem 64.68 [facility] Phencyclidine Screen Ql (U)O rdered By: Matthew Ford on 10-07-2022 Phencyclidine Ql (U) Negative Negative [facility] Platelet mean volume Auto (B ld) [Entitic vol]Ordered By: Matthew Ford on 10-07-2022 Platelet mean volume (Bld) [Entitic vol] 7.7 fL 6.6-10.1 [facility] Platelet poor plasma interna tional normalized ratio (INR) by coagulation assay (relatOrdered By: Matthew Ford on 10-07-2022 INR Coag (PPP) [Relative time] 1.0 {INR} [facility] Comment on above: INR Therapeutic Rang [...] 10-07-2022 Platelets (Bld) [#/Vol] 301 10*3/uL 150-450 [facility] Protein [Mass/volume] in Ser um or PlasmaOrdered By: Matthew Ford on 10-07-2022 Protein [Mass/Vol] 6.6 g/dL 6.1-7.9 [facility] Prothrombin Time INRon 10-07 INR Coag (PPP) [Relative time] 1.0 {INR} Normal [facility] Comment on above: Result Comment: INR [...] heart valves: 3 - 4.5 PERFORMED BY: [place] [address] PATHOLOGIST PIPELINE CONTROLLER LATOYA CAMPBELL M.D. Performed By: #### C BC, PT, CMP #### [facility] [address] [place] [address] PT Coag (PPP) [Time] 10.9 s Normal 9.0-12.9 [facility] Comment on above: Performed By: #### C BC, PT, CMP #### [facility] [address] [place] [address] RBC Auto (Bld) [#/Vol]Ordere d By: Matthew Ford on 10-07-2022 RBC (Bld) [#/Vol] 3.99 10*6/uL 3.90-5.60 [facility] Serum or plasma alanine pascual otransferase measurement without P-5'-P (enzymatic activiOrdered By: Matthew Ford on 10-07-2022 ALT No additional P-5'-P [Catalytic activity/Vol] 21 U/L 10-60 [facility] Serum or plasma albumin/glob ulin mass ratioOrdered By: Matthew Ford on 10-07-2022 Albumin/Globulin [Mass ratio] 1.4 {ratio} [facility] Serum or plasma alkaline jonathan sphatase measurement (enzymatic activity/volume)Ordered By: Matthew Ford on 10-07-2022 ALP [Catalytic activity/Vol] 92 U/L 32-92 [facility] Serum or plasma anion gap de terminationOrdered By: Matthew Ford on 10-07-2022 Anion gap [Moles/Vol] 13.2 mmol/L 6.0-15.0 [facility] Serum or plasma aspartate am inotransferase measurement (enzymatic activity/volume)Ordered By: Matthew Ford on 10-07-2022 AST [Catalytic activity/Vol] 30 U/L 10-42 [facility] Serum or plasma calcium william urement (mass/volume)Ordered By: Matthew Ford on 10-07-2022 Calcium [Mass/Vol] 8.8 mg/dL 8.2-10.2 [facility] Serum or plasma chloride josh surement (moles/volume)Ordered By: Matthew Ford on 10-07-2022 Chloride [Moles/Vol] 94 mmol/L 95-114 [facility] Serum or plasma ethanol william urement (mass/volume)Ordered By: Matthew Ford on 10-07-2022 Ethanol [Mass/Vol] 309 mg/dL [facility] Ethanol [Mass/Vol] 0.309 % [facility] Serum or plasma glucose william urement (mass/volume)Ordered By: Matthew Ford on 10-07-2022 Glucose [Mass/Vol] 93 mg/dL 70-100 [facility] Comment on above: ADA recommended refe rence rangeRandom Glucose Reference Range is dependent on time and content of last meal. Glucose of more than 200 mg/dL in a nonstressed, ambulatory subject supports the diagnosis of Diabetes Mellitus. Serum or plasma potassium me asurement (moles/volume)Ordered By: Matthew Ford on 10-07-2022 Potassium [Moles/Vol] 4.2 mmol/L 3.5-5.1 [facility] Serum or plasma sodium measu rement (moles/volume)Ordered By: Matthew Ford on 10-07-2022 Sodium [Moles/Vol] 128 mmol/L 136-146 [facility] Serum or plasma total biliru bin measurement (mass/volume)Ordered By: Matthew Ford on 10-07-2022 Bilirubin [Mass/Vol] 0.6 mg/dL 0.3-1.2 [facility] Serum or plasma total carbon dioxide measurement (moles/volume)Ordered By: Matthew Ford on 10-07-2022 CO2 [Moles/Vol] 25.0 mmol/L 22.0-30.0 [facility] Serum or plasma urea nitroge n measurement (mass/volume)Ordered By: Matthew Ford on 10-07-2022 Urea nitrogen [Mass/Vol] 4 mg/dL 08-19 [facility] Urine cocaine detectionOrder ed By: Matthew Ford on 10-07-2022 Cocaine Ql (U) Positive Negative [facility] CARDIAC RA 3-6on 2 CK [Catalytic activity/Vol] 127 U/L Normal 39-308 [facility] Comment on above: Performed By: #### C MREP #### [facility] [address] [place] [address] [address] Katerina Rodarte CK.MB [Mass/Vol] 3.20 ng/mL Normal <=3.60 [facility] Comment on above: Performed By: #### C MREP #### [facility] [address] [place] [address] [address] Katerina Rodarte HSTROP 9.9 pg/mL Normal 4.0-76.1 [facility] Comment on above: Result Comment: CUT- OFF POINTS HAVE BEEN ESTABLISHED BASED ON THE FOURTH UNIVERSAL DEFINITIONS OF MYOCARDIAL INFARCTION. THE UPPER REFERENCE LIMIT (URL) OF TROPONIN, DEFINED THE 99TH PERCENTILE OF cTnI DISTRIBUTION IN A REFERENCE POPULATION, HAS BEEN CONFIRMED THE DECISION THRESHOLD FOR MD DIAGNOSIS. Performed By: #### C MREP #### [facility] [address] [place] [address] [address] HEAD WO CONon [...] ANISH ARIAS Date: 2022-08-10 22:12 Normal [facility] AMYLASEon 08-10-2022 Amylase [Catalytic activity/Vol] 43 U/L Normal 25-115 [facility] Comment on above: Performed By: #### L IPA, SUSAN, CMP, ETH, CMADM ####[facility] [address] [place] [address]Dr. Katerina Rodarte CARDIAC RA ADMITon 022 CK [Catalytic activity/Vol] 78 U/L Normal 39-308 [facility] Comment on above: Performed By: #### L IPA, SUSAN, CMP, ETH, CMADM ####[facility] [address] [place] [address]Dr. Katerina Rodarte CK.MB [Mass/Vol] 2.61 ng/mL Normal <=3.60 [facility] Comment on above: Performed By: #### L IPA, SUSAN, CMP, ETH, CMADM ####[facility] [address] [place] [address]Dr. Katerina Rodarte HSTROP 7.1 pg/mL Normal 4.0-76.1 [facility] Comment on above: Result Comment: CUT- OFF POINTS HAVE BEEN ESTABLISHED BASED ON THE FOURTH UNIVERSAL DEFINITIONS OF MYOCARDIAL INFARCTION. THE UPPER REFERENCE LIMIT (URL) OF TROPONIN, DEFINED THE 99TH PERCENTILE OF cTnI DISTRIBUTION IN A REFERENCE POPULATION, HAS BEEN CONFIRMED THE DECISION THRESHOLD FOR MD DIAGNOSIS. Performed By: #### L IPA, SUSAN, CMP, ETH, CMADM ####[facility] [address] [place] [address]Dr. Katerina Rodarte SHIRA 184 ng/mL Critically high 16-96 [facility] Comment on above: Performed By: #### L IPA, SUSAN, CMP, ETH, CMADM ####[facility] [address] [place] [address]Dr. Katerina Rodarte CBC AUTO DIFFon 08-10-2022 BASO # 0.0 103/ul Normal 0.0-0.1 [facility] Comment on above: Performed By: #### C BC ####[facility] [address] [place] [address]Dr. Katerina Cayden Basophils/100 WBC (Bld) 0.5 % Normal 0.2-2.0 [facility] Comment on above: Performed By: #### C BC ####[facility] [address] [place], [place] [address]Dr. Liliasamina Cayden EO # 0.1 103/ul Normal 0.0-0.7 [facility] Comment on above: Performed By: #### C BC ####[facility] [address] [place], [place] [address]Dr. Katerina Cayden Eosinophils/100 WBC (Bld) 2.2 % Normal 0.9-7.0 [facility] Comment on above: Performed By: #### C BC ####[facility] [address] [place], [place] [address]Dr. Katerina Cayden Erythrocyte distribution width (RBC) [Ratio] 14.1 % Normal 11.0-15.0 [facility] Comment on above: Performed By: #### C BC ####[facility] [address] [place], [place] [address]Dr. Katerina Rodarte Hematocrit (Bld) [Volume fraction] 39.6 % Critically low 42.0-54.0 [facility] Comment on above: Performed By: #### C BC ####[facility] [address] [place], [place] [address]Dr. Katerina Rodarte Hemoglobin (Bld) [Mass/Vol] 13.3 g/dL Critically low 14.0-18.0 [facility] Comment on above: Performed By: #### C BC ####[facility] [address] [place], [place] [address]Dr. Katerina Rodarte IG # 0.01 10e3/ul Normal 0.00-0.03 [facility] Comment on above: Performed By: #### C BC ####[facility] [address] [place], [place] [address]Dr. Katerina Rodarte IG % 0.2 % Normal 0.0-0.5 [facility] Comment on above: Performed By: #### C BC ####[facility] [address] [place] [address]Dr. Katerina Rodarte LYMPH # 1.5 103/ul Normal 1.2-3.8 [facility] Comment on above: Performed By: #### C BC ####[facility] [facility] [address] [address]Dr. Katerina Rodarte Lymphocytes/100 WBC (Bld) 36.2 % Normal 20.5-60.0 [facility] Comment on above: Performed By: #### C BC ####[facility] [address] [address]Dr. Katerina Rodarte MANUAL DIFF REQ NO Normal [facility] Comment on above: Performed By: #### C BC ####[facility] [address] [place], [place] [address]Dr. Katerina Rodarte MCH (RBC) [Entitic mass] 31.8 pg Normal 25.9-34.0 [facility] Comment on above: Performed By: #### C BC ####[facility] [address] [place], [place] [address]Dr. Katerina Cayden MCHC (RBC) [Mass/Vol] 33.6 g/dL Normal 29.9-35.2 [facility] Comment on above: Performed By: #### C BC ####[facility] N[address] [place], [place] [address]Dr. Katerina Rodarte MCV (RBC) [Entitic vol] 94.7 fL Critically high 80.0-94.0 [facility] Comment on above: Performed By: #### C BC ####[facility] [address] [place], [place] [address]DrZiggy Rodarte MONO # 0.4 103/ul Normal 0.3-0.8 [facility] Comment on above: Performed By: #### C BC ####[facility] [address] [place], [place] [address]Dr. Katerina Rodarte Monocytes/100 WBC (Bld) 8.9 % Normal 1.7-12.0 [facility] Comment on above: Performed By: #### C BC ####[facility] [address] [address]Dr. Liliasamina Rodarte NEUT # 2.2 103/ul Normal 1.4-6.5 [facility] Comment on above: Performed By: #### C BC ####[facility] [address] [address]Dr. Katerina Rodarte Neutrophils/100 WBC (Bld) 52.0 % Normal 43.0-75.0 [facility] Comment on above: Performed By: #### C BC ####[facility] [address] [address]DrZiggy Rodarte Platelet mean volume (Bld) [Entitic vol] 9.2 fL Critically low 9.5-13.5 [facility] Comment on above: Performed By: #### C BC ####[facility] [address] [address]Dr. Katerina Rodarte PLT 261 103/ul Normal 150-450 [facility] Comment on above: Performed By: #### C BC ####[facility] [address] [address]Dr. Katerina Rodarte RBC 4.18 106/ul Critically low 4.70-6.10 [facility] Comment on above: Performed By: #### C BC ####[facility] [address] [address]DrZiggy Rodarte WBC 4.2 103/ul Normal 4.0-11.0 [facility] Comment on above: Performed By: #### C BC ####[facility] [address] [id number]. Katerina Rodarte DRUG SCREEN RAPID (URINE)on 08-10-2022 AMP Negative Normal NEGATIVE [facility] Comment on above: Performed By: #### C MREP #### [facility] [address] [place], [place] [address] Dr. Katerina Rodarte BAR Negative Normal NEGATIVE [facility] Comment on above: Performed By: #### C MREP #### [facility] [address] [place] [address] Dr. Katerina Rodarte BUP Negative Normal NEGATIVE [facility] Comment on above: Performed By: #### C MREP #### [facility] [address] [place] [address] Dr. Katerina Rodarte BZO Negative Normal NEGATIVE [facility] Comment on above: Performed By: #### C MREP #### [facility] [address] [place] [address] Dr. Katerina Rodarte CARLIE Negative Normal NEGATIVE [facility] Comment on above: Performed By: #### C MREP #### [facility] [address] [place] [address] Dr. Katerina Rodarte CUT-OFFS SEE BELOW Normal [facility] Comment on above: Result Comment: AMP [...] ng/mL Performed By: #### C MREP #### [facility] [address] [place] [address] Dr. Katerina Rodarte DRUG CUT HEADER DRUG CLASS TEST SYST EM CUT-OFF CONCENTRATIONS ARE FOLLOWS: Normal [facility] Comment on above: Performed By: #### C MREP #### [facility] [address] [place] [address] Dr. Katerina Rodarte mAMP Negative Normal NEGATIVE [facility] Comment on above: Performed By: #### C MREP #### [facility] [address] [place] [address] Dr. Katerina Rodarte MTD Negative Normal NEGATIVE [facility] Comment on above: Performed By: #### C MREP #### [facility] [address] [place] [address] Dr. Katerina Rodarte OPI Negative Normal NEGATIVE [facility] Comment on above: Performed By: #### C MREP #### [facility] [address] [place] [address] Dr. Katerina Rodarte OXY Negative Normal NEGATIVE [facility] Comment on above: Performed By: #### C MREP #### [facility] [address] [place] [address] Dr. Katerina Rodarte PCP Negative Normal NEGATIVE [facility] Comment on above: Performed By: #### C MREP #### [facility] [address] [place] [address] Dr. Katerina Rodarte PPX Negative Normal NEGATIVE [facility] Comment on above: Performed By: #### C MREP #### [facility] [address] [place] [address] Dr. Katerina Rodarte TCA Negative Normal NEGATIVE [facility] Comment on above: Performed By: #### C MREP #### [facility] [address] [place] [address] Dr. Katerina Rodarte THC Negative Normal NEGATIVE [facility] Comment on above: Performed By: #### C MREP #### [facility] [address] [place] [address] Dr. Katerina Rodarte ER URINE PROFILEon 2 Bilirubin Ql (U) Negative Normal NEGATIVE [facility] Comment on above: Performed By: #### C MREP #### [facility] [address] [place] [address] Dr. Katerina Rodarte Clarity (U) CLEAR Normal CLEAR [facility] Comment on above: Performed By: #### C MREP #### [facility] [address] [place] [address] Dr. Katerina Rodarte Color (U) LT. YELLOW Normal YELLOW [facility] Comment on above: Performed By: #### C MREP #### [facility] [address] [place] [address] Dr. Katerina Rodarte ERUAHD A micrscopic examina tion will be performed if indicated. Normal [facility] Comment on above: Performed By: #### C MREP #### [facility] [address] [place] [address] Dr. Katerina Rodarte Glucose Ql (U) Negative Normal NEGATIVE [facility] Comment on above: Performed By: #### C MREP #### [facility] [address] [place] [address] Dr. Katerina Rodarte Hemoglobin Ql (U) Negative Normal NEGATIVE [facility] Comment on above: Performed By: #### C MREP #### [facility] [address] [place] [address] Dr. Katerina Rodarte Ketones Ql (U) Negative Normal NEGATIVE [facility] Comment on above: Performed By: #### C MREP #### [facility] [address] [place] [address] Dr. Katerina oRdarte LEUKOCYTES Negative Normal NEGATIVE [facility] Comment on above: Performed By: #### C MREP #### [facility] [address] [place] [address] Dr. Katerina Rodarte Nitrite Ql (U) Negative Normal NEGATIVE [facility] Comment on above: Performed By: #### C MREP #### [facility] [address] [place] [address] Dr. Katerina Rodarte pH (U) 6.0 [pH] Normal 5-9 [facility] Comment on above: Performed By: #### C MREP #### [facility] [address] [place] [address] Dr. Katerina Rodarte SPEC GRAVITY <=1.005 Abnormal 1.005-<=1.0 25 [facility] Comment on above: Performed By: #### C MREP #### [facility] [address] [place] [address] Dr. Katerina Rodarte UA PROTEIN Negative Normal NEGATIVE/ TRACE [facility] Comment on above: Performed By: #### C MREP #### [facility] [address] [place] [address] Dr. Katerina Rodarte UR MICRO IND NOT INDICATED Normal [facility] Comment on above: Performed By: #### C MREP #### [facility] [address] [address] [address] Katerina Rodarte Urobilinogen Qn (U) 0.2 {Markell'U}/dL Normal 0.2 - 1. 0 [facility] Comment on above: Performed By: #### C MREP #### [facility] [address] [address] [address] Katerina Rodarte ETHANOL (BLD ALC)on 08-10-20 ALC NOTE NOTE: 80 mg/dl is th e legal limit for a blood alcohol level Normal [facility] Comment on above: Performed By: #### L IPA, SUSAN, CMP, ETH, CMADM ####[facility] [address] [address]DrZiggy Rodarte Ethanol [Mass/Vol] 279 mg/dL Normal [facility] Comment on above: Performed By: #### L IPA, SUSAN, CMP, ETH, CMADM ####[facility] [address] [place], [place] [address]DrZiggy Rodarte LACTATE/LACTIC ACIDon 2021 Lactate [Moles/Vol] 1.3 mmol/L Normal 0.4-1.9 [facility] Comment on above: Performed By: #### C MREP #### [facility] [address] [place] [address] Dr. Katerina Rodarte LIPASEon 08-10-2022 Lipase [Catalytic activity/Vol] 114.0 U/L Normal 73.0-393.0 [facility] Comment on above: Performed By: #### L IPA, SUSAN, CMP, ETH, CMADM ####[facility] [address] [address]DrZiggy Rodarte PROF 14(COMP METB)on 022 Albumin [Mass/Vol] 3.4 g/dL Normal 3.4-5.0 [facility] Comment on above: Performed By: #### L IPA, SUSAN, CMP, ETH, CMADM ####[facility] [address] [address]DrZiggy Rodarte Albumin/Globulin [Mass ratio] 0.9 {ratio} Normal [facility] Comment on above: Performed By: #### L IPA, SUSAN, CMP, ETH, CMADM ####[facility] [address] [address]Dr. Katerina Rodarte ALP [Catalytic activity/Vol] 115 U/L Normal 46-116 [facility] Comment on above: Performed By: #### L IPA, SUSAN, CMP, ETH, CMADM ####[facility] [address] [address]Dr. Katerina Rodarte ALT [Catalytic activity/Vol] 23 U/L Normal 16-63 [facility] Comment on above: Performed By: #### L IPA, SUSAN, CMP, ETH, CMADM ####[facility] [address] [place], [place] [address]Dr. Katerina Rodarte Anion gap [Moles/Vol] 12.4 mmol/L Normal [facility] [place] Comment on above: Performed By: #### L IPA, SUSAN, CMP, ETH, CMADM ####[facility] [address] [place], [place] [address]Dr. Katerina Rodarte AST [Catalytic activity/Vol] 28 U/L Normal 15-37 [facility] Comment on above: Performed By: #### L IPA, SUSAN, CMP, ETH, CMADM ####[facility] [address] [address]Dr. Katerina Rodarte Bilirubin [Mass/Vol] 0.1 mg/dL Critically low 0.2-1.0 [facility] Comment on above: Performed By: #### L IPA, SUSAN, CMP, ETH, CMADM ####[facility] [address] [address]Dr. Katerina Rodarte Calcium [Mass/Vol] 8.0 mg/dL Critically low 8.5-10.1 [facility] [place] Comment on above: Performed By: #### L IPA, SUSAN, CMP, ETH, CMADM ####[facility] [address] [address]Dr. Katerina Rodarte Chloride [Moles/Vol] 103 mmol/L Normal 98-107 [facility] Comment on above: Performed By: #### L IPA, SUSAN, CMP, ETH, CMADM ####[facility] [address] [address]Dr. Katerina Rodarte CO2 [Moles/Vol] 27.3 mmol/L Normal 21.0-32.0 [facility] Comment on above: Performed By: #### L IPA, SUSAN, CMP, ETH, CMADM ####[facility] [address] [address]Dr. Katerina Rodarte Creatinine [Mass/Vol] 1.06 mg/dL Normal 0.70-1.30 [facility] Comment on above: Performed By: #### L IPA, SUSAN, CMP, ETH, CMADM ####[facility] [address] [address]Dr. Katerina Rodarte EGFR-AF CANADIAN >60 Normal >=60 [facility] Comment on above: Performed By: #### L IPA, SUSAN, CMP, ETH, CMADM ####[facility] [address] [place] [address]Dr. Katerina Rodarte EGFR-NON AF CANADIAN >60 Normal >=60 [facility] Comment on above: Performed By: #### L IPA, SUSAN, CMP, ETH, CMADM ####[facility] [address] [address]Dr. Katerina Rodarte Globulin (S) [Mass/Vol] 3.6 g/dL Normal [facility] Comment on above: Performed By: #### L IPA, SUSAN, CMP, ETH, CMADM ####[facility] [address] [place] [address]Dr. Katerina Rodarte Glucose [Mass/Vol] 79 mg/dL Normal 74-106 [facility] Comment on above: Performed By: #### L IPA, SUSAN, CMP, ETH, CMADM ####[facility] [address] [address]Dr. Katerina Rodarte Potassium [Moles/Vol] 3.7 mmol/L Normal 3.5-5.1 [facility] Comment on above: Performed By: #### L IPA, SUSAN, CMP, ETH, CMADM ####[facility] [address] [address]Dr. Katerina Rodarte Protein [Mass/Vol] 7.0 g/dL Normal 6.4-8.2 [facility] Comment on above: Performed By: #### L IPA, SUSAN, CMP, ETH, CMADM ####[facility] [address] [address]Dr. Katerina Rodarte Sodium [Moles/Vol] 139 mmol/L Normal 136-145 [facility] Comment on above: Performed By: #### L IPA, SUSAN, CMP, ETH, CMADM ####[facility] [address] [address]Dr. Katerina Rodarte Urea nitrogen [Mass/Vol] 11.0 mg/dL Normal 7.0-18.0 [facility] Comment on above: Performed By: #### L IPA, SUASN, CMP, ETH, CMADM ####[facility] [address] [place] [address]Dr. Katerina Rodarte Urea nitrogen/Creatinine [Mass ratio] 10.4 mg/mg Normal [facility] Comment on above: Performed By: #### L IPA, SUSAN, CMP, ETH, CMADM ####[facility] [address] [address]Dr. Katerina Rodarte PROTIMEon 08-10-2022 INR Coag (PPP) [Relative time] 0.98 {INR} Normal [facility] Comment on above: Performed By: #### P T #### [facility] [address] [address] [address] Katerina Rodarte INR GUIDELINES SEE BELOW Normal [facility] Comment on above: Result Comment: PEARL RED INR: 2.0 - 3.0 CONDITIONS NOT LISTED BELOW 2.5 - 3.5 FOR PROSTHETIC HEART VALVE REPLACEMENT 2.5 - 3.5 RECURRENT THROMBOSIS Performed By: #### P T #### [facility] [address] [address] [address] Katerina Rodarte PT Coag (PPP) [Time] 10.6 s Normal 9.0-11.6 [facility] Comment on above: Performed By: #### P T #### [facility] [address] [address] [address] Katerina Rodarte XR CHEST 1 Von [...] by: LUIS NEVES Date: 2022-08-10 21:58 Normal [facility] Social History Date Type Detail Facility Start: 10-08-2022 Tobacco smoking stat [facility] Smoker (finding) [facility] Start: 1975 Sex Assigned At Male F [facility] Vital Signs Date Time Vital Sign Value Performing Clinician Faci lity 10-08-2022 02:52-0500 Body height 177.8 cm DO Matthew Ford Work Phone: [facility] 10-08-2022 02:52-0500 Body temperature 97.4 [degF] DO Matthew Ford Work Phone: [facility] 10-08-2022 02:52-0500 Body weight 52.1 kg DO Matthew Ford Work Phone: [facility] 10-08-2022 02:52-0500 Diastolic blood pressure 68 mm[Hg] DO Matthew Ford Work Phone: [facility] 10-08-2022 02:52-0500 Heart rate 84 /min DO Matthew Ford Work Phone: [facility] 10-08-2022 02:52-0500 Respiratory rate 20 /min DO Matthew Ford Work Phone: [facility] 10-08-2022 02:52-0500 SaO2% (BldA) [Mass fraction] 96 % DO Matthew Ford Work Phone: [facility] 10-08-2022 02:52-0500 Systolic blood pressure 121 mm[Hg] DO Matthew Ford Work Phone: [facility] History and physical note 10-08-2022 Note Date & Type Note Facility 10-08-2022 History and physi julian note Note Date/Time October 08, 2022 1:19am [facility] [address] [place] [address] Hospitalist H&P Signed Patient: Aristides Clark MR#: [id number] : 1975 Acct:[id number] Age/Sex: 47 / M Adm Date: 2 Loc: Room: [address] [place] [address] Type: ADM IN Attending Dr: Matt Estrella [...] (3.90-5.60) 10/07/22 19:30 Hgb 13.1 g/dL (13.0-17.0) 10/07/22: Hct 39.5 % (38.8-50.0) 10/07/22: MCV 99.1 fl (83.5-101) 10/07/22: MCH 32.8 pg (27.5-35.2) 10/07/22: MCHC 33.1 g/dL (32.5-35.6) 10/07/22: RDW 14.6 % (12.0-14.8) 10/07/22: Plt Count 301 x10E3/uL (150-450) 10/07/22: MPV 7.7 fl (6.6-10.1) 10/07/22: Neut % (Auto) 33.0 % (.) 10/07/22 Lymph % (Auto) 45.8 % (.) 10/07/22: Aiken % (Auto) 11.8 % (.) 10/07/22: Eos % (Auto) 8.2 % (.) 10/07/22 Baso % (Auto) 1.2 % (.) 10/07/22 Neut # (Auto) 1.9 x10E3/uL (1.8-7.7) 10/07/22: Lymph # (Auto) 2.6 x10E3/uL (1.00-4.8) 10/07/22: Aiken # (Auto) 0.7 x10E3/uL (0.0-0.8) 10/07/22: Eos # (Auto) 0.5 x10E3/uL (0.0-0.45) H 10/07/22: Baso # (Auto) 0.1 x10E3/uL (0.0-0.2) 10/07/22 Nucleated RBC % (auto) 0.1 % (0-0.5) 10/07/22 PT 10.9 Seconds (9.0-12.9) 10/07/22: INR 1.0 10/07/22: PHA Creatinine Clear 64.68 10/07/22: Sodium 128 mmol/L (136-146) L 10/07/22 19:30 [...] signed by Matt Estrella DO> 10/08/22 0133 [facility] Work Phone: Evaluation note Note Date & Type Note Facility Evaluation note Diagnosis Onset Date Alcohol intoxication acute Polysubstance abuse acute Seizure disorder acute [facility] Work Phone: Summary Purpose Family [...] section and content) DATE CREATED AUTHOR 09/30/[address] [facility] DATE CREATED AUTHOR AUTHOR'S ORGANIZ ATION 02/10/2023 Melissa Quinones [facility] DATE CREATED AUTHOR AUTHOR'S ORGANIZ ATION 05/20/2023 [facility] DATE CREATED AUTHOR AUTHOR'S ORGANIZ ATION 12/14/2023 [facility] DATE CREATED AUTHOR AUTHOR'S ORGANIZ ATION 03/18/2024 [facility] Care Teams (unrecognized sec tion and content) Team Status: Active Member Role Status Dates Matthew Ford , Emergency Provider Active Nat Mera MD Primary [...] BE BASED ON THE PRIMARY CLINICAL RECORDS. [facility] [employer] provides no warranty or guarantee of the accuracy or completeness of information in this document.
--- NOTE | 2024-05-09 16:42 | XR_ITS ---
The [address] [address] Patient Name: KATHLEEN COOL MRN: [id number] date: 1975 Sex: M Assigned Patient Location: ER Current Patient Location: [facility] Accession/Order Number: [id number] Exam Date: 05/09/2024 16:38 Report Date: 05/09/2024 17:30 At the request of: CARON JOSEPH Procedure: XR chest 1V EXAMINATION: XR chest 1V, XR abdomen 1V, XR chest 1V 05/09/2024 2:27 PM PDT HISTORY: arrest COMPARISONS: Chest x-ray 05/08/2023. FINDINGS: Chest findings: Lines/tubes/other: Initial positioning of the endotracheal tube in the proximal right mainstem bronchus with subsequent retraction with the tip terminating 4.1 cm cranial to the luis antonio. Heart and mediastinum: The heart and the mediastinum are within normal limits for technique. Bones: No acute osseous abnormality. Lungs: Moderate patchy opacification of the left lung which persists after repositioning of the endotracheal tube. Pleura: There is no significant pleural effusion or pneumothorax. Other: None. Abdominal findings: Nonobstructive bowel gas pattern. Enteric tube terminates in the mid stomach. XR/XR chest 1V IMPRESSION: 1. The tip of the endotracheal tube after repositioning terminates 4.1 m cranial to the luis antonio. 2. Moderate opacification of the left lung likely representing residual atelectasis from right mainstem intubation. 3. Enteric tube terminates in the mid stomach. Electronically authenticated by: SACHIN VILLALBA Date: 05/09/2024 17:30
[2024-05-09] MEDS: TICAGRELOR 90 MG TABLET 180 MG PO (16:47)
--- NOTE | 2024-05-09 16:47 | XR_ITS ---
The [address] [address] Patient Name: KATHLEEN COOL MRN: [id number] date: 1975 Sex: M Assigned Patient Location: ER Current Patient Location: .[facility] Accession/Order Number: [id number] Exam Date: 05/09/2024 16:45 Report Date: 05/09/2024 17:30 At the request of: CARON JOSEPH Procedure: XR abdomen 1V EXAMINATION: XR chest 1V, XR abdomen 1V, XR chest 1V 05/09/2024 2:27 PM PDT HISTORY: arrest COMPARISONS: Chest x-ray 05/08/2023. FINDINGS: Chest findings: Lines/tubes/other: Initial positioning of the endotracheal tube in the proximal right mainstem bronchus with subsequent retraction with the tip terminating 4.1 cm cranial to the luis antonio. Heart and mediastinum: The heart and the mediastinum are within normal limits for technique. Bones: No acute osseous abnormality. Lungs: Moderate patchy opacification of the left lung which persists after repositioning of the endotracheal tube. Pleura: There is no significant pleural effusion or pneumothorax. Other: None. Abdominal findings: Nonobstructive bowel gas pattern. Enteric tube terminates in the mid stomach. XR/XR abdomen 1V IMPRESSION: 1. The tip of the endotracheal tube after repositioning terminates 4.1 m cranial to the luis antonio. 2. Moderate opacification of the left lung likely representing residual atelectasis from right mainstem intubation. 3. Enteric tube terminates in the mid stomach. Electronically authenticated by: SACHIN VILLALBA Date: 05/09/2024 17:30
[2024-05-09] MEDS: HEPARIN SODIUM (PORCINE) 5,000 UNIT/ML VIAL 3810.17999999999984 UNIT IV (16:48)
[2024-05-09] MEDS: HEPARIN SODIUM,PORCINE/D5W 25,000 UNIT/500 ML IV.SOLN 15.2409999999999997 UNIT IV (16:53)
--- NOTE | 2024-05-09 16:57 | ED.CPR2 ---
HPI - CPR General Chief Complaint: Cardiac Arrest/CPR Stated Complaint: Full Arrest History of Present Illness HPI Narrative: 49-year-old male to the emergency department with chief complaint of witnessed cardiac arrest. 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 He was found to have no pulse and CPR was initiated. EMS arrived and found him to be in a shockable rhythm. 2 shocks were delivered. They had a brief period of ROSC. 7 rounds of epinephrine prior to arrival. He remained without a pulse for EMS. History of polysubstance abuse with methadone clinic visit this morning. Related Data Home Medications ?Medication ?Instructions ?Recorded ?Confirmed metoprolol tartrate 50 mg tablet 50 mg PO Q12H 05/08/23 05/08/23 aspirin 81 mg tablet,delayed 81 mg PO DAILY 02/26/24 02/26/24 release gabapentin 300 mg capsule 300 mg PO TID 02/26/24 02/26/24 levetiracetam 500 mg tablet 500 mg PO BID 02/26/24 02/26/24 (Keppra) losartan 25 mg tablet (Cozaar) 25 mg PO DAILY 02/26/24 02/26/24 sertraline 50 mg tablet (Zoloft) 50 mg PO DAILY 02/26/24 02/26/24 Previous Rx's ?Medication ?Instructions ?Recorded nabumetone 750 mg tablet 750 mg PO BID PRN pain #14 tabs 12/14/23 Allergies Allergy/AdvReac Type Severity Reaction Status Date / Time Penicillins Allergy Intermediate Verified 06/14/23 21:31 Review of Systems ROS Status of ROS unobtainable due to medical condition [facility] Medical History (Updated 05/09/24 @ 17:12 by Deandre Crawford MD) Stroke ?I63.9 - Cerebral infarction, unspecified (ICD-10) Seizures ?R56.9 - Unspecified convulsions (ICD-10) Anemia ?D64.9 - Anemia, unspecified (ICD-10) Diabetes ?E11.9 - Type 2 diabetes mellitus without complications (ICD-10) Acid reflux ?K21.9 - Gastro-esophageal reflux disease without esophagitis (ICD-10) Asthma ?J45.909 - Unspecified asthma, uncomplicated (ICD-10) Myocardial infarction ?I21.9 - Acute myocardial infarction, unspecified (ICD-10) Surgical History (Updated 03/22/24 @ 13:46 by Kierra Francisco) History of facial surgery ?Z98.890 - Other specified postprocedural states (ICD-10) History of ankle surgery ?Z98.890 - Other specified postprocedural states (ICD-10) Social History Smoking status: Heavy tobacco smoker Examination Exam Primary Survey: Yes pulseless, Yes PEA, Yes bag valve mask and Yes ET tube General: Yes thin Head/Face: Yes other (No evidence of trauma. ) Eyes: Yes no periorbital swelling and Yes other (Mid responsive pupils. ) Neck: Yes supple and Yes other (No evidence of trauma) Chest: Yes intact to palpation and Yes other (No evidence of trauma) Circulation: Yes absent heart sounds, Yes absent peripheral pulse, Yes pallor and Yes mottling Respiratory: Yes equal breath sounds Gastrointestinal: Yes nondistended and Yes other (No evidence of trauma) Extremities: Yes intact to palpation and Yes other (No evidence of trauma) Skin: Yes no sign of injury MDM - Cardiac Arrest/CPR MDM Narrative Medical decision making narrative: 49-year-old male to the emergency department in cardiac arrest. Witnessed arrest while at work. PEA upon arrival. CPR was continued. See code chart for documentation. ROSC was obtained. EKG showed lateral STEMI. STEMI protocol initiated with HEMS and transfer to [facility] [employer] [facility]. Discussed the case with the on-call vegetable thinner Dr. Hayward who accepts the patient to the ED. He asked that heparin, Brilinta, aspirin to be delivered to the patient. Patient did suffer from bradycardia and hypotension. Fluid bolus given. He required to push dose epinephrine boluses for myself, 100 mcg and 50 mcg respectively. Epinephrine drip initiated and was titrated by myself at the bedside, We did consider the fact that he collapsed. There is no evidence of traumatic injury to the head. The benefits of obtaining the anticoagulant/antiplatelet bundle far outweigh the risks in this patient. Handoff was given to the HEMS team at the bedside. Differential Diagnosis Differential diagnosis: Likely acute myocardial infarction and cardiac arrest Lab Data Labs: Lab Results 05/09/24 Range/Units 16:15 WBC 6.3 (4.0-11.0) 10^3/uL RBC 3.32 L (4.70-6.10) 10^6/uL Hgb 10.6 L (14.0-18.0) g/dL Hct 34.2 L (42.0-54.0) % MCV 103.0 H (80.0-94.0) fL MCH 31.9 (25.9-34.0) pg MCHC 31.0 (29.9-35.2) g/dL RDW 13.9 (11.0-15.0) % Plt Count 95 L (150-450) 10^3/uL MPV 10.0 (9.5-13.5) fL Neut % (Auto) 46.7 (43.0-75.0) % Lymph % (Auto) 38.1 (20.5-60.0) % [place] % (Auto) 7.6 (1.7-12.0) % Eos % (Auto) 2.5 (0.9-7.0) % Baso % (Auto) 0.5 (0.2-2.0) % Neut # (Auto) 3.0 (1.4-6.5) 10^3/uL Lymph # (Auto) 2.4 (1.2-3.8) 10^3/uL [place] # (Auto) 0.5 (0.3-0.8) 10^3/uL Eos # (Auto) 0.2 (0.0-0.7) 10^3/uL Baso # (Auto) 0.0 (0.0-0.1) 10^3/uL Abs Immat Gran (auto) 0.29 H (0.00-0.03) 10^3/uL Imm/Tot Granulo (auto) 4.6 H (0.0-0.5) % Critical Care Time Critical Care Time Critical Care Time: Yes Total Critical Care Time: 60 Attestation: Critical Care Procedure Note Authorized and Performed by: Deandre Crawford DO Total critical care time: 60 min Due to a high probability of clinically significant, life threatening deterioration, the patient required my highest level of preparedness to intervene emergently and I personally spent this critical care time directly and personally managing the patient. This critical care time included obtaining a history; examining the patient; pulse oximetry; ordering and review of studies; arranging urgent treatment with development of a management plan; evaluation of patient's response to treatment; frequent reassessment; and, discussions with other providers. This critical care time was performed to assess and manage the high probability of imminent, life-threatening deterioration that could result in multi-organ failure. It was exclusive of separately billable procedures and treating other patients and teaching time. Please see MDM section and the rest of the note for further information on patient assessment and treatment. Discharge Plan Discharge Chief Complaint: Cardiac Arrest/CPR Clinical Impression: ST elevation (STEMI) myocardial infarction, Cardiac arrest Patient Disposition: [facility] Time of Disposition Decision: 17:12 Discharge location: [facility] [place] [employer] Condition: Critical Mode of Transportation: [employer] Prescriptions / Home Meds: No Action metoprolol tartrate 50 mg tablet 50 mg PO Q12H nabumetone 750 mg tablet 750 mg PO BID PRN (Reason: pain) Qty: 14 0RF sertraline [Zoloft] 50 mg tablet 50 mg PO DAILY aspirin 81 mg tablet,delayed release (DR/EC) 81 mg PO DAILY levetiracetam [Keppra] 500 mg tablet 500 mg PO BID losartan [Cozaar] 25 mg tablet 25 mg PO DAILY gabapentin 300 mg capsule 300 mg PO TID Print Language: Gabonese Referrals: MILES JERNIGAN [Primary Care Provider] - 1 week
[2024-05-09 17:00] LABS: INR 1.19; Prothrombin Time 12.4 sec (9.0-11.6)
[2024-05-09 17:04] LABS: Partial Thromboplastin Time 47.4 sec (22.3-36.2)
[2024-05-09 17:14] LABS: Allen Test POSITIVE (POSITIVE); Base Excess ABG -15.8 mmol/L (-2.0-2.0); HCO3 ABG 15.1 mmol/L (22.0-26.0)
[2024-05-09 17:15] LABS: Fractionated Inspired Oxygen 70 %; O2 Mode VENT; Puncture Site R BRACHIAL; Rate 16; Tidal Volume 400; Vent Mode AC
[2024-05-09 17:17] LABS: ABG PCO2 57.6 mmHg (35.0-45.0); pH ABG 7.027 (7.350-7.450)
[2024-05-09 17:43] LABS: Albumin Globulin Ratio 0.9; Albumin Level 2.7 g/dL (3.4-5.0); Alkaline Phosphatase 166 U/L (46-116); Anion Gap 28.1; BUN Creatinine Ratio 4.6; Bilirubin Total 1.4 mg/dL (0.2-1.0); Calcium 8.1 mg/dL (8.5-10.1); Carbon Dioxide 16.4 mmol/L (21.0-32.0); Chloride 97 mmol/L (98-107); Estimated GFR (African America 29 (>=60); Estimated GFR (Non-African Ame 24 (>=60); Glucose 203 mg/dL (74-106); Sodium 135 mmol/L (136-145); Total Protein 5.7 g/dL (6.4-8.2)
[2024-05-09 17:49] LABS: Alanine Aminotransferase 682 U/L (16-63); Aspartate Amino Transferase 1690 U/L (15-37); Potassium 6.5 mmol/L (3.5-5.1); Troponin I High Sensitivity 688.6 pg/mL (4.0-76.1)
== END 2024-05-09 17:38 | disposition short-term general hospital (02) ==
PROVIDERS: Emergency Provider Student in an Organized Health Care Education/Training Program; PCP Nurse Practitioner Family
DX: I46.9 Cardiac arrest, cause unspecified (principal); I21.4 Non-ST elevation (NSTEMI) myocardial infarction; R57.0 Cardiogenic shock; S00.91XA Abrasion of unspecified part of head, initial encounter; F17.200 Nicotine dependence, unspecified, uncomplicated; W19.XXXA Unspecified fall, initial encounter; F15.11 Other stimulant abuse, in remission
CPT/HCPCS: 36415; 36600; 71045; 74018; 80053; 82805; 83880; 84484; 85025; 85610; 85730; 92950; 93005; 96374; 96375; 99291; J0171; J1644